=== PATIENT | male | born 1960 | race Caucasian/White ===

== ENCOUNTER → 2021-03-29 07:59 | Outpatient (CLI) | payer MEDICARE, MEDICAID, SELFPAY ==
--- NOTE | 2021-03-29 08:04 | CT_ITS ---
STUDY: CT FACIAL BONES WITHOUT CONTRAST REASON FOR EXAM: Male, 60 years old. Pain and swelling RADIATION DOSAGE (If Supplied By Facility): CTDIvol = ( 25.01 ) mGy, DLP = ( 517.39 ) mGycm TECHNIQUE: The patient was scanned in a multi detector CT scanner. Sagittal and coronal images were reconstructed. Individualized dose optimization techniques were used for this CT. COMPARISON: None. FINDINGS: Normal soft tissue structures. The bones are diffusely demineralized. There are multiple areas of erosions around the roots of teeth on both halves of the mandible consistent with periodontitis. Dental consultation recommended. No CT evidence of erosions in the maxilla. There is no demonstrated nasal, or zygomatic arch fracture. No evidence of orbital or maxillary sinus fracture. The ethmoids are intact. No significant mucosal thickening in the paranasal sinuses. CT/Sinus/Facial Bone IMPRESSION: No demonstrated fracture or suspicious osseous lesion Periodontitis noted throughout the mandible, dental consultation recommended No significant soft tissue swelling or foreign body Electronically Signed: Fred Delvalle MD at 10:37 EDT , Service support ,
== END ==
PROVIDERS: PCP Family Medicine; Referring Provider Family Medicine; Visit Provider Family Medicine
DX: R22.0 Localized swelling, mass and lump, head (principal); R51.9 Headache, unspecified
CPT/HCPCS: 70486

== ENCOUNTER 2021-09-27 04:14 | Outpatient (REF) | payer SELFPAY | END 2021-09-27 23:59 | disposition short-term general hospital (02) | LOC: OLS.AHA 04:14 | PROVIDERS: PCP Family Medicine; Visit Provider Family Medicine | DX: Z51.81 Encounter for therapeutic drug level monitoring (principal); Z79.899 Other long term (current) drug therapy | CPT/HCPCS: 82140 ==

== ENCOUNTER 2021-11-11 21:16 | Inpatient (IN) | payer MEDICARE, MEDICAID, SELFPAY ==
[2021-11-11] VITALS (9 sets, daily range): BP systolic 125–149; BP diastolic 83–112; PULSE 70–85; RESP 16–24; TEMP 35.6–36.5; O2SAT 96–100; BMI 26.8
--- NOTE | 2021-11-11 21:24 | CM.ED ---
REGINA Note: REGINA called Oneida Roman [phone] who is listed as his guardian. The voice mail said that if it is an emergency press 0. SW pressed 0 and was transferred to [facility]. REGINA advised that patient was brought to the ED. Information was that he was a full arrest. Patient was being treated as a stroke alert. REGINA is calling for permission to treat. Terri PRATER
--- NOTE | 2021-11-11 21:28 | EKG12_ITS ---
Test Reason : AMS Blood Pressure : / mmHG Vent. Rate : 087 BPM Atrial Rate : 087 BPM P-R Int : 150 ms QRS Dur : 094 ms QT Int : 400 ms P-R-T Axes : 072 060 061 degrees QTc Int : 481 ms Normal sinus rhythm Low voltage QRS (Limb Leads) Prolonged QT Abnormal ECG Confirmed by ELAYNE CHILD, ARTEMIO ([id number]), book or script editor TINA SPRINGER ([id number]) on 11/14/2021 10:04:30 AM Referred By: ARLEEN Confirmed By:ARTEMIO HOLLY MD
--- NOTE | 2021-11-11 21:28 | CT_ITS ---
INDICATION: Neuro deficit, acute, stroke suspected EXAMINATION: CT BRAIN - CT Head Stroke Protocol W/O Contrast Injection TECHNIQUE: Multiple axial images were obtained of the head without intravenous contrast. A radiation dose optimization technique was used for this scan. IV Contrast dosage and agent: None. COMPARISON: Facial CT 02/27/2021. FINDINGS: BRAIN PARENCHYMA: No intra- or extra-axial hemorrhage. No intracranial mass or mass effect. Painter/white matter differentiation is maintained and there is no blurring of the basal ganglia. There is no hyperdense vessel. Posterior fossa structures are unremarkable. CSF SPACES: Appropriate for age. No hydrocephalus. Basal cisterns are uneffaced. CALVARIUM, SKULL BASE, PARANASAL SINUSES AND MASTOID AIR CELLS: There is some opacification of right maxillary sinus outflow tract and coastal thickening of the ethmoid sinuses. Right frontoethmoidal recess is partially opacified. Right nasal airway is also opacified. The sinus disease is new compared to prior CT face. No discrete lytic or blastic abnormalities. ORBITS: Evidence of remote bilateral orbital fractures medial ornelas and probable inferior right orbital wall fracture. ASPECTS Score for Acute Strokes: 10 CT/STROKE Brain/Head without Cont IMPRESSION: No acute intracranial pathology. Paranasal sinus disease. Remote orbital fractures. N.B. : The above Results were Read Back by Gerard Ramírez DO to Mohan Gallo MD, and understanding confirmed on 11/11/2021 22:03:17 (ET). Electronically Signed: Gerard Ramírez DO at 22:04 EDT ,
--- NOTE | 2021-11-11 21:34 | CM.ED ---
SW Note REGINA spoke to Razia Real at [facility]. She gave permission to treat to this senior copywriter and RN Folrentin Leiva. Razia said that any updates need to be called to [phone]. REGINA updated bird sitter and Registration. Terri PRATER
--- NOTE | 2021-11-11 21:35 | EX.ED.CRITCA ---
HPI History of Present Illness Chief Complaint: Neuro S/Sx Informant: EMS Narrative Narrative: History is severely limited. Patient is nonverbal. History comes through EMS. Per EMS, this patient was evidently found on the ground off of his bed. His roommate had called that something was wrong. He is at a alf facility. He had fallen onto the ground at some point. They found him to be unresponsive and the nursing facility staff started CPR. I do not know if they checked for respirations or pulse. When EMS arrived, they checked her pulse and he had a normal pulse and has been in normal sinus rhythm the entire time for them. However, he has still been minimally responsive verbally. But he is moving all extremities. There was suspicion of left facial droop and evidently nursing staff that they do not recall seeing any facial changes. For this reason he was also called in his possible stroke. He also had loss of stool and I think loss of bladder. I see that he is on Depakote but I do not see a history of seizure. However he has a history of traumatic brain injury and subdural. I do not know the year of this. I do not think this is a good TPA candidate. He has had a subdural, he had a fall today and is already had CPR. The only neurologic deficit that has ever been seen that is focal is the facial weakness. Patient has history of cardiac arrest reported on his sheet. He has schizophrenia, full diagnoses and meds are being put in the computer. I do not see any anticoagulation. He lives full-time at a skilled facility. [facility] Medical History Cardiac arrest Depression Diabetes Essential hypertension GERD (gastroesophageal reflux disease) Hyperlipidemia Ileus Open wound of abdominal wall Schizoaffective disorder Traumatic subdural hemorrhage Home Medications atorvastatin 10 mg DAILY 11/11/21 [History Last Taken Unknown] clozapine 100 mg DAILY 11/11/21 [History Last Taken Unknown] clozapine 300 mg PO BID 11/11/21 [History Last Taken Unknown] divalproex 250 mg PO TID 11/11/21 [History Last Taken Unknown] glycopyrrolate 2 mg DAILY 11/11/21 [History Last Taken Unknown] hydroxyzine HCl 50 mg DAILY 11/11/21 [History Last Taken Unknown] lactulose 20 g BID 11/11/21 [History Last Taken Unknown] metformin 1,000 mg PO BID 11/11/21 [History Last Taken Unknown] paliperidone [Invega] 3 mg PO DAILY 11/11/21 [History Last Taken Unknown] tamsulosin [Flomax] 0.4 mg PO QHS 11/11/21 [History Last Taken Unknown] tiotropium bromide [Spiriva with HandiHaler] 1 cap INHALATION DAILY 11/11/21 [History Last Taken Unknown] trazodone 50 mg PO DAILY 11/11/21 [History Last Taken Unknown] ziprasidone HCl [Geodon] 20 mg PO DAILY PRN 11/11/21 [History Last Taken Unknown] ziprasidone HCl [Geodon] 80 mg PO BID 11/11/21 [History Last Taken Unknown] Allergy/AdvReac Type Severity Reaction Status Date / Time benztropine Allergy PT UNSURE Verified 11/11/21 21:39 OF REACTION haloperidol [From Haldol] Allergy PT UNSURE Verified 11/11/21 21:39 OF REACTION Social History Smoking Status: Current every day smoker tobacco type: cigarettes ROS ROS ED ROS Narrative Review of systems is unobtainable other than the information placed in the history of present illness. Patient is acutely ill and nonverbal at this time. Review of Systems ROS Unobtainable: other Details: See above. EXAM Physical Exam Const Vital Signs: 11/11/21 21:18 11/11/21 21:28 11/11/21 21:37 Temperature 97.7 F L 97.5 F L Temperature Source Temporal Temporal Pulse Rate 70 84 Respiratory Rate 24 H 17 Blood Pressure 125/83 H 138/112 H Blood Pressure Mean 97 120 Pulse Ox 100 96 98 Oxygen Delivery Method Ambu-Bag Nasal Cannula Nasal Cannula Oxygen Flow Rate (L/min) 4 4 11/11/21 21:38 11/11/21 21:45 11/11/21 21:58 Temperature 97.7 F L 96.9 F L Temperature Source Temporal Temporal Pulse Rate 70 83 Respiratory Rate 24 H 19 H Blood Pressure 125/83 H 139/92 H Blood Pressure Mean 97 107 Pulse Ox 97 97 97 Oxygen Delivery Method Nasal Cannula Nasal Cannula Nasal Cannula Oxygen Flow Rate (L/min) 4 4 4 11/11/21 22:28 11/11/21 22:36 Temperature 96.4 F L 96.0 F L Temperature Source Core Core Pulse Rate 82 85 Respiratory Rate 16 18 Blood Pressure 149/102 H 147/99 H Blood Pressure Mean 117 115 Pulse Ox 98 96 Oxygen Delivery Method Room Air Nasal Cannula Oxygen Flow Rate (L/min) 4 Positive well nourished and well developed Constitutional Narrative: When I walk in the room patient is moving all extremities quite well and equally. He does have signs of light tamayo stool that was lost. He has moisture that could be stool or urine. I see no gross trauma. Ambo plate bag is placed on him and but he has 100% saturations with this. He has a pulse of about 70-75 on the monitor. Blood pressure 125/83. General Appearance ED: well developed HEENT HEENT Narrative: I do not see any gross trauma on his head that has developed at this time. normocephalic and atraumatic Eyes PERRL and EOMs intact bilaterally Eyes Narrative: Pupils are about 2-1/2 mm and are reactive. He is looking midpoint. When I call his name he does look over at me but he does not speak. To confrontation he seems to have some intact visual field. However, this exam is difficult. Neck supple Neck Narrative: No gross tenderness. No step-off. No subcu air. Chest Wall Chest Narrative: No chest wall crepitance is felt. No subcutaneous air. Resp Resp Narrative: Lungs are clear. Patient is breathing spontaneously. He is maintaining saturations at this time with oxygen through an Ambu bag that is held over him. We will see if we can wean off his oxygen. Cardio regular rate, regular rhythm and no murmurs GI non-tender and non-distended GI Narrative: Large well-healed central scar. No notable tenderness or distention. Palpation: soft Back/Spine no CVA tenderness Neuro Neuro Narrative: Patient is awake. He is breathing on his own. He is moving all extremities. He does look over at me. His eyes are spontaneously open somewhat. He does look over at me. When we talk to him he attempts to talk but makes incomprehensible sounds. He clearly withdraws from pain. I do not think he localizes pain. Total GCS 10. NIH stroke scale was extremely difficult to assess. He does get a score of 10. However, most of this is due to to decreased responsiveness. I am not seeing lateralizing signs. I see a scar in his right upper eyelid and appears to be a scar on his left upper lip. But I do not see true facial asymmetry. When he swallows both corners of his mouth arise. There is no differential in his face at rest. I do not see indication of a facial droop. 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 He states that the patient will talk and converse somewhat. But he is normally more alert than this. But the patient also has a history of hoarding drinks from other people in the facility and then he will drink them in a walk one time. 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 My suspicion is that the patient may have had a seizure but may have also just had unresponsive episode due to his severe hyponatremia. I did discuss the case with the stroke neurologist. They recommended to do a CTA just out of thoroughness. But this is not a TPA candidate. Since he is not actively seizing and we now have no documented seizure they recommended not doing 3% normal saline. We did give 0.9% normal saline. They did recommend Keppra precaution early until his sodium is up. Depakote level is low. Lactate area is just 2.0. Prolactin is up a little bit at 26.8. My suspicion is that this patient may have had a seizure due to severe hyponatremia. However, these are not continuing. There is no sign of seizure. There is no eye deviation. He will look at me when I say his name but I cannot get a lot more specific action out of him. His temperature was also slightly low at 96-97. We are warming him up as part of overall therapy. We have ordered a CTA but this is pending. Chest x-ray is also pending. Patient's vitals have been stable here. He is saturating fine. Blood pressure heart rate and respiratory rate are all good. I think this patient does need to come in the hospital. He will need his sodium slowly raised. I did start Keppra as recommended by neurology. It is possible that this patient is hyponatremic due to psychogenic polydipsia. However this is not certain at this time. I did discuss the case with hospitalist. Lab Data Attestation: I reviewed the patient's lab results. Labs: Laboratory Results - last 24 hr 11/11/21 11/11/21 11/11/21 21:22 21:22 21:22 WBC 9.0 RBC 3.93 L Hgb 12.0 L Hct 34.0 L MCV 86.5 MCH 30.5 MCHC 35.3 RDW Std Deviation 43.8 RDW Coeff of Zane 13.7 Plt Count 202 MPV 9.7 Immature Gran % (Auto) 0.400 Neut % (Auto) 71.4 H Lymph % (Auto) 19.0 Rhea % (Auto) 7.9 Eos % (Auto) 0.9 Baso % (Auto) 0.4 Absolute Neuts (auto) 6.4 Absolute Lymphs (auto) 1.70 Nucleated RBC % 0 PT 13.4 INR 1.1 APTT 32.1 Sodium 115 L* Potassium 3.7 Chloride 78 L Carbon Dioxide 26.0 Anion Gap 11 BUN 5 L Creatinine 0.62 L Estim Creat Clear Calc 124.11 Est GFR (MDRD) Af Amer 169 Est GFR (MDRD) Non-Af 140 BUN/Creatinine Ratio 8.0 L Glucose 128 H Lactic Acid Calcium 7.4 L Total Bilirubin 0.40 AST 18 ALT 16 Alkaline Phosphatase 59 Troponin I High Sens 6 Total Protein 5.5 L Albumin 2.8 L Globulin 2.7 Albumin/Globulin Ratio 1.0 Prolactin 26.8 Valproic Acid POC Glucose 11/11/21 11/11/21 11/11/21 21:22 21:27 21:55 WBC RBC Hgb Hct MCV MCH MCHC RDW Std Deviation RDW Coeff of Zane Plt Count MPV Immature Gran % (Auto) Neut % (Auto) Lymph % (Auto) Rhea % (Auto) Eos % (Auto) Baso % (Auto) Absolute Neuts (auto) Absolute Lymphs (auto) Nucleated RBC % PT INR APTT Sodium Potassium Chloride Carbon Dioxide Anion Gap BUN Creatinine Estim Creat Clear Calc Est GFR (MDRD) Af Amer Est GFR (MDRD) Non-Af BUN/Creatinine Ratio Glucose Lactic Acid 2.0 Calcium Total Bilirubin AST ALT Alkaline Phosphatase Troponin I High Sens Total Protein Albumin Globulin Albumin/Globulin Ratio Prolactin Valproic Acid 36 L POC Glucose 160 H Radiography Diagnostic Testing: Clinical Impression(s) from Imaging Studies Brain CT 11/11/21 21:28 IMPRESSION: No acute intracranial pathology. Paranasal sinus disease. Remote orbital fractures. N.B. : The above Results were Read Back by Gerard Ramírez DO to Mohan Gallo MD, and understanding confirmed on 11/11/2021 22:03:17 (ET). Electronically Signed: Gerard Ramírez DO at 22:04 EDT , ADDENDUM: 11/11/212210 IMPRESSION: No acute intracranial pathology. Paranasal sinus disease. Remote orbital fractures. N.B. : The above Results were Read Back by Gerard Ramírez DO to Mohan Gallo MD, and understanding confirmed on 11/11/2021 22:03:17 (ET). Electronically Signed: Gerard Ramírez DO at 22:04 EDT , EKG Initial EKG: Comments: EKG done with history of CPR. EKG read by me shows normal sinus rhythm with a rate of 87. No ventricular ectopy. No acute ST elevation or depression. AR interval, QRS duration are normal. QTc is slightly long at 481 ms. Critical Care Time Critical Care Time: Yes Critical care time (excluding procedures): 30-74 minutes, Discussing w/Consultants, Arranging Admission or Transfer, Performing Direct Patient Care at Bedside and - (See MDM. Multiple rechecks, altering therapy, discussion with hospitalist and neurologist, improvement.) Discharge Plan Dx/Rx/DC Orders Clinical Impression: Acute hyponatremia, History of successful cardiopulmonary resuscitation, Elevated lactic acid level, Elevated prolactin level Disposition Disposition: Acute Care [facility]
[2021-11-11 21:37] LABS: Absolute Neutrophil Count 6.4 X10^3/uL (2.0-7.7); Basophil# 0.04 X10^3/uL; Basophil% 0.4 % (0-1); Eosinophil# 0.08 X10^3/uL; Eosinophils% 0.9 % (0-5); Mean Corp Hgb Conc 35.3 g/dL (32-36); Mean Corpuscular Hgb 30.5 pg (27.0-32.0); Mean Corpuscular Volume 86.5 fL (80-94); Mean Platelet Vol. 9.7 fl (6.2-12.0); Monocyte# 0.71 X10^3/uL; Monocyte% 7.9 % (0-10); NRBC Flagged by Analyzer 0 % (0-5); Neutrophil % 71.4 % (47-70); Platelet Count 202 K/mm3 (150-450); RBC Distribution Width CV 13.7 % (11.6-14.6); RBC Distribution Width SD 43.8 fl (35.1-43.9); Red Blood Count 3.93 M/mm3 (4.6-6.2)
[2021-11-11 21:41] LABS: International Normalized Ratio 1.1; Prothrombin Time (Protime)PT. 13.4 SECONDS (11.7-14.9)
[2021-11-11 21:42] LABS: Partial Thromboplast Time 32.1 Seconds (24.1-36.2)
--- NOTE | 2021-11-11 21:50 | ED.RN ---
Addendum entered by Dianne Ramírez 11/11/21 21:52: pt also in restraints for combativeness for pt and staff safety. see NIH on arrival, unable to fully complete. Original Note: on arrival to ED pt was not able to go straight to CT scan, d/t needing to secure and protect airway. being bagged on arrival and agonal breathing. now on 4L NC, minimally responding. incontinent of stool prior to CT scan, and vomitting.
[2021-11-11 21:51] LABS: Bedside Glucose 160 mg/dL (74-106)
[2021-11-11 21:54] LABS: Valproic Acid (Depakene) Level 36 ug/mL (50-100)
[2021-11-11 21:58] LABS: AST(SGOT) 18 U/L (15-37); Alanine Aminotransfer ALT/SGPT 16 U/L (16-61); Albumin, Serum 2.8 g/dL (3.2-5.0); Alkaline Phosphatase 59 U/L (45-117); Anion Gap 11 (5-15); BUN 5 mg/dL (7-18); Calcium,Total 7.4 mg/dL (8.5-10.1); Chloride 78 mmol/L (98-107); Creatinine, Serum 0.62 mg/dL (0.70-1.30); EST Glomerular Filtration Rate 140 mL/min (>60); Est Glom Filt Rate - Afr Amer 169 mL/min (>60); Estimated Creatinine Clearance 124.11 ml/min; Globulin 2.7 g/dL (2.2-4.2); Glucose 128 mg/dL (74-106); Potassium 3.7 mmol/L (3.5-5.1); Prolactin 26.8 ng/mL; Protein, Total 5.5 g/dL (6.4-8.2); Sodium Level 115 mmol/L (136-145); Troponin-I HS 6 pg/mL (3.0-78.0)
[2021-11-11] MEDS: Ondansetron 4 MG/2 ML Vial IV (21:59)
--- NOTE | 2021-11-11 22:09 | CT_ITS ---
EXAM: CT ANGIOGRAPHY HEAD AND NECK WITH INTRAVENOUS CONTRAST CLINICAL INDICATION: Neuro deficit, acute, stroke suspected TECHNIQUE: [place]/head and neck CT angiography protocol performed with intravenous contrast. CTDIvol = ( 22.08 ) mGy, DLP = ( 632.71 ) mGycm This CT exam was performed using one or more of the following dose reduction techniques: automated exposure control, adjustment of the mA and/or kV according to patient size, and/or use of iterative reconstruction technique. This report was created using [employer] report generation technology. MIP reconstructed images were created and reviewed. CONTRAST: IV 100mL [id number] COMPARISON: None. FINDINGS: HEAD: RIGHT ANTERIOR CEREBRAL ARTERY: Unremarkable. No significant stenosis at the visualized segments. Anterior communicating artery is present. No aneurysm. RIGHT MIDDLE CEREBRAL ARTERY: Unremarkable. No significant stenosis at the visualized segments. No aneurysm. RIGHT POSTERIOR CEREBRAL ARTERY: Unremarkable. No occlusion or significant stenosis. No aneurysm. RIGHT INTRACRANIAL INTERNAL CAROTID ARTERY: Unremarkable. No significant stenosis. No dissection or occlusion. RIGHT INTRACRANIAL VERTEBRAL ARTERY: Unremarkable. No significant stenosis. No dissection or occlusion. LEFT ANTERIOR CEREBRAL ARTERY: Unremarkable. No significant stenosis at the visualized segments. No aneurysm. LEFT MIDDLE CEREBRAL ARTERY: Unremarkable. No significant stenosis at the visualized segments. No aneurysm. LEFT POSTERIOR CEREBRAL ARTERY: Unremarkable. No occlusion or significant stenosis. No aneurysm. LEFT INTRACRANIAL INTERNAL CAROTID ARTERY: Unremarkable. No significant stenosis. No dissection or occlusion. LEFT INTRACRANIAL VERTEBRAL ARTERY: Unremarkable. No significant stenosis. No dissection or occlusion. BASILAR ARTERY: Unremarkable. No significant stenosis. No aneurysm. GREAT VESSELS OF AORTIC ARCH: Unremarkable. Normal anatomy, patent. OTHER VASCULATURE: No significant stenosis, thrombosis, aneurysm or dissection. No vascular malformation. BRAIN AND EXTRA-AXIAL SPACES: Diffuse parenchymal atrophy and chronic ischemic small vessel white matter disease without midline shift or hydrocephalus. SINUSES: Mild scattered paranasal sinus mucosal thickening. NECK: Atherosclerotic calcification along the right greater than left carotid siphon with no more than mild luminal narrowing. RIGHT COMMON CAROTID ARTERY: Unremarkable. No significant stenosis. No dissection or occlusion. RIGHT EXTRACRANIAL INTERNAL CAROTID ARTERY: Unremarkable. No significant stenosis. No dissection or occlusion. RIGHT EXTERNAL CAROTID ARTERY: Unremarkable. No occlusion. RIGHT EXTRACRANIAL VERTEBRAL ARTERY: Unremarkable. No significant stenosis. No dissection or occlusion. LEFT COMMON CAROTID ARTERY: Unremarkable. No significant stenosis. No dissection or occlusion. LEFT EXTRACRANIAL INTERNAL CAROTID ARTERY: Unremarkable. No significant stenosis. No dissection or occlusion. LEFT EXTERNAL CAROTID ARTERY: Unremarkable. No occlusion. LEFT EXTRACRANIAL VERTEBRAL ARTERY: Unremarkable. No significant stenosis. No dissection or occlusion. THYROID: Calcified 9 mm nodule involving the left thyroid lobe. Noncalcified hypodense nodule measuring 1 cm involving the right thyroid lobe. These can be further investigated with ultrasound. LUNG APICES: Unremarkable as visualized. HEAD and NECK: BONES/JOINTS: Unremarkable. No discrete lytic or blastic abnormalities. SOFT TISSUES: Unremarkable. CAROTID STENOSIS REFERENCE USING NASCET CRITERIA: % ICA stenosis = (1 - narrowest ICA diameter/diameter of distal cervical ICA) x 100. Mild - <50% stenosis. Moderate - 50-69% stenosis. Severe - 70-94% stenosis. Near occlusion - 95-99% stenosis. Occluded - 100% stenosis. CT/STROKE CTA Head AND Neck W/Con IMPRESSION: 1. No significant stenosis, thrombosis, aneurysm or dissection. 2. Thyroid nodules as above. N.B. : The above Results were Read Back by John Willson MD to Lolly Cruz NP, and understanding confirmed on 11/12/2021 00:14:05 (ET). Electronically Signed: John Willson MD at 0:11 EDT ,
[2021-11-11] MEDS: 0.9% Normal Saline 1,000 ML 999 ML IV (22:18)
[2021-11-11] MEDS: levETIRAcetam IV 1,000 MG/100 ML BAG 400 MG IV ×2 (22:18→23:03)
--- NOTE | 2021-11-11 22:39 | ED.RN ---
lactate 2.0 called from lab. aware.
--- NOTE | 2021-11-11 22:41 | ED.RN ---
Called channel supervisor for guy burks and Dr Gallo is aware. Warm blankets applied. Will monitor,
--- NOTE | 2021-11-11 23:26 | PCM.HP.STD ---
HPI - General General Date of Admission: 11/11/21 HPI Narrative RANI DELEON, is a 61 M with a significant history of schizophrenia and traumatic brain injury who [facility] presenting with unresponsiveness. Reportedly patient roommates found patient on the floor near the bathroom. Patient's roommate informed nurses who checked on patient and found patient to be unresponsive. CPR was initiated. However it is unclear whether patient indeed lost his pulse and was not breathing. Reported when paramedics arrived CPR was not continued. Reportedly when patient was found patient had lost his bowel and bladder. Patient is on Depakote. 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 Emergent department doctor reported that upon urinary catheterization at the emergency department, patient had abut 1,800ml of urine. History was taken from emergency department doctor and psych nurse who was at the bedside. [facility]LY [facility], LATER [facility] Medical History Cardiac arrest Depression Diabetes Essential hypertension GERD (gastroesophageal reflux disease) Hyperlipidemia Ileus Open wound of abdominal wall Schizoaffective disorder Traumatic subdural hemorrhage Home Medications atorvastatin 10 mg DAILY 11/11/21 [History Last Taken Unknown] clozapine 100 mg DAILY 11/11/21 [History Last Taken Unknown] clozapine 300 mg PO BID 11/11/21 [History Last Taken Unknown] divalproex 250 mg PO TID 11/11/21 [History Last Taken Unknown] glycopyrrolate 2 mg DAILY 11/11/21 [History Last Taken Unknown] hydroxyzine HCl 50 mg DAILY 11/11/21 [History Last Taken Unknown] lactulose 20 g BID 11/11/21 [History Last Taken Unknown] metformin 1,000 mg PO BID 11/11/21 [History Last Taken Unknown] paliperidone [Invega] 3 mg PO DAILY 11/11/21 [History Last Taken Unknown] tamsulosin [Flomax] 0.4 mg PO QHS 11/11/21 [History Last Taken Unknown] tiotropium bromide [Spiriva with HandiHaler] 1 cap INHALATION DAILY 11/11/21 [History Last Taken Unknown] trazodone 50 mg PO DAILY 11/11/21 [History Last Taken Unknown] ziprasidone HCl [Geodon] 20 mg PO DAILY PRN 11/11/21 [History Last Taken Unknown] ziprasidone HCl [Geodon] 80 mg PO BID 11/11/21 [History Last Taken Unknown] Allergy/AdvReac Type Severity Reaction Status Date / Time benztropine Allergy PT UNSURE Verified 11/11/21 21:39 OF REACTION haloperidol [From Haldol] Allergy PT UNSURE Verified 11/11/21 21:39 OF REACTION Family History unable to obtain unable to obtain (Secondary to encephalopathy) Surgical History unable to obtain unable to obtain (secondary to encephalopathy) Social History Smoking Status: Current every day smoker tobacco type: cigarettes ROS ROS Narrative Pertinent positives and pertinent negatives that could be provided by patient's facility nurse is as noted in HPI. All other systems were reviewed patient's nurse did not know or they were negative. Review of Systems ROS Unobtainable: due to mental condition and other Details: Pertinent positives and pertinent negatives that could be provided by patient's facility nurse is as noted in HPI. All other systems were reviewed patient's nurse did not know or they were negative. Vital Signs Vital Signs Vital Signs: 11/11/21 21:18 11/11/21 21:28 11/11/21 21:37 Temperature 97.7 F L 97.5 F L Temperature Source Temporal Temporal Pulse Rate 70 84 Respiratory Rate 24 H 17 Blood Pressure 125/83 H 138/112 H Blood Pressure Mean 97 120 Pulse Ox 100 96 98 Oxygen Delivery Method Ambu-Bag Nasal Cannula Nasal Cannula Oxygen Flow Rate (L/min) 4 4 11/11/21 21:38 11/11/21 21:45 11/11/21 21:58 Temperature 97.7 F L 96.9 F L Temperature Source Temporal Temporal Pulse Rate 70 83 Respiratory Rate 24 H 19 H Blood Pressure 125/83 H 139/92 H Blood Pressure Mean 97 107 Pulse Ox 97 97 97 Oxygen Delivery Method Nasal Cannula Nasal Cannula Nasal Cannula Oxygen Flow Rate (L/min) 4 4 4 11/11/21 22:28 11/11/21 22:36 11/11/21 23:19 Temperature 96.4 F L 96.0 F L 96.5 F L Temperature Source Core Core Core Pulse Rate 82 85 79 Respiratory Rate 16 18 18 Blood Pressure 149/102 H 147/99 H 138/97 H Blood Pressure Mean 117 115 110 Pulse Ox 98 96 99 Oxygen Delivery Method Room Air Nasal Cannula Nasal Cannula Oxygen Flow Rate (L/min) 4 4 Weight Weight: 80 kg Body Mass Index (BMI) 26.8 Physical Exam Narrative Physical exam: General: Well-nourished, well-developed. Head: Normocephalic, no tenderness Eyes: Eyes closed; does not open eyes. Neck: Nontender, no spinal tenderness, deformities, step-off CVS: Regular rate and rhythm. S1-S2 present. No murmur, gallop or rub. Respiratory : clear to auscultation bilaterally, chest wall nontender, no wheezing Abdomen: Soft, nontender, nondistended, normal bowel sounds, no masses : Deferred Back: Nontender, no CVA tenderness, no midline spinal tenderness, deformities, step-offs Extremities: Nontender; no edema Skin: Normal color, no trauma, abrasions Neuro: Obtunded; respond to sternal rub by moaning and throwing extremities around Psychiatry:Obtunded. Results Lab / Micro Data Result Diagrams: 11/11/21 21:22 11/11/21 21:22 Labs: Laboratory Results - last 24 hr 11/11/21 21:22: WBC 9.0, RBC 3.93 L, Hgb 12.0 L, Hct 34.0 L, MCV 86.5, MCH 30.5, MCHC 35.3, RDW Std Deviation 43.8, RDW Coeff of Zane 13.7, Plt Count 202, MPV 9.7, Immature Gran % (Auto) 0.400, Neut % (Auto) 71.4 H, Lymph % (Auto) 19.0, [place] % (Auto) 7.9, Eos % (Auto) 0.9, Baso % (Auto) 0.4, Absolute Neuts (auto) 6.4, Absolute Lymphs (auto) 1.70, Nucleated RBC % 0 11/11/21 21:: PT 13.4, INR 1.1, APTT 32.1 11/11/21 21:22: Sodium 115 L*, Potassium 3.7, Chloride 78 L, Carbon Dioxide 26.0, Anion Gap 11, BUN 5 L, Creatinine 0.62 L, Estim Creat Clear Calc 124.11, Est GFR (MDRD) Af Amer 169, Est GFR (MDRD) Non-Af 140, BUN/Creatinine Ratio 8.0 L, Glucose 128 H, Calcium 7.4 L, Total Bilirubin 0.40, AST 18, ALT 16, Alkaline Phosphatase 59, Troponin I High Sens 6, Total Protein 5.5 L, Albumin 2.8 L, Globulin 2.7, Albumin/Globulin Ratio 1.0, Prolactin 26.8 11/11/21 21:22: Valproic Acid 36 L 11/11/21 21:27: POC Glucose 160 H 11/11/21 21:55: Lactic Acid 2.[address] 11/11/21 21:28 IMPRESSION: No acute intracranial pathology. Paranasal sinus disease. Remote orbital fractures. N.B. : The above Results were Read Back by Gerard Ramírez DO to Mohan Gallo MD, and understanding confirmed on 11/11/2021 22:03:17 (ET). Electronically Signed: Gerard Ramírez DO at 22:04 EDT , ADDENDUM: 11/11/212210 IMPRESSION: No acute intracranial pathology. Paranasal sinus disease. Remote orbital fractures. N.B. : The above Results were Read Back by Gerard Ramírez DO to Mohan Gallo MD, and understanding confirmed on 11/11/2021 22:03:17 (ET). Electronically Signed: Gerard Ramírez DO at 22:04 EDT , Assessment & Plan Assessment/Plan (1) Acute hyponatremia: (2) Encephalopathy acute: (3) Seizures: PLAN: Acute encephalopathy Brain CT was visualized and independently interpreted and agree radiologist interpretation above. Per neurology recommendation CTA was ordered emergency department, follow. Likely from seizures or hyponatremia Admitting intensive care unit Make patient n.p.o. and hold all medication including psychotropic medications and trazodone. Treatment as below. Hyponatremia Sodium on presentation was 115. Emergency plan doctor discussed the case with neurology who advised against hypertonic saline. Patient received normal saline infusion emergency department. Normal saline infusion will be continued. Serial BMPs ordered. Check uric acid Check urine osmolarity Check urine sodium Check serum osmolality Suspected seizures Received Keppra at the emergency department and continued. Will start patient on normal saline. Check EEG. Diabetes mellitus Patient with mild hyperglycemia on presentation Hold Metformin. Accu-Chek every 6 hours with correction scale insulin ordered DVT prophylaxis SCD. Charges/Coding Visit Charges Inpatient E&M: 61679 Init Hosp L3
--- NOTE | 2021-11-11 23:42 | RAD_ITS ---
EXAM: XR CHEST, 1 VIEW CLINICAL INDICATION: Neuro deficit, acute, stroke suspected TECHNIQUE: Frontal view of the chest. This report was created using [employer] report generation technology. COMPARISON: None. FINDINGS: LUNGS AND PLEURAL SPACES: Elevated left hemidiaphragm. Subsegmental atelectasis and/or scarring at the left base. No consolidation. No pleural effusion or pneumothorax. HEART: Unremarkable. Cardiac silhouette not enlarged. MEDIASTINUM: Central airways and mediastinal contour are unremarkable. BONES/JOINTS: Degenerative changes of the acromioclavicular joints and spine. Multiple old healed left rib fractures. SOFT TISSUES: Unremarkable. VASCULATURE: Atherosclerotic calcifications of the nonenlarged thoracic arch. RAD/Chest 1 View IMPRESSION: No acute disease. Electronically Signed: John Willson MD at 0:26 EDT ,
[2021-11-12] VITALS (35 sets, daily range): BP systolic 109–140; BP diastolic 74–111; PULSE 71–106; RESP 12–93; TEMP 35.9–37.7; O2SAT 90–100; BMI 22.1
[2021-11-12] MEDS: 0.9% Normal Saline 1,000 ML 75 ML IV (00:50)
[2021-11-12] MEDS: Ziprasidone IM 20 MG/ML VIAL IM (02:15)
[2021-11-12 02:17] LABS: Reflex Lactate? Y
[2021-11-12 05:46] LABS: Specific Gravity, Body Fluid 1.009
[2021-11-12 05:49] LABS: Absolute Lymphocyte Count 1.51 X10^3/uL (0.83-4.51); Absolute Neutrophil Count 12.3 X10^3/uL (2.0-7.7); Basophil# 0.03 X10^3/uL; Basophil% 0.2 % (0-1); Eosinophil# 0.08 X10^3/uL; Eosinophils% 0.5 % (0-5); Hemoglobin 13.5 g/dL (13.0-16.5); Lymphocyte # 1.51 X10^3/ul (0.83-4.51); Lymphocyte % 10.2 % (19-41); Mean Corp Hgb Conc 35.5 g/dL (32-36); Mean Corpuscular Hgb 30.3 pg (27.0-32.0); Mean Corpuscular Volume 85.2 fL (80-94); Mean Platelet Vol. 9.9 fl (6.2-12.0); Monocyte# 0.83 X10^3/uL; Monocyte% 5.6 % (0-10); NRBC Flagged by Analyzer 0 % (0-5); Neutrophil # 12.34 X10^3/uL (2.7-7.7); Neutrophil % 83.2 % (47-70); Platelet Count 258 K/mm3 (150-450); RBC Distribution Width CV 13.7 % (11.6-14.6); RBC Distribution Width SD 42.6 fl (35.1-43.9); Red Blood Count 4.46 M/mm3 (4.6-6.2); White Blood Count 14.8 K/mm3 (4.4-11.0)
[2021-11-12 05:55] LABS: Anion Gap 7 (5-15); BUN 5 mg/dL (7-18); BUN/Creat Ratio 9.8 RATIO (10-20); Chloride 94 mmol/L (98-107); Cholesterol 97 mg/dL (200); Creatinine, Serum 0.51 mg/dL (0.70-1.30); EST Glomerular Filtration Rate 176 mL/min (>60); Est Glom Filt Rate - Afr Amer 213 mL/min (>60); Estimated Creatinine Clearance 150.44 ml/min; Glucose 113 mg/dL (74-106); High Density Lipoprotein 60 mg/dL; Potassium 3.6 mmol/L (3.5-5.1); Sodium Level 130 mmol/L (136-145); Triglycerides 69 mg/dL; Very Low Density Lipoprotein 14 mg/dL (5-40)
[2021-11-12 06:49] LABS: Osmolality, Serum 251 mOsm/KG (275-295); Osmolality, Urine 101 mOsm/KG
[2021-11-12 06:54] LABS: Urine Sodium 39 mmol/L (Not Establ.)
--- NOTE | 2021-11-12 06:56 | CON.PCM.CC_ITS ---
Assessment & Plan Assessment/Plan (1) Acute hyponatremia: (2) Encephalopathy acute: (3) Seizures: PLAN: RECOMMENDATIONS: 1. Discontinue IV fluids 2. Water deprivation test for 8 hours with Osm studies 3. Continue to monitor BMPs 4. Empiric antibiotics for aspiration pneumonia 5. Attempt to discontinue restraints later today 6. Bedside swallow eval. Reinitiate baseline psychiatric meds 7. Continue work-up for central lesion as ordered IMPRESSIONS: 1. Acute hyponatremia with polyuria and possible seizure Patient with significant urine output over the course of the hospitalization. Patient does not have significant hyperglycemia to suggest an osmotic diuresis. Urine awesome's are very low, along with serum awesome's. Patient did have some hypokalemia, so potassium has been ordered. Patient did not have significant hypercalcemia. Psychogenic polydipsia and diabetes insipidus would be other possible etiologies. Patient should have a water deprivation test for 8 hours. If not improving, trial of DDAVP would be appropriate to evaluate for diabetes insipidus. Patient did receive Keppra in the ED, but this is unlikely to affect hyponatremic seizures. Work-up for secondary cause has been unremarkable. Cortisol level is appropriately elevated. MRI is pending. 2. Diabetes mellitus/schizoaffective disorder/history of TBI/hyperlipidemia/hypertension Complicates care, management, recovery and prognosis. Blood sugars are only mildly elevated at this time. Check bedside swallow evaluation. Patient likely should be continued on psychogenic medications given behavioral issues in the past. Patient currently is in two-point restraints, but will try to discontinue later today if behavior improves. HPI Consult Data Date of Consult: 11/12/21 HPI Narrative HPI Narrative: RANI DELEON is a 61 M, with past medical history listed below, who presents to [facility] from a skilled nursing secondary to decreased responsiveness. Patient reportedly had been found by his roommate unresponsive on the floor. Nursing staff reportedly started CPR immediately, but when EMS arrived patient reportedly had a pulse and was in normal sinus rhythm. However, they had noted that he was minimally responsive, but moving all extremities. There was some concern of a left facial droop, so the stroke team was activated. Patient reportedly had loss of bowel and bladder. Patient reportedly has a history of traumatic brain injury and a subdural hematoma, but no seizure history. Patient does have a history of schizophrenia requiring antipsychotics at baseline. In the ER, patient was afebrile and normotensive. Patient was requiring 4 L nasal cannula initially to maintain saturations. Laboratory work-up showed a white blood cell count of 9, hemoglobin of 12 and INR of 1.1. Sodium was low at 115 and glucose was 128. LFTs were unremarkable. Lactate was 2 and valproic level was 36. A CT of the head was unremarkable for acute pathology and EKG showed a slightly long QTC at 481. The patient was placed on normal saline and admitted to the intensive care unit. Patient was transiently in four-point restraints secondary to agitation. Since being in the intensive care unit, patient has become more responsive. There was some concern for a rash on his neck along with associated swelling. Patient did not receive any Benadryl or prednisone, but had not reported any significant progression. There was a discussion of emesis with possible aspiration prior to the ICU and nursing was concerned about possible respiratory difficulties. Patient is also put out over 9 L of urine since admission. Patient was initially on IV fluids at 75 cc an hour, but this was discontinued when the sodium came back at 130. No seizure activity has been noted in the intensive care unit. Unable to obtain a surgical, social or family history secondary to mental status. Review of systems otherwise negative from a constitutional, HEENT, respiratory, cardiovascular, GI, genitourinary, musculoskeletal, skin, neurologic, psychiatric and hematologic system unless stated above. [facility] Medical History Cardiac arrest Depression Diabetes Essential hypertension GERD (gastroesophageal reflux disease) Hyperlipidemia Ileus Open wound of abdominal wall Schizoaffective disorder Traumatic subdural hemorrhage Home Medications atorvastatin 10 mg DAILY 11/11/21 [History Last Taken Unknown] clozapine 100 mg DAILY 11/11/21 [History Last Taken Unknown] clozapine 300 mg PO BID 11/11/21 [History Last Taken Unknown] divalproex 250 mg PO TID 11/11/21 [History Last Taken Unknown] glycopyrrolate 2 mg DAILY 11/11/21 [History Last Taken Unknown] hydroxyzine HCl 50 mg DAILY 11/11/21 [History Last Taken Unknown] lactulose 20 g BID 11/11/21 [History Last Taken Unknown] metformin 1,000 mg PO BID 11/11/21 [History Last Taken Unknown] paliperidone [Invega] 3 mg PO DAILY 11/11/21 [History Last Taken Unknown] tamsulosin [Flomax] 0.4 mg PO QHS 11/11/21 [History Last Taken Unknown] tiotropium bromide [Spiriva with HandiHaler] 1 cap INHALATION DAILY 11/11/21 [History Last Taken Unknown] trazodone 50 mg PO DAILY 11/11/21 [History Last Taken Unknown] ziprasidone HCl [Geodon] 20 mg PO DAILY PRN 11/11/21 [History Last Taken Unknown] ziprasidone HCl [Geodon] 80 mg PO BID 11/11/21 [History Last Taken Unknown] Allergy/AdvReac Type Severity Reaction Status Date / Time benztropine Allergy PT UNSURE Verified 11/11/21 21:39 OF REACTION haloperidol [From Haldol] Allergy PT UNSURE Verified 11/11/21 21:39 OF REACTION Family History unable to obtain Surgical History unable to obtain Social History Smoking Status: Former smoker ROS ROS Narrative See HPI Physical Exam Const alert and no apparent distress General Appearance: frail and appears older than stated age Orientation / Consciousness: awake and oriented to person; Negative for oriented to place or oriented to time Nutritional Appearance: thin HEENT normocephalic and head/scalp atraumatic Eyes PERRL, EOMs intact bilaterally, conjunctivae normal and no scleral icterus Neck full ROM Chest palpation of chest normal Chest: symmetrical chest wall rise Resp Effort and Inspection: tachypneic Auscultation: rhonchi right lower; Negative for rales or wheezes Cardio regular rate, regular rhythm, S1 normal heart sound, S2 normal heart sound, no murmurs, no rub and no gallops GI normal to inspection, nondistended, normoactive bowel sounds Extremity no clubbing, cyanosis or edema Skin Skin Narrative: Slight erythema with possible hives at the neck Neuro CN's II-XII intact bilaterally and moves all extremities Psych cooperative Mood & Affect: flat affect Lab / Micro Data Result Diagrams: 11/12/21 04:30 11/12/21 04:30 Labs: Laboratory Results - last 24 hr 11/11/21 21:22: WBC 9.0, RBC 3.93 L, Hgb 12.0 L, Hct 34.0 L, MCV 86.5, MCH 30.5, MCHC 35.3, RDW Std Deviation 43.8, RDW Coeff of Zane 13.7, Plt Count 202, MPV 9.7, Immature Gran % (Auto) 0.400, Neut % (Auto) 71.4 H, Lymph % (Auto) 19.0, [place] % (Auto) 7.9, Eos % (Auto) 0.9, Baso % (Auto) 0.4, Absolute Neuts (auto) 6.4, Absolute Lymphs (auto) 1.70, Nucleated RBC % 0 11/11/21 21:22: PT 13.4, INR 1.1, APTT 32.1 11/11/21 21:22: Sodium 115 L*, Potassium 3.7, Chloride 78 L, Carbon Dioxide 26.0, Anion Gap 11, BUN 5 L, Creatinine 0.62 L, Estim Creat Clear Calc 124.11, Est GFR (MDRD) Af Amer 169, Est GFR (MDRD) Non-Af 140, BUN/Creatinine Ratio 8.0 L, Glucose 128 H, Calcium 7.4 L, Total Bilirubin 0.40, AST 18, ALT 16, Alkaline Phosphatase 59, Troponin I High Sens 6, Total Protein 5.5 L, Albumin 2.8 L, Globulin 2.7, Albumin/Globulin Ratio 1.0, Prolactin 26.8 11/11/21 21:22: Valproic Acid 36 L 11/11/21 21:27: POC Glucose 160 H 11/11/21 21:55: Lactic Acid 2.0 11/12/21 00:35: Serum Osmolality 251 L 11/12/21 00:35: Urine Osmolality 101, Ur Random Sodium 39 11/12/21 00:35: Fluid Specific Grav 1.009 11/12/21 04:30: Sodium 130 L, Potassium 3.6, Chloride 94 L, Carbon Dioxide 29.0, Anion Gap 7, BUN 5 L, Creatinine 0.51 L, Estim Creat Clear Calc 150.44, Est GFR (MDRD) Af Amer 213, Est GFR (MDRD) Non-Af 176, BUN/Creatinine Ratio 9.8 L, Glucose 113 H, Calcium 8.0 L, Triglycerides 69, Cholesterol 97, LDL Cholesterol 23, VLDL Cholesterol 14, HDL Cholesterol 60 11/12/21 04:30: Cortisol 20.50 11/12/21 04:30: Lactic Acid 1.0 11/12/21 04:30: WBC 14.8 H, RBC 4.46 L, Hgb 13.5, Hct 38.0 L, MCV 85.2, MCH 30.3, MCHC 35.5, RDW Std Deviation 42.6, RDW Coeff of Zane 13.7, Plt Count 258, MPV 9.9, Immature Gran % (Auto) 0.300, Neut % (Auto) 83.2 H, Lymph % (Auto) 10.2 L, [place] % (Auto) 5.6, Eos % (Auto) 0.5, Baso % (Auto) 0.2, Absolute Neuts (auto) 12.3 H, Absolute Lymphs (auto) 1.51, Nucleated RBC % [address] 11/11/21 21:28 IMPRESSION: No acute intracranial pathology. Paranasal sinus disease. Remote orbital fractures. N.B. : The above Results were Read Back by Gerard Ramírez DO to Mohan Gallo MD, and understanding confirmed on 11/11/2021 22:03:17 (ET). Electronically Signed: Gerard Ramírez DO at 22:04 EDT , ADDENDUM: 11/11/212210 IMPRESSION: No acute intracranial pathology. Paranasal sinus disease. Remote orbital fractures. N.B. : The above Results were Read Back by Gerard Ramírez DO to Mohan Gallo MD, and understanding confirmed on 11/11/2021 22:03:17 (ET). Electronically Signed: Gerard Ramírez DO at 22:04 EDT , Charges/Coding Visit Charges Inpatient E&M: 96531 Init Hosp L3
[2021-11-12 07:37] LABS: Anion Gap 6 (5-15); BUN 5 mg/dL (7-18); BUN/Creat Ratio 8.6 RATIO (10-20); Calcium,Total 7.4 mg/dL (8.5-10.1); Chloride 84 mmol/L (98-107); Creatinine, Serum 0.58 mg/dL (0.70-1.30); EST Glomerular Filtration Rate 152 mL/min (>60); Est Glom Filt Rate - Afr Amer 184 mL/min (>60); Estimated Creatinine Clearance 132.28 ml/min; Glucose 112 mg/dL (74-106); Potassium 3.1 mmol/L (3.5-5.1); Sodium Level 120 mmol/L (136-145)
[2021-11-12 07:39] LABS: Thyroid Stim Hormone (TSH) 2.97 uIU/mL (0.358-3.74); Troponin-I HS 7 pg/mL (3.0-78.0); Uric Acid 3.3 mg/dL (3.5-7.2)
--- NOTE | 2021-11-12 07:49 | PCM.PN.HOSP ---
Subjective Subjective Follow-up on unresponsiveness/acute severe hyponatremia: Patient seen and examined. He is alert, oriented to self. Overnight, patient was restrained as he was trying to get out of bed. He is in bilateral soft wrist restraints. He complains of pain in the right side of his chest. Objective Data Objective Data Vital Signs: Vital Signs Temp Pulse Resp BP Pulse Ox 97.7 F L 82 19 H 127/89 H 99 11/12/21 04:00 11/12/21 07:35 11/12/21 07:00 11/12/21 07:00 11/12/21 07:00 Oxygen Flow Rate (L/min) 19 Oxygen Delivery Method Nasal Cannula Weight: 68.2 kg Body Mass Index (BMI) 22.1 Intake & Output: Intake and Output for Last 24 Hours 11/10/21 11/11/21 11/12/21 23:59 23:59 23:59 Intake Total 1200 / 1200 425 / 425 Output Total 3700 / 3700 98056 / 61150 Balance -2500 / -2500 -50680 / -90542 Lab / Micro Data Result Diagrams: 11/12/21 04:30 11/12/21 14:30 Labs: Laboratory Results - last 24 hr 11/11/21 00:35: Uric Acid 3.3 L, Troponin I High Sens 7, TSH 2.97 11/11/21 21:22: WBC 9.0, RBC 3.93 L, Hgb 12.0 L, Hct 34.0 L, MCV 86.5, MCH 30.5, MCHC 35.3, RDW Std Deviation 43.8, RDW Coeff of Zane 13.7, Plt Count 202, MPV 9.7, Immature Gran % (Auto) 0.400, Neut % (Auto) 71.4 H, Lymph % (Auto) 19.0, [place] % (Auto) 7.9, Eos % (Auto) 0.9, Baso % (Auto) 0.4, Absolute Neuts (auto) 6.4, Absolute Lymphs (auto) 1.70, Nucleated RBC % 0 11/11/21 21:22: PT 13.4, INR 1.1, APTT 32.1 11/11/21 21:22: Sodium 115 L*, Potassium 3.7, Chloride 78 L, Carbon Dioxide 26.0, Anion Gap 11, BUN 5 L, Creatinine 0.62 L, Estim Creat Clear Calc 124.11, Est GFR (MDRD) Af Amer 169, Est GFR (MDRD) Non-Af 140, BUN/Creatinine Ratio 8.0 L, Glucose 128 H, Calcium 7.4 L, Total Bilirubin 0.40, AST 18, ALT 16, Alkaline Phosphatase 59, Troponin I High Sens 6, Total Protein 5.5 L, Albumin 2.8 L, Globulin 2.7, Albumin/Globulin Ratio 1.0, Prolactin 26.8 11/11/21 21:22: Valproic Acid 36 L 11/11/21 21:27: POC Glucose 160 H 11/11/21 21:55: Lactic Acid 2.0 11/12/21 00:35: Serum Osmolality 251 L 11/12/21 00:35: Sodium 120 L, Potassium 3.1 L, Chloride 84 L, Carbon Dioxide 30.0, Anion Gap 6, BUN 5 L, Creatinine 0.58 L, Estim Creat Clear Calc 132.28, Est GFR (MDRD) Af Amer 184, Est GFR (MDRD) Non-Af 152, BUN/Creatinine Ratio 8.6 L, Glucose 112 H, Calcium 7.4 L 11/12/21 00:35: Urine Osmolality 101, Ur Random Sodium 39 11/12/21 00:35: Fluid Specific Grav 1.009 11/12/21 04:30: Sodium 130 L, Potassium 3.6, Chloride 94 L, Carbon Dioxide 29.0, Anion Gap 7, BUN 5 L, Creatinine 0.51 L, Estim Creat Clear Calc 150.44, Est GFR (MDRD) Af Amer 213, Est GFR (MDRD) Non-Af 176, BUN/Creatinine Ratio 9.8 L, Glucose 113 H, Calcium 8.0 L, Triglycerides 69, Cholesterol 97, LDL Cholesterol 23, VLDL Cholesterol 14, HDL Cholesterol 60 11/12/21 04:30: Cortisol 20.50 11/12/21 04:30: Lactic Acid 1.0 11/12/21 04:30: WBC 14.8 H, RBC 4.46 L, Hgb 13.5, Hct 38.0 L, MCV 85.2, MCH 30.3, MCHC 35.5, RDW Std Deviation 42.6, RDW Coeff of Zane 13.7, Plt Count 258, MPV 9.9, Immature Gran % (Auto) 0.300, Neut % (Auto) 83.2 H, Lymph % (Auto) 10.2 L, [place] % (Auto) 5.6, Eos % (Auto) 0.5, Baso % (Auto) 0.2, Absolute Neuts (auto) 12.3 H, Absolute Lymphs (auto) 1.51, Nucleated RBC % 0 Radiography Diagnostic Testing: Radiology Impression Brain CT 11/11/21 21:28 IMPRESSION: No acute intracranial pathology. Paranasal sinus disease. Remote orbital fractures. N.B. : The above Results were Read Back by Gerard Ramírez DO to Mohan Gallo MD, and understanding confirmed on 11/11/2021 22:03:17 (ET). Electronically Signed: Gerard Ramírez DO at 22:04 EDT , ADDENDUM: 11/11/212210 IMPRESSION: No acute intracranial pathology. Paranasal sinus disease. Remote orbital fractures. N.B. : The above Results were Read Back by Gerard Ramírez DO to Mohan Gallo MD, and understanding confirmed on 11/11/2021 22:03:17 (ET). Electronically Signed: Gerard Ramírez DO at 22:04 EDT , Physical Exam Narrative Physical exam: General: Alert, Oriented to, Cooperative, appears confused, disheveled HEENT: Atraumatic Oral: Moist Mucosa Neck: Supple Lungs: Clear to auscultation Cardiovascular: HS I+II, regular, no murmurs Abdomen: Bowel Sounds Present, Soft, Non Tender Extremities: No edema Assessment & Plan Assessment/Plan (1) Acute hyponatremia: (2) Encephalopathy acute: (3) Seizures: PLAN: 1. Acute encephalopathy secondary to acute severe hyponatremia, symptomatic, resolved Continue to monitor 2. Acute severe symptomatic hyponatremia, admitting sodium is 115 Likely etiology is SIADH as urine osmolarity is 101. Urine sodium is 39, Started on IV fluids on admission; sodium oscar to 130 which is more than 6 points IVF were discontinued; started on water deprivation We will continue to trend BMP every 4h 3. Polyuria, patient has had more than 15 L of urine output Diabetes insipidus suspected but patient does not have hypernatremia Nephrology consult, check HGBA!c 4. Possible aspiration pneumonitis/pneumonia per history, chest x-ray was negative for infiltrate suggestive of pneumonia Started on IV Unasyn; will continue 5. Schizoaffective disorder, history of traumatic brain injury, continue psychotropic meds 6. Type II DM, Metformin on hold, continue insulin sliding scale 7. Hypokalemia, replaced, continue to trend labs 8. DVT PPX - Lovenox SC Charges/Coding Visit Charges Inpatient E&M: 26345 Subs Hosp L2
[2021-11-12 08:02] LABS: Bedside Glucose 113 mg/dL (74-106)
[2021-11-12] MEDS: Potassium Chloride 10mEq/100mL 10 MEQ/100 ML IV.SOLN. 100 MEQ IV BOLUS ×4 (09:01→12:59)
--- NOTE | 2021-11-12 09:07 | CASEMGMT ---
Discharge Geomagnetician Faxed over updates on patient to [facility]. Adriana Klein Discharge Geomagnetician
[2021-11-12] MEDS: Ziprasidone HCl 20 MG Capsule 80 MG PO ×2 (10:05→20:55)
[2021-11-12] MEDS: Divalproex Sodium 250 MG Tablet PO ×3 (10:07→20:54)
[2021-11-12] MEDS: Tamsulosin HCl 0.4 MG Capsule PO ×2 (10:08→20:53)
[2021-11-12] MEDS: traZODone 50 MG Tablet PO (10:08)
[2021-11-12] MEDS: Atorvastatin Calcium 10 MG Tablet PO (10:09)
[2021-11-12] MEDS: Lactulose 20 GM/30 ML UDC PO ×2 (10:09→20:53)
[2021-11-12] MEDS: hydrOXYzine PAM 25 MG Capsule 50 MG PO (10:09)
--- NOTE | 2021-11-12 10:39 | CM.ED ---
Social Work Voicemail received from Iqra Pate, patient guardian per Iqra's report. [facility] to be e-mailed an updated on patient at [email or web address]. Iqra also provided contact number of [phone]. Iqra Pate reports to be with [facility]. This social studies teacher e-mailed Iqra as above mentioned e-mail confirming that patient was admitted to ICU and plan is for patient to return to [facility] when medically cleared. Social Work to continue to follow case. Devin GALE, NATALIAS
[2021-11-12 11:06] LABS: Anion Gap 4 (5-15); BUN 4 mg/dL (7-18); BUN/Creat Ratio 5.5 RATIO (10-20); Calcium,Total 8.8 mg/dL (8.5-10.1); Chloride 101 mmol/L (98-107); Creatinine, Serum 0.73 mg/dL (0.70-1.30); EST Glomerular Filtration Rate 117 mL/min (>60); Est Glom Filt Rate - Afr Amer 141 mL/min (>60); Glucose 154 mg/dL (74-106); Potassium 3.9 mmol/L (3.5-5.1); Sodium Level 134 mmol/L (136-145)
[2021-11-12] MEDS: Insulin Lispro 100 UNIT/ML INSULN.PEN SC (11:44)
[2021-11-12 11:50] LABS: Bedside Glucose 217 mg/dL (74-106)
[2021-11-12 12:43] LABS: Hemoglobin A1c 6.2 % (3.8-5.6)
[2021-11-12] MEDS: Ipratropium 0.5 MG/2.5 ML SOLUTION INHALATION ×2 (13:45→19:09)
[2021-11-12 14:59] LABS: Anion Gap 4 (5-15); BUN 4 mg/dL (7-18); BUN/Creat Ratio 5.3 RATIO (10-20); Chloride 105 mmol/L (98-107); Creatinine, Serum 0.76 mg/dL (0.70-1.30); EST Glomerular Filtration Rate 111 mL/min (>60); Est Glom Filt Rate - Afr Amer 135 mL/min (>60); Estimated Creatinine Clearance 100.95 ml/min; Glucose 117 mg/dL (74-106); Potassium 4.2 mmol/L (3.5-5.1); Sodium Level 139 mmol/L (136-145)
[2021-11-12 15:38] LABS: Osmolality, Serum 292 mOsm/KG (275-295)
[2021-11-12 15:39] LABS: Osmolality, Urine 99 mOsm/KG
[2021-11-12 16:56] LABS: Bedside Glucose 126 mg/dL (74-106)
[2021-11-12 17:44] LABS: Anion Gap 3 (5-15); BUN 6 mg/dL (7-18); BUN/Creat Ratio 7.1 RATIO (10-20); Calcium,Total 8.9 mg/dL (8.5-10.1); Chloride 107 mmol/L (98-107); Creatinine, Serum 0.84 mg/dL (0.70-1.30); EST Glomerular Filtration Rate 99 mL/min (>60); Est Glom Filt Rate - Afr Amer 119 mL/min (>60); Estimated Creatinine Clearance 91.34 ml/min; Glucose 115 mg/dL (74-106); Potassium 4.5 mmol/L (3.5-5.1); Sodium Level 139 mmol/L (136-145)
--- NOTE | 2021-11-12 18:40 | PCM.CONS.R ---
Assessment & Plan Assessment/Plan (1) Hyponatremia: PLAN: -I suspect that hyponatremia is due to a combination of low solute intake and excessive fluid intake prior to admission. -Low suspicion for evident ADH since urine osmolality was only 101 mOsm/kg. -There is no prior serum sodium to compare with serum sodium on presentation. It is unclear how chronic hyponatremia had been before the patient presented to the hospital. -For, we will have to treat the patient as having chronic hyponatremia (hyponatremia present for more than 48 hours). -Typically, we should not increase serum sodium in the setting of chronic hyponatremia more than 10 to 12mOsm/L/day. Ideally, serum sodium should not be increased more than 6 to 8 mOsm/L/day. -Since serum sodium increase has exceeded the above threshold, the patient is at risk for osmotic demyelination syndrome. Other risk factor includes the fact that the patient presented with hypokalemia as well. -We will have to be lower serum sodium to avoid osmotic demyelination with DDAVP and D5W. We will have to check serum sodium every 4 hours for tonight. -I following the treatment guideline lower serum sodium as published in [place] Journal of Medicine 126:S1-S42, 2013. -The plan was discussed with Dr. Reynoso and Dr. Florence. HPI Consult Data Date of Consult: 11/12/21 HPI Narrative Reason for Consultation: Hyponatremia HPI Narrative: The patient is a 61-year-old man with past history of type 2 diabetes mellitus, hypertension, hyperlipidemia, TBI, GERD, and schizoaffective disorder. The patient was found down at his home by roommate. It is unclear how long he was out for. The patient was found to be confused on arrival to the hospital he was found to have a serum sodium of 115 mmol/L on presentation (11/11/2021 at 9:22 PM). Nephrology is asked to see the patient because of hyponatremia and speed of correction. The patient currently is more awake per nursing staff. However, he cannot recall much of what happened to him yesterday. He denies headache, nausea, or vomiting currently. He reports there is no headache at home. He also reports frequent fall at home as well. There has been no shortness of breath, orthopnea, or edema. Urine sodium was 39 mmol/L and urine osmolality was 101 mOsm/kg on 11/12/2021 at 12:35 PM. Serum sodium has increased from 115 mmol/L up to 139 mmol/L in 17 hours. [facility] Medical History Cardiac arrest Depression Diabetes Essential hypertension GERD (gastroesophageal reflux disease) Hyperlipidemia Ileus Open wound of abdominal wall Schizoaffective disorder Traumatic subdural hemorrhage Home Medications atorvastatin 10 mg DAILY 11/11/21 [History Last Taken Unknown] clozapine 100 mg DAILY 11/11/21 [History Last Taken Unknown] clozapine 300 mg PO BID 11/11/21 [History Last Taken Unknown] divalproex 250 mg PO TID 11/11/21 [History Last Taken Unknown] glycopyrrolate 2 mg DAILY 11/11/21 [History Last Taken Unknown] hydroxyzine HCl 50 mg DAILY 11/11/21 [History Last Taken Unknown] lactulose 20 g BID 11/11/21 [History Last Taken Unknown] metformin 1,000 mg PO BID 11/11/21 [History Last Taken Unknown] paliperidone [Invega] 3 mg PO DAILY 11/11/21 [History Last Taken Unknown] tamsulosin [Flomax] 0.4 mg PO QHS 11/11/21 [History Last Taken Unknown] tiotropium bromide [Spiriva with HandiHaler] 1 cap INHALATION DAILY 11/11/21 [History Last Taken Unknown] trazodone 50 mg PO DAILY 11/11/21 [History Last Taken Unknown] ziprasidone HCl [Geodon] 20 mg PO DAILY PRN 11/11/21 [History Last Taken Unknown] ziprasidone HCl [Geodon] 80 mg PO BID 11/11/21 [History Last Taken Unknown] Allergy/AdvReac Type Severity Reaction Status Date / Time benztropine Allergy PT UNSURE Verified 11/11/21 21:39 OF REACTION haloperidol [From Haldol] Allergy PT UNSURE Verified 11/11/21 21:39 OF REACTION Family History unable to obtain Surgical History unable to obtain Social History Smoking Status: Never smoker ROS ROS Narrative 06/09 ROS done. Otherwise noncontributory. Physical Exam Narrative General: NAD. Cachectic appearing. HEENT: Normocephalic, atraumatic. Mucous membrane moist. PERRLA, EOMI. Hearing is intact. Neck: Supple, no JVD. Heart: Normal S1, S2. No rubs, murmurs or gallops. Lungs: Mild expiratory wheezing bilaterally. Abdomen: Normal active bowel sounds, soft, nontender, no guarding or rebound. Extremities: No clubbing, cyanosis, or edema. Musculoskeletal: Full passive range of motion, no joint swellings. Psychiatric: Normal mood. Affect is flat. Skin: Ecchymosis of the upper extremities. Skin is warm and dry. Neurologic: No focal neurologic deficits. Lab / Micro Data Result Diagrams: 11/12/21 04:30 11/12/21 15:15 Labs: Laboratory Results - last 24 hr 11/11/21 00:35: Uric Acid 3.3 L, Troponin I High Sens 7, TSH 2.97 11/11/21 21:22: WBC 9.0, RBC 3.93 L, Hgb 12.0 L, Hct 34.0 L, MCV 86.5, MCH 30.5, MCHC 35.3, RDW Std Deviation 43.8, RDW Coeff of Zane 13.7, Plt Count 202, MPV 9.7, Immature Gran % (Auto) 0.400, Neut % (Auto) 71.4 H, Lymph % (Auto) 19.0, [place] % (Auto) 7.9, Eos % (Auto) 0.9, Baso % (Auto) 0.4, Absolute Neuts (auto) 6.4, Absolute Lymphs (auto) 1.70, Nucleated RBC % 0 11/11/21 21:22: PT 13.4, INR 1.1, APTT 32.1 11/11/21 21:22: Sodium 115 L*, Potassium 3.7, Chloride 78 L, Carbon Dioxide 26.0, Anion Gap 11, BUN 5 L, Creatinine 0.62 L, Estim Creat Clear Calc 124.11, Est GFR (MDRD) Af Amer 169, Est GFR (MDRD) Non-Af 140, BUN/Creatinine Ratio 8.0 L, Glucose 128 H, Calcium 7.4 L, Total Bilirubin 0.40, AST 18, ALT 16, Alkaline Phosphatase 59, Troponin I High Sens 6, Total Protein 5.5 L, Albumin 2.8 L, Globulin 2.7, Albumin/Globulin Ratio 1.0, Prolactin 26.8 11/11/21 21:22: Valproic Acid 36 L 11/11/21 21:27: POC Glucose 160 H 11/11/21 21:55: Lactic Acid 2.0 11/12/21 00:35: Serum Osmolality 251 L 11/12/21 00:35: Sodium 120 L, Potassium 3.1 L, Chloride 84 L, Carbon Dioxide 30.0, Anion Gap 6, BUN 5 L, Creatinine 0.58 L, Estim Creat Clear Calc 132.28, Est GFR (MDRD) Af Amer 184, Est GFR (MDRD) Non-Af 152, BUN/Creatinine Ratio 8.6 L, Glucose 112 H, Calcium 7.4 L 11/12/21 00:35: Urine Osmolality 101, Ur Random Sodium 39 11/12/21 00:35: Fluid Specific Grav 1.009 11/12/21 04:30: Sodium 130 L, Potassium 3.6, Chloride 94 L, Carbon Dioxide 29.0, Anion Gap 7, BUN 5 L, Creatinine 0.51 L, Estim Creat Clear Calc 150.44, Est GFR (MDRD) Af Amer 213, Est GFR (MDRD) Non-Af 176, BUN/Creatinine Ratio 9.8 L, Glucose 113 H, Calcium 8.0 L, Triglycerides 69, Cholesterol 97, LDL Cholesterol 23, VLDL Cholesterol 14, HDL Cholesterol 60 11/12/21 04:30: Cortisol 20.50 11/12/21 04:30: Lactic Acid 1.0 11/12/21 04:30: WBC 14.8 H, RBC 4.46 L, Hgb 13.5, Hct 38.0 L, MCV 85.2, MCH 30.3, MCHC 35.5, RDW Std Deviation 42.6, RDW Coeff of Zane 13.7, Plt Count 258, MPV 9.9, Immature Gran % (Auto) 0.300, Neut % (Auto) 83.2 H, Lymph % (Auto) 10.2 L, [place] % (Auto) 5.6, Eos % (Auto) 0.5, Baso % (Auto) 0.2, Absolute Neuts (auto) 12.3 H, Absolute Lymphs (auto) 1.51, Nucleated RBC % 0 11/12/21 04:30: Hemoglobin A1c 6.2 H 11/12/21 06:38: POC Glucose 113 H 11/12/21 10:00: Sodium Cancelled, Potassium Cancelled, Chloride Cancelled, Carbon Dioxide Cancelled, Anion Gap Cancelled, BUN Cancelled, Creatinine Cancelled, Estim Creat Clear Calc Cancelled, Est GFR (MDRD) Af Amer Cancelled, Est GFR (MDRD) Non-Af Cancelled, BUN/Creatinine Ratio Cancelled, Glucose Cancelled, Calcium Cancelled 11/12/21 10:22: Sodium 134 L, Potassium 3.9, Chloride 101, Carbon Dioxide 29.0, Anion Gap 4 L, BUN 4 L, Creatinine 0.73, Estim Creat Clear Calc 105.10, Est GFR (MDRD) Af Amer 141, Est GFR (MDRD) Non-Af 117, BUN/Creatinine Ratio 5.5 L, Glucose 154 H, Calcium 8.8 11/12/21 11:41: POC Glucose 217 H 11/12/21 14:30: Sodium 139, Potassium 4.2, Chloride 105, Carbon Dioxide 30.0, Anion Gap 4 L, BUN 4 L, Creatinine 0.76, Estim Creat Clear Calc 100.95, Est GFR (MDRD) Af Amer 135, Est GFR (MDRD) Non-Af 111, BUN/Creatinine Ratio 5.3 L, Glucose 117 H, Calcium 9.0 11/12/21 14:30: Serum Osmolality 292 11/12/21 14:45: Urine Osmolality 99 11/12/21 15:15: Sodium 139, Potassium 4.5, Chloride 107, Carbon Dioxide 29.0, Anion Gap 3 L, BUN 6 L, Creatinine 0.84, Estim Creat Clear Calc 91.34, Est GFR (MDRD) Af Amer 119, Est GFR (MDRD) Non-Af 99, BUN/Creatinine Ratio 7.1 L, Glucose 115 H, Calcium 8.9 11/12/21 16:50: POC Glucose 126 H Radiology Impression Brain CT 11/11/21 21:28 IMPRESSION: No acute intracranial pathology. Paranasal sinus disease. Remote orbital fractures. N.B. : The above Results were Read Back by Gerard Ramírez DO to Mohan Gallo MD, and understanding confirmed on 11/11/2021 22:03:17 (ET). Electronically Signed: Gerard Ramírez DO at 22:04 EDT , Head/Neck CTA 11/11/21 22:09 IMPRESSION: 1. No significant stenosis, thrombosis, aneurysm or dissection. 2. Thyroid nodules as above. N.B. : The above Results were Read Back by John Willson MD to Lolly Cruz NP, and understanding confirmed on 11/12/2021 00:14:05 (ET). Electronically Signed: John Willson MD at 0:11 EDT , ADDENDUM: 11/12/21 0801 IMPRESSION: 1. No significant stenosis, thrombosis, aneurysm or dissection. 2. Thyroid nodules as above. N.B. : The above Results were Read Back by John Willson MD to Lolly Cruz NP, and understanding confirmed on 11/12/2021 00:14:05 (ET). Electronically Signed: John Willson MD at 0:11 EDT , ADDENDUM: 11/12/21 0801 ADDENDUM: 11/12/21 0802 ADDENDUM: 11/12/21 0802 ADDENDUM: 11/12/21 0802 Chest X-Ray 11/11/21 23:42 IMPRESSION: No acute disease. Electronically Signed: John Willson MD at 0:26 EDT ,
[2021-11-12 19:03] LABS: Sodium Level 139 mmol/L (136-145)
[2021-11-12] MEDS: Desmopressin Acetate 4 MCG/ML Ampul 2 MCG IV (20:53)
[2021-11-12] MEDS: 0.9% Saline Lock 10 ML Syringe IV (20:57)
[2021-11-12 22:52] LABS: Sodium Level 139 mmol/L (136-145)
[2021-11-13] VITALS (25 sets, daily range): BP systolic 99–158; BP diastolic 57–106; PULSE 80–126; RESP 14–32; TEMP 36.1–38; O2SAT 82–100
[2021-11-13 04:51] LABS: Bedside Glucose 179 mg/dL (74-106)
[2021-11-13] MEDS: Divalproex Sodium 250 MG Tablet PO ×2 (05:04→14:19)
[2021-11-13] MEDS: Desmopressin Acetate 4 MCG/ML Ampul 2 MCG IV (05:04)
[2021-11-13 05:23] LABS: Absolute Lymphocyte Count 1.85 X10^3/uL (0.83-4.51); Absolute Neutrophil Count 8.6 X10^3/uL (2.0-7.7); Basophil# 0.03 X10^3/uL; Basophil% 0.3 % (0-1); Eosinophil# 0.06 X10^3/uL; Eosinophils% 0.5 % (0-5); Hemoglobin 12.6 g/dL (13.0-16.5); Lymphocyte # 1.85 X10^3/ul (0.83-4.51); Lymphocyte % 16.1 % (19-41); Mean Corpuscular Volume 88.5 fL (80-94); Mean Platelet Vol. 10.1 fl (6.2-12.0); Monocyte# 0.88 X10^3/uL; Monocyte% 7.7 % (0-10); NRBC Flagged by Analyzer 0 % (0-5); Neutrophil # 8.62 X10^3/uL (2.7-7.7); Neutrophil % 75.1 % (47-70); Platelet Count 202 K/mm3 (150-450); RBC Distribution Width CV 15.1 % (11.6-14.6); RBC Distribution Width SD 48.6 fl (35.1-43.9); Red Blood Count 4.07 M/mm3 (4.6-6.2); White Blood Count 11.5 K/mm3 (4.4-11.0)
[2021-11-13 05:49] LABS: ALB/GLOB Ratio 0.8 RATIO (0.9-2.4); AST(SGOT) 16 U/L (15-37); Alanine Aminotransfer ALT/SGPT 14 U/L (16-61); Albumin, Serum 2.5 g/dL (3.2-5.0); Alkaline Phosphatase 57 U/L (45-117); Anion Gap 3 (5-15); BUN 5 mg/dL (7-18); BUN/Creat Ratio 8.2 RATIO (10-20); Calcium,Total 7.8 mg/dL (8.5-10.1); Chloride 105 mmol/L (98-107); Creatinine, Serum 0.61 mg/dL (0.70-1.30); EST Glomerular Filtration Rate 144 mL/min (>60); Est Glom Filt Rate - Afr Amer 175 mL/min (>60); Estimated Creatinine Clearance 124.12 ml/min; Glucose 153 mg/dL (74-106); Potassium 3.8 mmol/L (3.5-5.1); Protein, Total 5.5 g/dL (6.4-8.2); Sodium Level 137 mmol/L (136-145)
[2021-11-13] MEDS: Ipratropium 0.5 MG/2.5 ML SOLUTION INHALATION ×3 (07:03→19:10)
--- NOTE | 2021-11-13 07:38 | PN.HOSP_ITS ---
Subjective Subjective Follow-up on unresponsiveness/acute severe hyponatremia: Patient seen and examined. No acute events overnight. He is much, and off restraints. He denies any new complaints. Objective Data Objective Data Vital Signs: Vital Signs Temp Pulse Resp BP Pulse Ox 97.7 F L 81 16 110/68 94 11/13/21 04:00 11/13/21 07:04 11/13/21 07:04 11/13/21 07:00 11/13/21 07:04 Oxygen Flow Rate (L/min) 4 Oxygen Delivery Method Nasal Cannula Weight: 67.3 kg Body Mass Index (BMI) 22.1 Intake & Output: Intake and Output for Last 24 Hours 11/11/21 11/12/21 11/13/21 23:59 23:59 23:59 Intake Total 1200 / 1200 2191 / 2191 1782 / 1782 Output Total 3700 / 3700 72046 / 46846 100 / 100 Balance -2500 / -2500 -85941 / -06968 1682 / 1682 Lab / Micro Data Result Diagrams: 11/13/21 05:00 11/13/21 05:00 Labs: Laboratory Results - last 24 hr 11/11/21 00:35: Uric Acid 3.3 L, Troponin I High Sens 7, TSH 2.97 11/12/21 00:35: Sodium 120 L, Potassium 3.1 L, Chloride 84 L, Carbon Dioxide 30.0, Anion Gap 6, BUN 5 L, Creatinine 0.58 L, Estim Creat Clear Calc 132.28, Est GFR (MDRD) Af Amer 184, Est GFR (MDRD) Non-Af 152, BUN/Creatinine Ratio 8.6 L, Glucose 112 H, Calcium 7.4 L 11/12/21 04:30: Hemoglobin A1c 6.2 H 11/12/21 06:38: POC Glucose 113 H 11/12/21 10:00: Sodium Cancelled, Potassium Cancelled, Chloride Cancelled, Carbon Dioxide Cancelled, Anion Gap Cancelled, BUN Cancelled, Creatinine Cancelled, Estim Creat Clear Calc Cancelled, Est GFR (MDRD) Af Amer Cancelled, Est GFR (MDRD) Non-Af Cancelled, BUN/Creatinine Ratio Cancelled, Glucose Cancelled, Calcium Cancelled 11/12/21 10:22: Sodium 134 L, Potassium 3.9, Chloride 101, Carbon Dioxide 29.0, Anion Gap 4 L, BUN 4 L, Creatinine 0.73, Estim Creat Clear Calc 105.10, Est GFR (MDRD) Af Amer 141, Est GFR (MDRD) Non-Af 117, BUN/Creatinine Ratio 5.5 L, Glucose 154 H, Calcium 8.8 11/12/21 11:41: POC Glucose 217 H 11/12/21 14:30: Sodium 139, Potassium 4.2, Chloride 105, Carbon Dioxide 30.0, Anion Gap 4 L, BUN 4 L, Creatinine 0.76, Estim Creat Clear Calc 100.95, Est GFR (MDRD) Af Amer 135, Est GFR (MDRD) Non-Af 111, BUN/Creatinine Ratio 5.3 L, Glucose 117 H, Calcium 9.0 11/12/21 14:30: Serum Osmolality 292 11/12/21 14:45: Urine Osmolality 99 11/12/21 15:15: Sodium 139, Potassium 4.5, Chloride 107, Carbon Dioxide 29.0, Anion Gap 3 L, BUN 6 L, Creatinine 0.84, Estim Creat Clear Calc 91.34, Est GFR (MDRD) Af Amer 119, Est GFR (MDRD) Non-Af 99, BUN/Creatinine Ratio 7.1 L, Glucose 115 H, Calcium 8.9 11/12/21 16:50: POC Glucose 126 H 11/12/21 18:50: Sodium 139 11/12/21 22:30: Sodium 139 11/13/21 00:08: POC Glucose 179 H 11/13/21 05:00: WBC 11.5 H, RBC 4.07 L, Hgb 12.6 L, Hct 36.0 L, MCV 88.5, MCH 31.0, MCHC 35.0, RDW Std Deviation 48.6 H, RDW Coeff of Zane 15.1 H, Plt Count 202, MPV 10.1, Immature Gran % (Auto) 0.300, Neut % (Auto) 75.1 H, Lymph % (Auto) 16.1 L, [place] % (Auto) 7.7, Eos % (Auto) 0.5, Baso % (Auto) 0.3, Absolute Neuts (auto) 8.6 H, Absolute Lymphs (auto) 1.85, Nucleated RBC % 0 11/13/21 05:00: Sodium 137, Potassium 3.8, Chloride 105, Carbon Dioxide 29.0, Anion Gap 3 L, BUN 5 L, Creatinine 0.61 L, Estim Creat Clear Calc 124.12, Est GFR (MDRD) Af Amer 175, Est GFR (MDRD) Non-Af 144, BUN/Creatinine Ratio 8.2 L, Glucose 153 H, Calcium 7.8 L, Total Bilirubin 0.20, AST 16, ALT 14 L, Alkaline Phosphatase 57, Total Protein 5.5 L, Albumin 2.5 L, Globulin 3.0, Albumin/Globulin Ratio 0.8 L Radiography Diagnostic Testing: Radiology Impression Brain CT 11/11/21 21:28 IMPRESSION: No acute intracranial pathology. Paranasal sinus disease. Remote orbital fractures. N.B. : The above Results were Read Back by Gerard Ramírez DO to Mohan Gallo MD, and understanding confirmed on 11/11/2021 22:03:17 (ET). Electronically Signed: Gerard Ramírez DO at 22:04 EDT , Head/Neck CTA 11/11/21 22:09 IMPRESSION: 1. No significant stenosis, thrombosis, aneurysm or dissection. 2. Thyroid nodules as above. N.B. : The above Results were Read Back by John Willson MD to Lolly Cruz NP, and understanding confirmed on 11/12/2021 00:14:05 (ET). Electronically Signed: John Willson MD at 0:11 EDT , ADDENDUM: 11/12/21 0801 IMPRESSION: 1. No significant stenosis, thrombosis, aneurysm or dissection. 2. Thyroid nodules as above. N.B. : The above Results were Read Back by John Willson MD to Lolly Cruz NP, and understanding confirmed on 11/12/2021 00:14:05 (ET). Electronically Signed: John Willson MD at 0:11 EDT , ADDENDUM: 11/12/21 0801 ADDENDUM: 11/12/21 08 ADDENDUM: 11/12/21 08 ADDENDUM: 11/12/21 08 Chest X-Ray 11/11/21 23:42 IMPRESSION: No acute disease. Electronically Signed: John Willson MD at 0:26 EDT , Physical Exam Narrative Physical exam: General: Alert, Oriented to self, Cooperative, much calmer, off restraints, disheveled HEENT: Atraumatic Oral: Moist Mucosa Neck: Supple Lungs: Diminished to auscultation Cardiovascular: HS I+II, regular, no murmurs Abdomen: Bowel Sounds Present, Soft, Non Tender Extremities: No edema Assessment & Plan Assessment/Plan (1) Acute hyponatremia: (2) Encephalopathy acute: (3) Seizures: PLAN: 1. Acute encephalopathy secondary to acute severe hyponatremia, symptomatic, and appears to be back to his baseline 2. Acute severe symptomatic hyponatremia, improved Admitting sodium was 115 Likely etiology is SIADH vs psychogenic polydipsia as urine osmolarity is 101. Urine sodium is 39, Rate of rise of serum sodium has been rapid; started on IV fluids on admission; sodium oscar to 130 which is more than 6 points IVF were discontinued; started on water deprivation; do not continue to rise with desmopressin Nephrology following 3. Polyuria, output appears to have slowed down HgbA1c 6.2. DI ruled out Will continue to monitor 4. Possible aspiration pneumonitis/pneumonia per history, chest x-ray was negative for infiltrate suggestive of pneumonia Started on IV Unasyn; will continue 5. Schizoaffective disorder, history of traumatic brain injury, continue psychotropic meds 6. Type II DM, sugars are fairly controlled, will resume Metformin and continue insulin sliding scale 7. Hypokalemia, replaced, continue to trend labs 8. DVT PPX - Lovenox SC Charges/Coding Visit Charges Inpatient E&M: 70219 Subs Hosp L2
--- NOTE | 2021-11-13 08:17 | PN.CC_ITS ---
Assessment & Plan Assessment/Plan (1) Acute hyponatremia: (2) Encephalopathy acute: (3) Seizures: PLAN: RECOMMENDATIONS: 1. IV fluids per nephrology 2. Okay to leave the intensive care unit 3. Potentially space out BMPs 4. Empiric antibiotics for aspiration pneumonia for 48 hours 5. Hemodynamically stable on room air. Will sign off from a critical care perspective IMPRESSIONS: 1. Acute hyponatremia with polyuria and possible seizure Patient much improved compared to yesterday. Sodium did correct rapidly through the day, so DDAVP was given. Patient has had no change in neurologic condition and appears to be back to his baseline from a behavior standpoint. No seizure activity has been noted. Defer IV fluids to nephrology. 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 2. Diabetes mellitus/schizoaffective disorder/history of TBI/hyperlipidemia/hypertension Complicates care, management, recovery and prognosis. Blood sugars are on ly mildly elevated at this time. Check bedside swallow evaluation. Patient likely should be continued on psychogenic medications given behavioral issues in the past. Patient currently not in restraints. Subjective Subjective Patient did well overnight. Patient appears to be back to his baseline mental status. Given the rapidity of sodium correction, patient did receive 2 doses of DDAVP and D5W overnight. Patient is currently off of supplemental oxygen. Patient is not reporting any pain. Objective Data Objective Data Vital Signs: Vital Signs Temp Pulse Resp BP Pulse Ox 36.5 C L 81 16 110/68 94 11/13/21 04:00 11/13/21 07:04 11/13/21 07:04 11/13/21 07:00 11/13/21 07:04 Oxygen Flow Rate (L/min) 4 Oxygen Delivery Method Nasal Cannula Weight: 67.3 kg Body Mass Index (BMI) 22.1 Intake & Output: Intake and Output for Last 24 Hours 11/11/21 11/12/21 11/13/21 23:59 23:59 23:59 Intake Total 1200 / 1200 2191 / 2191 1782 / 1782 Output Total 3700 / 3700 71976 / 30283 100 / 100 Balance -2500 / -2500 -24413 / -04250 1682 / 1682 Lab / Micro Data Result Diagrams: 11/13/21 05:00 11/13/21 05:00 Labs: Laboratory Results - last 24 hr 11/12/21 04:30: Hemoglobin A1c 6.2 H 11/12/21 10:00: Sodium Cancelled, Potassium Cancelled, Chloride Cancelled, Ca rbon Dioxide Cancelled, Anion Gap Cancelled, BUN Cancelled, Creatinine Cancelled, Estim Creat Clear Calc Cancelled, Est GFR (MDRD) Af Amer Cancelled, Est GFR (MDRD) Non-Af Cancelled, BUN/Creatinine Ratio Cancelled, Glucose Cancelled, Calcium Cancelled 11/12/21 10:22: Sodium 134 L, Potassium 3.9, Chloride 101, Carbon Dioxide 29.0, Anion Gap 4 L, BUN 4 L, Creatinine 0.73, Estim Creat Clear Calc 105.10, Est GFR (MDRD) Af Amer 141, Est GFR (MDRD) Non-Af 117, BUN/Creatinine Ratio 5.5 L, Glucose 154 H, Calcium 8.8 11/12/21 11:41: POC Glucose 217 H 11/12/21 14:30: Sodium 139, Potassium 4.2, Chloride 105, Carbon Dioxide 30.0, Anion Gap 4 L, BUN 4 L, Creatinine 0.76, Estim Creat Clear Calc 100.95, Est GFR (MDRD) Af Amer 135, Est GFR (MDRD) Non-Af 111, BUN/Creatinine Ratio 5.3 L, Glucose 117 H, Calcium 9.0 11/12/21 14:30: Serum Osmolality 292 11/12/21 14:45: Urine Osmolality 99 11/12/21 15:15: Sodium 139, Potassium 4.5, Chloride 107, Carbon Dioxide 29.0, Anion Gap 3 L, BUN 6 L, Creatinine 0.84, Estim Creat Clear Calc 91.34, Est GFR (MDRD) Af Amer 119, Est GFR (MDRD) Non-Af 99, BUN/Creatinine Ratio 7.1 L, Glucose 115 H, Calcium 8.9 11/12/21 16:50: POC Glucose 126 H 11/12/21 18:50: Sodium 139 11/12/21 22:30: Sodium 139 11/13/21 00:08: POC Glucose 179 H 11/13/21 05:00: WBC 11.5 H, RBC 4.07 L, Hgb 12.6 L, Hct 36.0 L, MCV 88.5, MCH 31.0, MCHC 35.0, RDW Std Deviation 48.6 H, RDW Coeff of Zane 15.1 H, Plt Count 202, MPV 10.1, Immature Gran % (Auto) 0.300, Neut % (Auto) 75.1 H, Lymph % (Auto) 16.1 L, [place] % (Auto) 7.7, Eos % (Auto) 0.5, Baso % (Auto) 0.3, Absolute Neuts (auto) 8.6 H, Absolute Lymphs (auto) 1.85, Nucleated RBC % 0 11/13/21 05:00: Sodium 137, Potassium 3.8, Chloride 105, Carbon Dioxide 29.0, Anion Gap 3 L, BUN 5 L, Creatinine 0.61 L, Estim Creat Clear Calc 124.12, Est GFR (MDRD) Af Amer 175, Est GFR (MDRD) Non-Af 144, BUN/Creatinine Ratio 8.2 L, Glucose 153 H, Calcium 7.8 L, Total Bilirubin 0.20, AST 16, ALT 14 L, Alkaline Phosphatase 57, Total Protein 5.5 L, Albumin 2.5 L, Globulin 3.0, Albumin/Corine bulin Ratio 0.8 L Physical Exam Const alert and no apparent distress General Appearance: frail and appears older than stated age Orientation / Consciousness: awake and oriented to person; Negative for oriented to place or oriented to time Nutritional Appearance: thin HEENT normocephalic and head/scalp atraumatic Eyes PERRL, EOMs intact bilaterally, conjunctivae normal and no scleral icterus Neck full ROM Chest palpation of chest normal Chest: symmetrical chest wall rise Resp normal respiratory effort, normal air movement and no retractions Auscultation: Negative for rales, rhonchi or wheezes Cardio regular rate, regular rhythm, S1 normal heart sound, S2 normal heart sound, no murmurs, no rub and no gallops GI normal to inspection, nondistended, normoactive bowel sounds Extremity no clubbing, cyanosis or edema Skin Skin Narrative: Slight erythema with possible hives at the neck are resolved Neuro CN's II-XII intact bilaterally and moves all extremities Psych cooperative Mood & Affect: flat affect Charges/Coding Visit Charges Inpatient E&M: 00249 Subs Hosp L2
--- NOTE | 2021-11-13 09:48 | CASEMGMT ---
REGINA updated patient's guardian Iqra. Laura Waller [employer] DAVID
--- NOTE | 2021-11-13 09:49 | CASEMGMT ---
Discharge Case Advocate Faxed over updates on patient to [facility]. Adriana Klein Discharge Case Advocate
[2021-11-13] MEDS: PALIPERIDONE 3 MG TAB.ER.24 PO (10:04)
[2021-11-13] MEDS: Lactulose 20 GM/30 ML UDC PO (10:04)
[2021-11-13] MEDS: hydrOXYzine PAM 25 MG Capsule 50 MG PO (10:05)
[2021-11-13] MEDS: Ziprasidone HCl 20 MG Capsule 80 MG PO (10:06)
[2021-11-13] MEDS: Atorvastatin Calcium 10 MG Tablet PO (10:07)
[2021-11-13] MEDS: traZODone 50 MG Tablet PO (10:15)
[2021-11-13 10:27] LABS: Anion Gap 5 (5-15); BUN 4 mg/dL (7-18); BUN/Creat Ratio 5.8 RATIO (10-20); Calcium,Total 8.3 mg/dL (8.5-10.1); Chloride 102 mmol/L (98-107); Creatinine, Serum 0.69 mg/dL (0.70-1.30); EST Glomerular Filtration Rate 125 mL/min (>60); Est Glom Filt Rate - Afr Amer 151 mL/min (>60); Estimated Creatinine Clearance 109.73 ml/min; Glucose 213 mg/dL (74-106); Potassium 3.2 mmol/L (3.5-5.1); Sodium Level 135 mmol/L (136-145)
[2021-11-13 10:31] LABS: Bedside Glucose 221 mg/dL (74-106)
[2021-11-13] MEDS: Insulin Lispro 100 UNIT/ML INSULN.PEN SC ×2 (10:33→17:35)
--- NOTE | 2021-11-13 11:37 | PN.RENAL_ITS ---
Subjective Subjective Following for hyponatremia Laying in recliner chair. Answers questions appropriately. Denies any nausea or headache. No overnight events. He is being moved out of ICU. Objective Data Objective Data Vital Signs: Vital Signs Temp Pulse Resp BP Pulse Ox 96.9 F L 92 20 H 129/81 H 93 11/13/21 10:15 11/13/21 10:15 11/13/21 10:15 11/13/21 10:15 11/13/21 10:15 Oxygen Flow Rate (L/min) 2 Oxygen Delivery Method Room Air Weight: 67.3 kg Body Mass Index (BMI) 22.1 Intake & Output: Intake and Output for Last 24 Hours 11/11/21 11/12/21 11/13/21 23:59 23:59 23:59 Intake Total 1200 / 1200 2191 / 2191 2607 / 2607 Output Total 3700 / 3700 22892 / 48218 240 / 240 Balance -2500 / -2500 -79032 / -76430 2367 / 2367 Lab / Micro Data Result Diagrams: 11/13/21 05:00 11/13/21 10:00 Labs: Laboratory Results - last 24 hr 11/12/21 04:30: Hemoglobin A1c 6.2 H 11/12/21 11:41: POC Glucose 217 H 11/12/21 14:30: Sodium 139, Potassium 4.2, Chloride 105, Carbon Dioxide 30.0, Anion Gap 4 L, BUN 4 L, Creatinine 0.76, Estim Creat Clear Calc 100.95, Est GFR (MDRD) Af Amer 135, Est GFR (MDRD) Non-Af 111, BUN/Creatinine Ratio 5.3 L, Glu cose 117 H, Calcium 9.0 11/12/21 14:30: Serum Osmolality 292 11/12/21 14:45: Urine Osmolality 99 11/12/21 15:15: Sodium 139, Potassium 4.5, Chloride 107, Carbon Dioxide 29.0, Anion Gap 3 L, BUN 6 L, Creatinine 0.84, Estim Creat Clear Calc 91.34, Est GFR (MDRD) Af Amer 119, Est GFR (MDRD) Non-Af 99, BUN/Creatinine Ratio 7.1 L, Glucose 115 H, Calcium 8.9 11/12/21 16:50: POC Glucose 126 H 11/12/21 18:50: Sodium 139 11/12/21 22:30: Sodium 139 11/13/21 00:08: POC Glucose 179 H 11/13/21 05:00: WBC 11.5 H, RBC 4.07 L, Hgb 12.6 L, Hct 36.0 L, MCV 88.5, MCH 31.0, MCHC 35.0, RDW Std Deviation 48.6 H, RDW Coeff of Zane 15.1 H, Plt Count 202, MPV 10.1, Immature Gran % (Auto) 0.300, Neut % (Auto) 75.1 H, Lymph % (Auto) 16.1 L, Gregg % (Auto) 7.7, Eos % (Auto) 0.5, Baso % (Auto) 0.3, Absolute Neuts (auto) 8.6 H, Absolute Lymphs (auto) 1.85, Nucleated RBC % 0 11/13/21 05:00: Sodium 137, Potassium 3.8, Chloride 105, Carbon Dioxide 29.0, Anion Gap 3 L, BUN 5 L, Creatinine 0.61 L, Estim Creat Clear Calc 124.12, Est GFR (MDRD) Af Amer 175, Est GFR (MDRD) Non-Af 144, BUN/Creatinine Ratio 8.2 L, Glucose 153 H, Calcium 7.8 L, Total Bilirubin 0.20, AST 16, ALT 14 L, Alkaline Phosphatase 57, Total Protein 5.5 L, Albumin 2.5 L, Globulin 3.0, Albumin/Globulin Ratio 0.8 L 11/13/21 09:58: POC Glucose 221 H 11/13/21 10:00: Sodium 135 L, Potassium 3.2 L, Chloride 102, Carbon Dioxide 28.0, Anion Gap 5, BUN 4 L, Creatinine 0.69 L, Estim Creat Clear Calc 109.73, Est GFR (MDRD) Af Amer 151, Est GFR (MDRD) Non-Af 125, BUN/Creatinine Ratio 5.8 L, Glucose 213 H, Calcium 8.3 L Physical Exam Narrative General: NAD. Cachectic appearing. HEENT: Normocephalic, atraumatic. Mucous membrane moist. PERRLA, EOMI. He aring is intact. Neck: Supple, no JVD. Heart: Normal S1, S2. No rubs, murmurs or gallops. Lungs: audible rhonchi, clears slightly with cough and deep breath. Rhonchi noted anteriorly Abdomen: Normal active bowel sounds, soft, nontender, no guarding or rebound. Extremities: No clubbing, cyanosis, or edema. Musculoskeletal: Full passive range of motion, no joint swellings. Psychiatric: Normal mood. Affect is flat. Neurologic: No focal neurologic deficits. + castle Assessment & Plan Assessment/Plan (1) Hyponatremia: PLAN: -Hyponatremia is due to a combination of low solute intake and excessive fluid intake prior to admission. -Low suspicion for evident ADH since urine osmolality was only 101 mOsm/kg. -There is no prior serum sodium to compare with serum sodium on presentation. It is unclear how chronic hyponatremia had been before the patient presented to the hospital. -We will have to treat the patient as having chronic hyponatremia (hyponatremia present for more than 48 hours). -Typically, we should not increase serum sodium in the setting of chronic hyponatremia more than 10 to 12mOsm/L/day. Ideally, serum sodium should not be increased more than 6 to 8 mOsm/L/day. -Since serum sodium increase has exceeded the above threshold, the patient is at risk for osmotic demyelination syndrome. Other risk factor includes the fact that the patient presented with hypokalemia as well. -We will have to be lower serum sodium to avoid osmotic demyelination with Ddavp and D5W. -Continue to check serum sodium every 4 hours. -I am following the treatment guideline lower serum sodium as published in [employer] [employer] 126:S1-S42, 2013. - sodium 115 on admission, peaked 139 on 11/12 for approximately 8 hours and is now currently 135mmol/L - For today, goal serum sodium 131 tonight. UOP for today 240ml. - will obtain CXR. For now will continue D5W at 200ml/hr and DDAVP q8hrs. Replace potassium
--- NOTE | 2021-11-13 11:40 | RAD_ITS ---
STUDY: X-RAY CHEST REASON FOR EXAM: Male, 61 years old. Shortness of breath TECHNIQUE: AP COMPARISON: 11/11/2021 FINDINGS: No airspace consolidation. Skinfold overlies the left chest. Mild elevation of the left hemidiaphragm. There is no demonstrated pleural abnormality. Normal size heart. Normal mediastinum and sandhya. Normal visualized pulmonary arteries. There is atherosclerotic calcification of the aortic arch with tortuosity. No acute bony process. There are old left rib fractures. There is no demonstrated abnormality of the visualized soft tissue structures of the upper abdomen. RAD/Chest 1 View (Portable) IMPRESSION: No airspace consolidation or pleural effusion. Electronically Signed: Dinesh Roe MD ([place]) at 11:58 EDT ,
[2021-11-13] MEDS: Furosemide 40 MG/4 ML Vial IV (11:53)
[2021-11-13 15:28] LABS: ALB/GLOB Ratio 0.6 RATIO (0.9-2.4); AST(SGOT) 13 U/L (15-37); Alanine Aminotransfer ALT/SGPT 15 U/L (16-61); Albumin, Serum 2.3 g/dL (3.2-5.0); Alkaline Phosphatase 60 U/L (45-117); Anion Gap 7 (5-15); BUN 5 mg/dL (7-18); BUN/Creat Ratio 7.7 RATIO (10-20); Calcium,Total 7.9 mg/dL (8.5-10.1); Chloride 102 mmol/L (98-107); Creatinine, Serum 0.65 mg/dL (0.70-1.30); EST Glomerular Filtration Rate 133 mL/min (>60); Est Glom Filt Rate - Afr Amer 161 mL/min (>60); Estimated Creatinine Clearance 116.48 ml/min; Globulin 3.6 g/dL (2.2-4.2); Glucose 194 mg/dL (74-106); Potassium 3.5 mmol/L (3.5-5.1); Protein, Total 5.9 g/dL (6.4-8.2); Sodium Level 133 mmol/L (136-145)
[2021-11-13 17:41] LABS: Bedside Glucose 163 mg/dL (74-106)
[2021-11-13 19:19] LABS: ALB/GLOB Ratio 0.8 RATIO (0.9-2.4); AST(SGOT) 12 U/L (15-37); Alanine Aminotransfer ALT/SGPT 15 U/L (16-61); Albumin, Serum 2.7 g/dL (3.2-5.0); Alkaline Phosphatase 59 U/L (45-117); Anion Gap 4 (5-15); BUN 4 mg/dL (7-18); BUN/Creat Ratio 7.1 RATIO (10-20); Calcium,Total 8.2 mg/dL (8.5-10.1); Chloride 100 mmol/L (98-107); Creatinine, Serum 0.57 mg/dL (0.70-1.30); EST Glomerular Filtration Rate 156 mL/min (>60); Est Glom Filt Rate - Afr Amer 189 mL/min (>60); Estimated Creatinine Clearance 132.83 ml/min; Globulin 3.5 g/dL (2.2-4.2); Glucose 88 mg/dL (74-106); Potassium 3.7 mmol/L (3.5-5.1); Protein, Total 6.2 g/dL (6.4-8.2); Sodium Level 134 mmol/L (136-145)
[2021-11-13] MEDS: Ziprasidone IM 20 MG/ML VIAL IM (22:21)
[2021-11-13 22:41] LABS: Bedside Glucose 131 mg/dL (74-106)
[2021-11-13 22:45] LABS: ALB/GLOB Ratio 0.8 RATIO (0.9-2.4); AST(SGOT) 10 U/L (15-37); Alanine Aminotransfer ALT/SGPT 13 U/L (16-61); Albumin, Serum 2.5 g/dL (3.2-5.0); Alkaline Phosphatase 57 U/L (45-117); Anion Gap 7 (5-15); BUN 4 mg/dL (7-18); BUN/Creat Ratio 7.6 RATIO (10-20); Chloride 100 mmol/L (98-107); Creatinine, Serum 0.52 mg/dL (0.70-1.30); EST Glomerular Filtration Rate 171 mL/min (>60); Est Glom Filt Rate - Afr Amer 207 mL/min (>60); Globulin 3.2 g/dL (2.2-4.2); Glucose 121 mg/dL (74-106); Potassium 3.4 mmol/L (3.5-5.1); Protein, Total 5.7 g/dL (6.4-8.2); Sodium Level 136 mmol/L (136-145)
[2021-11-14] VITALS (29 sets, daily range): BP systolic 93–154; BP diastolic 61–103; PULSE 22–100; RESP 16–29; TEMP 36.8–38.6; O2SAT 92–100
[2021-11-14 02:13] LABS: ALB/GLOB Ratio 0.8 RATIO (0.9-2.4); AST(SGOT) 11 U/L (15-37); Alanine Aminotransfer ALT/SGPT 12 U/L (16-61); Albumin, Serum 2.4 g/dL (3.2-5.0); Alkaline Phosphatase 55 U/L (45-117); Anion Gap 5 (5-15); BUN 4 mg/dL (7-18); BUN/Creat Ratio 6.8 RATIO (10-20); Calcium,Total 7.9 mg/dL (8.5-10.1); Chloride 99 mmol/L (98-107); Creatinine, Serum 0.59 mg/dL (0.70-1.30); EST Glomerular Filtration Rate 149 mL/min (>60); Est Glom Filt Rate - Afr Amer 180 mL/min (>60); Estimated Creatinine Clearance 128.33 ml/min; Globulin 3.1 g/dL (2.2-4.2); Glucose 151 mg/dL (74-106); Potassium 3.4 mmol/L (3.5-5.1); Protein, Total 5.5 g/dL (6.4-8.2); Sodium Level 135 mmol/L (136-145)
--- NOTE | 2021-11-14 06:59 | PN.CC_ITS ---
Assessment & Plan Assessment/Plan (1) Acute hyponatremia: (2) Encephalopathy acute: (3) Seizures: PLAN: RECOMMENDATIONS: 1. Hold D5W for now 2. Okay to leave the intensive care unit 3. Potentially space out BMPs to daily 4. Given fever, anticipate 7 days of antibiotics 5. Potassium repletion by mouth if able to tolerate p.o. IMPRESSIONS: 1. Acute hyponatremia with polyuria and possible seizure Patient much improved compared to yesterday. Sodium did correct rapidly through the day, so DDAVP was given. Patient has had no change in neurologic condition and appears to be back to his baseline from a behavior standpoint. No seizure activity has been noted. Defer IV fluids to nephrology. 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 Sodium has been stable in the mid 130s for over 48 hours. Low clinical suspicion for CPM risk. 2. Diabetes mellitus/schizoaffective disorder/history of TBI/hyperlipidemia/hypertension Complicates care, management, recovery and prognosis. Blood sugars are only mildly elevated at this time. Some concern about his swallow yesterday. Okay to have speech eval. Patient likely should be continued on psychogenic medications given behavioral issues in the past. Patient currently not in restraints. Subjective Subjective Patient with acute hypoxia yesterday requiring a nonrebreather for rescue. Patient did receive Lasix with 1200 cc removed. Patient did okay overnight. Patient's oxygenation status is much improved compared to previous. Patient continues to have a wet cough, but feels subjectively that his breathing is improved. Patient is still requiring nasal cannula. No seizures have been reported. Objective Data Objective Data Vital Signs: Vital Signs Temp Pulse Resp BP Pulse Ox 37.2 C 96 29 H 135/91 H 95 11/14/21 06:00 11/14/21 06:00 11/14/21 06:00 11/14/21 06:00 11/14/21 06:00 Oxygen Flow Rate (L/min) 4 Oxygen Delivery Method Nasal Cannula Weight: 68 kg Body Mass Index (BMI) 22.1 Intake & Output: Intake and Output for Last 24 Hours 11/12/21 11/13/21 11/14/21 23:59 23:59 23:59 Intake Total 2191 / 2191 3311.33 / 3311.33 164 / 164 Output Total 19909 / 02751 2800 / 2850 475 / 475 Balance -73230 / -61013 511.33 / 461.33 -311 / -311 Lab / Micro Data Result Diagrams: 11/13/21 05:00 11/14/21 01:50 Labs: Laboratory Results - last 24 hr 11/13/21 09:58: POC Glucose 221 H 11/13/21 10:00: Sodium 135 L, Potassium 3.2 L, Chloride 102, Carbon Dioxide 28.0, Anion Gap 5, BUN 4 L, Creatinine 0.69 L, Estim Creat Clear Calc 109.73, Est GFR (MDRD) Af Amer 151, Est GFR (MDRD) Non-Af 125, BUN/Creatinine Ratio 5.8 L, Glucose 213 H, Calcium 8.3 L 11/13/21 14:49: Sodium 133 L, Potassium 3.5, Chloride 102, Carbon Dioxide 24.0, Anion Gap 7, BUN 5 L, Creatinine 0.65 L, Estim Creat Clear Calc 116.48, Est GFR (MDRD) Af Amer 161, Est GFR (MDRD) Non-Af 133, BUN/Creatinine Ratio 7.7 L, Glucose 194 H, Calcium 7.9 L, Total Bilirubin 0.20, AST 13 L, ALT 15 L, Alkaline Phosphatase 60, Total Protein 5.9 L, Albumin 2.3 L, Globulin 3.6, Albumin/Globulin Ratio 0.6 L 11/13/21 17:33: POC Glucose 163 H 11/13/21 18:33: Sodium 134 L, Potassium 3.7, Chloride 100, Carbon Dioxide 30.0, Anion Gap 4 L, BUN 4 L, Creatinine 0.57 L, Estim Creat Clear Calc 132.83, Est GFR (MDRD) Af Amer 189, Est GFR (MDRD) Non-Af 156, BUN/Creatinine Ratio 7.1 L, Glucose 88, Calcium 8.2 L, Total Bilirubin 0.30, AST 12 L, ALT 15 L, Alkaline Phosphatase 59, Total Protein 6.2 L, Albumin 2.7 L, Globulin 3.5, Albumin/Globulin Ratio 0.8 L 11/13/21 22:10: Sodium 136, Potassium 3.4 L, Chloride 100, Carbon Dioxide 29.0, Anion Gap 7, BUN 4 L, Creatinine 0.52 L, Estim Creat Clear Calc 145.60, Est GFR (MDRD) Af Amer 207, Est GFR (MDRD) Non-Af 171, BUN/Creatinine Ratio 7.6 L, Glucose 121 H, Calcium 8.0 L, Total Bilirubin 0.20, AST 10 L, ALT 13 L, Alkaline Phosphatase 57, Total Protein 5.7 L, Albumin 2.5 L, Globulin 3.2, Albumin/Globulin Ratio 0.8 L 11/13/21 22:26: POC Glucose 131 H 11/14/21 01:50: Sodium 135 L, Potassium 3.4 L, Chloride 99, Carbon Dioxide 31.0, Anion Gap 5, BUN 4 L, Creatinine 0.59 L, Estim Creat Clear Calc 128.33, Est GFR (MDRD) Af Amer 180, Est GFR (MDRD) Non-Af 149, BUN/Creatinine Ratio 6.8 L, Glucose 151 H, Calcium 7.9 L, Total Bilirubin 0.20, AST 11 L, ALT 12 L, Alkaline Phosphatase 55, Total Protein 5.5 L, Albumin 2.4 L, Globulin 3.1, Albumin/Globulin Ratio 0.8 L Radiography Diagnostic Testing: Radiology Impression Chest X-Ray 11/13/21 11:40 IMPRESSION: No airspace consolidation or pleural effusion. Electronically Signed: Dinesh Roe MD ([place]) at 11:58 EDT Reading Location ID and State: [address] [place] [address] , Service support , Physical Exam Const alert and no apparent distress General Appearance: frail and appears older than stated age Orientation / Consciousness: awake and oriented to person; Negative for oriented to place or oriented to time Nutritional Appearance: thin HEENT normocephalic and head/scalp atraumatic Eyes PERRL, EOMs intact bilaterally, conjunctivae normal and no scleral icterus Neck full ROM Chest palpation of chest normal Chest: symmetrical chest wall rise Resp normal respiratory effort, normal air movement and no retractions Auscultation: Negative for rales, rhonchi or wheezes Cardio regular rate, regular rhythm, S1 normal heart sound, S2 normal heart sound, no murmurs, no rub and no gallops GI normal to inspection, nondistended, normoactive bowel sounds Extremity no clubbing, cyanosis or edema Skin Skin Narrative: Slight erythema with possible hives at the neck are resolved Neuro CN's II-XII intact bilaterally and moves all extremities Psych cooperative Mood & Affect: flat affect Charges/Coding Visit Charges Inpatient E&M: 87807 Subs Hosp L2
--- NOTE | 2021-11-14 07:15 | PN.HOSP_ITS ---
Subjective Subjective Follow-up on unresponsiveness/acute severe hyponatremia: Patient was seen and examined. He is off restraints. Overnight, patient was felt to be aspirating. He was kept n.p.o. Some of his meds were switched to IV. He is currently on 4 L of oxygen. Objective Data Objective Data Vital Signs: Vital Signs Temp Pulse Resp BP Pulse Ox 98.9 F 96 29 H 135/91 H 95 11/14/21 06:00 11/14/21 06:00 11/14/21 06:00 11/14/21 06:00 11/14/21 06:00 Oxygen Flow Rate (L/min) 4 Oxygen Delivery Method Nasal Cannula Weight: 68 kg Body Mass Index (BMI) 22.1 Intake & Output: Intake and Output for Last 24 Hours 11/12/21 11/13/21 11/14/21 23:59 23:59 23:59 Intake Total 2191 / 2191 3311.33 / 3311.33 164 / 164 Output Total 49275 / 47853 2800 / 2850 475 / 475 Balance -78390 / -14173 511.33 / 461.33 -311 / -311 Lab / Micro Data Result Diagrams: 11/14/21 07:15 11/14/21 07:15 Labs: Laboratory Results - last 24 hr 11/13/21 09:58: POC Glucose 221 H 11/13/21 10:00: Sodium 135 L, Potassium 3.2 L, Chloride 102, Carbon Dioxide 28.0, Anion Gap 5, BUN 4 L, Creatinine 0.69 L, Estim Creat Clear Calc 109.73, Est GFR (MDRD) Af Amer 151, Est GFR (MDRD) Non-Af 125, BUN/Creatinine Ratio 5.8 L, Glucose 213 H, Calcium 8.3 L 11/13/21 14:49: Sodium 133 L, Potassium 3.5, Chloride 102, Carbon Dioxide 24.0, Anion Gap 7, BUN 5 L, Creatinine 0.65 L, Estim Creat Clear Calc 116.48, Est GFR (MDRD) Af Amer 161, Est GFR (MDRD) Non-Af 133, BUN/Creatinine Ratio 7.7 L, Glucose 194 H, Calcium 7.9 L, Total Bilirubin 0.20, AST 13 L, ALT 15 L, Alkaline Phosphatase 60, Total Protein 5.9 L, Albumin 2.3 L, Globulin 3.6, Albumin/Globulin Ratio 0.6 L 11/13/21 17:33: POC Glucose 163 H 11/13/21 18:33: Sodium 134 L, Potassium 3.7, Chloride 100, Carbon Dioxide 30.0, Anion Gap 4 L, BUN 4 L, Creatinine 0.57 L, Estim Creat Clear Calc 132.83, Est GFR (MDRD) Af Amer 189, Est GFR (MDRD) Non-Af 156, BUN/Creatinine Ratio 7.1 L, Glucose 88, Calcium 8.2 L, Total Bilirubin 0.30, AST 12 L, ALT 15 L, Alkaline P hosphatase 59, Total Protein 6.2 L, Albumin 2.7 L, Globulin 3.5, Albumin/Globulin Ratio 0.8 L 11/13/21 22:10: Sodium 136, Potassium 3.4 L, Chloride 100, Carbon Dioxide 29.0, Anion Gap 7, BUN 4 L, Creatinine 0.52 L, Estim Creat Clear Calc 145.60, Est GFR (MDRD) Af Amer 207, Est GFR (MDRD) Non-Af 171, BUN/Creatinine Ratio 7.6 L, Glucose 121 H, Calcium 8.0 L, Total Bilirubin 0.20, AST 10 L, ALT 13 L, Alkaline Phosphatase 57, Total Protein 5.7 L, Albumin 2.5 L, Globulin 3.2, Albumin/Globulin Ratio 0.8 L 11/13/21 22:26: POC Glucose 131 H 11/14/21 01:50: Sodium 135 L, Potassium 3.4 L, Chloride 99, Carbon Dioxide 31.0, Anion Gap 5, BUN 4 L, Creatinine 0.59 L, Estim Creat Clear Calc 128.33, Est GFR (MDRD) Af Amer 180, Est GFR (MDRD) Non-Af 149, BUN/Creatinine Ratio 6.8 L, Glucose 151 H, Calcium 7.9 L, Total Bilirubin 0.20, AST 11 L, ALT 12 L, Alkaline Phosphatase 55, Total Protein 5.5 L, Albumin 2.4 L, Globulin 3.1, Albumin/Globulin Ratio 0.8 L Radiography Diagnostic Testing: Radiology Impression Chest X-Ray 11/13/21 11:40 IMPRESSION: No airspace consolidation or pleural effusion. Electronically Signed: Dinesh Roe MD ([place]) at 11:58 EDT Reading Location ID and State: [address] [place] [address] , Service support , Physical Exam Narrative Physical exam: General: Alert, oriented to self, cooperative, much calmer, off restraints, disheveled, on 4 L of oxygen HEENT: Atraumatic Oral: Moist Mucosa Neck: Supple Lungs: Diminished to auscultation Cardiovascular: HS I+II, regular, no murmurs Abdomen: Bowel Sounds Present, Soft, Non Tender Extremities: No edema Assessment & Plan Assessment/Plan (1) Acute hyponatremia: (2) Encephalopathy acute: (3) Seizures: PLAN: 1. Acute encephalopathy secondary to acute severe hyponatremia, appears to be back to his baseline 2. Acute severe symptomatic hyponatremia,improved Rise of sodium however has been rapid. Admitting sodium was 115 Likely etiology is SIADH vs psychogenic polydipsia as urine osmolarity is 101. Urine sodium is 39, Sodium today is 133, on D5 water, Nephrology following 3. Polyuria, output appears to have slowed down HgbA1c 6.2. DI ruled out Will continue to monitor 4. Possible aspiration pneumonitis/pneumonia per history; chest x-ray was negative for infiltrate suggestive of pneumonia Continue on IV Unasyn 5. Schizoaffective disorder, history of traumatic brain injury, continue psychotropic meds 6. Type II DM, sugars are fairly controlled, Will hold Metformin for now, continue insulin sliding scale 7. Hypokalemia, replaced, continue to trend labs 8. DVT PPX - Lovenox SC Charges/Coding Visit Charges Inpatient E&M: 85313 Subs Hosp L2
[2021-11-14 07:22] LABS: Absolute Lymphocyte Count 1.17 X10^3/uL (0.83-4.51); Absolute Neutrophil Count 11.2 X10^3/uL (2.0-7.7); Basophil# 0.05 X10^3/uL; Basophil% 0.4 % (0-1); Eosinophil# 0.14 X10^3/uL; Hematocrit 36.1 % (40-54); Hemoglobin 12.7 g/dL (13.0-16.5); Lymphocyte # 1.17 X10^3/ul (0.83-4.51); Lymphocyte % 8.5 % (19-41); Mean Corp Hgb Conc 35.2 g/dL (32-36); Mean Corpuscular Hgb 30.8 pg (27.0-32.0); Mean Corpuscular Volume 87.4 fL (80-94); Mean Platelet Vol. 9.7 fl (6.2-12.0); Monocyte# 1.09 X10^3/uL; Monocyte% 7.9 % (0-10); NRBC Flagged by Analyzer 0 % (0-5); Neutrophil # 11.24 X10^3/uL (2.7-7.7); Neutrophil % 81.8 % (47-70); Platelet Count 191 K/mm3 (150-450); RBC Distribution Width SD 48.1 fl (35.1-43.9); Red Blood Count 4.13 M/mm3 (4.6-6.2); White Blood Count 13.8 K/mm3 (4.4-11.0)
[2021-11-14 07:50] LABS: ALB/GLOB Ratio 0.8 RATIO (0.9-2.4); AST(SGOT) 11 U/L (15-37); Alanine Aminotransfer ALT/SGPT 12 U/L (16-61); Albumin, Serum 2.4 g/dL (3.2-5.0); Alkaline Phosphatase 54 U/L (45-117); Anion Gap 4 (5-15); BUN 4 mg/dL (7-18); BUN/Creat Ratio 7.1 RATIO (10-20); Calcium,Total 7.9 mg/dL (8.5-10.1); Chloride 99 mmol/L (98-107); Creatinine, Serum 0.56 mg/dL (0.70-1.30); EST Glomerular Filtration Rate 157 mL/min (>60); Est Glom Filt Rate - Afr Amer 191 mL/min (>60); Estimated Creatinine Clearance 136.61 ml/min; Globulin 3.1 g/dL (2.2-4.2); Glucose 136 mg/dL (74-106); Potassium 3.3 mmol/L (3.5-5.1); Protein, Total 5.5 g/dL (6.4-8.2); Sodium Level 133 mmol/L (136-145)
[2021-11-14] MEDS: Potassium Chloride 10mEq/100mL 10 MEQ/100 ML IV.SOLN. 100 MEQ IV BOLUS ×4 (08:25→15:22)
[2021-11-14] MEDS: Ipratropium 0.5 MG/2.5 ML SOLUTION INHALATION ×3 (10:22→19:35)
[2021-11-14 11:21] LABS: Bedside Glucose 115 mg/dL (74-106)
[2021-11-14 16:15] LABS: Bedside Glucose 135 mg/dL (74-106)
--- NOTE | 2021-11-14 17:55 | PCM.PN.REN ---
Subjective Subjective Following for hyponatremia. The patient has been weaned to 2 L nasal cannula today. He remains intermittently confused. He reports headache although the severity has improved since yesterday. He denies nausea, vomiting, or edema. Objective Data Objective Data Vital Signs: Vital Signs Temp Pulse Resp BP Pulse Ox 99.2 F H 88 18 93/61 96 11/14/21 17:00 11/14/21 17:00 11/14/21 17:00 11/14/21 17:00 11/14/21 17:00 Oxygen Flow Rate (L/min) 2 Oxygen Delivery Method Mechanical Ventilator Weight: 68 kg Body Mass Index (BMI) 22.1 Intake & Output: Intake and Output for Last 24 Hours 11/12/21 11/13/21 11/14/21 23:59 23:59 23:59 Intake Total 2191 / 2191 3311.33 / 3311.33 1609.25 / 1609.25 Output Total 36126 / 49391 2800 / 2850 4675 / 4675 Balance -53527 / -72563 511.33 / 461.33 -3065.75 / -3065.75 Lab / Micro Data Result Diagrams: 11/14/21 07:15 11/14/21 07:15 Labs: Laboratory Results - last 24 hr 11/13/21 18:33: Sodium 134 L, Potassium 3.7, Chloride 100, Carbon Dioxide 30.0, Anion Gap 4 L, BUN 4 L, Creatinine 0.57 L, Estim Creat Clear Calc 132.83, Est GFR (MDRD) Af Amer 189, Est GFR (MDRD) Non-Af 156, BUN/Creatinine Ratio 7.1 L, Glucose 88, Calcium 8.2 L, Total Bilirubin 0.30, AST 12 L, ALT 15 L, Alkaline Phosphatase 59, Total Protein 6.2 L, Albumin 2.7 L, Globulin 3.5, Albumin/Globulin Ratio 0.8 L 11/13/21 22:10: Sodium 136, Potassium 3.4 L, Chloride 100, Carbon Dioxide 29.0, Anion Gap 7, BUN 4 L, Creatinine 0.52 L, Estim Creat Clear Calc 145.60, Est GFR (MDRD) Af Amer 207, Est GFR (MDRD) Non-Af 171, BUN/Creatinine Ratio 7.6 L, Glucose 121 H, Calcium 8.0 L, Total Bilirubin 0.20, AST 10 L, ALT 13 L, Alkaline Phosphatase 57, Total Protein 5.7 L, Albumin 2.5 L, Globulin 3.2, Albumin/Globulin Ratio 0.8 L 11/13/21 22:26: POC Glucose 131 H 11/14/21 01:50: Sodium 135 L, Potassium 3.4 L, Chloride 99, Carbon Dioxide 31.0, Anion Gap 5, BUN 4 L, Creatinine 0.59 L, Estim Creat Clear Calc 128.33, Est GFR (MDRD) Af Amer 180, Est GFR (MDRD) Non-Af 149, BUN/Creatinine Ratio 6.8 L, Glucose 151 H, Calcium 7.9 L, Total Bilirubin 0.20, AST 11 L, ALT 12 L, Alkaline Phosphatase 55, Total Protein 5.5 L, Albumin 2.4 L, Globulin 3.1, Albumin/Globulin Ratio 0.8 L 11/14/21 07:15: WBC 13.8 H, RBC 4.13 L, Hgb 12.7 L, Hct 36.1 L, MCV 87.4, MCH 30.8, MCHC 35.2, RDW Std Deviation 48.1 H, RDW Coeff of Zane 15.0 H, Plt Count 191, MPV 9.7, Immature Gran % (Auto) 0.400, Neut % (Auto) 81.8 H, Lymph % (Auto) 8.5 L, Grainger % (Auto) 7.9, Eos % (Auto) 1.0, Baso % (Auto) 0.4, Absolute Neuts (auto) 11.2 H, Absolute Lymphs (auto) 1.17, Nucleated RBC % 0 11/14/21 07:15: Sodium 133 L, Potassium 3.3 L, Chloride 99, Carbon Dioxide 30.0, Anion Gap 4 L, BUN 4 L, Creatinine 0.56 L, Estim Creat Clear Calc 136.61, Est GFR (MDRD) Af Amer 191, Est GFR (MDRD) Non-Af 157, BUN/Creatinine Ratio 7.1 L, Glucose 136 H, Calcium 7.9 L, Total Bilirubin 0.30, AST 11 L, ALT 12 L, Alkaline Phosphatase 54, Total Protein 5.5 L, Albumin 2.4 L, Globulin 3.1, Albumin/Globulin Ratio 0.8 L 11/14/21 11:13: POC Glucose 115 H 11/14/21 16:10: POC Glucose 135 H Physical Exam Narrative General: NAD. Cachectic appearing. HEENT: Normocephalic, atraumatic. Mucous membrane moist. Neck: Supple, no JVD. Heart: Normal S1, S2. No rubs, murmurs or gallops. Lungs: Bilateral rhonchi, improved compared to 2 days ago. Abdomen: Normal active bowel sounds, soft, nontender, no guarding or rebound. Extremities: No clubbing, cyanosis, or edema. Assessment & Plan Assessment/Plan (1) Hyponatremia: PLAN: -Hyponatremia is due to a combination of low solute intake and excessive fluid intake prior to admission. -Low suspicion for evident ADH since urine osmolality was only 101 mOsm/kg. -Serum sodium corrected too rapidly in the first 24 hours. -Sodium was relowered over the last 2 days with DDAVP and IV D5W. -Serum sodium is now in the expected range. He should be out of danger in terms of osmotic demyelination at this point. -I have stopped the DDAVP and IV fluid. -We will decrease the frequency of sodium checks to every 12 hours.
[2021-11-14 19:06] LABS: ALB/GLOB Ratio 0.7 RATIO (0.9-2.4); AST(SGOT) 10 U/L (15-37); Alanine Aminotransfer ALT/SGPT 13 U/L (16-61); Albumin, Serum 2.6 g/dL (3.2-5.0); Alkaline Phosphatase 61 U/L (45-117); Anion Gap 4 (5-15); BUN 5 mg/dL (7-18); BUN/Creat Ratio 8.2 RATIO (10-20); Calcium,Total 8.9 mg/dL (8.5-10.1); Chloride 105 mmol/L (98-107); Creatinine, Serum 0.61 mg/dL (0.70-1.30); EST Glomerular Filtration Rate 143 mL/min (>60); Est Glom Filt Rate - Afr Amer 173 mL/min (>60); Estimated Creatinine Clearance 125.41 ml/min; Globulin 3.6 g/dL (2.2-4.2); Glucose 134 mg/dL (74-106); Potassium 4.1 mmol/L (3.5-5.1); Protein, Total 6.2 g/dL (6.4-8.2); Sodium Level 138 mmol/L (136-145)
[2021-11-14 21:36] LABS: Bedside Glucose 137 mg/dL (74-106)
[2021-11-14] MEDS: Ziprasidone IM 20 MG/ML VIAL IM (21:47)
[2021-11-15] VITALS (13 sets, daily range): BP systolic 102–132; BP diastolic 72–95; PULSE 84–106; RESP 16–28; TEMP 36.3–37.1; O2SAT 95–96
[2021-11-15 00:11] LABS: Bedside Glucose 125 mg/dL (74-106)
[2021-11-15] MEDS: Ipratropium 0.5 MG/2.5 ML SOLUTION INHALATION ×3 (06:41→19:44)
[2021-11-15 07:06] LABS: Bedside Glucose 156 mg/dL (74-106)
[2021-11-15] MEDS: Atorvastatin Calcium 10 MG Tablet PO (08:01)
[2021-11-15] MEDS: PALIPERIDONE 3 MG TAB.ER.24 PO (08:01)
[2021-11-15] MEDS: traZODone 50 MG Tablet PO (08:02)
[2021-11-15] MEDS: hydrOXYzine 50 MG/ML Vial IM (08:03)
--- NOTE | 2021-11-15 08:23 | PCM.PN.INT ---
Assessment & Plan Assessment/Plan (1) Acute hyponatremia: (2) Encephalopathy acute: (3) Seizures: PLAN: RECOMMENDATIONS: 1. Hemodynamically stable on room air. Sign out from a critical care perspective 2. Consider 7 days of total antibiotics 3. Electrolyte repletion as indicated 4. Consider instructions to monitor for psychogenic polydipsia IMPRESSIONS: 1. Acute hyponatremia with polyuria and possible seizure Patient stable from a hyponatremia standpoint for several days. No seizure activity has been noted. Some concern for aspiration leading to fever, but patient is hemodynamically stable on room air. Mental status appears to be at baseline. No signs or symptoms of CPM noted. Consider monitoring for psychogenic polydipsia as part of the discharge instructions. 2. Diabetes mellitus/schizoaffective disorder/history of TBI/hyperlipidemia/hypertension Complicates care, management, recovery and prognosis. Blood sugars are only mildly elevated at this time. Some concern about his swallow yesterday. Patient likely should be continued on psychogenic medications given behavioral issues in the past. Patient currently not requiring restraints. Subjective Subjective Patient did okay overnight. Patient did spike a fever, but is tolerating well on room air. Patient reports soreness in his chest there is described as a burning. No nausea or vomiting reported. Objective Data Objective Data Vital Signs: Vital Signs Temp Pulse Resp BP Pulse Ox 37.1 C 98 18 132/95 H 95 11/15/21 05:53 11/15/21 07:05 11/15/21 05:53 11/15/21 05:53 11/15/21 05:53 Oxygen Flow Rate (L/min) 2 Oxygen Delivery Method Room Air Weight: 68 kg Body Mass Index (BMI) 22.1 Intake & Output: Intake and Output for Last 24 Hours 11/13/21 11/14/21 11/15/21 23:59 23:59 23:59 Intake Total 3311.33 / 3311.33 1878.25 / 1878.25 216 / 216 Output Total 2800 / 2850 4675 / 4675 300 / 300 Balance 511.33 / 461.33 -2796.75 / -2796.75 -84 / -84 Lab / Micro Data Result Diagrams: 11/14/21 07:15 11/14/21 18:15 Labs: Laboratory Results - last 24 hr 11/14/21 11:13: POC Glucose 115 H 11/14/21 16:10: POC Glucose 135 H 11/14/21 18:15: Sodium 138, Potassium 4.1, Chloride 105, Carbon Dioxide 29.0, Anion Gap 4 L, BUN 5 L, Creatinine 0.61 L, Estim Creat Clear Calc 125.41, Est GFR (MDRD) Af Amer 173, Est GFR (MDRD) Non-Af 143, BUN/Creatinine Ratio 8.2 L, Glucose 134 H, Calcium 8.9, Total Bilirubin 0.40, AST 10 L, ALT 13 L, Alkaline Phosphatase 61, Total Protein 6.2 L, Albumin 2.6 L, Globulin 3.6, Albumin/Globulin Ratio 0.7 L 11/14/21 21:28: POC Glucose 137 H 11/15/21 00:02: POC Glucose 125 H 11/15/21 06:59: POC Glucose 156 H Physical Exam Const alert and no apparent distress General Appearance: frail and appears older than stated age Orientation / Consciousness: awake and oriented to person; Negative for oriented to place or oriented to time Nutritional Appearance: thin HEENT normocephalic and head/scalp atraumatic Eyes PERRL, EOMs intact bilaterally, conjunctivae normal and no scleral icterus Neck full ROM Chest palpation of chest normal Chest: symmetrical chest wall rise Resp normal respiratory effort, normal air movement and no retractions Auscultation: Negative for rales, rhonchi or wheezes Cardio regular rate, regular rhythm, S1 normal heart sound, S2 normal heart sound, no murmurs, no rub and no gallops GI normal to inspection, nondistended, normoactive bowel sounds Extremity no clubbing, cyanosis or edema Skin Skin Narrative: Slight erythema with possible hives at the neck are resolved Neuro CN's II-XII intact bilaterally and moves all extremities Psych cooperative Mood & Affect: flat affect Charges/Coding Visit Charges Inpatient E&M: 62023 Subs Hosp L2
--- NOTE | 2021-11-15 09:11 | ST.MBS ---
Modified Barium Swallow - Patient Information Study Date: 11/15/21 Study Time: 08:30 Direct Billable Minutes: 110 Total Minutes procedure & reportin Diagnosis: Seizures (R56), Encephalopathy acute (G93.40) Referring Physician: Rosalva Florence Reason for Referral: Objectively assess swallow function, risk for aspiration, and determine recommendations for least restrictive diet textures and compensatory strategies to improve safety of swallow. Medical History: RANI DELEON is a 61 M with a significant history of schizophrenia and traumatic brain injury (SEE full PMH below) who lives at the [facility] facility at a senior care presenting to [facility] 11/11/2021 with unresponsiveness. Pt was admitted for acute hyponatremia, encephalopathy, and suspected seizures. Pt also has wet, moist cough at baseline. He was evaluated by speech therapy at bedside and recommended for soft and bite sized textures / thin liquids with direct supervision to monitor lung sounds and pulmonary status closely. He was made NPO during POC due to suspected episode of aspiration 11/14/21. Speech therapy re-evaluated and recommended the patient continue NPO as he had increased overt s/s of aspiration with trials. Recommended MBS study to objectively assess for risk/presence of aspiration. Medical History Cardiac arrest Depression Diabetes Essential hypertension GERD (gastroesophageal reflux disease) Hyperlipidemia Ileus Open wound of abdominal wall Schizoaffective disorder Traumatic subdural hemorrhage Current Diet Ordered: NPO Dentition: Edentulous Mental Status: Impaired Respiratory Status: Oxygenating on Room Air - Penetration-Aspiration Scale Penetration-Aspiration Scale: OBJECTIVE ASSESSMENT OF SWALLOW FUNCTION (QUANTITATIVE ? PER TRIAL): PENETRATION / ASPIRATION SCALE (ZAMUDIO): 1 = does not enter airway 2 = enters airway/above vocal folds/ejected 3 = enters airway/above vocal folds/not ejected 4 = enters airway/contacts vocal folds/ejected 5 = enters airway/contacts vocal folds/not ejected 6 = enters airway/below vocal folds/ejected 7 = enters airway/below vocal folds/not ejected despite effort 8 = enters airway/below vocal folds/no effort VIDEOFLOROSCOPIC SCALE SCORE (ZAMUDIO): Grade I = aspiration of material that has penetrated into the laryngeal vestibule, intact cough reflex Grade II = aspiration < 10 % of the bolus, intact cough reflex Grade III = aspiration of < 10 % of the bolus, reduced cough reflex or aspiration of > 10 % of the bolus, intact cough reflex Grade IV = aspiration of > 10 % of the bolus, reduced cough reflex - Penetration-Aspiration Scale Score Thin Liquid via teaspoon Result: 1= does not enter airway Thin Liquid via teaspoon Trial 2 Result: 1= does not enter airway Thin Liquid via small single sip from cup Result: 2= enter airway/above vocal folds/ejected Thin Liquid via large single sip from cup Result: 3= enters airways/above vocal folds/not ejected Thin Liquid via sequential sips from cup Result: 3= enters airways/above vocal folds/not ejected Comment: POST PRANDIAL ASPIRATION of previous trial. STRAIGHT LINE PRESS SETTER cued cough and re-swallow. The patient elicited cough, but no volitional swallow even when cued multiple times to dry swallow. [place] Thick Liquid via large single sip from cup Result: 3= enters airways/above vocal folds/not ejected Honey Thick Liquid via small single sip from cup Result: 3= enters airways/above vocal folds/not ejected Pudding with esophageal screen Result: 1= does not enter airway 1/4 Cookie Result: 1= does not enter airway Thin Liquid via single sip from straw Result: 3= enters airways/above vocal folds/not ejected Thin Liquid via teaspoon Trial 3 Result: 1= does not enter airway Thin Liquid via large single sip from cup Trial 2 Result: 5= enters airways/contacts vocal folds/not ejected Thin Liquid via teaspoon Trial 4 Result: 1= does not enter airway Comment: POST PRANDIAL ASPIRATION of previous trial. [place] Thick Liquid via large single sip from cup Trial 2 Result: 3= enters airways/above vocal folds/not ejected - Oral Phase Labial Seal: Escape progressing to mid-chin Tongue Control During Bolus Hold: Posterior escape of greater than half of bolus Bolus Preparation/Mastication: Disorganized chewing/mashing with solid pieces of bolus unchewed Bolus Transport/Lingual Motion: Repetitive/disorganized tongue motion Oral Residue: Residue collection on oral structures - Pharyngeal Phase Initiation of Pharyngeal Swallow: Bolus head in pyriforms Soft Palate Elevation: Trace column of contrast/air between soft palate and pharyngeal wall Laryngeal Elevation: Partial superior movement thyroid cart/partial apprx aryt-epig petiole Anterior Hyoid Excursion: Partial anterior movement Epiglottic Movement: Partial inversion Laryngeal Vestibule Closure at Height of Swallow: Incomplete; narrow column of air/contrast in laryngeal vestibule Pharyngeal Stripping Wave: Present - diminished Pharyngoesophageal Segment Opening: Parital distension and partial duration; parital obstruction of flow Tongue Base Retraction: Narrow column of contrast between tongue base & post. pharyngeal wall Pharyngeal Residue: Collection of residue within or on pharyngeal structures - Esophageal Phase Esophageal Clearance: Complete clearance - Treatment Strategies Effects of treatment strategies attemped:: Decreased bolus size = Effective. Decreased bolus rate = Effective. - Diagnosis/Impression Diagnosis: Moderate oropharyngeal phase dysphagia (R13.12) Impression: The oral phase is marked by severe deficits in mastication with pieces of 1/4 cookie unmashed. He has severe deficits in bolus control with premature posterior loss of pudding and all liquid contrasts to the pyriforms upon swallow onset. He demonstrated lingual pumping and reduced tongue motion for A-P transport. He presented with a collection of oral residue after the swallow. The pharyngeal phase is marked by delayed initiation of the swallow, decreased airway closure, and moderate pharyngeal residues after the swallow. He presents with decreased anterior hyoid excursion and laryngeal elevation with resulting decreased airway closure and UES opening/duration during the swallow. He presented with post prandial aspiration of large thin liquid sips via cup on subsequent swallows. The patient frequently demonstrated laryngeal penetration of cup sips across all liquid consistencies without full ejection from the laryngeal vestibule. The patient is at increased risk to aspiration residue remaining in the laryngeal vestibule. He had difficulty following commands for re-swallows, as well as small sip size. - Recommendations Diet: Mechanical Soft Textures - Minced and Moist Textures (IDDSI Level 5), Thin Liquids Compensatory Strategies: Small Bites, Liquid by Teaspoon Only, Slow Rate, Sitting upright, Remain sitting upright for 30 minutes after PO intake, Assist with verbal cues to use recommended strategies Supervision: Assist as needed - Assist feeding as needed to ensure use of strategies to decrease aspiration risk, 1:1 Close Supervision Recommend Repeat Modified Barium Swallow: Yes - Would recommend repeat MBS study prior to advancing the patient to sips by cup. Pt unable to follow commands to utilize safe bolus size when self administering drinks. Need for Skilled Speech Therapy Services: Yes Comment: Will recommend the patient for continued dysphagia therapy to address deficits in oropharyngeal swallow function. Would consider the patient for oropharyngeal strengthening to improve lingual coordination and strength, laryngeal elevation, hyoid excursion, and tongue base retraction. The patient would benefit from thorough education regarding diet recommendations and recommended compensatory strategies. Education Completed: 1. Described result of evaluation. - Educated the patient and RN in recommendations., 7. Pt requires further education on strategies & risks. - Status Active ST Patient: Active - Contact Information [facility] Speech Therapy:: Alma Ray M.A. [facility]-[employer] Speech-Language Pathologist [facility] [address] [place] [address] [email or web address] [phone] 11/15/21 09:17
--- NOTE | 2021-11-15 09:46 | CASEMGMT ---
Discharge Motor Vehicle Inspector Faxed over patient updates to Rafaela Douglas. Adriana Klein Discharge Motor Vehicle Inspector
[2021-11-15] MEDS: Ziprasidone HCl 20 MG Capsule 80 MG PO ×2 (10:23→21:40)
[2021-11-15] MEDS: Insulin Lispro 100 UNIT/ML INSULN.PEN SC (11:05)
[2021-11-15 11:11] LABS: Bedside Glucose 209 mg/dL (74-106)
--- NOTE | 2021-11-15 11:52 | CASEMGMT ---
REGINA updated patient's guardian Iqra letting her know patient will return to [facility] today and he is on a modified diet. REGINA called [facility] and let them know patient will be returning later today. Await orders. Laura HERNANDEZ
--- NOTE | 2021-11-15 12:54 | TREXTCAR_ITS ---
Diet 11/15/21 09:31 Diet: Regular - General Food consistency:: Mechanical (Minced/Moist) Liquid Consistency:: Regular/Thin Is pt able to select menu?: No Diet Comments: Sips by Tsp Direct Sup-assist feeding as needed to ensure use of strategies Problem/Diagnosis (1) Acute hyponatremia: Status: Acute (2) Encephalopathy acute: Status: Acute (3) Seizures: Status: Acute Allergies/Procedures Done in Hospital Allergies benztropine Allergy (Verified 11/11/21 21:39) PT UNSURE OF REACTION haloperidol [From Haldol] Allergy (Verified 11/11/21 21:39) PT UNSURE OF REACTION Dietary and Speech Recommendations Dietitian Recommendations/Changes: recommend regular diet as tolerated- texture/consistency modifications per MEASUREMENT SPECIALIST; if hyperglycemia occurs and PO intake is adequate, recommend carbohydrate controlled diet Discharge Plan Admission Admit Date/Time: 11/11/21 23:20 Attending Provider: Rosalva Florence Primary Care Provider: Joseluis Mcghee Consulting Providers: Félix Reynoso ; Mike August Discharge Orders/Prescriptions Prescriptions: No Action clozapine 100 mg Tablet 100 mg DAILY RF: 0 clozapine 150 mg Tablet,Disintegrating 300 mg PO BID RF: 0 divalproex 250 mg tablet,delayed release (DR/EC) 250 mg PO TID RF: 0 ziprasidone HCl [Geodon] 80 mg Capsule 80 mg PO BID RF: 0 trazodone 50 mg Tablet 50 mg PO DAILY RF: 0 atorvastatin 10 mg tablet 10 mg DAILY RF: 0 hydroxyzine HCl 50 mg tablet 50 mg DAILY RF: 0 ziprasidone HCl [Geodon] 20 mg Capsule 20 mg PO DAILY PRN (Reason: Agitation) RF: 0 tamsulosin [Flomax] 0.4 mg Capsule 0.4 mg PO QHS RF: 0 lactulose 10 gram Packet 20 g BID RF: 0 metformin 1,000 mg Tablet 1,000 mg PO BID RF: 0 glycopyrrolate 2 mg tablet 2 mg DAILY RF: 0 Spiriva with HandiHaler 18 mcg Capsule, W/Inhalation Device 1 cap INHALATION DAILY RF: 0 paliperidone [Invega] 3 mg Tablet Extended Release 24hr 3 mg PO DAILY RF: 0 Referrals / Follow Up: Joseluis Mcghee MD [Primary Care Provider] - Disposition Discharge Orders: Discharge Patient (Routine); Ordered 11/15/21 Ordered By: Dr. Rosalva Florence
--- NOTE | 2021-11-15 12:55 | PCM.PN.HOSP ---
Subjective Subjective Follow-up on unresponsiveness/acute severe hyponatremia: Patient was seen and examined. He underwent modified barium swallow today. He was diagnosed with moderate oropharyngeal phase dysphagia. He subsequently was put on mechanical soft textured with thin liquids. No other acute events overnight. Objective Data Objective Data Vital Signs: Vital Signs Temp Pulse Resp BP Pulse Ox 97.4 F L 105 H 18 128/87 H 96 11/15/21 10:52 11/15/21 11:34 11/15/21 10:52 11/15/21 10:52 11/15/21 10:52 Oxygen Flow Rate (L/min) 4 Oxygen Delivery Method Room Air Weight: 68 kg Body Mass Index (BMI) 22.1 Intake & Output: Intake and Output for Last 24 Hours 11/13/21 11/14/21 11/15/21 23:59 23:59 23:59 Intake Total 3311.33 / 3311.33 1878.25 / 1878.25 216 / 216 Output Total 2800 / 2850 4675 / 4675 300 / 300 Balance 511.33 / 461.33 -2796.75 / -2796.75 -84 / -84 Lab / Micro Data Result Diagrams: 11/14/21 07:15 11/14/21 18:15 Labs: Laboratory Results - last 24 hr 11/14/21 16:10: POC Glucose 135 H 11/14/21 18:15: Sodium 138, Potassium 4.1, Chloride 105, Carbon Dioxide 29.0, Anion Gap 4 L, BUN 5 L, Creatinine 0.61 L, Estim Creat Clear Calc 125.41, Est GFR (MDRD) Af Amer 173, Est GFR (MDRD) Non-Af 143, BUN/Creatinine Ratio 8.2 L, Glucose 134 H, Calcium 8.9, Total Bilirubin 0.40, AST 10 L, ALT 13 L, Alkaline Phosphatase 61, Total Protein 6.2 L, Albumin 2.6 L, Globulin 3.6, Albumin/Globulin Ratio 0.7 L 11/14/21 21:28: POC Glucose 137 H 11/15/21 00:02: POC Glucose 125 H 11/15/21 06:59: POC Glucose 156 H 11/15/21 11:04: POC Glucose 209 H Physical Exam Narrative Physical exam: General: Alert, oriented to self, cooperative, much calmer, off oxygen HEENT: Atraumatic Oral: Moist Mucosa Neck: Supple Lungs: Diminished to auscultation Cardiovascular: HS I+II, regular, no murmurs Abdomen: Bowel Sounds Present, Soft, Non Tender Extremities: No edema Assessment & Plan Assessment/Plan (1) Acute hyponatremia: (2) Encephalopathy acute: (3) Seizures: PLAN: 1. Acute encephalopathy secondary to acute severe hyponatremia, appears to be back to his baseline 2. Acute severe symptomatic hyponatremia,improved Rise of sodium however has been rapid. Admitting sodium was 115 Likely etiology is SIADH vs psychogenic polydipsia as urine osmolarity is 101. Urine sodium is 39, Sodium today is 138, on D5W, Nephrology following 3. Polyuria, output appears to have slowed down HgbA1c 6.2. DI ruled out Will continue to monitor 4. Possible aspiration pneumonitis/pneumonia per history; chest x-ray was negative for infiltrate suggestive of pneumonia Continue on IV Unasyn 5. Schizoaffective disorder, history of traumatic brain injury, continue psychotropic meds 6. Type II DM, sugars are fairly controlled, Will hold Metformin for now, continue insulin sliding scale 7. Hypokalemia, replaced, continue to trend labs 8. DVT PPX - Lovenox SC Charges/Coding Visit Charges Inpatient E&M: 11658 Subs Hosp L2
[2021-11-15] MEDS: Divalproex Sodium 250 MG Tablet PO ×2 (13:25→21:41)
--- NOTE | 2021-11-15 13:44 | CASEMGMT ---
Addendum entered by Laura Waller 11/15/21 13:46: REGINA also updated patient's guardian. Laura HERNANDEZ Original Note: REGINA called [facility] back and let them know patient will not be returning today, but likely tomorrow. Green sheet on chart. Laura HERNANDEZ
--- NOTE | 2021-11-15 14:56 | CASEMGMT ---
Addendum entered by Laura Waller 11/15/21 15:02: SW placed a copy of this note in front of patient's chart. Laura HERNANDEZ Original Note: If something would come up where consent was needed for patient the number to call on the weekend or after hours is: [phone] and press 0. This will direct caller to the on-call notification system. Laura HERNANDEZ
[2021-11-15 16:16] LABS: Bedside Glucose 118 mg/dL (74-106)
--- NOTE | 2021-11-15 18:28 | PN.RENAL_ITS ---
Subjective Subjective Following for hyponatremia. The patient denies chest pain, shortness of breath, or nausea. There is no headache. Objective Data Objective Data Vital Signs: Vital Signs Temp Pulse Resp BP Pulse Ox 98.1 F 100 16 107/75 96 11/15/21 17:00 11/15/21 17:00 11/15/21 17:00 11/15/21 17:00 11/15/21 10:52 Oxygen Flow Rate (L/min) 4 Oxygen Delivery Method Room Air Weight: 68 kg Body Mass Index (BMI) 22.1 Intake & Output: Intake and Output for Last 24 Hours 11/13/21 11/14/21 11/15/21 23:59 23:59 23:59 Intake Total 3311.33 / 3311.33 1878.25 / 1878.25 448 / 448 Output Total 2800 / 2850 4675 / 4675 600 / 600 Balance 511.33 / 461.33 -2796.75 / -2796.75 -152 / -152 Lab / Micro Data Result Diagrams: 11/14/21 07:15 11/14/21 18:15 Labs: Laboratory Results - last 24 hr 11/14/21 18:15: Sodium 138, Potassium 4.1, Chloride 105, Carbon Dioxide 29.0, Anion Gap 4 L, BUN 5 L, Creatinine 0.61 L, Estim Creat Clear Calc 125.41, Est G FR (MDRD) Af Amer 173, Est GFR (MDRD) Non-Af 143, BUN/Creatinine Ratio 8.2 L, Glucose 134 H, Calcium 8.9, Total Bilirubin 0.40, AST 10 L, ALT 13 L, Alkaline Phosphatase 61, Total Protein 6.2 L, Albumin 2.6 L, Globulin 3.6, Albumin/Globulin Ratio 0.7 L 11/14/21 21:28: POC Glucose 137 H 11/15/21 00:02: POC Glucose 125 H 11/15/21 06:59: POC Glucose 156 H 11/15/21 11:04: POC Glucose 209 H 11/15/21 16:04: POC Glucose 118 H Physical Exam Narrative General: NAD. HEENT: Normocephalic, atraumatic. Mucous membrane moist. Neck: Supple, no JVD. Heart: Normal S1, S2. No rubs, murmurs or gallops. Lungs: Bilateral rhonchi, improved compared to 2 days ago. Abdomen: Normal active bowel sounds, soft, nontender, no guarding or rebound. Extremities: No clubbing, cyanosis, or edema. Assessment & Plan Assessment/Plan (1) Hyponatremia: PLAN: -Hyponatremia has resolved. -Hyponatremia was due to a combination of low solute intake and excessive fluid intake prior to admission. -Low suspicion for evident ADH since urine osmolality was only 101 mOsm/kg. -Serum sodium corrected too rapidly in the first 24 hours of hospital stay. -Sodium was relowered over the next 48 hours with DDAVP and IV D5W. -Serum sodium was in the expected range yesterday. He should be out of danger in terms of osmotic demyelination at this point. -There was no BMP done for today. -We will recheck sodium again tomorrow.
[2021-11-15] MEDS: Lactulose 20 GM/30 ML UDC PO (21:40)
[2021-11-15] MEDS: Tamsulosin HCl 0.4 MG Capsule PO (21:41)
[2021-11-15 22:21] LABS: Bedside Glucose 148 mg/dL (74-106)
[2021-11-16] VITALS (12 sets, daily range): BP systolic 125–132; BP diastolic 83–103; PULSE 85–102; RESP 16–24; TEMP 36.2–36.9; O2SAT 92–96
[2021-11-16 00:31] LABS: Bedside Glucose 142 mg/dL (74-106)
[2021-11-16 05:29] LABS: Absolute Lymphocyte Count 2.02 X10^3/uL (0.83-4.51); Absolute Neutrophil Count 3.2 X10^3/uL (2.0-7.7); Basophil# 0.05 X10^3/uL; Basophil% 0.8 % (0-1); Eosinophil# 0.18 X10^3/uL; Eosinophils% 2.9 % (0-5); Hematocrit 37.7 % (40-54); Hemoglobin 12.6 g/dL (13.0-16.5); Lymphocyte # 2.02 X10^3/ul (0.83-4.51); Lymphocyte % 32.7 % (19-41); Mean Corp Hgb Conc 33.4 g/dL (32-36); Mean Corpuscular Hgb 29.6 pg (27.0-32.0); Mean Corpuscular Volume 88.5 fL (80-94); Mean Platelet Vol. 10.3 fl (6.2-12.0); Monocyte# 0.71 X10^3/uL; Monocyte% 11.5 % (0-10); NRBC Flagged by Analyzer 0 % (0-5); Neutrophil # 3.19 X10^3/uL (2.7-7.7); Neutrophil % 51.8 % (47-70); Platelet Count 174 K/mm3 (150-450); RBC Distribution Width CV 15.8 % (11.6-14.6); RBC Distribution Width SD 51.1 fl (35.1-43.9); Red Blood Count 4.26 M/mm3 (4.6-6.2); White Blood Count 6.2 K/mm3 (4.4-11.0)
[2021-11-16] MEDS: Divalproex Sodium 250 MG Tablet PO (05:44)
[2021-11-16 06:03] LABS: ALB/GLOB Ratio 0.7 RATIO (0.9-2.4); AST(SGOT) 8 U/L (15-37); Alanine Aminotransfer ALT/SGPT 12 U/L (16-61); Albumin, Serum 2.5 g/dL (3.2-5.0); Alkaline Phosphatase 57 U/L (45-117); Anion Gap 3 (5-15); BUN 11 mg/dL (7-18); Calcium,Total 8.6 mg/dL (8.5-10.1); Chloride 109 mmol/L (98-107); Creatinine, Serum 0.65 mg/dL (0.70-1.30); EST Glomerular Filtration Rate 134 mL/min (>60); Est Glom Filt Rate - Afr Amer 162 mL/min (>60); Estimated Creatinine Clearance 117.69 ml/min; Globulin 3.7 g/dL (2.2-4.2); Glucose 121 mg/dL (74-106); Potassium 3.6 mmol/L (3.5-5.1); Protein, Total 6.2 g/dL (6.4-8.2); Sodium Level 142 mmol/L (136-145)
[2021-11-16] MEDS: Ipratropium 0.5 MG/2.5 ML SOLUTION INHALATION ×3 (06:40→19:50)
[2021-11-16 07:00] LABS: Bedside Glucose 139 mg/dL (74-106)
--- NOTE | 2021-11-16 10:28 | EKG12_ITS ---
Test Reason : RHYTHM Blood Pressure : / mmHG Vent. Rate : 093 BPM Atrial Rate : 093 BPM P-R Int : 122 ms QRS Dur : 088 ms QT Int : 376 ms P-R-T Axes : 085 094 047 degrees QTc Int : 467 ms Normal sinus rhythm Normal ECG When compared with ECG of 11-NOV-2021 21:40, No significant change was found Confirmed by CRIS CHILD, HERBIE ([id number]), image editor TINA SPRINGER ([id number]) on 11/19/2021 8:56:08 AM Referred By: MITRA Confirmed By:HERBIE LYNCH MD
--- NOTE | 2021-11-16 10:55 | TELEMED_ITS ---
[facility] has confirmed receipt of a request for visit. This document confirms receipt of the order initiating the consult. To find the results of the consultation, please view the patient's reports for the scanned Telemed Consult.
[2021-11-16 12:11] LABS: Bedside Glucose 109 mg/dL (74-106)
--- NOTE | 2021-11-16 12:37 | PCM.PN.HOSP ---
Subjective Subjective Follow-up on unresponsiveness/acute severe hyponatremia: Objective Data Objective Data Vital Signs: Vital Signs Temp Pulse Resp BP Pulse Ox 97.1 F L 102 H 24 H 125/83 H 93 11/16/21 08:55 11/16/21 08:55 11/16/21 08:55 11/16/21 08:55 11/16/21 08:58 Oxygen Flow Rate (L/min) 4 Oxygen Delivery Method Room Air Weight: 65.4 kg Body Mass Index (BMI) 22.1 Intake & Output: Intake and Output for Last 24 Hours 11/14/21 11/15/21 11/16/21 23:59 23:59 23:59 Intake Total 1878.25 / 1878.25 560 / 560 352 / 352 Output Total 4675 / 4675 600 / 900 700 / 700 Balance -2796.75 / -2796.75 -40 / -340 -348 / -348 Lab / Micro Data Result Diagrams: 11/16/21 03:47 11/16/21 03:47 Labs: Laboratory Results - last 24 hr 11/15/21 16:04: POC Glucose 118 H 11/15/21 21:28: POC Glucose 148 H 11/16/21 00:25: POC Glucose 142 H 11/16/21 03:47: WBC 6.2, RBC 4.26 L, Hgb 12.6 L, Hct 37.7 L, MCV 88.5, MCH 29.6, MCHC 33.4 D, RDW Std Deviation 51.1 H, RDW Coeff of Zane 15.8 H, Plt Count 174, MPV 10.3, Immature Gran % (Auto) 0.300, Neut % (Auto) 51.8, Lymph % (Auto) 32.7, [place] % (Auto) 11.5 H, Eos % (Auto) 2.9, Baso % (Auto) 0.8, Absolute Neuts (auto) 3.2, Absolute Lymphs (auto) 2.02, Nucleated RBC % 0 11/16/21 03:47: Sodium 142, Potassium 3.6, Chloride 109 H, Carbon Dioxide 30.0, Anion Gap 3 L, BUN 11, Creatinine 0.65 L, Estim Creat Clear Calc 117.69, Est GFR (MDRD) Af Amer 162, Est GFR (MDRD) Non-Af 134, BUN/Creatinine Ratio 17.0, Glucose 121 H, Calcium 8.6, Total Bilirubin 0.30, AST 8 L, ALT 12 L, Alkaline Phosphatase 57, Total Protein 6.2 L, Albumin 2.5 L, Globulin 3.7, Albumin/Globulin Ratio 0.7 L 11/16/21 06:23: POC Glucose 139 H 11/16/21 11:54: POC Glucose 109 H Physical Exam Narrative Physical exam: General: Alert, oriented to self, cooperative, much calmer, off oxygen HEENT: Atraumatic Oral: Moist Mucosa Neck: Supple Lungs: Diminished to auscultation Cardiovascular: HS I+II, regular, no murmurs Abdomen: Bowel Sounds Present, Soft, Non Tender Extremities: No edema Assessment & Plan Assessment/Plan (1) Acute hyponatremia: (2) Encephalopathy acute: (3) Seizures: PLAN: 1. Acute encephalopathy secondary to acute severe hyponatremia, back to his baseline 2. Acute severe symptomatic hyponatremia,improved Rise of sodium however has been rapid. Admitting sodium was 115 Likely etiology is SIADH vs psychogenic polydipsia as urine osmolarity is 101. Urine sodium is 39, Sodium today is 142, on D5W, Nephrology following 3. Polyuria, resolved 4. Possible aspiration pneumonitis/pneumonia per history; Chest x-ray was negative for infiltrate suggestive of pneumonia Continue on IV Unasyn (day 5) 5. Schizoaffective disorder, history of traumatic brain injury, continue psychotropic meds 6. Type II DM, sugars are fairly controlled, Will hold Metformin for now, continue insulin sliding scale 7. Hypokalemia, replaced, continue to trend labs 8. DVT PPX - Lovenox SC Charges/Coding Visit Charges Inpatient E&M: 72291 Subs Hosp L2
[2021-11-16 15:01] LABS: Base Excess 4 mmol/L (-2 to +2); Bicarbonate 28.6 mmol/L (22-26); Blood Gas Specimen Type ART; O2 Delivery Device Room Air; PO2 57 mmHG (75-100); SITE R Radial; SO2 90 % (95-99); Total Carbon Dioxide 30 mmol/L; pCO2 44.5 mmHg (35-45); pH 7.42 (7.35-7.45)
[2021-11-16 18:16] LABS: Bedside Glucose 143 mg/dL (74-106)
[2021-11-16 21:46] LABS: Bedside Glucose 93 mg/dL (74-106)
[2021-11-17] VITALS (13 sets, daily range): BP systolic 124–157; BP diastolic 90–103; PULSE 82–91; RESP 16–20; TEMP 36.3–36.6; O2SAT 94–98
[2021-11-17 05:46] LABS: Absolute Lymphocyte Count 1.62 X10^3/uL (0.83-4.51); Absolute Neutrophil Count 3.3 X10^3/uL (2.0-7.7); Basophil# 0.06 X10^3/uL; Eosinophil# 0.26 X10^3/uL; Eosinophils% 4.4 % (0-5); Hematocrit 37.3 % (40-54); Hemoglobin 12.5 g/dL (13.0-16.5); Lymphocyte # 1.62 X10^3/ul (0.83-4.51); Lymphocyte % 27.2 % (19-41); Mean Corp Hgb Conc 33.5 g/dL (32-36); Mean Corpuscular Hgb 29.6 pg (27.0-32.0); Mean Corpuscular Volume 88.4 fL (80-94); Mean Platelet Vol. 10.7 fl (6.2-12.0); Monocyte% 11.7 % (0-10); NRBC Flagged by Analyzer 0 % (0-5); Neutrophil % 55.4 % (47-70); Platelet Count 205 K/mm3 (150-450); RBC Distribution Width CV 15.4 % (11.6-14.6); RBC Distribution Width SD 50.2 fl (35.1-43.9); Red Blood Count 4.22 M/mm3 (4.6-6.2)
[2021-11-17 06:16] LABS: ALB/GLOB Ratio 0.7 RATIO (0.9-2.4); AST(SGOT) 12 U/L (15-37); Alanine Aminotransfer ALT/SGPT 13 U/L (16-61); Albumin, Serum 2.5 g/dL (3.2-5.0); Alkaline Phosphatase 52 U/L (45-117); Anion Gap 3 (5-15); BUN 11 mg/dL (7-18); BUN/Creat Ratio 18.2 RATIO (10-20); Calcium,Total 8.8 mg/dL (8.5-10.1); Chloride 111 mmol/L (98-107); Creatinine, Serum 0.61 mg/dL (0.70-1.30); EST Glomerular Filtration Rate 145 mL/min (>60); Est Glom Filt Rate - Afr Amer 175 mL/min (>60); Estimated Creatinine Clearance 120.98 ml/min; Globulin 3.5 g/dL (2.2-4.2); Glucose 111 mg/dL (74-106); Potassium 3.4 mmol/L (3.5-5.1); Sodium Level 143 mmol/L (136-145)
[2021-11-17 06:51] LABS: Bedside Glucose 121 mg/dL (74-106)
[2021-11-17] MEDS: Ipratropium 0.5 MG/2.5 ML SOLUTION INHALATION ×4 (07:05→19:27)
[2021-11-17] MEDS: Potassium Chloride 10mEq/100mL 10 MEQ/100 ML IV.SOLN. 100 MEQ IV BOLUS ×2 (08:07→09:41)
[2021-11-17] MEDS: Ziprasidone HCl 20 MG Capsule 80 MG PO ×2 (09:43→20:38)
[2021-11-17] MEDS: Lactulose 20 GM/30 ML UDC PO (09:43)
[2021-11-17] MEDS: Atorvastatin Calcium 10 MG Tablet PO (09:45)
--- NOTE | 2021-11-17 09:45 | PN.HOSP_ITS ---
Subjective Subjective Follow-up on unresponsiveness/acute severe hyponatremia: Patient was seen and examined. He is much more awake. He was seen by speech therapy this morning and put on pureed diet, honey thick liquids. No other acute events overnight. Objective Data Objective Data Vital Signs: Vital Signs Temp Pulse Resp BP Pulse Ox 97.7 F L 90 18 152/96 H 95 11/17/21 06:08 11/17/21 07:06 11/17/21 07:06 11/17/21 06:08 11/17/21 07:06 Oxygen Flow Rate (L/min) 4 Oxygen Delivery Method Room Air Weight: 65.6 kg Body Mass Index (BMI) 22.1 Intake & Output: Intake and Output for Last 24 Hours 11/15/21 11/16/21 11/17/21 23:59 23:59 23:59 Intake Total 560 / 560 906 / 906 788.67 / 788.67 Output Total 600 / 900 1000 / 1000 175 / 175 Balance -40 / -340 -94 / -94 613.67 / 613.67 Lab / Micro Data Result Diagrams: 11/17/21 04:56 11/17/21 04:56 Labs: Laboratory Results - last 24 hr 11/16/21 11:54: POC Glucose 109 H 11/16/21 14:40: Ammonia 33.0 H 11/16/21 16:53: POC Glucose 143 H 11/16/21 21:40: POC Glucose 93 11/17/21 04:56: WBC 6.0, RBC 4.22 L, Hgb 12.5 L, Hct 37.3 L, MCV 88.4, MCH 29.6, MCHC 33.5, RDW Std Deviation 50.2 H, RDW Coeff of Zane 15.4 H, Plt Count 205, MPV 10.7, Immature Gran % (Auto) 0.300, Neut % (Auto) 55.4, Lymph % (Auto) 27.2, Russell % (Auto) 11.7 H, Eos % (Auto) 4.4, Baso % (Auto) 1.0, Absolute Neuts (auto) 3.3, Absolute Lymphs (auto) 1.62, Nucleated RBC % 0 11/17/21 04:56: Sodium 143, Potassium 3.4 L, Chloride 111 H, Carbon Dioxide 29.0, Anion Gap 3 L, BUN 11, Creatinine 0.61 L, Estim Creat Clear Calc 120.98, Est GFR (MDRD) Af Amer 175, Est GFR (MDRD) Non-Af 145, BUN/Creatinine Ratio 18.2, Glucose 111 H, Calcium 8.8, Total Bilirubin 0.40, AST 12 L, ALT 13 L, Alkaline Phosphatase 52, Total Protein 6.0 L, Albumin 2.5 L, Globulin 3.5, Al bumin/Globulin Ratio 0.7 L 11/17/21 06:47: POC Glucose 121 H ABG Data ABG results: ABG 11/16/21 14:57 Specimen Type ART Sample Site R Radial pH 7.42 Bicarbonate Actual 28.6 H Total CO2 30 Base Excess 4 H O2 Saturation 90 L ABG pCO2 44.5 ABG pO2 57 L O2 Delivery Device Room Air Physical Exam Narrative Physical exam: General: Alert, oriented to self, cooperative, much calmer, off oxygen HEENT: Atraumatic Oral: Moist Mucosa Neck: Supple Lungs: Diminished to auscultation Cardiovascular: HS I+II, regular, no murmurs Abdomen: Bowel Sounds Present, Soft, Non Tender Extremities: No edema Assessment & Plan Assessment/Plan (1) Acute hyponatremia: (2) Encephalopathy acute: (3) Seizures: PLAN: 1. Acute metabolic encephalopathy secondary to acute severe hyponatremia, resolved Patient is back to his baseline. Patient was very lethargic yesterday; psychotropic meds doses decreased. Patient has underlyling schizoaffective disorder with history of traumatic brain injury Will continue to monitor. 2. Acute severe symptomatic hyponatremia, improved Admitting sodium was 115; patient was on IV fluids on admission and patient's rate of rise of sodium was too fast. Likely etiology is SIADH vs psychogenic polydipsia Urine osmolarity is 101. Urine sodium is 39, Sodium today is 143, continue on D5W, Nephrology following Will discontinue when patient is able to take in adequate fluids. Will restrict total oral fluid intake to 1750mls 3. Hypokalemia, K 3.4, replaced, recheck in am 4. Dysphagia, acute, likely related to fluctuating mentation Patient kept NPO for the last 2 days; much awake today. Speech therapy seeing; passed his swallow evaluation, currently on pureed diet. 5. Possible aspiration pneumonitis/pneumonia per history; Chest x-ray was negative for infiltrate suggestive of pneumonia Continue on IV Unasyn (day 6), will stop after tomorrow. 6. Schizoaffective disorder, history of traumatic brain injury, Patient's psychotropic meds doses have been reduced because he has been very lethargic when he gets all his meds as prescribed Will continue Paliperidone 3mg daily, Geodon 80mg BID, reduce to Clozapine 150mg PO BID, reduce to Clozapine to 50mg po at 5pm 7. Type II DM, sugars are fairly controlled, Continue to hold Metformin for now, continue insulin sliding scale 8. Hypokalemia, replaced, continue to trend labs 9. DVT PPX - Lovenox SC Charges/Coding Visit Charges Inpatient E&M: 61799 Subs Hosp L2
[2021-11-17] MEDS: Hydrocortisone 2.5% Crm 1 APPLIC TOPICAL ×2 (09:48→20:39)
[2021-11-17] MEDS: PALIPERIDONE 3 MG TAB.ER.24 PO (10:55)
[2021-11-17] MEDS: Potassium Chloride Oral Tablet 20 MEQ 40 MEQ PO (10:55)
[2021-11-17] MEDS: Insulin Lispro 100 UNIT/ML INSULN.PEN SC ×2 (11:08→20:46)
[2021-11-17 11:26] LABS: Bedside Glucose 167 mg/dL (74-106)
[2021-11-17] MEDS: Divalproex Sodium 250 MG Tablet PO ×2 (14:19→20:38)
[2021-11-17 17:31] LABS: Bedside Glucose 125 mg/dL (74-106)
[2021-11-17] MEDS: Tamsulosin HCl 0.4 MG Capsule PO (20:38)
[2021-11-17 21:01] LABS: Bedside Glucose 165 mg/dL (74-106)
[2021-11-18] VITALS (13 sets, daily range): BP systolic 117–143; BP diastolic 87–97; PULSE 76–96; RESP 16–20; TEMP 36.3–36.9; O2SAT 92–98
[2021-11-18] MEDS: Divalproex Sodium 250 MG Tablet PO ×2 (05:23→22:24)
[2021-11-18 05:55] LABS: ALB/GLOB Ratio 0.7 RATIO (0.9-2.4); AST(SGOT) 11 U/L (15-37); Alanine Aminotransfer ALT/SGPT 14 U/L (16-61); Albumin, Serum 2.5 g/dL (3.2-5.0); Alkaline Phosphatase 54 U/L (45-117); Anion Gap 4 (5-15); BUN 7 mg/dL (7-18); BUN/Creat Ratio 11.3 RATIO (10-20); Calcium,Total 8.3 mg/dL (8.5-10.1); Chloride 108 mmol/L (98-107); Creatinine, Serum 0.62 mg/dL (0.70-1.30); EST Glomerular Filtration Rate 142 mL/min (>60); Est Glom Filt Rate - Afr Amer 171 mL/min (>60); Estimated Creatinine Clearance 119.03 ml/min; Globulin 3.6 g/dL (2.2-4.2); Glucose 126 mg/dL (74-106); Potassium 3.9 mmol/L (3.5-5.1); Protein, Total 6.1 g/dL (6.4-8.2); Sodium Level 141 mmol/L (136-145)
[2021-11-18 06:36] LABS: Bedside Glucose 123 mg/dL (74-106)
[2021-11-18] MEDS: Ipratropium 0.5 MG/2.5 ML SOLUTION INHALATION ×4 (06:49→20:15)
[2021-11-18] MEDS: PALIPERIDONE 3 MG TAB.ER.24 PO (08:07)
[2021-11-18] MEDS: Ziprasidone HCl 20 MG Capsule 80 MG PO ×2 (08:07→22:23)
[2021-11-18] MEDS: Atorvastatin Calcium 10 MG Tablet PO (08:08)
[2021-11-18] MEDS: Hydrocortisone 2.5% Crm 1 APPLIC TOPICAL ×2 (08:09→22:25)
--- NOTE | 2021-11-18 08:24 | TREXTCAR_ITS ---
Diet 11/17/21 09:19 Diet: Regular - General Food consistency:: Pureed Liquid Consistency:: Honey/Moderately Thick Dietary Modifications:: No Added Salt Is pt able to select menu?: No Fluid restriction:: 1750 mL Diet Comments: Sips by Tsp total feed to ensure use of strategies Routine Orders/Code Status Routine Lab Work: CBC (within 3 days) and BMP (within 3 days) Code Status: Full Code Therapies Weight Bearing: Weight bearing as tolerated Extremity Affected:: Bilateral Lower Physical Therapy: Eval and Treat Occupational Therapy: Eval and Treat Problem/Diagnosis (1) Acute hyponatremia: Status: Acute (2) Encephalopathy acute: Status: Acute (3) Seizures: Status: Acute Allergies/Procedures Done in Hospital Allergies benztropine Allergy (Verified 11/11/21 21:39) PT UNSURE OF REACTION haloperidol [From Haldol] Allergy (Verified 11/11/21 21:39) PT UNSURE OF REACTION Procedures: None Type of Care/Length of Stay Estimated LOS: Convalescent Care Less Than 30 days Type of Care Needed: Skilled Rehab Potential: Good Prognosis: Good Additional Orders/Day of Discharge Day of Discharge: 11/19/21 Dietary and Speech Recommendations Dietitian Recommendations/Changes: Regular/no added salt diet with texture/consistency modifications per [employer]. If hyperglycemia occurs and PO intake established adequate at meals, recommend carbohydrate controlled diet restriction. ONS as needed once intake established at meals. Discharge Plan Admission Admit Date/Time: 11/11/21 23:20 Primary Reason for Your Visit: Acute metabolic encephalopathy Attending Provider: Rosalva Florence Primary Care Provider: Joseluis Mcghee Consulting Providers: Félix Reynoso ; Mike August Discharge Orders/Prescriptions Prescriptions: No Action clozapine 100 mg Tablet 100 mg DAILY RF: 0 clozapine 150 mg Tablet,Disintegrating 300 mg PO BID RF: 0 divalproex 250 mg tablet,delayed release (DR/EC) 250 mg PO TID RF: 0 ziprasidone HCl [Geodon] 80 mg Capsule 80 mg PO BID RF: 0 trazodone 50 mg Tablet 50 mg PO DAILY RF: 0 atorvastatin 10 mg tablet 10 mg DAILY RF: 0 hydroxyzine HCl 50 mg tablet 50 mg DAILY RF: 0 ziprasidone HCl [Geodon] 20 mg Capsule 20 mg PO DAILY PRN (Reason: Agitation) RF: 0 tamsulosin [Flomax] 0.4 mg Capsule 0.4 mg PO QHS RF: 0 lactulose 10 gram Packet 20 g BID RF: 0 metformin 1,000 mg Tablet 1,000 mg PO BID RF: 0 glycopyrrolate 2 mg tablet 2 mg DAILY RF: 0 Spiriva with HandiHaler 18 mcg Capsule, W/Inhalation Device 1 cap INHALATION DAILY RF: 0 paliperidone [Invega] 3 mg Tablet Extended Release 24hr 3 mg PO DAILY RF: 0 Referrals / Follow Up: Joseluis Mcghee MD [Primary Care Provider] - Disposition Disposition (needs filled in before D/C Order can be placed): [facility]
--- NOTE | 2021-11-18 09:48 | PN.HOSP_ITS ---
Subjective Subjective Follow-up on unresponsiveness/acute severe hyponatremia: Patient was seen and examined. He is slightly lethargic today. He has however received his medication even though doing reduced yesterday. Further reduction in his antipsychotic meds were done today. No other acute events overnight. Objective Data Objective Data Vital Signs: Vital Signs Temp Pulse Resp BP Pulse Ox 98.5 F 96 18 143/97 H 98 11/18/21 08:10 11/18/21 08:10 11/18/21 08:10 11/18/21 08:10 11/18/21 08:10 Oxygen Flow Rate (L/min) 4 Oxygen Delivery Method Room Air Weight: 65.2 kg Body Mass Index (BMI) 22.1 Intake & Output: Intake and Output for Last 24 Hours 11/16/21 11/17/21 11/18/21 23:59 23:59 23:59 Intake Total 906 / 906 3008.50 / 3008.50 672.83 / 672.83 Output Total 1000 / 1000 975 / 975 Balance -94 / -94 2033.50 / 2033.50 672.83 / 672.83 Lab / Micro Data Result Diagrams: 11/17/21 04:56 11/18/21 05:20 Labs: Laboratory Results - last 24 hr 11/17/21 11:07: POC Glucose 167 H 11/17/21 17:27: POC Glucose 125 H 11/17/21 20:44: POC Glucose 165 H 11/18/21 05:20: Sodium 141, Potassium 3.9, Chloride 108 H, Carbon Dioxide 29.0, Anion Gap 4 L, BUN 7, Creatinine 0.62 L, Estim Creat Clear Calc 119.03, Est GFR (MDRD) Af Amer 171, Est GFR (MDRD) Non-Af 142, BUN/Creatinine Ratio 11.3, Glucos e 126 H, Calcium 8.3 L, Total Bilirubin 0.20, AST 11 L, ALT 14 L, Alkaline Phosphatase 54, Total Protein 6.1 L, Albumin 2.5 L, Globulin 3.6, Albumin/Globulin Ratio 0.7 L 11/18/21 06:32: POC Glucose 123 H Physical Exam Narrative Physical exam: General: Alert, oriented to self, cooperative, much calmer, off oxygen HEENT: Atraumatic Oral: Moist Mucosa Neck: Supple Lungs: Diminished to auscultation Cardiovascular: HS I+II, regular, no murmurs Abdomen: Bowel Sounds Present, Soft, Non Tender Extremities: No edema Assessment & Plan Assessment/Plan (1) Acute hyponatremia: (2) Encephalopathy acute: (3) Seizures: PLAN: 1. Acute metabolic encephalopathy secondary to acute severe hyponatremia, fluctuates Patient has underlyling schizoaffective disorder with history of traumatic brain injury Will continue to monitor. 2. Acute severe symptomatic hyponatremia, improved Admitting sodium was 115; patient was on IV fluids on admission and patient's rate of rise of sodium was too fast. Likely etiology is SIADH vs psychogenic polydipsia Urine osmolarity is 101. Urine sodium is 39, Sodium today is 141, continue on D5W, Nephrology following Will discontinue when patient is able to take in adequate fluids. Restrict total oral fluid intake to 1750mls 3. Hypokalemia, resolved, replace 4. Dysphagia, acute, likely related to fluctuating mentation On pureed diet, speech therapy following 5. Possible aspiration pneumonitis/pneumonia per history; Chest x-ray was negative for infiltrate Continue on IV Unasyn (day7), DC after today 6. Schizoaffective disorder, history of traumatic brain injury, Patient's psychotropic meds doses have been reduced because he has been very lethargic when he gets all his meds as prescribed Will continue Paliperidone 3mg daily, Geodon 80mg BID, Reduce to Clozapine 50mg PO BID, DC 3pm Clozapine Dc Keppra 7. Type II DM, sugars are fairly controlled, Continue to hold Metformin for now, continue insulin sliding scale 8. DVT PPX - Lovenox SC Charges/Coding Visit Charges Inpatient E&M: 82735 Subs Hosp L2
--- NOTE | 2021-11-18 09:58 | CASEMGMT ---
Discharge Superintendent Drilling Faxed updates on patient to [facility] Stella. Adriana Klein Discharge Superintendent Drilling
[2021-11-18] MEDS: Insulin Lispro 100 UNIT/ML INSULN.PEN SC (10:35)
[2021-11-18 10:40] LABS: Bedside Glucose 194 mg/dL (74-106)
--- NOTE | 2021-11-18 13:37 | PCM.PN.REN ---
Objective Data Objective Data Vital Signs: Vital Signs Temp Pulse Resp BP Pulse Ox 98.5 F 85 19 H 143/97 H 98 11/18/21 08:10 11/18/21 11:00 11/18/21 10:22 11/18/21 08:10 11/18/21 08:10 Oxygen Flow Rate (L/min) 4 Oxygen Delivery Method Room Air Weight: 65.2 kg Body Mass Index (BMI) 22.1 Intake & Output: Intake and Output for Last 24 Hours 11/16/21 11/17/21 11/18/21 23:59 23:59 23:59 Intake Total 906 / 906 3008.50 / 3008.50 822.83 / 822.83 Output Total 1000 / 1000 975 / 975 Balance -94 / -94 2033.50 / 2033.50 822.83 / 822.83 Lab / Micro Data Result Diagrams: 11/17/21 04:56 11/18/21 05:20 Labs: Laboratory Results - last 24 hr 11/17/21 17:27: POC Glucose 125 H 11/17/21 20:44: POC Glucose 165 H 11/18/21 05:20: Sodium 141, Potassium 3.9, Chloride 108 H, Carbon Dioxide 29.0, Anion Gap 4 L, BUN 7, Creatinine 0.62 L, Estim Creat Clear Calc 119.03, Est GFR (MDRD) Af Amer 171, Est GFR (MDRD) Non-Af 142, BUN/Creatinine Ratio 11.3, Glucose 126 H, Calcium 8.3 L, Total Bilirubin 0.20, AST 11 L, ALT 14 L, Alkaline Phosphatase 54, Total Protein 6.1 L, Albumin 2.5 L, Globulin 3.6, Albumin/Globulin Ratio 0.7 L 11/18/21 06:32: POC Glucose 123 H 11/18/21 10:34: POC Glucose 194 H Physical Exam Narrative General: NAD. HEENT: Normocephalic, atraumatic. Mucous membrane moist. Neck: Supple, no JVD. Heart: Normal S1, S2. No rubs, murmurs or gallops. Lungs: Bilateral rhonchi, improved compared to 2 days ago. Abdomen: Normal active bowel sounds, soft, nontender, no guarding or rebound. Extremities: No clubbing, cyanosis, or edema. Assessment & Plan Assessment/Plan (1) Hyponatremia: PLAN: -Hyponatremia has resolved. -Hyponatremia was due to a combination of low solute intake and excessive fluid intake prior to admission. -Low suspicion for evident ADH since urine osmolality was only 101 mOsm/kg. -Serum sodium corrected too rapidly in the first 24 hours of hospital stay. -Sodium was relowered over the next 48 hours with DDAVP and IV D5W. -Serum sodium was in the expected range yesterday. He should be out of danger in terms of osmotic demyelination at this point. -There was no BMP done for today. -We will recheck sodium again tomorrow.
[2021-11-18 16:16] LABS: Bedside Glucose 128 mg/dL (74-106)
[2021-11-18] MEDS: Tamsulosin HCl 0.4 MG Capsule PO (22:22)
[2021-11-18 22:36] LABS: Bedside Glucose 112 mg/dL (74-106)
[2021-11-19] VITALS (11 sets, daily range): BP systolic 121–146; BP diastolic 89–99; PULSE 79–93; RESP 15–18; TEMP 36.2–36.9; O2SAT 92–100
[2021-11-19] MEDS: Divalproex Sodium 250 MG Tablet PO ×2 (06:26→13:15)
[2021-11-19 06:31] LABS: Albumin, Serum 2.6 g/dL (3.2-5.0); BUN 7 mg/dL (7-18); BUN/Creat Ratio 10.4 RATIO (10-20); Calcium,Total 8.6 mg/dL (8.5-10.1); Chloride 109 mmol/L (98-107); Creatinine, Serum 0.68 mg/dL (0.70-1.30); EST Glomerular Filtration Rate 128 mL/min (>60); Est Glom Filt Rate - Afr Amer 154 mL/min (>60); Estimated Creatinine Clearance 105.39 ml/min; Glucose 106 mg/dL (74-106); Magnesium 1.8 mg/dL (1.6-2.6); Phosphorus 3.4 mg/dL (2.5-4.9); Potassium 3.8 mmol/L (3.5-5.1); Sodium Level 141 mmol/L (136-145)
[2021-11-19 06:41] LABS: Bedside Glucose 120 mg/dL (74-106)
[2021-11-19] MEDS: Ipratropium 0.5 MG/2.5 ML SOLUTION INHALATION ×3 (07:02→14:22)
--- NOTE | 2021-11-19 09:42 | PCM.PN.REN ---
Objective Data Objective Data little confused MS AQx1 Na 141 Vital Signs: Vital Signs Temp Pulse Resp BP Pulse Ox 97.2 F L 92 17 133/99 H 92 11/19/21 06:16 11/19/21 07:33 11/19/21 07:03 11/19/21 06:16 11/19/21 07:03 Oxygen Flow Rate (L/min) 4 Oxygen Delivery Method Room Air Weight: 63.7 kg Body Mass Index (BMI) 22.1 Intake & Output: Intake and Output for Last 24 Hours 11/17/21 11/18/21 11/19/21 23:59 23:59 23:59 Intake Total 3008.50 / 3008.50 2107.66 / 2507.66 1039.17 / 1039.17 Output Total 975 / 975 Balance 2033.50 / 2033.50 2107.66 / 2507.66 1039.17 / 1039.17 Lab / Micro Data Result Diagrams: 11/17/21 04:56 11/19/21 04:06 Labs: Laboratory Results - last 24 hr 11/18/21 10:34: POC Glucose 194 H 11/18/21 16:08: POC Glucose 128 H 11/18/21 22:16: POC Glucose 112 H 11/19/21 04:06: Sodium 141, Potassium 3.8, Chloride 109 H, Carbon Dioxide 29.0, BUN 7, Creatinine 0.68 L, Estim Creat Clear Calc 105.39, Est GFR (MDRD) Af Amer 154, Est GFR (MDRD) Non-Af 128, BUN/Creatinine Ratio 10.4, Glucose 106, Calcium 8.6, Phosphorus 3.4, Magnesium 1.8, Albumin 2.6 L 11/19/21 06:22: POC Glucose 120 H Physical Exam Narrative General: NAD. HEENT: Normocephalic, atraumatic. Mucous membrane moist. Neck: Supple, no JVD. Heart: Normal S1, S2. No rubs, murmurs or gallops. Lungs: Bilateral rhonchi, improved compared to 2 days ago. Abdomen: Normal active bowel sounds, soft, nontender, no guarding or rebound. Extremities: No clubbing, cyanosis, or edema. Assessment & Plan Assessment/Plan (1) Hyponatremia: PLAN: -Hyponatremia has resolved. -Hyponatremia was due to a combination of low solute intake and excessive fluid intake prior to admission. -Low suspicion for evident ADH since urine osmolality was only 101 mOsm/kg. -Serum sodium corrected too rapidly in the first 24 hours of hospital stay. -Sodium was relowered over the next 48 hours with DDAVP and IV D5W. -Serum sodium was in the expected range yesterday. He should be out of danger in terms of osmotic demyelination at this point. -Na 141 today -We will recheck sodium again tomorrow.
[2021-11-19] MEDS: Atorvastatin Calcium 10 MG Tablet PO ×2 (10:59)
[2021-11-19] MEDS: PALIPERIDONE 3 MG TAB.ER.24 PO (10:59)
[2021-11-19] MEDS: Ziprasidone HCl 20 MG Capsule 80 MG PO (10:59)
[2021-11-19] MEDS: Hydrocortisone 2.5% Crm 1 APPLIC TOPICAL (11:00)
[2021-11-19] MEDS: Insulin Lispro 100 UNIT/ML INSULN.PEN SC (11:05)
[2021-11-19 11:26] LABS: Bedside Glucose 207 mg/dL (74-106)
--- NOTE | 2021-11-19 11:43 | CASEMGMT ---
REGINA called [facility] and spoke with Valery. Valery did request patient have a COVID test. REGINA will send orders, COVID test and let them know a seed cone picker time when available. REGINA called patient's legal guardian, Iqra and left her a message letting her know about patient's discharge. REGINA faxed orders to [facility]. Await COVID test to set up transport. Laura Waller RENAL SOCIAL WORKER DAVID
--- NOTE | 2021-11-19 13:44 | NURSING ---
Report called to [facility], Transport arranged for 170
--- NOTE | 2021-11-19 13:59 | CASEMGMT ---
COVID test results received. SW arranged for patient to get picked up at 5p. SW requested 230p, but that time was not available. SW faxed negative COVID and cotton picker time to [facility]. SW also called [facility] and notified them of cotton picker time. SW also notified RN and corporate secretary. Plan: d/c back to [facility] under skilled level of care. [facility] transported via cot. Laura HERNANDEZ
[2021-11-19 16:55] LABS: Bedside Glucose 94 mg/dL (74-106)
--- NOTE | 2021-11-19 19:26 | DS.PCM_ITS ---
Providers Date of Admission: 11/11/21 Date of Discharge: 11/19/21 Primary Care Physician: Dr. Joseluis Mcghee MD Consultations 11/11/21 23:51 Consult: Lamination Technician / Pulmonary Medicine Routine Consulting Provider: Félix Reynoso Reason for Consult: Acute encephalopathy EMERGENT Consult: No Notified: Yes Date Notified: 11/11/21 Time Notified: 23:51 Method of Notification: Text 11/12/21 10:32 Consult: Nephrology Routine Consulting Provider: Mike August Reason for Consult: Hyponatremia, polyuria EMERGENT Consult: No Notified: Yes Date Notified: 11/12/21 Time Notified: 11:28 Method of Notification: Answering Service Reason For Visit: HYPERNATREMIA, AMS Diagnosis Discharge Diagnosis (1) Hyponatremia: Status: Acute Code(s): E87.1 - Hypo-osmolality and hyponatremia Plan: 1. Acute metabolic encephalopathy secondary to severe hyponatremia #2 acute severe symptomatic hyponatremia #3 hypokalemia #4 schizoaffective disorder #5 type 2 diabetes Aspiration pneumonia/pneumonitis was ruled out Medications at Discharge Home Medications Spiriva with HandiHaler 1 cap INHALATION DAILY 11/11/21 atorvastatin 10 mg DAILY 11/11/21 divalproex 250 mg PO TID 11/11/21 lactulose 20 g BID 11/11/21 paliperidone [Invega] 3 mg PO DAILY 11/11/21 tamsulosin [Flomax] 0.4 mg PO QHS 11/11/21 ziprasidone HCl [Geodon] 80 mg PO BID 11/11/21 clozapine [Clozaril] 50 mg PO 0600,2200 #0 tab 11/19/21 lactulose 20 g PO BID PRN PRN #0 ml 11/19/21 Hospital Course Operations None Procedures None Summary of Care Provided Minutes Spent on Discharge: 32 Hospital Course: This 61-year-old white male was seen in the emergency room at [facility] after being brought in from a psych facility at a assisted presenting with unresponsiveness. CPR was initiated but it was unclear whether the patient lost his pulse, CPR was not continued by squad at the time of arrival. Work-up in the ER included a CT of the brain showed no acute pathology, patient was noted to be hyponatremic with a sodium of 115, seizure was suspected and the patient received Keppra in the emergency room, he was admitted to the intensive care unit and seen in consultation by critical care. Patient's lab was monitored and he was seen by physical therapy, he was also seen by nephrology. Patient made slow progress during his hospitalization, mental status improved back to baseline finally. On 11/19/2021, patient was seen and examined: Patient was alert but appeared to have confusion.. Vital signs as documented. Skin warm and dry and without overt rashes. Neck without JVD, neck was supple, trachea midline, thyroid was normal. Lungs clear bilaterally, normal air movement was noted. Heart exam notable for regular rhythm, normal sounds and absence of murmurs, rubs or gallops. Abdomen unremarkable and without evidence of organomegaly, masses, or abdominal aortic enlargement. Bowel sounds are present, abdomen is not distended. Extremities nonedematous, no cyanosis was noted, no clubbing was noted. Neuro: Cranial nerves II through XII are grossly intact, no focal motor deficits were noted, sensation to light touch and pinprick intact, motor exam 5/5 throughout. Psych: Patient is alert but was confused Patient was transferred back to his outpatient psych facility in stable condition on 11/19/2021. Weight / BMI Weight Weight: 63.7 kg Body Mass Index (BMI) 22.1 ABG / Lab / Microbiology Data Result Diagrams: 11/17/21 04:56 11/19/21 04:06 Laboratory: Laboratory Results - last 24 hr 11/18/21 22:16: POC Glucose 112 H 11/19/21 04:06: Sodium 141, Potassium 3.8, Chloride 109 H, Carbon Dioxide 29.0, BUN 7, Creatinine 0.68 L, Estim Creat Clear Calc 105.39, Est GFR (MDRD) Af Amer 154, Est GFR (MDRD) Non-Af 128, BUN/Creatinine Ratio 10.4, Glucose 106, Calcium 8.6, Phosphorus 3.4, Magnesium 1.8, Albumin 2.6 L 11/19/21 06:22: POC Glucose 120 H 11/19/21 11:05: POC Glucose 207 H 11/19/21 16:28: POC Glucose 94 Microbiology: Microbiology 11/19/21 Unknown Nasal Secretion SARS-CoV-2 Antigen (Rapid) - Final Meaningful Use Info Meaningful Use Diagnoses (Choose all that apply): None applicable Discharge Plan Admission Admit Date/Time: 11/11/21 23:20 Primary Reason for Your Visit: Acute metabolic encephalopathy Attending Provider: Lazarus Nunez Primary Care Provider: Joseluis Mcghee Consulting Providers: Félix Reynoso ; Mike August Discharge Orders/Prescriptions Prescriptions: New clozapine [Clozaril] 100 mg Tablet 50 mg PO 0600,2200 Qty: 0 RF: 0 lactulose 20 gram/30 mL Solution 20 g PO BID PRN PRN (Reason: constipation) Qty: 0 RF: 0 Continued divalproex 250 mg tablet,delayed release (DR/EC) 250 mg PO TID RF: 0 ziprasidone HCl [Geodon] 80 mg Capsule 80 mg PO BID RF: 0 atorvastatin 10 mg tablet 10 mg DAILY RF: 0 tamsulosin [Flomax] 0.4 mg Capsule 0.4 mg PO QHS RF: 0 lactulose 10 gram Packet 20 g BID RF: 0 Spiriva with HandiHaler 18 mcg Capsule, W/Inhalation Device 1 cap INHALATION DAILY RF: 0 paliperidone [Invega] 3 mg Tablet Extended Release 24hr 3 mg PO DAILY RF: 0 Discontinued clozapine 100 mg Tablet 100 mg DAILY RF: 0 clozapine 150 mg Tablet,Disintegrating 300 mg PO BID RF: 0 trazodone 50 mg Tablet 50 mg PO DAILY RF: 0 hydroxyzine HCl 50 mg tablet 50 mg DAILY RF: 0 ziprasidone HCl [Geodon] 20 mg Capsule 20 mg PO DAILY PRN (Reason: Agitation) RF: 0 metformin 1,000 mg Tablet 1,000 mg PO BID RF: 0 glycopyrrolate 2 mg tablet 2 mg DAILY RF: 0 Referrals / Follow Up: Joseluis Mcghee MD [Primary Care Provider] - Disposition Disposition (needs filled in before D/C Order can be placed): [facility] Facility Charges/Coding Visit Charges Inpatient E&M: 56299 Disch Hosp
== END 2021-11-19 18:10 | disposition skilled nursing facility (03) | DRG 640 ==
LOC: ED 23:22 → ICU 23:32 → PCU 11-15 11:07
PROVIDERS: Internal Medicine; Internal Medicine Critical Care Medicine; Internal Medicine Nephrology; Nurse Practitioner Adult Health; Nurse Practitioner Family; Admitting Provider Hospitalist; Emergency Provider Emergency Medicine; PCP Family Medicine; Visit Provider Internal Medicine
DX: E87.1 Hypo-osmolality and hyponatremia (principal); G93.41 Metabolic encephalopathy; F25.9 Schizoaffective disorder, unspecified; E11.65 Type 2 diabetes mellitus with hyperglycemia; R56.9 Unspecified convulsions; E87.6 Hypokalemia; E78.5 Hyperlipidemia, unspecified; I10 Essential (primary) hypertension; I45.81 Long QT syndrome; K21.9 Gastro-esophageal reflux disease without esophagitis; R45.1 Restlessness and agitation; L21.9 Seborrheic dermatitis, unspecified; R13.12 Dysphagia, oropharyngeal phase; R09.02 Hypoxemia; R35.89 Other polyuria; Z78.1 Physical restraint status; Z20.822 Contact with and (suspected) exposure to COVID-19; Z79.84 Long term (current) use of oral hypoglycemic drugs; Z87.891 Personal history of nicotine dependence; Z87.820 Personal history of traumatic brain injury
CPT/HCPCS: 36415; 36600; 51702; 70450; 70496; 70498; 71045; 74230; 80048; 80053; 80061; 80069; 80164; 81002; 82140; 82533; 82803; 82962; 83036; 83605; 83735; 83930; 83935; 84146; 84295; 84300; 84443; 84484; 84550; 85025; 85610; 85730; 87426; 92526; 92610; 92611; 93005; 94640; 95819; 99285; J7030; Q9967; A4216; J0295; J1940; J2405; J2597; J3486

== ENCOUNTER 2022-01-24 04:10 | Outpatient (REF) | payer SELFPAY | END 2022-01-24 23:59 | disposition home or self-care (01) | LOC: OLS.AHA 04:10 | PROVIDERS: PCP Family Medicine; Visit Provider Family Medicine | DX: Z51.81 Encounter for therapeutic drug level monitoring (principal); Z79.899 Other long term (current) drug therapy | CPT/HCPCS: 82140 ==

== ENCOUNTER 2022-02-01 22:23 | Inpatient (IN) | payer MEDICARE, MEDICAID, SELFPAY ==
[2022-02-01 22:25] VITALS: BP 90/65; PULSE 112; RESP 18; TEMP 35.9; O2SAT 97; BMI 26.1
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
[2022-02-01 22:46] VITALS: BP 86/68; BP 96/71; PULSE 102
--- NOTE | 2022-02-01 22:46 | EKG12_ITS ---
Test Reason : DYSRYTHMIA Blood Pressure : / mmHG Vent. Rate : 107 BPM Atrial Rate : 107 BPM P-R Int : 126 ms QRS Dur : 080 ms QT Int : 350 ms P-R-T Axes : 064 065 058 degrees QTc Int : 467 ms Sinus tachycardia Otherwise normal ECG When compared with ECG of 16-NOV-2021 11:26, No significant change was found Confirmed by CRIS CHILD, HERBIE ([id number]), design editor TINA SPRINGER ([id number]) on 02/04/2022 1:15:24 PM Referred By: SHARRI Confirmed By:HERBIE LYNCH MD
[2022-02-01 22:55] LABS: Absolute Lymphocyte Count 0.63 X10^3/uL (0.83-4.51); Absolute Neutrophil Count 13.4 X10^3/uL (2.0-7.7); Basophil# 0.05 X10^3/uL; Basophil% 0.3 % (0-1); Hematocrit 49.1 % (40-54); Hemoglobin 16.3 g/dL (13.0-16.5); Lymphocyte # 0.63 X10^3/ul (0.83-4.51); Lymphocyte % 4.1 % (19-41); Mean Corp Hgb Conc 33.2 g/dL (32-36); Mean Corpuscular Volume 90.3 fL (80-94); Mean Platelet Vol. 10.8 fl (6.2-12.0); Monocyte# 1.18 X10^3/uL; Monocyte% 7.7 % (0-10); NRBC Flagged by Analyzer 0 % (0-5); Neutrophil # 13.44 X10^3/uL (2.7-7.7); Neutrophil % 87.3 % (47-70); Platelet Count 319 K/mm3 (150-450); RBC Distribution Width CV 14.5 % (11.6-14.6); RBC Distribution Width SD 48.1 fl (35.1-43.9); Red Blood Count 5.44 M/mm3 (4.6-6.2); White Blood Count 15.4 K/mm3 (4.4-11.0)
[2022-02-01] MEDS: 0.9% Normal Saline 1,000 ML 1000 ML IV (23:00)
[2022-02-01 23:18] LABS: ALB/GLOB Ratio 0.8 RATIO (0.9-2.4); AST(SGOT) 12 U/L (15-37); Alanine Aminotransfer ALT/SGPT 15 U/L (16-61); Albumin, Serum 3.4 g/dL (3.2-5.0); Alkaline Phosphatase 103 U/L (45-117); Anion Gap 15 (5-15); BUN 13 mg/dL (7-18); BUN/Creat Ratio 7.1 RATIO (10-20); Calcium,Total 9.9 mg/dL (8.5-10.1); Chloride 99 mmol/L (98-107); Creatinine, Serum 1.83 mg/dL (0.70-1.30); EST Glomerular Filtration Rate 40 mL/min (>60); Est Glom Filt Rate - Afr Amer 49 mL/min (>60); Estimated Creatinine Clearance 39.22 ml/min; Globulin 4.5 g/dL (2.2-4.2); Glucose 199 mg/dL (74-106); Lipase 38 U/L (73-393); Potassium 4.7 mmol/L (3.5-5.1); Protein, Total 7.9 g/dL (6.4-8.2); Sodium Level 136 mmol/L (136-145)
[2022-02-01 23:28] LABS: Partial Thromboplast Time 26.3 Seconds (24.1-36.2)
[2022-02-01 23:33] LABS: Lactic Acid 6.2 mmol/L (0.4-1.9)
[2022-02-01] MEDS: Morphine 4 MG/ML Syringe IV (23:52)
[2022-02-01] MEDS: Ondansetron 4 MG/2 ML Vial IV (23:52)
[2022-02-02] VITALS (21 sets, daily range): BP systolic 86–132; BP diastolic 51–80; PULSE 103–118; RESP 16–28; TEMP 36.6–37.2; O2SAT 92–98; BMI 24.7
--- NOTE | 2022-02-02 | CT_ITS ---
EXAM: CT ABDOMEN AND PELVIS WITH INTRAVENOUS CONTRAST CLINICAL INDICATION: Abdominal pain -- IV PO Contrast TECHNIQUE: Helically acquired images were obtained of the abdomen and pelvis with intravenous contrast. This CT exam was performed using one or more of the following dose reduction techniques: automated exposure control, adjustment of the mA and/or kV according to patient size, and/or use of iterative reconstruction technique. This report was created using [employer] report generation technology. CONTRAST: Oral and amp; IV Gastrografin and amp; 75mL [id number]-370 RADIATION DOSE: CTDIvol = 11.20 mGy, DLP = 729.78 mGy-cm. COMPARISON: None. FINDINGS: LOWER THORAX: Unremarkable. Lung bases are clear. No cardiomegaly. No significant pericardial effusion. ABDOMEN: LIVER: Unremarkable. Homogeneous. No focal mass. GALLBLADDER AND BILE DUCTS: Unremarkable. No calcified gallstones. No gallbladder distention or wall edema. No intra- or extrahepatic biliary ductal dilation. PANCREAS: Atrophic pancreas. No focal cystic or solid mass. SPLEEN: Unremarkable. Normal size without focal cystic or solid mass. ADRENALS: Unremarkable. No nodules. KIDNEYS AND URETERS: Unremarkable. Normal renal size and position. No hydronephrosis. STOMACH AND BOWEL: Numerous very dilated small bowel loops with point of transition in the distal ileum. No associated mass or fluid collection. No focal inflammatory change. PELVIS: APPENDIX: Normal appendix. BLADDER: Unremarkable. REPRODUCTIVE: Unremarkable as visualized. No mass. ABDOMEN and PELVIS: INTRAPERITONEAL SPACE: Unremarkable. No ascites or other fluid collection. No free air. BONES/JOINTS: Unremarkable. No suspicious lytic or blastic abnormality. SOFT TISSUES: Unremarkable. No discrete abdominal or pelvic wall hernia. VASCULATURE: Unremarkable. Abdominal aorta is non-dilated. LYMPH NODES: Unremarkable. No enlarged lymph nodes. CT/Abdomen/Pelvis WITH Contrast IMPRESSION: 1. Distal small bowel obstruction likely due to adhesions. No associated mass or fluid collection. 2. Atrophic pancreas. Electronically Signed: Gerard Moreno MD at 1:17 EDT ,
--- NOTE | 2022-02-02 | CT_ITS ---
EXAM: CT HEAD WITHOUT INTRAVENOUS CONTRAST CLINICAL INDICATION: Head injury TECHNIQUE: Multiple axial images were obtained of the head without intravenous contrast. This CT exam was performed using one or more of the following dose reduction techniques: automated exposure control, adjustment of the mA and/or kV according to patient size, and/or use of iterative reconstruction technique. This report was created using [employer] report generation technology. RADIATION DOSE: CTDIvol = 44.99 mGy, DLP = 914.22 mGy-cm. COMPARISON: None. FINDINGS: BRAIN AND EXTRA-AXIAL SPACES: Mild generalized atrophy. Mild low density bilaterally in the deep white matter. No intra- or extra-axial hemorrhage. No evidence of acute infarct. No intracranial mass or mass effect. There is preservation of the braun/white matter interface. Posterior fossa structures are unremarkable. No hydrocephalus. Basal cisterns are patent. BONES/JOINTS: Old blowout fractures of the medial ornelas of the orbits. No discrete lytic or blastic abnormalities. SINUSES: Mild mucosal thickening right maxillary sinus. MASTOID AIR CELLS: Unremarkable. Clear. ORBITS: Visualized globes, extraocular muscles, optic nerves and retrobulbar fat appear unremarkable. CT/Brain/Head without Contrast IMPRESSION: 1. Mild generalized atrophy. Mild low density bilaterally in the deep white matter. This likely represents small vessel ischemic changes in the deep white matter. No acute intracranial abnormality. 2. Old blowout fractures of the medial ornelas of the orbits. 3. Mild mucosal thickening right maxillary sinus. Electronically Signed: Gerard Moreno MD at 1:10 EDT ,
[2022-02-02] MEDS: 0.9% Normal Saline 1,000 ML 1000 ML IV (00:07)
--- NOTE | 2022-02-02 01:21 | RAD_ITS ---
We are attempting to reach an attending provider to discuss findings. An addendum with communication details will be sent when the communication is complete. EXAM: XR ABDOMEN, 1 VIEW CLINICAL INDICATION: NG Insertion TECHNIQUE: Frontal supine view of the abdomen/pelvis. This report was created using [employer] report generation technology. COMPARISON: None. FINDINGS: LOWER THORAX: See below. GASTROINTESTINAL TRACT: Multiple very dilated small bowel loops consistent with small bowel obstruction. ORGANS: Unremarkable as visualized. No organomegaly. No abnormal calcifications. BONES/JOINTS: No acute pathology. SOFT TISSUES: No acute pathology. TUBES, LINES AND DEVICES: NG tube is looped in the distal esophagus. RAD/Abdomen Single View (Portable) IMPRESSION: 1. NG tube is looped in the distal esophagus. 2. Multiple very dilated small bowel loops consistent with small bowel obstruction. Electronically Signed: Gerard Moreno MD at 2:58 EDT ,
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
--- NOTE | 2022-02-02 01:50 | RAD_ITS ---
EXAM: XR CHEST, 1 VIEW CLINICAL INDICATION: COVID TECHNIQUE: Frontal view of the chest. This report was created using [employer] report generation technology. COMPARISON: 11/13/2021. FINDINGS: LUNGS AND PLEURAL SPACES: Subsegmental atelectasis left base. No pneumothorax. No effusion. HEART: Unremarkable. Cardiac silhouette not enlarged. MEDIASTINUM: Central airways and mediastinal contour are unremarkable. BONES/JOINTS: Unremarkable. SOFT TISSUES: Unremarkable. TUBES, LINES AND DEVICES: NG tube is looped in the distal esophagus. UPPER ABDOMEN: Multiple dilated small bowel loops consistent with small bowel obstruction. RAD/Chest 1 View (Portable) IMPRESSION: 1. NG tube is looped in the distal esophagus. 2. Multiple dilated small bowel loops consistent with small bowel obstruction. 3. Subsegmental atelectasis left base. Electronically Signed: Gerard Moreno MD at 3:05 EDT ,
[2022-02-02 02:37] LABS: Mucous, Urine 0 SEEN /hpf (<or=2+); Red Blood Cells-Urine 0 SEEN /hpf (0-5); Squamous Epithelial Cells - UA 0 SEEN /hpf (0-5)
[2022-02-02 02:40] LABS: Color, Urine Yellow (Yellow); Glucose, Dipstick Normal (Normal); Ketone-Dipstick 15 mg/dl (Negative); Leukocyte Esterase-Dipstick 25 /ul (Negative); Nitrite-Dipstick Negative (Negative); Occult Blood-Urine 10 /ul (Negative); Protein-Dipstick 100 mg/dl (Negative); Urine Clarity Clear (Clear); Urine Urobilinogen Normal (Normal)
[2022-02-02 02:40] LABS: Procalcitonin 1.23 ng/mL (0.00-0.09)
[2022-02-02 02:54] LABS: Urine Bilirubin Dipstick 1 mg/dL (Negative)
[2022-02-02 02:55] LABS: D-Dimer Quantitative (DVT/PE) 1.74 FEU/ug/m (0.27-0.49)
[2022-02-02 02:58] LABS: Reflex Lactate? Y
[2022-02-02] MEDS: Oxymetazoline 0.05% 1 SPRAY SPRAY.BTL 2 SPRAY NASAL (03:00)
[2022-02-02 03:01] LABS: Bacteria 1+ /hpf (None Seen); White Blood Cells 0-5 SEEN /hpf (0-5)
[2022-02-02 03:02] LABS: BNP,B-Type NATRIURETIC PEPTIDE 7.6 pg/mL (0-100)
--- NOTE | 2022-02-02 03:23 | RAD_ITS ---
EXAM: XR ABDOMEN, 1 VIEW CLINICAL INDICATION: NG PLACEMENT TECHNIQUE: Frontal supine view of the abdomen/pelvis. This report was created using [employer] report generation technology. COMPARISON: None. FINDINGS: LOWER THORAX: No acute pathology. GASTROINTESTINAL TRACT: Small bowel obstruction. ORGANS: Unremarkable as visualized. No organomegaly. No abnormal calcifications. BONES/JOINTS: No acute pathology. SOFT TISSUES: No acute pathology. TUBES, LINES AND DEVICES: NG tube is in good position in the stomach. RAD/Abdomen Single View (Portable) IMPRESSION: 1. NG tube is in good position in the stomach. 2. Small bowel obstruction. Electronically Signed: Gerard Moreno MD at 3:46 EDT ,
[2022-02-02 03:25] LABS: Ferritin 49 ng/mL (26-388); LDH 183 U/L (87-241); Troponin-I HS 5 pg/mL (3.0-78.0)
[2022-02-02] MEDS: 0.9% Normal Saline 1,000 ML 125 ML IV ×3 (04:35→21:42)
[2022-02-02] MEDS: 0.9% Saline Lock 10 ML Syringe IV (04:59)
--- NOTE | 2022-02-02 05:55 | RAD_ITS ---
STUDY: X-RAY - ABDOMEN/PELVIS REASON FOR EXAM: Male, 61 years old. SBO TECHNIQUE: Single AP view of the abdomen / pelvis. COMPARISON: 02/02/2022 at 03 29 FINDINGS: Nasogastric tube: The left upper quadrant likely in the fundus of stomach. No change in multiple loops of dilated small bowel consistent with a moderate small bowel obstruction. The visualized liver, spleen and kidneys are grossly normal in size and morphology. Excreted contrast within the bladder. Normal visualized osseous structures. RAD/Abdomen Single View (Portable) IMPRESSION: No change from earlier today. Electronically Signed: Luis Trinh MD at 8:25 EDT ,
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
[2022-02-02 06:55] LABS: Lactic Acid 6.5 mmol/L (0.4-1.9)
[2022-02-02 07:26] LABS: Absolute Lymphocyte Count 0.59 X10^3/uL (0.83-4.51); Basophil# 0.03 X10^3/uL; Basophil% 0.3 % (0-1); Eosinophil# 0.06 X10^3/uL; Eosinophils% 0.6 % (0-5); Hematocrit 43.5 % (40-54); Hemoglobin 13.4 g/dL (13.0-16.5); Lymphocyte # 0.59 X10^3/ul (0.83-4.51); Lymphocyte % 6.2 % (19-41); Mean Corp Hgb Conc 30.8 g/dL (32-36); Mean Corpuscular Hgb 29.6 pg (27.0-32.0); Mean Platelet Vol. 11.5 fl (6.2-12.0); Monocyte# 0.86 X10^3/uL; NRBC Flagged by Analyzer 0 % (0-5); Neutrophil # 7.99 X10^3/uL (2.7-7.7); Neutrophil % 83.6 % (47-70); POSITIVE COUNT YES; POSITIVE DIFFERENTIAL YES; POSITIVE MORPHOLOGY YES; RBC Distribution Width CV 14.9 % (11.6-14.6); RBC Distribution Width SD 53.1 fl (35.1-43.9); Red Blood Count 4.53 M/mm3 (4.6-6.2); White Blood Count 9.6 K/mm3 (4.4-11.0)
[2022-02-02 07:34] LABS: M R Staph aureus DNA By PCR Negative (Negative); Probe Check PASS; Specimen Processing Control PASS
[2022-02-02 07:45] LABS: ALB/GLOB Ratio 0.8 RATIO (0.9-2.4); AST(SGOT) 19 U/L (15-37); Alanine Aminotransfer ALT/SGPT 19 U/L (16-61); Albumin, Serum 2.6 g/dL (3.2-5.0); Alkaline Phosphatase 69 U/L (45-117); Anion Gap 15 (5-15); BUN 28 mg/dL (7-18); BUN/Creat Ratio 15.2 RATIO (10-20); Calcium,Total 8.1 mg/dL (8.5-10.1); Chloride 103 mmol/L (98-107); Creatinine, Serum 1.84 mg/dL (0.70-1.30); EST Glomerular Filtration Rate 40 mL/min (>60); Est Glom Filt Rate - Afr Amer 49 mL/min (>60); Estimated Creatinine Clearance 39.01 ml/min; Globulin 3.2 g/dL (2.2-4.2); Glucose 125 mg/dL (74-106); Protein, Total 5.8 g/dL (6.4-8.2); Sodium Level 139 mmol/L (136-145)
[2022-02-02 08:04] LABS: Differential Indicated SCAN CRITERIA MET
[2022-02-02 08:06] LABS: Platelet Estimate ADEQUATE (ADEQ)
--- NOTE | 2022-02-02 09:04 | PN.HOSP_ITS ---
Subjective Subjective Patient seen and examined. He complained of being hungry and wanted to eat.He has an NG tube in situ. He denies fever, chills, cough, shortnes of breath, nausea or vomiting. REview of systems is otherwise negative. He is on room air. Objective Data Objective Data Vital Signs: Vital Signs Temp Pulse Resp BP Pulse Ox 98.6 F 108 H 25 H 99/67 92 02/02/22 04:00 02/02/22 08:19 02/02/22 06:00 02/02/22 06:00 02/02/22 06:00 Oxygen Delivery Method Room Air Weight: 153 lb 7.068 oz Body Mass Index (BMI) 24.7 Intake & Output: Intake and Output for Last 24 Hours 01/31/22 02/01/22 02/02/22 23:59 23:59 23:59 Intake Total 2233.25 / 2233.25 Output Total 50 / 50 Balance 2183.25 / 2183.25 Lab / Micro Data Result Diagrams: 02/02/22 06:55 02/02/22 06:55 Labs: Laboratory Results - last 24 hr 02/01/22 22:37: WBC 15.4 H, RBC 5.44, Hgb 16.3, Hct 49.1, MCV 90.3, MCH 30.0, MCHC 33.2, RDW Std Deviation 48.1 H, RDW Coeff of Zane 14.5, Plt Count 319, MPV 10.8, Immature Gran % (Auto) 0.600, Neut % (Auto) 87.3 H, Lymph % (Auto) 4.1 L, [place] % (Auto) 7.7, Eos % (Auto) 0.0, Baso % (Auto) 0.3, Absolute Neuts (auto) 13.4 H, Absolute Lymphs (auto) 0.63 L, Nucleated RBC % 0 02/01/22 22:37: PT 13.0, INR 1.0, APTT 26.3 02/01/22 22:37: Sodium 136, Potassium 4.7, Chloride 99, Carbon Dioxide 22.0, Anion Gap 15, BUN 13, Creatinine 1.83 H, Estim Creat Clear Calc 39.22, Est GFR (MDRD) Af Amer 49 L, Est GFR (MDRD) Non-Af 40 L, BUN/Creatinine Ratio 7.1 L, Glu cose 199 H, Calcium 9.9, Total Bilirubin 0.30, AST 12 L, ALT 15 L, Alkaline Phosphatase 103, Total Protein 7.9, Albumin 3.4, Globulin 4.5 H, Albumin/Globulin Ratio 0.8 L, Lipase 38 L 02/01/22 22:37: D-Dimer Quant (PE/DVT) 1.74 H* 02/01/22 22:37: Ferritin 49, Lactate Dehydrogenase 183, Troponin I High Sens 5, C-React Prot Ext Range 17.70 H 02/01/22 22:37: B-Natriuretic Peptide 7.6 02/01/22 22:37: Procalcitonin 1.23 H 02/01/22 22:55: Lactic Acid 6.2 H* 02/02/22 02:10: COVID-19 (DAISHA) Not Detected 02/02/22 02:20: Urine Color Yellow, Urine Clarity Clear, Urine pH 6.0, Ur Specific [place] 1.010, Urine Protein 100 H, Urine Glucose (UA) Normal, Urine Ketones 15 H, Urine Occult Blood 10 H, Urine Nitrite Negative, Urine Bilirubin 1 H, Urine Urobilinogen Normal, Ur Leukocyte Esterase 25 H, Urine RBC 0 SEEN, Urine WBC 0-5 SEEN, Ur Squamous Epith Cells 0 SEEN, Urine Bacteria 1+, Urine Mucus 0 SEEN 02/02/22 04:25: MRSA (PCR) Negative 02/02/22 05:50: WBC Cancelled, Corrected WBC Cancelled, RBC Cancelled, Hgb Cancelled, Hct Cancelled, MCV Cancelled, MCH Cancelled, MCHC Cancelled, RDW Std Deviation Cancelled, RDW Coeff of Zane Cancelled, Plt Count Cancelled, MPV Cancelled, Immature Gran % (Auto) Cancelled, Neut % (Auto) Cancelled, Lymph % (Auto) Cancelled, [place] % (Auto) Cancelled, Eos % (Auto) Cancelled, Baso % (Auto) Cancelled, Absolute Neuts (auto) Cancelled, Absolute Lymphs (auto) Cancelled, Total Counted Cancelled, Neutrophils % (Manual) Cancelled, Band Neutrophils % Cancelled, Lymphocytes % (Manual) Cancelled, Monocytes % (Manual) Cancelled, Eosinophils % (Manual) Cancelled, Basophils % (Manual) Cancelled, Metamyelocytes % Cancelled, Myelocytes % Cancelled, Promyelocytes % Cancelled, Blast Cells % Cancelled, Plasma Cell % (Manual) Cancelled, Other Cells % Cancelled, Nucleated RBC % Cancelled, Nucleated RBCs/100 WBC Cancelled, Differential Comment Cancelled, Diff Path Review Cancelled, Hypersegmented Neuts Cancelled, Atypical Lymphocytes Cancelled, Reactive Lymphocytes Cancelled, Smudge Cells Cancelled, Toxic Granulation Cancelled, Toxic Vacuolation Cancelled, Dohle Bodies Cancelled, Denny Rods Cancelled, Platelet Estimate Cancelled, Plt Morphology Comment Cancelled, RBC Morphology Cancelled, Polychromasia Cancelled, Hypochromasia Cancelled, Poikilocytosis Cancelled, Basophilic Stippling Cancelled, Anisocytosis Cancelled, Microcytosis Cancelled, Macrocytosis Cancelled, Spherocytes Cancelled, Sickle Cells Cancelled, Target Cells Can celled, Tear Drop Cells Cancelled, Ovalocytes Cancelled, Stomatocytes Cancelled, Kraft-Fay Bodies Cancelled, Sandie Cells Cancelled, Bite Cells Cancelled, Crenated Cell Cancelled, Acanthocytes (Spur) Cancelled, Rouleaux Cancelled, Schistocytes Cancelled 02/02/22 05:50: Sodium Cancelled, Potassium Cancelled, Chloride Cancelled, Carbon Dioxide Cancelled, Anion Gap Cancelled, BUN Cancelled, Creatinine Cancelled, Estim Creat Clear Calc Cancelled, Est GFR (MDRD) Af Amer Cancelled, Est GFR (MDRD) Non-Af Cancelled, BUN/Creatinine Ratio Cancelled, Glucose Cancelled, Calcium Cancelled, Total Bilirubin Cancelled, AST Cancelled, ALT Cancelled, Alkaline Phosphatase Cancelled, Total Protein Cancelled, Albumin Cancelled, Globulin Cancelled, Albumin/Globulin Ratio Cancelled 02/02/22 06:05: Lactic Acid 6.5 H* 02/02/22 06:55: Sodium 139, Potassium 5.0, Chloride 103, Carbon Dioxide 21.0, Anion Gap 15, BUN 28 H, Creatinine 1.84 H, Estim Creat Clear Calc 39.01, Est GFR (MDRD) Af Amer 49 L, Est GFR (MDRD) Non-Af 40 L, BUN/Creatinine Ratio 15.2, Glucose 125 H, Calcium 8.1 L, Total Bilirubin 0.30, AST 19, ALT 19, Alkaline Phosphatase 69, Total Protein 5.8 L, Albumin 2.6 L, Globulin 3.2, Albumin/Globulin Ratio 0.8 L 02/02/22 06:55: WBC 9.6, RBC 4.53 L, Hgb 13.4, Hct 43.5, MCV 96.0 H D, MCH 29.6, MCHC 30.8 L D, RDW Std Deviation 53.1 H, RDW Coeff of Zane 14.9 H, Plt Count , MPV 11.5, Immature Gran % (Auto) 0.300, Neut % (Auto) 83.6 H, Lymph % (Auto) 6.2 L, [place] % (Auto) 9.0, Eos % (Auto) 0.6, Baso % (Auto) 0.3, Absolute Neuts (auto) 8.0 H, Absolute Lymphs (auto) 0.59 L, Nucleated RBC % 0, Platelet Estimate ADEQUATE Micro: Microbiology 02/02/22 02:10 Mucosa - Nasopharyngeal Respiratory Panel (PCR) - Final 02/02/22 02:20 Urine Catheter - Catheter Legionella Antigen - Final 02/02/22 02:20 Urine Catheter - Catheter Streptococcus pneumoniae Antigen (M - Final 02/01/22 23:00 Nasal Secretion SARS-CoV-2 Antigen (Rapid) - Final SARS-CoV-2 (COVID 19) Radiography Diagnostic Testing: Radiology Impression Abdomen/Pelvis CT 02/02/22 00:00 IMPRESSION: 1. Distal small bowel obstruction likely due to adhesions. No associated mass or fluid collection. 2. Atrophic pancreas. Electronically Signed: Gerard Moreno MD at 1:17 EDT , Brain CT 02/02/22 00:00 IMPRESSION: 1. Mild generalized atrophy. Mild low density bilaterally in the deep white matter. This likely represents small vessel ischemic changes in the deep white matter. No acute intracranial abnormality. 2. Old blowout fractures of the medial ornelas of the orbits. 3. Mild mucosal thickening right maxillary sinus. Electronically Signed: Gerard Moreno MD at 1:10 EDT , KUB X-Ray 02/02/22 01:21 IMPRESSION: 1. NG tube is looped in the distal esophagus. 2. Multiple very dilated small bowel loops consistent with small bowel obstruction. Electronically Signed: Gerard Moreno MD at 2:58 EDT , ADDENDUM: 02/02/22 0309 IMPRESSION: 1. NG tube is looped in the distal esophagus. 2. Multiple very dilated small bowel loops consistent with small bowel obstruction. N.B. : The above Results were Read Back by Gerard Moreno MD to VERNELL Gibbs, and understanding confirmed on 02/02/2022 03:03:03 (ET). Electronically Signed: Gerard Moreno MD at 2:58 EDT , Chest X-Ray 02/02/22 01:50 IMPRESSION: 1. NG tube is looped in the distal esophagus. 2. Multiple dilated small bowel loops consistent with small bowel obstruction. 3. Subsegmental atelectasis left base. Electronically Signed: Gerard Moreno MD at 3:05 EDT , KUB X-Ray 02/02/22 03:23 IMPRESSION: 1. NG tube is in good position in the stomach. 2. Small bowel obstruction. Electronically Signed: Gerard Moreno MD at 3:46 EDT , KUB X-Ray 02/02/22 05:55 IMPRESSION: No change from earlier today. Electronically Signed: Luis Trinh MD at 8:25 EDT , Physical Exam Const alert, oriented x3 and no apparent distress Exam Limitations: no limitations HEENT head/scalp atraumatic and moist oral mucous membranes Head and Scalp: normocephalic Eyes PERRL, EOMs intact bilaterally and conjunctivae normal Neck no lymphadenopathy and supple Resp Resp Narrative: mildly diminished breath sounds bibasally, no wheezes or crackles. on room air Cardio S1 normal heart sound, S2 normal heart sound and no murmurs Cardio Narrative: tachypneic GI GI Narrative: NG tube in situ, on suction. Mildly distended abdomen, adequate bowel sounds. No tenderness or guarding. Extremity normal to inspection, full ROM and no clubbing, cyanosis or edema Peripheral Pulses: Yes pulses 2+ throughout Skin no rashes or lesions noted Neuro oriented x3 and moves all extremities Sensorium / Orientation: awake and alert Psych Mood & Affect: anxious Assessment & Plan Assessment/Plan (1) COVID-19: (2) SBO (small bowel obstruction): (3) MARSHALL (acute kidney injury): (4) Lactic acidosis: PLAN: #Small bowel obstruction * NG tube still in place * being hydrated with IVF * CT abdomen showed distal small bowel obstruction * continue keeping NPO * general surgery on board, appreciate rec's. * on IV zosyn * #COVID 19 infection * on room air * hasnt been vaccinated * says his roommate at the [facility] had covid. * stable. Will monitor * #Tachycardia and low blood pressure * patient has remained persistently tachycardic and still hypotensive * lactic acid also still elevated. * in light of the elevated d dimer (which may be explained by MARSHALL), tachycardia and borderline hypotension which is not responding to fluids, I think it is prudent to rule out a PE. Per general surgery, his abdomen is soft, and there is no sign of perforation. #MARSHALL * Cr was 1.83. Being hydrated with IVF * Cr is 1.84 today; baseline is ~ 0.6 * continue gentle hydration with iVF * if not improved by tomorrow, will get renal USG * check FeNa/FeUrea * * #Lactic acidosis: * still remains elevated, and has even trended upwards to 6.5 today, from 6.2 on admission. * LIkely due to small bowel obstruction. #Type 2 diabetes mellitus: Currently n.p.o. so oral meds on hold. Insulin sliding scale. Checks every 6 hourly. #Hyperlipidemia: On statin which is currently on hold. #Schizoaffective disorder, anxiety and depression #COPD: On Spiriva. Breathing treatments bronchodilators. #BPH: On Flomax. This was held as patient was hypotensive on admission. DVT prophylaxis: lovenox, renally dosed Charges/Coding Visit Charges Inpatient E&M: 23426 Subs Hosp L3
[2022-02-02 09:31] LABS: Bedside Glucose 106 mg/dL (74-106)
--- NOTE | 2022-02-02 09:37 | CT_ITS ---
STUDY: CTA CHEST REASON FOR EXAM: Male, 61 years old. shortness of breath. COVID POSITIVE RADIATION DOSAGE (If Supplied By Facility): CTDIvol = ( 16.64 ) mGy, DLP = ( 364.82 ) mGycm TECHNIQUE: The examination was performed with the intravenous administration of IV 75mL Isovue-370. Post-processing of the angiographic images was performed, with multiplanar reformation and 3D reconstruction. Individualized dose optimization techniques were used for this CT. COMPARISON: None. FINDINGS: Nasogastric tube with the tip in the stomach. Normal enhancement of the main pulmonary artery and right and left pulmonary arteries. Normal enhancement of the bilateral peripheral pulmonary arteries. There is no demonstrated pulmonary embolism. Normal thoracic aorta and visualized great vessels. There is no demonstrated aortic dissection. Normal heart and pericardium. Normal mediastinum. Normal hilar regions. Normal visualized trachea and bronchi. The lungs are well expanded. Normal pulmonary parenchyma. Normal pleura. Normal chest wall structures. Normal osseous structures. Normal visualized upper abdomen. CT/CTA Chest W/WO Contrast IMPRESSION: Normal CTA chest examination, without a demonstrated pulmonary embolism or arterial dissection. Electronically Signed: Luis Trinh MD at 11:38 EDT ,
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
--- NOTE | 2022-02-02 16:24 | RAD_ITS ---
STUDY: X-RAY - ABDOMEN/PELVIS REASON FOR EXAM: Male, 61 years old. check for ng placement TECHNIQUE: Single AP view of the abdomen / pelvis. COMPARISON: 02/02/2022 at 07 58 FINDINGS: Nasogastric tube with the tip in the midline likely in the antrum the stomach. There are dilated loops of the small intestine with a non-distended colon consistent with a small bowel obstruction. The visualized liver, spleen and kidneys are grossly normal in size and morphology. Normal soft tissue structures. Normal visualized osseous structures. RAD/Abdomen Single View (Portable) IMPRESSION: No change from earlier today. Electronically Signed: Luis Trinh MD at 16:50 EDT ,
[2022-02-02] MEDS: Enoxaparin 30 MG/0.3 ML Syringe SC (17:57)
[2022-02-02] MEDS: Valproic Acid 250 MG/5 ML UDC NG ×2 (17:57→21:56)
[2022-02-02 18:21] LABS: Bedside Glucose 107 mg/dL (74-106)
[2022-02-03] VITALS (9 sets, daily range): BP systolic 123–149; BP diastolic 80–94; PULSE 85–98; RESP 16–24; TEMP 36.7–36.8; O2SAT 93–98
[2022-02-03] MEDS: Morphine 2 MG/ML Syringe IV (00:13)
[2022-02-03 01:30] LABS: Bedside Glucose 103 mg/dL (74-106)
[2022-02-03] MEDS: 0.9% Normal Saline 1,000 ML 125 ML IV ×2 (03:38→17:44)
[2022-02-03 04:59] LABS: Urine Sodium 96 mmol/L (Not Establ.)
[2022-02-03] MEDS: Valproic Acid 250 MG/5 ML UDC NG ×3 (05:32→22:05)
[2022-02-03 07:05] LABS: Bedside Glucose 111 mg/dL (74-106)
--- NOTE | 2022-02-03 07:17 | PCM.PN.SRG ---
Subjective Subjective Not complaining of any abdominal pain this morning. Objective Data Objective Data Abdomen is completely soft nontender slightly distended Vital Signs: Vital Signs Temp Pulse Resp BP Pulse Ox 98.2 F 98 16 128/80 H 98 02/03/22 05:00 02/03/22 05:00 02/03/22 05:00 02/03/22 05:00 02/03/22 05:00 Oxygen Flow Rate (L/min) 2 Oxygen Delivery Method Nasal Cannula Weight: 151 lb 7.321 oz Body Mass Index (BMI) 24.7 Intake & Output: Intake and Output for Last 24 Hours 02/01/22 02/02/22 02/03/22 23:59 23:59 23:59 Intake Total 5182.83 / 5182.83 791.67 / 791.67 Output Total 1925 / 1925 Balance 3257.83 / 3257.83 791.67 / 791.67 Lab / Micro Data Result Diagrams: 02/02/22 06:55 02/02/22 06:55 Labs: Laboratory Results - last 24 hr 02/02/22 04:25: MRSA (PCR) Negative 02/02/22 04:33: Ur Random Sodium 96, Urine Creatinine 29.20 02/02/22 06:55: Sodium 139, Potassium 5.0, Chloride 103, Carbon Dioxide 21.0, Anion Gap 15, BUN 28 H, Creatinine 1.84 H, Estim Creat Clear Calc 39.01, Est GFR (MDRD) Af Amer 49 L, Est GFR (MDRD) Non-Af 40 L, BUN/Creatinine Ratio 15.2, Glucose 125 H, Calcium 8.1 L, Total Bilirubin 0.30, AST 19, ALT 19, Alkaline Phosphatase 69, Total Protein 5.8 L, Albumin 2.6 L, Globulin 3.2, Albumin/Globulin Ratio 0.8 L 02/02/22 06:55: WBC 9.6, RBC 4.53 L, Hgb 13.4, Hct 43.5, MCV 96.0 H D, MCH 29.6, MCHC 30.8 L D, RDW Std Deviation 53.1 H, RDW Coeff of Zane 14.9 H, Plt Count , MPV 11.5, Immature Gran % (Auto) 0.300, Neut % (Auto) 83.6 H, Lymph % (Auto) 6.2 L, [place] % (Auto) 9.0, Eos % (Auto) 0.6, Baso % (Auto) 0.3, Absolute Neuts (auto) 8.0 H, Absolute Lymphs (auto) 0.59 L, Nucleated RBC % 0, Platelet Estimate ADEQUATE 02/02/22 09:16: POC Glucose 106 02/02/22 17:59: POC Glucose 107 H 02/02/22 22:06: POC Glucose 103 02/03/22 04:51: POC Glucose 111 H Micro: Microbiology 02/02/22 02:10 Mucosa - Nasopharyngeal Respiratory Panel (PCR) - Final 02/02/22 02:20 Urine Catheter - Catheter Legionella Antigen - Final 02/02/22 02:20 Urine Catheter - Catheter Streptococcus pneumoniae Antigen (M - Final 02/01/22 23:00 Nasal Secretion SARS-CoV-2 Antigen (Rapid) - Final SARS-CoV-2 (COVID 19) Radiography Diagnostic Testing: Radiology Impression KUB X-Ray 02/02/22 05:55 IMPRESSION: No change from earlier today. Electronically Signed: Luis Trinh MD at 8:25 EDT Reading Location ID and State: [employer] / [employer] [place] Tel , Service support , Chest CTA 02/02/22 09:37 IMPRESSION: Normal CTA chest examination, without a demonstrated pulmonary embolism or arterial dissection. Electronically Signed: Luis Trinh MD at 11:38 EDT Reading Location ID and State: [employer] / [employer] [place] Tel , Service support , KUB X-Ray 02/02/22 16:24 IMPRESSION: No change from earlier today. Electronically Signed: Luis Trinh MD at 16:50 EDT Reading Location ID and State: [employer] / [employer] [place] Tel , Service support , Assessment & Plan Assessment/Plan (1) SBO (small bowel obstruction): PLAN: Reportedly had a large bowel movement yesterday. States he has not had anything else today. No labs to report as of yet. Will consider removing NG tube later today.
--- NOTE | 2022-02-03 08:52 | PCM.PN.INT ---
Assessment & Plan Assessment/Plan (1) SBO (small bowel obstruction): PLAN: RECOMMENDATIONS: 1. NG tube/small bowel obstruction management per general surgery. 2. Continue supplemental IV fluid hydration. 3. Continue empiric antimicrobials. 4. Appropriate DVT prophylaxis. 5. Encourage incentive spirometer use and mobilize patient as tolerated. 6. Given the patient's lack of further ICU needs, will sign off. Please call with any additional questions. IMPRESSIONS: 1. Small bowel obstruction Continue NG tube with further management per general surgery recommendations. Continue gentle IV fluid hydration while the patient remains n.p.o. 2. Acute kidney injury Resolved. Most likely prerenal in etiology. Continue gentle IV fluid hydration while the patient remains NPO. Avoid nephrotoxic medications. Continue to monitor urine output. No indication for renal replacement therapy. 3. Recently diagnosed COVID-19 The patient was recently diagnosed with COVID-19 after being exposed to a positive roommate. However, the patient is without any findings on chest imaging. Therefore, I do not see an indication for any additional intervention. 4. Diabetes mellitus/chronic tobacco dependency/schizoaffective disorder/history of TBI Complicates care, management, recovery and prognosis. Continue home medications as indicated. This note was generated with [employer] dictation software. It may contain incorrect words, spelling, and punctuation that were not noted in checking the note before signing. Subjective Subjective The patient was seen and examined at the bedside this morning. Events from the last 24 hours have been reviewed. The patient is currently afebrile, hemodynamically stable and maintaining appropriate oxygen saturations on 2 L/min via nasal cannula. The patient is documented to be overall net +4 L for the hospitalization. Objective Data Objective Data The patient's most recent lab work, culture data and imaging studies have all been personally reviewed. Vital Signs: Vital Signs Temp Pulse Resp BP Pulse Ox 98.2 F 98 16 128/80 H 98 02/03/22 05:00 02/03/22 05:00 02/03/22 05:00 02/03/22 05:00 02/03/22 05:00 Oxygen Flow Rate (L/min) 2 Oxygen Delivery Method Room Air Weight: 68.7 kg Body Mass Index (BMI) 24.7 Intake & Output: Intake and Output for Last 24 Hours 02/01/22 02/02/22 02/03/22 23:59 23:59 23:59 Intake Total 5182.83 / 5182.83 791.67 / 791.67 Output Total 1925 / 192 Balance 3257.83 / 3257.83 791.67 / 791.67 Lab / Micro Data Attestation: I reviewed the patient's lab results. Result Diagrams: 02/03/22 09:00 02/03/22 09:00 Labs: Laboratory Results - last 24 hr 02/02/22 04:33: Ur Random Sodium 96, Urine Creatinine 29.20 02/02/22 09:16: POC Glucose 106 02/02/22 17:59: POC Glucose 107 H 02/02/22 22:06: POC Glucose 103 02/03/22 04:51: POC Glucose 111 H Micro: Microbiology 02/02/22 02:10 Mucosa - Nasopharyngeal Respiratory Panel (PCR) - Final 02/02/22 02:20 Urine Catheter - Catheter Legionella Antigen - Final 02/02/22 02:20 Urine Catheter - Catheter Streptococcus pneumoniae Antigen (M - Final 02/01/22 23:00 Nasal Secretion SARS-CoV-2 Antigen (Rapid) - Final SARS-CoV-2 (COVID 19) Radiography Diagnostic Testing: Radiology Impression Chest CTA 02/02/22 09:37 IMPRESSION: Normal CTA chest examination, without a demonstrated pulmonary embolism or arterial dissection. Electronically Signed: Luis Trinh MD at 11:38 EDT Reading Location ID and State: [id number] / [employer] Tel , Service support , KUB X-Ray 02/02/22 16:24 IMPRESSION: No change from earlier today. Electronically Signed: Luis Trinh MD at 16:50 EDT , Physical Exam Const alert and no apparent distress General Appearance: cooperative HEENT normocephalic and head/scalp atraumatic HEENT Narrative: Nasogastric tube in place. Eyes PERRL, EOMs intact bilaterally and conjunctivae normal Neck supple General: trachea midline Chest inspection of chest normal Resp Auscultation: diminished lung sounds; Negative for rales, rhonchi or wheezes Cardio regular rate, regular rhythm, S1 normal heart sound and S2 normal heart sound GI Inspection: abdominal distention Auscultation: hypoactive bowel sounds Palpation: tender; Negative for guarding or rigid Extremity no clubbing, cyanosis or edema Skin no rashes or lesions noted Neuro CN's II-XII intact bilaterally and moves all extremities Psych cooperative Charges/Coding Visit Charges Inpatient E&M: 39162 Subs Hosp L2
[2022-02-03 09:15] LABS: Absolute Neutrophil Count 4.8 X10^3/uL (2.0-7.7); Basophil# 0.03 X10^3/uL; Basophil% 0.4 % (0-1); Eosinophil# 0.13 X10^3/uL; Eosinophils% 1.9 % (0-5); Hematocrit 38.2 % (40-54); Hemoglobin 11.9 g/dL (13.0-16.5); Lymphocyte % 14.5 % (19-41); Mean Corp Hgb Conc 31.2 g/dL (32-36); Mean Corpuscular Hgb 29.5 pg (27.0-32.0); Mean Corpuscular Volume 94.8 fL (80-94); Mean Platelet Vol. 10.9 fl (6.2-12.0); Monocyte# 0.92 X10^3/uL; Monocyte% 13.3 % (0-10); NRBC Flagged by Analyzer 0 % (0-5); Neutrophil # 4.79 X10^3/uL (2.7-7.7); Neutrophil % 69.5 % (47-70); POSITIVE MORPHOLOGY YES; Platelet Count 179 K/mm3 (150-450); RBC Distribution Width CV 14.8 % (11.6-14.6); RBC Distribution Width SD 51.4 fl (35.1-43.9); Red Blood Count 4.03 M/mm3 (4.6-6.2); White Blood Count 6.9 K/mm3 (4.4-11.0)
[2022-02-03 09:22] LABS: Differential Indicated SCAN CRITERIA MET
[2022-02-03 09:47] LABS: Anion Gap 0 (5-15); BUN 27 mg/dL (7-18); BUN/Creat Ratio 34.9 RATIO (10-20); Calcium,Total 7.8 mg/dL (8.5-10.1); Chloride 111 mmol/L (98-107); Creatinine, Serum 0.77 mg/dL (0.70-1.30); EST Glomerular Filtration Rate 109 mL/min (>60); Est Glom Filt Rate - Afr Amer 132 mL/min (>60); Estimated Creatinine Clearance 93.21 ml/min; Glucose 98 mg/dL (74-106); Potassium 4.5 mmol/L (3.5-5.1); Sodium Level 140 mmol/L (136-145)
[2022-02-03] MEDS: Enoxaparin 30 MG/0.3 ML Syringe SC (10:08)
[2022-02-03 10:18] LABS: Platelet Estimate ADEQUATE (ADEQ); Red Cell Morphology NORM C+C NORMAL (NORM C&C)
[2022-02-03 12:05] LABS: Bedside Glucose 86 mg/dL (74-106)
--- NOTE | 2022-02-03 12:16 | RAD_ITS ---
STUDY: X-RAY - ABDOMEN/PELVIS REASON FOR EXAM: Male, 61 years old. Partial small bowel obstruction TECHNIQUE: AP supine and decubitus views of the abdomen and pelvis. COMPARISON: [id number] FINDINGS: Nasogastric tube with the tip in the midline likely in the body the stomach. No change in dilated air-filled small bowel consistent with small bowel obstruction. There is no demonstrated free abdominal air. The visualized liver, spleen and kidneys are grossly normal in size and morphology. Normal soft tissue structures. Normal visualized osseous structures. RAD/Abd Inc Decub and/or Erect IMPRESSION: 1. Nasogastric tube with the tip in the midline likely in the body the stomach. 2. No change in small bowel obstruction. 3. No pneumoperitoneum. Electronically Signed: Luis Trinh MD at 17:22 EDT ,
--- NOTE | 2022-02-03 14:09 | PN.HOSP_ITS ---
Subjective Subjective Patient states that he is having some diffuse abdominal pain now. He states it was better earlier today and he had a large bowel movement yesterday, however has had no further bowel movements today. He indicates he is still passing flatus. States he is short of breath but currently has sat of 94% on room air. Complains of overall fatigue. Objective Data Objective Data Vital Signs: Vital Signs Temp Pulse Resp BP Pulse Ox 98.2 F 85 18 123/84 H 98 02/03/22 09:35 02/03/22 12:30 02/03/22 09:35 02/03/22 09:35 02/03/22 09:35 Oxygen Flow Rate (L/min) 2 Oxygen Delivery Method Nasal Cannula Weight: 68.7 kg Body Mass Index (BMI) 24.7 Intake & Output: Intake and Output for Last 24 Hours 02/01/22 02/02/22 02/03/22 23:59 23:59 23:59 Intake Total 5182.83 / 5182.83 1191.25 / 1191.25 Output Total 1925 / 1925 200 / 200 Balance 3257.83 / 3257.83 991.25 / 991.25 Lab / Micro Data Result Diagrams: 02/03/22 09:00 02/03/22 09:00 Labs: Laboratory Results - last 24 hr 02/02/22 04:33: Ur Random Sodium 96, Urine Creatinine 29.20 02/02/22 17:59: POC Glucose 107 H 02/02/22 22:06: POC Glucose 103 02/03/22 04:51: POC Glucose 111 H 02/03/22 09:00: WBC 6.9, RBC 4.03 L, Hgb 11.9 L, Hct 38.2 L, MCV 94.8 H, MCH 29.5, MCHC 31.2 L, RDW Std Deviation 51.4 H, RDW Coeff of Zane 14.8 H, Plt Count 179, MPV 10.9, Immature Gran % (Auto) 0.400, Neut % (Auto) 69.5, Lymph % (Auto) 14.5 L, [place] % (Auto) 13.3 H, Eos % (Auto) 1.9, Baso % (Auto) 0.4, Absolute Neuts (auto) 4.8, Absolute Lymphs (auto) 1.00, Nucleated RBC % 0, Differential Comment , Platelet Estimate ADEQUATE, RBC Morphology NORM C+C 02/03/22 09:00: Sodium 140, Potassium 4.5, Chloride 111 H, Carbon Dioxide 29.0, Anion Gap 0 L, BUN 27 H, Creatinine 0.77, Estim Creat Clear Calc 93.21, Est GFR (MDRD) Af Amer 132, Est GFR (MDRD) Non-Af 109, BUN/Creatinine Ratio 34.9 H, Glucose 98, Calcium 7.8 L 02/03/22 11:53: POC Glucose 86 Micro: Microbiology 02/02/22 02:10 Mucosa - Nasopharyngeal Respiratory Panel (PCR) - Final 02/02/22 02:20 Urine Catheter - Catheter Legionella Antigen - Final 02/02/22 02:20 Urine Catheter - Catheter Streptococcus pneumoniae Antigen (M - Final 02/01/22 23:00 Nasal Secretion SARS-CoV-2 Antigen (Rapid) - Final SARS-CoV-2 (COVID 19) Radiography Diagnostic Testing: Radiology Impression KUB X-Ray 02/02/22 16:24 IMPRESSION: No change from earlier today. Electronically Signed: Luis Trinh MD at 16:50 EDT , Physical Exam Const alert, oriented x3 and no apparent distress Constitutional Narrative: Middle-aged white male who appears older than stated age, lying in bed, appears comfortable and nontoxic, watching television Exam Limitations: other limitations HEENT head/scalp atraumatic and moist oral mucous membranes HEENT Narrative: Edentulous, Mallampati 2, no thrush Head and Scalp: normocephalic Resp normal respiratory effort, no retractions, no use of accessory muscles and clear to auscultation bilaterally Auscultation: Negative for crackles, rales, rhonchi or wheezes Cardio regular rate, regular rhythm, S1 normal heart sound, S2 normal heart sound, no murmurs, no rub, no gallops, no clicks and no JVD GI GI Narrative: Bowel sounds are slightly high-pitched and hypoactive however present, mild diffuse tenderness with no specific point tenderness, minimal-mild distention Extremity no clubbing, cyanosis or edema Peripheral Pulses: Yes pulses 2+ throughout Neuro oriented x3, CN's II-XII intact bilaterally, moves all extremities and no focal motor deficits Sensorium / Orientation: awake and alert Speech: speech normal Psych Psych Narrative: Affect is flat Assessment & Plan Assessment/Plan (1) SBO (small bowel obstruction): (2) COVID-19: (3) MARSHALL (acute kidney injury): (4) Lactic acidosis: PLAN: Small bowel obstruction -Seems to be resolving -Had reported large bowel movement yesterday -No further bowel movement today -Possible NG removal per general surgery's documentation earlier today -Remain n.p.o. until cleared by general surgery for p.o. diet -Continue IV fluids as ordered until patient is able to take p.o. diet -Appreciate general surgery input Lactic acidosis -Repeat is pending but anticipate resolution based on other laboratory data -Likely related to acute dehydration with bowel obstruction and MARSHALL -Doubt sepsis--> suspect tachycardia and hypotension was all related to dehydration Leukocytosis -Resolved -Likely reactive related to a bowel obstruction and dehydration -We will continue Zosyn for now and discontinue if okay with general surgery tomorrow MARSHALL -Resolved COVID-19 infection -Okay to come out of isolation tomorrow -Patient is overall relatively asymptomatic -Needs on room air -Current needs for treatment DM-2 -Continue sliding scale insulin -Every 6 hour blood sugar checks -Home metformin is on hold Hyperlipidemia -Statin on hold until p.o. intake is able COPD -Continue Spiriva -As needed bronchodilators BPH -Flomax on hold until p.o. intake can be reinitiated Schizoaffective disorder/anxiety/depression -Continued Depakene -Continue as needed Geodon -Restart Clozaril, Geodon, and Invega once able to take p.o. -Continue home lactulose DVT/GI prophylaxis -Continue enoxaparin -Continue Protonix CODE STATUS -Full code Charges/Coding Visit Charges Inpatient E&M: 50340 Subs Hosp L2
[2022-02-03 14:32] LABS: Lactic Acid 0.6 mmol/L (0.4-1.9)
[2022-02-03] MEDS: Insulin Lispro 100 UNIT/ML INSULN.PEN SC (17:42)
[2022-02-03 18:11] LABS: Bedside Glucose 164 mg/dL (74-106)
[2022-02-03] MEDS: Ipratropium 0.5 MG/2.5 ML SOLUTION INHALATION (20:19)
[2022-02-03] MEDS: Lactulose 20 GM/30 ML UDC PO (22:05)
[2022-02-03] MEDS: Tamsulosin HCl 0.4 MG Capsule PO (22:05)
[2022-02-03 23:00] LABS: Bedside Glucose 133 mg/dL (74-106)
[2022-02-04] VITALS (13 sets, daily range): BP systolic 143–151; BP diastolic 91–101; PULSE 74–92; RESP 16–20; TEMP 36.5–36.7; O2SAT 92–100
[2022-02-04] MEDS: 0.9% Normal Saline 1,000 ML 125 ML IV ×2 (01:45→09:48)
[2022-02-04] MEDS: Ipratropium 0.5 MG/2.5 ML SOLUTION INHALATION ×4 (02:02→19:47)
[2022-02-04] MEDS: Valproic Acid 250 MG/5 ML UDC NG ×3 (06:14→20:07)
[2022-02-04 06:25] LABS: Bedside Glucose 98 mg/dL (74-106)
[2022-02-04 06:49] LABS: Absolute Lymphocyte Count 1.13 X10^3/uL (0.83-4.51); Absolute Neutrophil Count 4.1 X10^3/uL (2.0-7.7); Basophil# 0.01 X10^3/uL; Basophil% 0.2 % (0-1); Eosinophil# 0.15 X10^3/uL; Eosinophils% 2.4 % (0-5); Hematocrit 35.2 % (40-54); Hemoglobin 11.1 g/dL (13.0-16.5); Lymphocyte # 1.13 X10^3/ul (0.83-4.51); Lymphocyte % 18.2 % (19-41); Mean Corp Hgb Conc 31.5 g/dL (32-36); Mean Corpuscular Hgb 29.6 pg (27.0-32.0); Mean Corpuscular Volume 93.9 fL (80-94); Mean Platelet Vol. 10.9 fl (6.2-12.0); Monocyte# 0.78 X10^3/uL; Monocyte% 12.6 % (0-10); NRBC Flagged by Analyzer 0 % (0-5); Neutrophil # 4.11 X10^3/uL (2.7-7.7); Neutrophil % 66.1 % (47-70); Platelet Count 176 K/mm3 (150-450); RBC Distribution Width CV 14.4 % (11.6-14.6); RBC Distribution Width SD 49.7 fl (35.1-43.9); Red Blood Count 3.75 M/mm3 (4.6-6.2); White Blood Count 6.2 K/mm3 (4.4-11.0)
[2022-02-04 07:08] LABS: Anion Gap 4 (5-15); BUN 13 mg/dL (7-18); BUN/Creat Ratio 23.9 RATIO (10-20); Calcium,Total 7.6 mg/dL (8.5-10.1); Chloride 112 mmol/L (98-107); Creatinine, Serum 0.54 mg/dL (0.70-1.30); EST Glomerular Filtration Rate 164 mL/min (>60); Est Glom Filt Rate - Afr Amer 198 mL/min (>60); Estimated Creatinine Clearance 132.92 ml/min; Glucose 98 mg/dL (74-106); Potassium 3.5 mmol/L (3.5-5.1); Sodium Level 143 mmol/L (136-145)
[2022-02-04] MEDS: Enoxaparin 40 MG/0.4 ML Syringe SC (09:46)
[2022-02-04] MEDS: Lactulose 20 GM/30 ML UDC PO ×2 (09:46→20:08)
[2022-02-04] MEDS: Docusate Sodium 100 MG Capsule PO (09:46)
[2022-02-04] MEDS: traZODone 100 MG Tablet PO (09:46)
[2022-02-04 11:05] LABS: Bedside Glucose 132 mg/dL (74-106)
--- NOTE | 2022-02-04 11:18 | PN.SURG_ITS ---
Subjective Subjective Not complaining of any abdominal pain for me. Objective Data Objective Data Abdomen is remarkably soft much less distended than yesterday. Vital Signs: Vital Signs Temp Pulse Resp BP Pulse Ox 97.7 F L 89 18 149/95 H 94 02/04/22 09:44 02/04/22 09:44 02/04/22 09:44 02/04/22 09:44 02/04/22 09:44 Oxygen Flow Rate (L/min) 2 Oxygen Delivery Method Room Air Weight: 151 lb 0.266 oz Body Mass Index (BMI) 24.7 Intake & Output: Intake and Output for Last 24 Hours 02/02/22 02/03/22 02/04/22 23:59 23:59 23:59 Intake Total 5182.83 / 5182.83 2028.33 / 3211.66 2660.00 / 2660.00 Output Total 1925 / 1925 200 / 900 1300 / 1300 Balance 3257.83 / 3257.83 1828.33 / 2311.66 1360.00 / 1360.00 Lab / Micro Data Result Diagrams: 02/04/22 06:25 02/04/22 06:25 Labs: Laboratory Results - last 24 hr 02/03/22 11:53: POC Glucose 86 02/03/22 13:40: Lactic Acid 0.6 02/03/22 17:33: POC Glucose 164 H 02/03/22 22:03: POC Glucose 133 H 02/04/22 06:12: POC Glucose 98 02/04/22 06:25: WBC 6.2, RBC 3.75 L, Hgb 11.1 L, Hct 35.2 L, MCV 93.9, MCH 29.6, MCHC 31.5 L, RDW Std Deviation 49.7 H, RDW Coeff of Zane 14.4, Plt Count 176, MPV 10.9, Immature Gran % (Auto) 0.500, Neut % (Auto) 66.1, Lymph % (Auto) 18.2 L, [place] % (Auto) 12.6 H, Eos % (Auto) 2.4, Baso % (Auto) 0.2, Absolute Neuts (auto) 4.1, Absolute Lymphs (auto) 1.13, Nucleated RBC % 0 02/04/22 06:25: Sodium 143, Potassium 3.5, Chloride 112 H, Carbon Dioxide 27.0, Anion Gap 4 L, BUN 13, Creatinine 0.54 L, Estim Creat Clear Calc 132.92, Est GFR (MDRD) Af Amer 198, Est GFR (MDRD) Non-Af 164, BUN/Creatinine Ratio 23.9 H, Glucose 98, Calcium 7.6 L 02/04/22 10:58: POC Glucose 132 H Micro: Microbiology 02/02/22 01:20 Blood Culture (Wb) - Anticubital Left Blood Culture - Preliminary No growth in 48 hours. 02/02/22 00:20 Blood Culture (Wb) - Anticubital Right Blood Culture - Preliminary No growth in 48 hours. 02/02/22 02:10 Mucosa - Nasopharyngeal Respiratory Panel (PCR) - Final 02/02/22 02:20 Urine Catheter - Catheter Legionella Antigen - Final 02/02/22 02:20 Urine Catheter - Catheter Streptococcus pneumoniae Antigen (M - Final 02/01/22 23:00 Nasal Secretion SARS-CoV-2 Antigen (Rapid) - Final SARS-CoV-2 (COVID 19) Radiography Diagnostic Testing: Radiology Impression Abdomen X-Ray 02/03/22 12:16 IMPRESSION: 1. Nasogastric tube with the tip in the midline likely in the body the stomach. 2. No change in small bowel obstruction. 3. No pneumoperitoneum. Electronically Signed: Luis Trinh MD at 17:22 EDT , Assessment & Plan Assessment/Plan (1) SBO (small bowel obstruction): PLAN: Okay to start clear liquids. If tolerates this then may be advanced.
--- NOTE | 2022-02-04 12:13 | PCM.PN.HOSP ---
Subjective Subjective Patient has been taking in clear liquids without any difficulty. Had 2 further bowel movements yesterday. Still complains of some intermittent abdominal pain however seems to be tolerating orals without any difficulty. No nausea or vomiting. Patient remains on room air. He is now out of isolation for COVID-19. Objective Data Objective Data Vital Signs: Vital Signs Temp Pulse Resp BP Pulse Ox 97.7 F L 89 18 149/95 H 94 02/04/22 09:44 02/04/22 09:44 02/04/22 09:44 02/04/22 09:44 02/04/22 09:44 Oxygen Flow Rate (L/min) 2 Oxygen Delivery Method Room Air Weight: 68.5 kg Body Mass Index (BMI) 24.7 Intake & Output: Intake and Output for Last 24 Hours 02/02/22 02/03/22 02/04/22 23:59 23:59 23:59 Intake Total 5182.83 / 5182.83 2028.33 / 3211.66 3500.00 / 3500.00 Output Total 1925 / 1925 200 / 900 1800 / 1800 Balance 3257.83 / 3257.83 1828.33 / 2311.66 1700.00 / 1700.00 Lab / Micro Data Result Diagrams: 02/04/22 06:25 02/04/22 06:25 Labs: Laboratory Results - last 24 hr 02/03/22 13:40: Lactic Acid 0.6 02/03/22 17:33: POC Glucose 164 H 02/03/22 22:03: POC Glucose 133 H 02/04/22 06:12: POC Glucose 98 02/04/22 06:25: WBC 6.2, RBC 3.75 L, Hgb 11.1 L, Hct 35.2 L, MCV 93.9, MCH 29.6, MCHC 31.5 L, RDW Std Deviation 49.7 H, RDW Coeff of Zane 14.4, Plt Count 176, MPV 10.9, Immature Gran % (Auto) 0.500, Neut % (Auto) 66.1, Lymph % (Auto) 18.2 L, [place] % (Auto) 12.6 H, Eos % (Auto) 2.4, Baso % (Auto) 0.2, Absolute Neuts (auto) 4.1, Absolute Lymphs (auto) 1.13, Nucleated RBC % 0 02/04/22 06:25: Sodium 143, Potassium 3.5, Chloride 112 H, Carbon Dioxide 27.0, Anion Gap 4 L, BUN 13, Creatinine 0.54 L, Estim Creat Clear Calc 132.92, Est GFR (MDRD) Af Amer 198, Est GFR (MDRD) Non-Af 164, BUN/Creatinine Ratio 23.9 H, Glucose 98, Calcium 7.6 L 02/04/22 10:58: POC Glucose 132 H Micro: Microbiology 02/02/22 01:20 Blood Culture (Wb) - Anticubital Left Blood Culture - Preliminary No growth in 48 hours. 02/02/22 00:20 Blood Culture (Wb) - Anticubital Right Blood Culture - Preliminary No growth in 48 hours. 02/02/22 02:10 Mucosa - Nasopharyngeal Respiratory Panel (PCR) - Final 02/02/22 02:20 Urine Catheter - Catheter Legionella Antigen - Final 02/02/22 02:20 Urine Catheter - Catheter Streptococcus pneumoniae Antigen (M - Final 02/01/22 23:00 Nasal Secretion SARS-CoV-2 Antigen (Rapid) - Final SARS-CoV-2 (COVID 19) Radiography Diagnostic Testing: Radiology Impression Abdomen X-Ray 02/03/22 12:16 IMPRESSION: 1. Nasogastric tube with the tip in the midline likely in the body the stomach. 2. No change in small bowel obstruction. 3. No pneumoperitoneum. Electronically Signed: Luis Trinh MD at 17:22 EDT , Physical Exam Const alert, oriented x3 and no apparent distress Constitutional Narrative: Middle-aged white male who appears older than stated age, lying in bed propped up and watching television, appears comfortable and nontoxic Exam Limitations: no limitations and other limitations HEENT head/scalp atraumatic and moist oral mucous membranes HEENT Narrative: Edentulous, Mallampati 2, no thrush Head and Scalp: normocephalic Resp normal respiratory effort, no retractions, no use of accessory muscles and clear to auscultation bilaterally Auscultation: Negative for crackles, rales, rhonchi or wheezes Cardio regular rate, regular rhythm, S1 normal heart sound, S2 normal heart sound, no murmurs, no rub, no gallops, no clicks and no JVD GI normal to inspection, nondistended, normoactive bowel sounds, soft to palpation and non-distended GI Narrative: Mild diffuse tenderness Palpation: tender Extremity normal to inspection, full ROM and no clubbing, cyanosis or edema Peripheral Pulses: Yes pulses 2+ throughout Neuro moves all extremities Sensorium / Orientation: awake and alert Speech: speech normal Psych Psych Narrative: Affect is flat Assessment & Plan Assessment/Plan (1) SBO (small bowel obstruction): (2) COVID-19: (3) MARSHALL (acute kidney injury): (4) Lactic acidosis: PLAN: Small bowel obstruction -Patient tolerating clears without any difficulty and had 2 further bowel movements yesterday -NG removed on 02/03/2022 -Per general surgery continue clears and advance as tolerated -Discontinue IV fluids -Dissipate discharge in the next 24 hours as long as obstruction remains resolved -Appreciate general surgery input Lactic acidosis -Resolved -Likely related to acute dehydration with bowel obstruction and MARSHALL -Doubt sepsis--> suspect tachycardia and hypotension was all related to dehydration COVID-19 infection -Patient remains on room air -Out of isolation -Patient is overall relatively asymptomatic DM-2 -Continue sliding scale insulin -Every 6 hour blood sugar checks -Home metformin is on hold -A.m. fasting blood sugar was 98 Hyperlipidemia -Restart statin COPD -Continue Spiriva -As needed bronchodilators BPH -Restart Flomax Schizoaffective disorder/anxiety/depression -Continued Depakene -Continue as needed Geodon -Restart Clozaril, Geodon, and Invega -Continue home lactulose DVT/GI prophylaxis -Continue enoxaparin -Continue Protonix CODE STATUS -Full code Charges/Coding Visit Charges Inpatient E&M: 99178 Subs Hosp L2
[2022-02-04 16:00] LABS: Bedside Glucose 86 mg/dL (74-106)
[2022-02-04] MEDS: Tamsulosin HCl 0.4 MG Capsule PO (20:08)
[2022-02-04 22:41] LABS: Bedside Glucose 98 mg/dL (74-106)
[2022-02-05 03:00] VITALS: PULSE 86
[2022-02-05 03:17] VITALS: BP 140/99; PULSE 76; RESP 18; TEMP 36.7; O2SAT 94
[2022-02-05] MEDS: Valproic Acid 250 MG/5 ML UDC NG ×2 (05:59→13:06)
[2022-02-05 06:21] LABS: Bedside Glucose 130 mg/dL (74-106)
[2022-02-05 07:00] VITALS: PULSE 66
[2022-02-05 07:36] VITALS: PULSE 74; RESP 18; O2SAT 98
[2022-02-05] MEDS: Ipratropium 0.5 MG/2.5 ML SOLUTION INHALATION ×2 (07:36→13:48)
[2022-02-05 09:40] VITALS: BP 146/101; PULSE 74; RESP 18; TEMP 36.4; O2SAT 96
[2022-02-05] MEDS: traZODone 100 MG Tablet PO (09:43)
[2022-02-05] MEDS: Lactulose 20 GM/30 ML UDC PO (09:43)
[2022-02-05] MEDS: 0.9% Saline Lock 10 ML Syringe IV (09:43)
[2022-02-05] MEDS: Docusate Sodium 100 MG Capsule PO (09:43)
[2022-02-05] MEDS: Enoxaparin 40 MG/0.4 ML Syringe SC (09:43)
--- NOTE | 2022-02-05 09:49 | CASEMGMT ---
REGINA faxed updates to [facility]. Per physician patient may be discharged today. REGINA will notify [facility]. Laura HERNANDEZ
--- NOTE | 2022-02-05 11:00 | PCM.DC.SUM ---
Providers Date of Admission: 02/02/22 Date of Discharge: 02/05/22 Primary Care Physician: Dr. Yashira Navarrete MD Consultations 02/02/22 03:38 Consult: General Surgery Routine Consulting Provider: Hakeem Plata Reason for Consult: SBO EMERGENT Consult: No Notified: Yes Date Notified: 02/02/22 Time Notified: 01:46 Method of Notification: ED Physician Initiated Consult: Insurance Clerk / Pulmonary Medicine Routine Consulting Provider: Iftikhar Bangura Reason for Consult: Possible septic shock, SBO, COVID, MARSHALL EMERGENT Consult: No Notified: Yes Date Notified: 02/02/22 Time Notified: 01:48 Method of Notification: Text Reason For Visit: ACUTE SBO, COVID 19, LACTIC ACIDOSIS, MARSHALL Diagnosis Discharge Diagnosis (1) SBO (small bowel obstruction): Status: Acute Code(s): K56.609 - Unspecified intestinal obstruction, unspecified as to partial versus complete obstruction (2) COVID-19: Status: Acute Code(s): U07.1 - COVID-19 (3) MARSHALL (acute kidney injury): Status: Acute Code(s): N17.9 - Acute kidney failure, unspecified (4) Lactic acidosis: Status: Acute Code(s): E87.2 - Acidosis Medications at Discharge Home Medications Spiriva with HandiHaler 1 cap INHALATION DAILY 11/11/21 atorvastatin 10 mg DAILY 11/11/21 divalproex 250 mg PO TID 11/11/21 lactulose 20 g BID 11/11/21 paliperidone [Invega] 3 mg PO DAILY 11/11/21 ziprasidone HCl [Geodon] 80 mg PO BID 11/11/21 clozapine [Clozaril] 50 mg PO 0600,2200 #0 tab 11/19/21 lactulose 20 g PO BID PRN PRN #0 ml 11/19/21 GlucaGen HypoKit 02/01/22 acetaminophen 650 mg PO Q4H PRN 02/01/22 alum-mag hydroxide-simeth 5 ml PO Q3H PRN 02/01/22 bisacodyl [Dulcolax (bisacodyl)] 10 mg PA DAILY PRN 02/01/22 cholecalciferol (vitamin D3) [Vitamin D3] 50 mcg PO DAILY 02/01/22 docusate sodium 100 mg PO DAILY 02/01/22 hydroxyzine HCl 50 mg PO Q8H PRN PRN 02/01/22 magnesium hydroxide [Milk of Magnesia] 400 mg PO DAILY PRN 02/01/22 melatonin 6 mg PO DAILY 02/01/22 metformin 1,000 mg PO BID 02/01/22 nicotine (polacrilex) mg 02/01/22 tamsulosin [Flomax] 0.4 mg PO QHS 02/01/22 trazodone 100 mg PO DAILY 02/01/22 tuberculin PPD tb unit INTRADERMAL 02/01/22 ziprasidone HCl [Geodon] 80 mg PO BID 02/01/22 ziprasidone mesylate [Geodon] 10 mg IM BID PRN 02/01/22 Hospital Course Operations None Summary of Care Provided Minutes Spent on Discharge: 39 Hospital Course: Mr. Ruiz is a 61-year-old white male who presented to [facility] on 02/02/2022 with weakness, abdominal pain, cough and a recent diagnosis of COVID. He evidently had a mechanical fall on 02/01/2022 at which time he was seen in the emergency department. He evidently fell backwards after slipping and hit the back of his head and was able to be sent home. He started having some associated cough, dyspnea, headaches, sore throat, nausea and vomiting in late October and a COVID-19 was done by the health department on 01/24/2022 at which time it was positive. It was felt that that might be related to some of his falls and causing some lightheadedness. His work-up in the emergency department showed normal vital signs with an oxygen saturation of 97% on room air. His CBC showed a mild leukocytosis with a white count of 15.4 and a hemoglobin elevation at 16.3 however he appeared dehydrated on his BMP as his serum creatinine was 1.83. He had a lactic acidosis at 6.2 with normal LFTs. His lipase was 38. A CT of his brain showed mild generalized atrophy and changes consistent with small vessel ischemic changes but no intracranial acute abnormalities. A CT of the abdomen pelvis was done with oral and IV contrast secondary to his abdominal pain and this did show a distal small bowel obstruction secondary to adhesions most likely with no mass fluid collection. The patient was given Zosyn and Zofran as well as morphine and normal saline in the emergency department and admitted to the medical floor. Consultations to general surgery and intensive care/pulmonary medicine were obtained. General surgery did not feel that he had an acute surgical abdomen at that time and encouraged ice chips and chewing gum with hard candy to see if that would help motility. His lactic acid remained elevated and the patient was having some tachycardia and some hypotension however he appeared markedly dehydrated. It was felt that none of his symptoms were consistent with sepsis and sepsis was ruled out. With time his abdomen slowly improved and he was able to be started on a clear liquid diet on 02/03/2022 which has subsequently been advanced to a regular diet. The patient is having no further abdominal pain, nausea, vomiting and is passing flatus and having bowel movements. With regards to his COVID-19 infection. The patient remained on room air throughout his entire hospitalization. A CTA of his chest was performed and was unremarkable. His lactic acidosis resolved with IV fluids and his renal function normalized. He remained on room air throughout his entire hospitalization. He was able to remove from isolation on 02/04/2022 and was able to be discharged home in stable condition on 02/05/2022. Recommend follow-up with his primary care physician within the next 2 weeks for hospital follow-up. Discharge diagnoses: Small bowel obstruction-resolved Lactic acidosis-resolved COVID-19 infection DM-2 Hyperlipidemia COPD BPH Schizoaffective disorder Anxiety Depression Physical Exam Narrative Patient indicated he was feeling well and having no nausea or vomiting. Also having flatus and bowel movements. Tolerating p.o. diet without difficulty. Const alert, oriented x3, no apparent distress, average body habitus, healthy appearing and well nourished Constitutional Narrative: Middle-aged white male who appears older than stated age, lying in bed propped up and watching television, appears comfortable and nontoxic General Appearance: cooperative, comfortable, well kempt and well developed Exam Limitations: no limitations HEENT normocephalic, head/scalp atraumatic, hearing grossly normal bilaterally and moist oral mucous membranes HEENT Narrative: Edentulous, Mallampati 2, no thrush Eyes PERRL, EOMs intact bilaterally and conjunctivae normal Eyes Narrative: No scleral icterus Neck no lymphadenopathy and supple Neck Narrative: Trachea midline no thyroid enlargement Resp normal respiratory effort, no retractions, no use of accessory muscles and clear to auscultation bilaterally Auscultation: Negative for crackles, rales, rhonchi or wheezes Cardio regular rate, regular rhythm, S1 normal heart sound, S2 normal heart sound, no murmurs, no rub, no gallops, no clicks and no JVD GI normal to inspection, nondistended, normoactive bowel sounds, soft to palpation, non-tender and non-distended Palpation: tender Extremity normal to inspection, full ROM and no clubbing, cyanosis or edema Skin no rashes or lesions noted, no wounds, skin turgor normal and no jaundice Neuro oriented x3, CN's II-XII intact bilaterally, moves all extremities and no focal motor deficits Sensorium / Orientation: awake and alert Speech: speech normal Psych Psych Narrative: Affect is flat and reaction is appropriate Weight / BMI Weight Weight: 67.5 kg Body Mass Index (BMI) 24.7 ABG / Lab / Microbiology Data Result Diagrams: 02/04/22 06:25 02/04/22 06:25 Laboratory: Laboratory Results - last 24 hr 02/04/22 10:58: POC Glucose 132 H 02/04/22 15:58: POC Glucose 86 02/04/22 22:28: POC Glucose 98 02/05/22 06:03: POC Glucose 130 H Microbiology: Microbiology 02/02/22 01:20 Blood Culture (Wb) - Anticubital Left Blood Culture - Preliminary No growth in 48 hours. 02/02/22 00:20 Blood Culture (Wb) - Anticubital Right Blood Culture - Preliminary No growth in 48 hours. 02/02/22 02:10 Mucosa - Nasopharyngeal Respiratory Panel (PCR) - Final 02/02/22 02:20 Urine Catheter - Catheter Legionella Antigen - Final 02/02/22 02:20 Urine Catheter - Catheter Streptococcus pneumoniae Antigen (M - Final 02/01/22 23:00 Nasal Secretion SARS-CoV-2 Antigen (Rapid) - Final SARS-CoV-2 (COVID 19) D/C Instructions Discharge Diet: Low fat / Low cholesterol and 1800 Calorie Control Diet Discharge Activity: Return to Normal Activity Meaningful Use Info Meaningful Use Diagnoses (Choose all that apply): None applicable Discharge Plan Admission Admit Date/Time: 02/02/22 01:42 Primary Reason for Your Visit: SBO Attending Provider: Batool Anderson Primary Care Provider: Yashira Navarrete Consulting Providers: Mari Agustin ; Hakeem Plata ; Iftikhar Bangura ; Francia Guerra Discharge Orders/Prescriptions Prescriptions: Continued divalproex 250 mg tablet,delayed release (DR/EC) 250 mg PO TID RF: 0 ziprasidone HCl [Geodon] 80 mg Capsule 80 mg PO BID RF: 0 atorvastatin 10 mg tablet 10 mg DAILY RF: 0 lactulose 10 gram Packet 20 g BID RF: 0 Spiriva with HandiHaler 18 mcg Capsule, W/Inhalation Device 1 cap INHALATION DAILY RF: 0 paliperidone [Invega] 3 mg Tablet Extended Release 24hr 3 mg PO DAILY RF: 0 clozapine [Clozaril] 100 mg Tablet 50 mg PO 0600,2200 Qty: 0 RF: 0 lactulose 20 gram/30 mL Solution 20 g PO BID PRN PRN (Reason: constipation) Qty: 0 RF: 0 docusate sodium 100 mg Tablet 100 mg PO DAILY RF: 0 ziprasidone HCl [Geodon] 80 mg Capsule 80 mg PO BID RF: 0 acetaminophen 325 mg Tablet 650 mg PO Q4H PRN (Reason: Pain) RF: 0 tuberculin PPD 1 unit/0.1 mL Solution INTRADERMAL RF: 0 hydroxyzine HCl 50 mg tablet 50 mg PO Q8H PRN PRN (Reason: Anxiety) RF: 0 magnesium hydroxide [Milk of Magnesia] 400 mg/5 mL Suspension 400 mg PO DAILY PRN (Reason: Indigestion) RF: 0 tamsulosin [Flomax] 0.4 mg Capsule 0.4 mg PO QHS RF: 0 trazodone 100 mg Tablet 100 mg PO DAILY RF: 0 bisacodyl [Dulcolax (bisacodyl)] 10 mg Suppository 10 mg PA DAILY PRN (Reason: Constipation) RF: 0 metformin 1,000 mg tablet 1,000 mg PO BID RF: 0 alum-mag hydroxide-simeth 200-200-20 mg/5 mL Suspension 5 ml PO Q3H PRN (Reason: Indigestion) RF: 0 GlucaGen HypoKit 1 mg recon soln RF: 0 ziprasidone mesylate [Geodon] 20 mg/mL (final conc.) Recon Soln 10 mg IM BID PRN (Reason: Agitation) RF: 0 melatonin 1 mg Tablet 6 mg PO DAILY RF: 0 cholecalciferol (vitamin D3) [Vitamin D3] 50 mcg (2,000 unit) Tablet 50 mcg PO DAILY RF: 0 nicotine (polacrilex) 2 mg Mini Lozenge RF: 0 Referrals / Follow Up: Yashira Navarrete MD [Primary Care Provider] - Within 2 Weeks (Hospital follow-up for small bowel obstruction) Disposition Disposition (needs filled in before D/C Order can be placed): Home, Self Care Charges/Coding Visit Charges Inpatient E&M: 73747 Disch Hosp
[2022-02-05] MEDS: Insulin Lispro 100 UNIT/ML INSULN.PEN SC (11:25)
[2022-02-05 11:31] LABS: Bedside Glucose 208 mg/dL (74-106)
--- NOTE | 2022-02-05 11:37 | PCM.TXEXTCAR ---
Diet Carb control/Cardiac Routine Orders/Code Status O2 Frequency: PRN Routine Lab Work: CBC and BMP Code Status: Full Code Wound(s) Posterior Scalp: Wound Type: Laceration Problem/Diagnosis (1) SBO (small bowel obstruction): Status: Acute (2) COVID-19: Status: Acute (3) MARSHALL (acute kidney injury): Status: Acute (4) Lactic acidosis: Status: Acute Allergies/Procedures Done in Hospital Allergies benztropine Allergy (Verified 02/01/22 22:44) PT UNSURE OF REACTION haloperidol [From Haldol] Allergy (Verified 02/01/22 22:44) PT UNSURE OF REACTION Procedures: None Type of Care/Length of Stay Estimated LOS: More Than 30 Days Type of Care Needed: Intermediate Rehab Potential: Good Prognosis: Good Additional Orders/Day of Discharge Day of Discharge: 02/05/22 Dietary and Speech Recommendations Dietitian Recommendations/Changes: As medically able, rec LIANG to Transitional w/ goal of Consistent CHO, Cardiac diet Will monitor need for oral nutrition supplement pending po intake once established Will attempt to interview pt at time of follow up re: diet, wt hx, SMBG, etc and make further rec as indicated. Discharge Plan Admission Admit Date/Time: 02/02/22 01:42 Primary Reason for Your Visit: SBO Attending Provider: Batool Anderson Primary Care Provider: Yashira Navarrete Consulting Providers: Mari Agustin ; Hakeem Plata ; Iftikhar Bangura ; Francia Guerra Discharge Orders/Prescriptions Prescriptions: Continued divalproex 250 mg tablet,delayed release (DR/EC) 250 mg PO TID RF: 0 ziprasidone HCl [Geodon] 80 mg Capsule 80 mg PO BID RF: 0 atorvastatin 10 mg tablet 10 mg DAILY RF: 0 lactulose 10 gram Packet 20 g BID RF: 0 Spiriva with HandiHaler 18 mcg Capsule, W/Inhalation Device 1 cap INHALATION DAILY RF: 0 paliperidone [Invega] 3 mg Tablet Extended Release 24hr 3 mg PO DAILY RF: 0 clozapine [Clozaril] 100 mg Tablet 50 mg PO 0600,2200 Qty: 0 RF: 0 lactulose 20 gram/30 mL Solution 20 g PO BID PRN PRN (Reason: constipation) Qty: 0 RF: 0 docusate sodium 100 mg Tablet 100 mg PO DAILY RF: 0 ziprasidone HCl [Geodon] 80 mg Capsule 80 mg PO BID RF: 0 acetaminophen 325 mg Tablet 650 mg PO Q4H PRN (Reason: Pain) RF: 0 tuberculin PPD 1 unit/0.1 mL Solution INTRADERMAL RF: 0 hydroxyzine HCl 50 mg tablet 50 mg PO Q8H PRN PRN (Reason: Anxiety) RF: 0 magnesium hydroxide [Milk of Magnesia] 400 mg/5 mL Suspension 400 mg PO DAILY PRN (Reason: Indigestion) RF: 0 tamsulosin [Flomax] 0.4 mg Capsule 0.4 mg PO QHS RF: 0 trazodone 100 mg Tablet 100 mg PO DAILY RF: 0 bisacodyl [Dulcolax (bisacodyl)] 10 mg Suppository 10 mg [place] DAILY PRN (Reason: Constipation) RF: 0 metformin 1,000 mg tablet 1,000 mg PO BID RF: 0 alum-mag hydroxide-simeth 200-200-20 mg/5 mL Suspension 5 ml PO Q3H PRN (Reason: Indigestion) RF: 0 GlucaGen HypoKit 1 mg recon soln RF: 0 ziprasidone mesylate [Geodon] 20 mg/mL (final conc.) Recon Soln 10 mg IM BID PRN (Reason: Agitation) RF: 0 melatonin 1 mg Tablet 6 mg PO DAILY RF: 0 cholecalciferol (vitamin D3) [Vitamin D3] 50 mcg (2,000 unit) Tablet 50 mcg PO DAILY RF: 0 nicotine (polacrilex) 2 mg Mini Lozenge RF: 0 Referrals / Follow Up: Yashira Navarrete MD [Primary Care Provider] - Within 2 Weeks (Hospital follow-up for small bowel obstruction) Disposition Disposition (needs filled in before D/C Order can be placed): Home, Self Care
--- NOTE | 2022-02-05 13:35 | CASEMGMT ---
REGINA arranged for patient to get picked up at 3p via cot. SW faxed orders and picker machine operator time to [facility]. SW notified RN, attendance secretary, and Ashly at [facility]. SW called patient's guardian, Milady Gage and notified her of patient's discharge. Plan: d/c back to [facility] under intermediate level of care. [facility] transported via cot. Laura HERNANDEZ
[2022-02-05 13:48] VITALS: PULSE 86; RESP 18
--- NOTE | 2022-02-05 13:53 | NURSING ---
Report called to Ese at [facility]. Patient to be picked up at 1500 for discharge.
== END 2022-02-05 15:43 | disposition skilled nursing facility (03) | DRG 388 ==
LOC: ED 23:28 → ICU 02-02 02:28 → PCU 02-02 12:58
PROVIDERS: Student in an Organized Health Care Education/Training Program; Surgery; Admitting Provider Family Medicine; Emergency Provider Emergency Medicine; PCP Internal Medicine Infectious Disease; Visit Provider Internal Medicine
DX: K56.50 Intestinal adhesions [bands], unspecified as to partial versus complete obstruction (principal); J15.9 Unspecified bacterial pneumonia; U07.1 COVID-19; E87.2 Acidosis; J44.0 Chronic obstructive pulmonary disease with (acute) lower respiratory infection; N17.9 Acute kidney failure, unspecified; F25.9 Schizoaffective disorder, unspecified; I95.9 Hypotension, unspecified; E11.65 Type 2 diabetes mellitus with hyperglycemia; E86.0 Dehydration; I10 Essential (primary) hypertension; E78.5 Hyperlipidemia, unspecified; N40.0 Benign prostatic hyperplasia without lower urinary tract symptoms; K21.9 Gastro-esophageal reflux disease without esophagitis; S01.01XA Laceration without foreign body of scalp, initial encounter; W01.10XA Fall on same level from slipping, tripping and stumbling with subsequent striking against unspecified object, initial encounter; F41.9 Anxiety disorder, unspecified; F17.210 Nicotine dependence, cigarettes, uncomplicated; F32.A Depression, unspecified; Z79.84 Long term (current) use of oral hypoglycemic drugs; Z87.820 Personal history of traumatic brain injury
CPT/HCPCS: 36415; 36569; 70450; 71045; 71275; 74018; 74019; 74177; 80048; 80053; 81001; 82570; 82728; 82962; 83605; 83615; 83690; 83880; 84145; 84300; 84484; 85025; 85379; 85610; 85730; 86140; 87040; 87449; 87633; 87635; 87641; 87811; 93005; 94640; 94762; 97162; 97165; 97530; 97535; 99285; 99406; J7030; J7050; Q9967; A4216; J2405; U0003; U0005

== ENCOUNTER 2022-06-14 22:56 | Emergency (ER) | payer MEDICARE, MEDICAID, SELFPAY ==
[2022-06-14 22:56] VITALS: BP 157/94; PULSE 88; RESP 16; TEMP 36.4; O2SAT 100; BMI 23.1
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
--- NOTE | 2022-06-14 23:42 | CT_ITS ---
INDICATION: fall, head trauma hx of ICH EXAMINATION: CT BRAIN - CT Head or Brain W/O Contrast Injection TECHNIQUE: Multiple axial images were obtained of the head without intravenous contrast. A radiation dose optimization technique was used for this scan. IV Contrast dosage and agent: None. COMPARISON: February 02, 2022 FINDINGS: BRAIN PARENCHYMA: No intra- or extra-axial hemorrhage. No evidence of acute infarct. No intracranial mass or mass effect. Minimal periventricular and subcortical white matter hypodense chronic small vessel white matter ischemic change. There is preservation of the braun/white matter interface. Posterior fossa structures are unremarkable. Carotid mild vertebral atherosclerosis. CSF SPACES: Mild global cerebral volume loss. No hydrocephalus. Basal cisterns are patent. CALVARIUM, SKULL BASE, PARANASAL SINUSES AND MASTOID AIR CELLS: Left maxillary superficial soft tissue edema. Chronic deformity of the bilateral medial orbital ornelas. No acute osseous finding. Paransasal sinuses are clear. Mastoid air cells are clear. ORBITS: Both globes, extraocular muscles, optic nerves and retrobulbar fat appear unremarkable. ASPECTS Score for Acute Strokes: 10 CT/Brain/Head without Contrast IMPRESSION: Left maxillary superficial soft tissue contusion. No acute osseous finding. No evidence of acute intracranial hemorrhage or injury. Senescent changes and atherosclerosis. Electronically Signed: Ed Engel MD at 0:17 EDT Reading Location ID and State: [facility] / [place] Tel , Service support ,
--- NOTE | 2022-06-14 23:42 | CT_ITS ---
INDICATION: fall, neck pain EXAMINATION: CT CERVICAL SPINE - CT Spine Cervical W/O Contrast Injection TECHNIQUE: Helically acquired images were obtained of the cervical spine. 2D reformatted images were reviewed. A radiation dose optimization technique was used for this scan. IV Contrast dosage and agent: None. COMPARISON: None. FINDINGS: VERTEBRAE: No fracture or acute compression deformity. No discrete lytic or blastic abnormality. Normal alignment. Normal craniocervical junction and cervicothoracic junction. Multilevel anterior vertebral bridging osteophytes. DISCS and SPINAL CANAL: Disc heights are preserved. No critical stenosis. NECK SOFT TISSUES: No prevertebral soft tissue swelling. There is no cervical adenopathy. Bulky left thyroid calcification. Smaller right thyroid course calcification. LUNG APICES: Clear. CT/Spine Cervical without Contras IMPRESSION: No evidence of acute cervical spinal fracture or spondylolisthesis. Mild spondylosis. Electronically Signed: Ed Engel MD at 0:20 EDT ,
[2022-06-14 23:56] VITALS: BP 144/98; PULSE 92; RESP 16; O2SAT 100
[2022-06-15 00:18] VITALS: O2SAT 98
[2022-06-15 00:39] VITALS: BP 144/88; PULSE 87; RESP 17; O2SAT 99
[2022-06-15] MEDS: Acetaminophen 325 MG Tablet 650 MG PO (00:48)
[2022-06-15 01:00] VITALS: PULSE 88; RESP 16; O2SAT 98
[2022-06-15 02:00] VITALS: PULSE 87; RESP 16; O2SAT 99
[2022-06-15 03:23] VITALS: BP 145/88; PULSE 88; RESP 16; O2SAT 99
== END 2022-06-15 03:36 | disposition home or self-care (01) ==
PROVIDERS: Emergency Provider Emergency Medicine; PCP Internal Medicine Infectious Disease; Visit Provider Emergency Medicine
DX: S09.90XA Unspecified injury of head, initial encounter (principal); F25.9 Schizoaffective disorder, unspecified; F03.90 Unspecified dementia, unspecified severity, without behavioral disturbance, psychotic disturbance, mood disturbance, and anxiety; E11.9 Type 2 diabetes mellitus without complications; W18.11XA Fall from or off toilet without subsequent striking against object, initial encounter; I10 Essential (primary) hypertension; E78.5 Hyperlipidemia, unspecified; Z79.84 Long term (current) use of oral hypoglycemic drugs; Z79.899 Other long term (current) drug therapy; F17.210 Nicotine dependence, cigarettes, uncomplicated
CPT/HCPCS: 70450; 72125; 99284

== ENCOUNTER 2022-07-20 20:39 | Emergency (ER) | payer MEDICARE, MEDICAID, SELFPAY ==
[2022-07-20 20:40] VITALS: BP 160/105; PULSE 93; RESP 16; TEMP 36.5; O2SAT 97; BMI 27.0
[2022-07-20 20:52] VITALS: O2SAT 97
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
[2022-07-20] MEDS: Lidocaine/Epi/Tetracaine 50 ML 1 APPLIC TOPICAL (21:23)
[2022-07-20 21:58] VITALS: BP 172/98; PULSE 90; RESP 15; O2SAT 97
--- NOTE | 2022-07-20 22:37 | ED.RN ---
NURSE REPORT GIVEN TO GANESH AT [facility]
== END 2022-07-20 23:27 | disposition home or self-care (01) ==
PROVIDERS: Emergency Provider Emergency Medicine; PCP Internal Medicine Infectious Disease; Visit Provider Emergency Medicine
DX: S01.01XA Laceration without foreign body of scalp, initial encounter (principal); F25.9 Schizoaffective disorder, unspecified; E11.9 Type 2 diabetes mellitus without complications; Y04.8XXA Assault by other bodily force, initial encounter; I10 Essential (primary) hypertension; E78.5 Hyperlipidemia, unspecified; F17.210 Nicotine dependence, cigarettes, uncomplicated; Z79.84 Long term (current) use of oral hypoglycemic drugs; Z79.899 Other long term (current) drug therapy
CPT/HCPCS: 12001; 70450; 99284

== ENCOUNTER 2022-11-27 22:06 | Emergency (ER) | payer MEDICARE, MEDICAID, SELFPAY ==
[2022-11-27 22:07] VITALS: BP 141/97; PULSE 114; RESP 28; TEMP 38.3; O2SAT 99; BMI 25.9
[2022-11-27 22:12] VITALS: BP 141/97; PULSE 114; RESP 28; TEMP 38.3; O2SAT 99
--- NOTE | 2022-11-27 22:44 | EKG12_ITS ---
Test Reason : DYSRHYTHMIA Blood Pressure : / mmHG Vent. Rate : 109 BPM Atrial Rate : 109 BPM P-R Int : 130 ms QRS Dur : 086 ms QT Int : 320 ms P-R-T Axes : 064 083 022 degrees QTc Int : 430 ms Sinus tachycardia Otherwise normal ECG Confirmed by DANIELLE CHILD, JOSAFAT ([id number]), publication editor FÉLIX CARSON ([id number]) on 12/01/2022 10:55:50 AM Referred By: BB Confirmed By:WYATT SANTOS MD
--- NOTE | 2022-11-27 22:44 | RAD_ITS ---
INDICATION: cough sob EXAMINATION/TECHNIQUE: X-RAY - XR Chest 1 View COMPARISON: None. FINDINGS: LINES/DEVICES: None. LUNGS: Small left pleural effusion with compressive atelectasis in the left lung base. MEDIASTINUM AND CARDIOVASCULAR STRUCTURES: Cardiac silhouette not enlarged. Central airways and mediastinal contour are unremarkable. BONES AND SOFT TISSUES: Unremarkable. RAD/Chest 1 View (Portable) IMPRESSION: Small left pleural effusion with compressive atelectasis in the left lung base. Electronically Signed: Beatriz Oglesby MD at 23:32 EDT ,
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
[2022-11-27 22:57] LABS: Absolute Lymphocyte Count 0.77 X10^3/uL (0.83-4.51); Absolute Neutrophil Count 9.5 X10^3/uL (2.0-7.7); Basophil# 0.03 X10^3/uL; Basophil% 0.3 % (0-1); Eosinophil# 0.05 X10^3/uL; Eosinophils% 0.4 % (0-5); Hematocrit 44.3 % (40-54); Hemoglobin 13.5 g/dL (13.0-16.5); Lymphocyte # 0.77 X10^3/ul (0.83-4.51); Lymphocyte % 6.9 % (19-41); Mean Corp Hgb Conc 30.5 g/dL (32-36); Mean Corpuscular Hgb 28.9 pg (27.0-32.0); Mean Corpuscular Volume 94.9 fL (80-94); Monocyte# 0.83 X10^3/uL; Monocyte% 7.4 % (0-10); NRBC Flagged by Analyzer 0 % (0-5); Neutrophil # 9.46 X10^3/uL (2.7-7.7); Neutrophil % 84.6 % (47-70); Platelet Count 177 K/mm3 (150-450); RBC Distribution Width CV 16.1 % (11.6-14.6); Red Blood Count 4.67 M/mm3 (4.6-6.2); White Blood Count 11.2 K/mm3 (4.4-11.0)
[2022-11-27] MEDS: Acetaminophen 500 MG Tablet 1000 MG PO (23:03)
[2022-11-27 23:05] VITALS: PULSE 115; RESP 28; RESP 32; O2SAT 93
[2022-11-27] MEDS: Albuterol 2.5 MG/3 ML VIAL.NEB. INHALATION (23:05)
[2022-11-27 23:08] LABS: International Normalized Ratio 1.1; Partial Thromboplast Time 28.4 Seconds (24.1-36.2); Prothrombin Time (Protime)PT. 13.7 SECONDS (11.7-14.9)
[2022-11-27 23:13] LABS: Lactic Acid 3.9 mmol/L (0.4-1.9)
[2022-11-27 23:14] LABS: ALB/GLOB Ratio 0.7 RATIO (0.9-2.4); AST(SGOT) 11 U/L (15-37); Alanine Aminotransfer ALT/SGPT 11 U/L (16-61); Albumin, Serum 2.9 g/dL (3.2-5.0); Alkaline Phosphatase 118 U/L (45-117); Anion Gap 9 (5-15); BUN 18 mg/dL (7-18); BUN/Creat Ratio 17.5 RATIO (10-20); Calcium,Total 8.8 mg/dL (8.5-10.1); Chloride 108 mmol/L (98-107); Creatinine, Serum 1.03 mg/dL (0.70-1.30); EST Glomerular Filtration Rate 78 mL/min (>60); Est Glom Filt Rate - Afr Amer 95 mL/min (>60); Estimated Creatinine Clearance 68.82 ml/min; Globulin 4.1 g/dL (2.2-4.2); Glucose 144 mg/dL (74-106); Potassium 4.4 mmol/L (3.5-5.1); Sodium Level 143 mmol/L (136-145); Troponin-I HS 4 pg/mL (3.0-78.0)
[2022-11-27] MEDS: 0.9% Normal Saline 1,000 ML 150 ML IV (23:20)
[2022-11-27 23:33] VITALS: BP 120/104; PULSE 115; RESP 31; TEMP 36.9; O2SAT 94
[2022-11-28] VITALS (7 sets, daily range): BP systolic 112–130; BP diastolic 56–91; PULSE 93–105; RESP 25–33; O2SAT 92–100
[2022-11-28 00:27] LABS: Bacteria 0 SEEN /hpf (None Seen); Mucous, Urine 0 SEEN /hpf (<or=2+); Red Blood Cells-Urine 0 SEEN /hpf (0-5); Squamous Epithelial Cells - UA 0 SEEN /hpf (0-5)
[2022-11-28 00:29] LABS: Glucose, Dipstick Normal (Normal); Ketone-Dipstick 15 mg/dl (Negative); Leukocyte Esterase-Dipstick 25 /ul (Negative); Nitrite-Dipstick Negative (Negative); Occult Blood-Urine Negative /ul (Negative); Protein-Dipstick 30 mg/dl (Negative); Specific Gravity, Urine 1.025 (1.002-1.030); Urine Bilirubin Dipstick 1 mg/dL (Negative); Urine Urobilinogen Normal (Normal)
[2022-11-28 00:30] LABS: Color, Urine Yellow (Yellow); Urine Clarity Clear (Clear)
[2022-11-28 00:45] LABS: White Blood Cells 0-5 SEEN /hpf (0-5)
--- NOTE | 2022-11-28 00:58 | CT_ITS ---
INDICATION: cough, sob, hypoxia, nml CXR EXAMINATION: CT CHEST WITHOUT CONTRAST - CT Chest W/O Contrast Injection TECHNIQUE: Helically acquired images were obtained of the chest. A radiation dose optimization technique was used for this scan. IV Contrast dosage and agent: None. COMPARISON: None. FINDINGS: LUNGS, PLEURA AND LARGE AIRWAYS: Ill-defined airspace opacities are seen in the left upper lobe and lingula suggesting pneumonia. Subsegmental atelectases are noted in the left lung lower lobe. No pleural effusion or thickening. No pneumothorax. THYROID: No thyroid lesions. HEART AND PERICARDIUM: Heart size is normal. No pericardial effusion. CORONARY ARTERIES: Coronary artery calcification VESSELS: Thoracic aorta is not dilated. MEDIASTINUM AND LORENA: No mediastinal or hilar adenopathy. Esophagus is unremarkable. No hiatal hernia. UPPER ABDOMEN: No acute pathology. BONES: Nondisplaced fractures at the anterior aspect of the left sixth and seventh ribs. CT/Chest without Contrast IMPRESSION: Left upper lobe and lingular pneumonia. Nondisplaced fractures at the anterior aspect of the left sixth and seventh ribs. Electronically Signed: Beatriz Oglesby MD at 3:10 EDT ,
--- NOTE | 2022-11-28 01:24 | RAD_ITS ---
INDICATION: injury EXAMINATION/TECHNIQUE: X-RAY - RIGHT XR Foot Min 3 Views 3 VIEWS COMPARISON: None. FINDINGS: SOFT TISSUES: No soft tissue swelling or gas. No radiopaque foreign body. BONES/JOINTS: Nondisplaced fractures at the base of the second and third metatarsals.. Normal alignment. Mild degenerative arthrosis of the first MTP joint and interphalangeal joints.. No sclerotic or destructive changes observed. RAD/Foot min 3 Views IMPRESSION: There is a nondisplaced fracture of the lateral malleolus. Nondisplaced fractures at the base of the second and third metatarsals. Electronically Signed: Beatriz Oglesby MD at 2:46 EDT ,
--- NOTE | 2022-11-28 01:24 | RAD_ITS ---
INDICATION: injury EXAMINATION/TECHNIQUE: X-RAY - RIGHT XR Ankle Min 3 Views 3 VIEWS COMPARISON: None. FINDINGS: SOFT TISSUES: No soft tissue swelling or gas. No radiopaque foreign body. BONES/JOINTS: There is a nondisplaced fracture of the lateral malleolus.. Normal alignment. Preservation of the joint space.. No sclerotic or destructive changes observed. RAD/Ankle min 3 Views IMPRESSION: There is a nondisplaced fracture of the lateral malleolus. Electronically Signed: Beatriz Oglesby MD at 2:41 EDT ,
[2022-11-28 02:53] LABS: Reflex Lactate? Y
--- NOTE | 2022-11-28 03:46 | ED.RN ---
Pt sleeping, 81% on RA. Repositioned and maintained 85% on RA. Placed on 3L NC resting comfortably at 96%. Dr. Garsia made aware.
[2022-11-28 04:03] LABS: Lactic Acid 1.7 mmol/L (0.4-1.9)
[2022-11-28] MEDS: Vancomycin IV 1,000 MG/200 ML BAG 200 MG IV (04:54)
== END 2022-11-28 06:58 | disposition skilled nursing facility (03) ==
PROVIDERS: Emergency Provider Emergency Medicine; PCP Internal Medicine Infectious Disease; Visit Provider Emergency Medicine
DX: J18.9 Pneumonia, unspecified organism (principal); E11.9 Type 2 diabetes mellitus without complications; S82.64XA Nondisplaced fracture of lateral malleolus of right fibula, initial encounter for closed fracture; I10 Essential (primary) hypertension; E78.5 Hyperlipidemia, unspecified; R41.0 Disorientation, unspecified; S22.42XA Multiple fractures of ribs, left side, initial encounter for closed fracture; S92.324A Nondisplaced fracture of second metatarsal bone, right foot, initial encounter for closed fracture; S92.334A Nondisplaced fracture of third metatarsal bone, right foot, initial encounter for closed fracture; X58.XXXA Exposure to other specified factors, initial encounter
CPT/HCPCS: 71045; 71250; 73610; 73630; 80053; 81001; 83605; 84484; 85025; 85610; 85730; 87040; 87086; 87428; 93005; 94640; 96361; 96365; 96367; 99252; 99285; J7030; P9612; A4216; G0463

== ENCOUNTER → 2022-12-17 | Outpatient (CLI) | payer MEDICARE, MEDICAID, SELFPAY ==
--- NOTE | 2022-12-17 13:33 | CT_ITS ---
STUDY: CT RIGHT FOOT REASON FOR EXAM: Male, 62 years old. NONDISPLACED FRACTURE RADIATION DOSAGE (If Supplied By Facility): CTDIvol = ( 15.35 ) mGy, DLP = ( 403.65 ) mGycm TECHNIQUE: Thin section transaxial imaging of the foot was obtained, with sagittal and coronal reconstructed images. Individualized dose optimization techniques were used for this CT. COMPARISON: X-ray November 28, 2022. FINDINGS: There is healed fracture of the distal tibia. There is acute fracture of the distal fibula. Normal talus, calcaneus, and tarsal bones. Normal visualized tibiotalar, subtalar, talonavicular, calcaneocuboid, tarsal and tarsometatarsal articulations. There are acute fractures of the base of the first, second, third, and fourth metatarsals. There is mild spurring at the metatarsophalangeal joint of the great toe. Normal tibial and fibular sesamoid bones. Normal interphalangeal joint of the great toe. Normal phalanges of the great toe. Normal second through fifth metatarsophalangeal joints. Normal interphalangeal joints and phalanges of the lesser toes. The soft tissue structures are unremarkable. CT/Extremity Lower without Contra IMPRESSION: Fractures of the distal fibula and first through fourth metatarsals. Electronically Signed: Joe Hooker MD at 23:19 EDT ,
== END | disposition home or self-care (01) ==
PROVIDERS: PCP Internal Medicine Infectious Disease; Visit Provider Physician Assistant Surgical
DX: S92.324A Nondisplaced fracture of second metatarsal bone, right foot, initial encounter for closed fracture (principal); S92.334A Nondisplaced fracture of third metatarsal bone, right foot, initial encounter for closed fracture; X58.XXXA Exposure to other specified factors, initial encounter
CPT/HCPCS: 73700

== ENCOUNTER 2022-12-18 13:56 | Emergency (ER) | payer MEDICARE, MEDICAID, SELFPAY ==
[2022-12-18 14:00] VITALS: BP 139/89; PULSE 89; RESP 18; TEMP 36.7; O2SAT 99; BMI 24.0
--- NOTE | 2022-12-18 14:22 | CT_ITS ---
EXAM: CT HEAD WITHOUT INTRAVENOUS CONTRAST CLINICAL INDICATION: trauma TECHNIQUE: Multiple axial images were obtained of the head without intravenous contrast. This CT exam was performed using one or more of the following dose reduction techniques: automated exposure control, adjustment of the mA and/or kV according to patient size, and/or use of iterative reconstruction technique. This report was created using [employer] report generation technology. COMPARISON: CT Head dated 07/20/2022 FINDINGS: BRAIN AND EXTRA-AXIAL SPACES: Prominence of the cortical sulci and ventricles related to volume loss change. No acute hemorrhage or mass effect. Small area of diminished density within the left parietal white matter unchanged from prior exam related to prior insult. BONES/JOINTS: Comminuted mildly displaced nasal arch fracture. SINUSES: No acute sinusitis. MASTOID AIR CELLS: Normal. Clear. ORBITS: Visualized globes, extraocular muscles, optic nerves and retrobulbar fat appear unremarkable. CT/Brain/Head without Contrast IMPRESSION: 1. No evidence of acute intracranial injury. 2. Acute nasal arch fracture. Electronically Signed: Will Gao MD at 15:25 EDT ,
--- NOTE | 2022-12-18 14:22 | CT_ITS ---
EXAM: CT MAXILLOFACIAL WITHOUT INTRAVENOUS CONTRAST CLINICAL INDICATION: trauma TECHNIQUE: Helically acquired images were obtained of the face without intravenous contrast. This CT exam was performed using one or more of the following dose reduction techniques: automated exposure control, adjustment of the mA and/or kV according to patient size, and/or use of iterative reconstruction technique. This report was created using [employer] report generation technology. COMPARISON: None. FINDINGS: BONES/JOINTS: Acute comminuted fractures of the nasal arch noted with depression of the right side of the arch. Deformity of the lamina papyracea noted bilaterally which may be congenital in origin or related to prior trauma. Facial bones and orbits are otherwise intact. SOFT TISSUES: Normal. No focal subcutaneous swelling. No discrete fluid collections. ORBITS: Both globes are unremarkable. Extraocular muscles are normal. Retrobulbar fat appears unremarkable. SINUSES: Unremarkable as visualized. No acute sinusitis. MASTOID AIR CELLS: Unremarkable as visualized. Clear. NASAL CAVITY/SEPTUM: Nasal septum is deviated to the right of midline. CT/Sinus/Facial Bone IMPRESSION: Acute comminuted depressed nasal arch fracture. Electronically Signed: Will Gao MD at 15:38 EDT ,
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
[2022-12-18 16:00] VITALS: RESP 18
== END 2022-12-18 17:05 | disposition home or self-care (01) ==
PROVIDERS: Emergency Provider Emergency Medicine; PCP Internal Medicine Infectious Disease; Visit Provider Emergency Medicine
DX: S01.21XA Laceration without foreign body of nose, initial encounter (principal); E11.9 Type 2 diabetes mellitus without complications; S02.2XXA Fracture of nasal bones, initial encounter for closed fracture; R51.9 Headache, unspecified; I10 Essential (primary) hypertension; E78.5 Hyperlipidemia, unspecified; R45.1 Restlessness and agitation; Y04.8XXA Assault by other bodily force, initial encounter
CPT/HCPCS: 12011; 70450; 70486; 99284

== ENCOUNTER 2023-03-07 20:33 | Observation (INO) | payer MEDICARE, MEDICAID, SELFPAY ==
[2023-03-07] VITALS (11 sets, daily range): BP systolic 101–142; BP diastolic 76–90; PULSE 76–80; RESP 16–28; TEMP 36.4–36.6; O2SAT 89–99; BMI 22.7
--- NOTE | 2023-03-07 20:34 | CT_ITS ---
INDICATION: Neuro deficit, acute, stroke suspected EXAMINATION: CT BRAIN - CT Head Stroke Protocol W/O Contrast Injection TECHNIQUE: Multiple axial images were obtained of the head without intravenous contrast. A radiation dose optimization technique was used for this scan. IV Contrast dosage and agent: None. RADIATION DOSAGE (If Supplied By Facility): CTDIvol = ( ) mGy, DLP = ( ) mGycm COMPARISON: 12/18/2022 FINDINGS: BRAIN PARENCHYMA: No intra- or extra-axial hemorrhage. No evidence of acute infarct. No intracranial mass or mass effect. There is preservation of the braun/white matter interface. Posterior fossa structures are unremarkable. Central parenchymal volume loss. White matter changes that are nonspecific but most commonly associated with chronic small vessel ischemic disease. CSF SPACES: No hydrocephalus. Basal cisterns are patent. CALVARIUM, SKULL BASE, PARANASAL SINUSES AND MASTOID AIR CELLS: Clear. No discrete lytic or blastic abnormalities. ORBITS: Both globes, extraocular muscles, optic nerves and retrobulbar fat appear unremarkable. ASPECTS Score for Acute Strokes: 10 CT/STROKE Brain/Head without Cont IMPRESSION: No acute intracranial hemorrhage or mass effect. Electronically Signed: Dinesh Roe (Brooks), at 20:47 EDT Reading Location ID and State: [facility] / [place] , Service support ,
--- NOTE | 2023-03-07 20:34 | CT_ITS ---
INDICATION: Neuro deficit, acute, stroke suspected EXAMINATION: CTA head and neck TECHNIQUE: Noncontrast axial images were obtained of the brain. Subsequently, routine carotid CT angiogram protocol was performed without and with IV contrast. In addition, images were obtained of the [place]. NASCET criteria using the distal ICAs for comparison were used for evaluation of stenoses. 3D reconstructions were reviewed. A radiation dose optimization technique was used for this scan. IV Contrast dosage and agent: 100 cc [id number] COMPARISON: None. FINDINGS: --CTA NECK: AORTIC ARCH AND BRANCHES: Normal anatomy, patent. RIGHT CCA: No occlusion, significant stenosis or dissection. RIGHT ICA: No occlusion, significant stenosis or dissection. Mild atherosclerotic disease. LEFT CCA: No occlusion, significant stenosis or dissection. LEFT ICA: No occlusion, significant stenosis or dissection. Mild atherosclerotic disease. RIGHT VERTEBRAL ARTERY: No occlusion, significant stenosis or dissection. LEFT VERTEBRAL ARTERY: No occlusion, significant stenosis or dissection. NECK SOFT TISSUES: Tracheal debris. Cervical spine degenerative change. --CTA HEAD: --Anterior circulation: ICAs: No significant stenosis at the intracranial/visualized segments. ACAs: No significant stenosis at the visualized segments. ACOM: Present. MCAs: No significant stenosis at the visualized segments. --Posterior circulation: PCOMs: Not optimally visualized. restaurant recruiter: No significant stenosis at the visualized segments. BASILAR ARTERY: No significant stenosis. VERTEBRAL ARTERIES: No significant stenosis at the intradural/visualized segments. No evidence of intracranial aneurysm or vascular malformation. CT/STROKE CTA Head AND Neck W/Con IMPRESSION: No evidence of large vessel occlusion. No focal aneurysmal dilatation or stenosis. Tracheal debris. N.B. : The above Results were Read Back by Esa Kelley MD to Mohan Gallo MD, and understanding confirmed on 03/07/2023 21:10:16 (ET). Electronically Signed: Esa Kelley MD at 21:10 EDT ,
--- NOTE | 2023-03-07 20:34 | EKG12_ITS ---
Test Reason : STROKE Blood Pressure : / mmHG Vent. Rate : 075 BPM Atrial Rate : 075 BPM P-R Int : 140 ms QRS Dur : 096 ms QT Int : 406 ms P-R-T Axes : 076 081 078 degrees QTc Int : 453 ms Normal sinus rhythm Normal ECG Confirmed by DANIELLE CHILD, JOSAFAT ([id number]), editor managing director TINA SPRINGER ([id number]) on 03/09/2023 12:40:22 P M Referred By: Confirmed By:WYATT SANTOS MD
[2023-03-07 21:00] LABS: Absolute Lymphocyte Count 1.73 X10^3/uL (0.83-4.51); Basophil# 0.06 X10^3/uL; Basophil% 0.8 % (0-1); Eosinophil# 0.14 X10^3/uL; Eosinophils% 1.9 % (0-5); Hematocrit 43.8 % (40-54); Hemoglobin 13.7 g/dL (13.0-16.5); Lymphocyte # 1.73 X10^3/ul (0.83-4.51); Mean Corp Hgb Conc 31.3 g/dL (32-36); Mean Corpuscular Hgb 30.2 pg (27.0-32.0); Mean Corpuscular Volume 96.7 fL (80-94); Mean Platelet Vol. 10.3 fl (6.2-12.0); Monocyte# 0.56 X10^3/uL; Monocyte% 7.4 % (0-10); NRBC Flagged by Analyzer 0 % (0-5); Neutrophil # 5.01 X10^3/uL (2.7-7.7); Neutrophil % 66.6 % (47-70); Platelet Count 211 K/mm3 (150-450); RBC Distribution Width CV 15.3 % (11.6-14.6); RBC Distribution Width SD 54.5 fl (35.1-43.9); Red Blood Count 4.53 M/mm3 (4.6-6.2); White Blood Count 7.5 K/mm3 (4.4-11.0)
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
--- NOTE | 2023-03-07 21:15 | RAD_ITS ---
INDICATION: Neuro deficit, acute, stroke suspected EXAMINATION/TECHNIQUE: X-RAY - XR Chest 1 View COMPARISON: November 27, 2022. FINDINGS: Cardiac silhouette unchanged. Increased markings at the left mid to lower lung unchanged. Remainder of lungs are clear and stable in appearance. Stable appearing sandhya. No pneumothorax. No acute bony pathology. Degenerative changes of the spine are present. Old left rib pathology. RAD/Chest 1 View IMPRESSION: Similar exam findings compared to prior chest radiograph. Electronically Signed: Esa Kelley MD at 21:37 EDT ,
[2023-03-07 21:21] LABS: Prothrombin Time (Protime)PT. 13.2 SECONDS (11.7-14.9)
[2023-03-07 21:22] LABS: Partial Thromboplast Time 29.2 Seconds (24.1-36.2)
[2023-03-07 21:28] LABS: Anion Gap 4 (5-15); BUN 14 mg/dL (7-18); BUN/Creat Ratio 15.5 RATIO (10-20); Calcium,Total 8.6 mg/dL (8.5-10.1); Chloride 105 mmol/L (98-107); Creatinine, Serum 0.91 mg/dL (0.70-1.30); EST Glomerular Filtration Rate 91 mL/min (>60); Est Glom Filt Rate - Afr Amer 110 mL/min (>60); Glucose 117 mg/dL (74-106); Potassium 4.2 mmol/L (3.5-5.1); Sodium Level 145 mmol/L (136-145); Troponin-I HS 6 pg/mL (3.0-78.0)
[2023-03-07 22:02] LABS: Lactic Acid 1.8 mmol/L (0.4-1.9)
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
[2023-03-08] VITALS (8 sets, daily range): BP systolic 132–158; BP diastolic 84–102; PULSE 76–100; RESP 14–28; TEMP 36.1–36.7; O2SAT 90–98; BMI 22.7
--- NOTE | 2023-03-08 00:17 | MRI_ITS ---
STUDY: MRI BRAIN WITHOUT CONTRAST REASON FOR EXAM: Male, 62 years old. stroke, slurred speech,weakness, rt facial droop, hx subdural hemorrhage TECHNIQUE: Standardized multiplanar fat and water weighted pulse sequences were obtained. COMPARISON: Head CT dated March 08, 2023 FINDINGS: Normal size of the ventricles and extra-axial spaces for the patient''s age. There are multiple confluent white matter hyperintensities, distributed throughout the deep white matter tracts of the cerebral hemispheres, consistent with severe chronic white matter ischemic changes. There is no evidence for recent intracranial ischemia or other cause of cytotoxic edema on diffusion weighted imaging (DWI). Normal T2* images of the brain without demonstrated susceptibility artifact. There is no demonstrated hemosiderin stain. Normal bilateral basal ganglia. Normal thalami. There is no extra-axial fluid accumulation. Normal flow voids within the major intracranial circulation suggesting patency by spin echo criteria. Normal sella turcica, pituitary gland, infundibular stalk, optic chiasm and hypothalamus. Normal tectal plate and pineal gland. Normal midbrain, elver and medulla. Normal cerebellum. Normal basal cisterns. Normal bilateral temporal bones. Normal bilateral internal auditory canals. No demonstrated orbital abnormality, within the constraints of a routine brain study. Normal visualized paranasal sinuses. Normal calvarium and skull base. Normal visualized soft tissue structures. Normal visualized upper cervical spine. MRI/Brain without Contrast IMPRESSION: 1. Mild chronic ischemic changes of the brain, as described above. Electronically Signed: Spencer Jones MD at 13:37 EDT ,
--- NOTE | 2023-03-08 00:57 | EKG12_ITS ---
Test Reason : STROKE ALERT Blood Pressure : / mmHG Vent. Rate : 078 BPM Atrial Rate : 078 BPM P-R Int : 138 ms QRS Dur : 090 ms QT Int : 404 ms P-R-T Axes : 075 077 061 degrees QTc Int : 460 ms Normal sinus rhythm Normal ECG When compared with ECG of 07-MAR-2023 20:47, MANUAL COMPARISON REQUIRED, DATA IS UNCONFIRMED Confirmed by CRIS CHILD, HERBIE ([id number]), editor producer TINA SPRINGER ([id number]) on 03/10/2023 12:21:53 PM Referred By: ROSA Confirmed By:HERBIE LYNCH MD
--- NOTE | 2023-03-08 01:05 | CT_ITS ---
We are attempting to reach an attending provider to discuss findings. An addendum with communication details will be sent when the communication is complete. EXAM: CT HEAD WITHOUT INTRAVENOUS CONTRAST CLINICAL INDICATION: NIH score and gt;3 TECHNIQUE: Multiple axial images were obtained of the head without intravenous contrast. This CT exam was performed using one or more of the following dose reduction techniques: automated exposure control, adjustment of the mA and/or kV according to patient size, and/or use of iterative reconstruction technique. COMPARISON: Head CT and CTA head/neck from 03/07/2023 FINDINGS: BRAIN AND EXTRA-AXIAL SPACES: Diffuse cerebral volume loss. Periventricular small vessel ischemic changes. No intra- or extra-axial hemorrhage. No intracranial mass or mass effect. Posterior fossa structures are unremarkable. No hydrocephalus. Basal cisterns are patent. BONES/JOINTS: Unremarkable. No discrete lytic or blastic abnormalities. VASCULATURE: Vascular calcifications. SINUSES: Unremarkable as visualized. Clear. MASTOID AIR CELLS: Unremarkable. Clear. ORBITS: Visualized globes, extraocular muscles, optic nerves and retrobulbar fat appear unremarkable. ASPECTS: 10 CT/STROKE Brain/Head without Cont IMPRESSION: 1. No acute intracranial abnormalities. 2. Age-related changes. Electronically Signed: Stanislav Carpenter MD at 1:50 EDT ,
[2023-03-08 01:25] LABS: Bedside Glucose 76 mg/dL (74-106)
--- NOTE | 2023-03-08 06:48 | NURSING ---
unable to contact any family to complete MRI questionnaire since pt is not able to answer MRI specific questions. This RN called [facility] to see if there is any family members -they also confirmed that there is only guardianship numbers.
[2023-03-08 07:25] LABS: Anion Gap 4 (5-15); BUN 14 mg/dL (7-18); BUN/Creat Ratio 18.4 RATIO (10-20); Calcium,Total 8.9 mg/dL (8.5-10.1); Chloride 107 mmol/L (98-107); Cholesterol 127 mg/dL (200); Creatinine, Serum 0.76 mg/dL (0.70-1.30); EST Glomerular Filtration Rate 111 mL/min (>60); Est Glom Filt Rate - Afr Amer 134 mL/min (>60); Estimated Creatinine Clearance 93.27 ml/min; Glucose 88 mg/dL (74-106); High Density Lipoprotein 44 mg/dL; Potassium 4.5 mmol/L (3.5-5.1); Sodium Level 144 mmol/L (136-145); Triglycerides 188 mg/dL; Very Low Density Lipoprotein 38 mg/dL (5-40)
--- NOTE | 2023-03-08 08:07 | PCM.PN.HOSP ---
Subjective Subjective Follow-up for acute encephalopathy with concern of for stroke. Patient has a history of SDH seems many years ago. Recent CT scan head since December 2021 does not show acute change Objective Data Objective Data Vital Signs: Vital Signs Temp Pulse Resp BP Pulse Ox O2 Del Method O2 Flow Rate 97.5 F L 85 14 151/102 H 94 Room Air 2 03/08/23 07:48 03/08/23 07:48 03/08/23 07:48 03/08/23 07:48 03/08/23 07:48 03/08/23 07:48 03/07/23 22:30 Oxygen Flow Rate (L/min) 2 Oxygen Delivery Method Room Air Weight: 141 lb 1.533 oz Body Mass Index (BMI) 22.7 Intake & Output: Intake and Output for Last 24 Hours 03/06/23 03/07/23 03/08/23 23:59 23:59 23:59 Output Total 250 / 250 Balance -250 / -250 Lab / Micro Data 03/07/23 20:54 03/08/23 06:08 Labs: Laboratory Results - last 24 hr 03/07/23 20:54: WBC 7.5, RBC 4.53 L, Hgb 13.7, Hct 43.8, MCV 96.7 H, MCH 30.2, MCHC 31.3 L, RDW Std Deviation 54.5 H, RDW Coeff of Zane 15.3 H, Plt Count 211, MPV 10.3, Immature Gran % (Auto) 0.300, Neut % (Auto) 66.6, Lymph % (Auto) 23.0, [facility] % (Auto) 7.4, Eos % (Auto) 1.9, Baso % (Auto) 0.8, Absolute Neuts (auto) 5.0, Absolute Lymphs (auto) 1.73, Nucleated RBC % 0, PT 13.2, INR 1.0, APTT 29.2, Sodium 145, Potassium 4.2, Chloride 105, Carbon Dioxide 36.0 H, Anion Gap 4 L, BUN 14, Creatinine 0.91, Estim Creat Clear Calc 77.90, Est GFR (MDRD) Af Amer 110, Est GFR (MDRD) Non-Af 91, BUN/Creatinine Ratio 15.5, Glucose 117 H, Calcium 8.6, Troponin I High Sens 6 03/07/23 21:20: Lactic Acid 1.8 03/08/23 01:00: POC Glucose 76 03/08/23 06:08: Sodium 144, Potassium 4.5, Chloride 107, Carbon Dioxide 33.0 H, Anion Gap 4 L, BUN 14, Creatinine 0.76, Estim Creat Clear Calc 93.27, Est GFR (MDRD) Af Amer 134, Est GFR (MDRD) Non-Af 111, BUN/Creatinine Ratio 18.4, Glucose 88, Calcium 8.9, Triglycerides 188, Cholesterol 127, LDL Cholesterol 45, VLDL Cholesterol 38, HDL Cholesterol 44 Micro: Microbiology 03/07/23 21:11 Nasal Secretion SARS-CoV-2 & FLU Antigen (Rapid) - Final Radiography Diagnostic Testing: Radiology Impression Brain CT 03/07/23 20:34 IMPRESSION: No acute intracranial hemorrhage or mass effect. Electronically Signed: Dinesh Roe (Brooks), at 20:47 EDT , ADDENDUM: 03/07/232057 IMPRESSION: No acute intracranial hemorrhage or mass effect. N.B. : The above Results were Read Back by Dinesh Roe (Brooks) to Mohan Gallo and understanding confirmed on 03/07/2023 20:51:44 (ET). Electronically Signed: Dinesh Roe (Brooks), at 20:47 EDT , Head/Neck CTA 03/07/23 20:34 IMPRESSION: No evidence of large vessel occlusion. No focal aneurysmal dilatation or stenosis. Tracheal debris. N.B. : The above Results were Read Back by Esa Kelley MD to Mohan Gallo MD, and understanding confirmed on 03/07/2023 21:10:16 (ET). Electronically Signed: Esa Kelley MD at 21:10 EDT , ADDENDUM: 03/07/232116 IMPRESSION: No evidence of large vessel occlusion. No focal aneurysmal dilatation or stenosis. Tracheal debris. N.B. : The above Results were Read Back by Esa Kelley MD to Mohan Gallo MD, and understanding confirmed on 03/07/2023 21:10:16 (ET). Electronically Signed: Esa Kelley MD at 21:10 EDT , Chest X-Ray 03/07/23 21:15 IMPRESSION: Similar exam findings compared to prior chest radiograph. Electronically Signed: Esa Kelley MD at 21:37 EDT , Brain CT 03/08/23 01:05 IMPRESSION: 1. No acute intracranial abnormalities. 2. Age-related changes. Electronically Signed: Stanislav Carpenter MD at 1:50 EDT , Physical Exam Narrative Physical exam: General: Awake. Disoriented to time. Not cooperative. Patient is circumferential and tangential in answering questions HEENT: Atraumatic, PERRLA, EOMI, Normocephalic Oral: No Gingival or Mucosal Lesions/ Ulcerations Neck: Supple, No JVD, Negative Carotid Bruits Lungs: Air entry diminished in bilateral lung bases. No crepitation/rhonchi Cardiovascular: Regular rate, Regular Rhythm, Normal S1, Normal S2, No murmurs Abdomen: Bowel Sounds Present, Soft, Non Tender, Non-Distended : No renal angle tenderness. No suprapubic tenderness. Extremities: No edema, Capillary Refill Less than 3 Seconds Skin: No rashes, No breakdown Musculoskeletal: No Tenderness to Palpation of Joints or Extremities Neurological: Grossly confused and disoriented. Dysarthria and language deficit. Right-sided facial droop. Psych/Mental Status: Restless, confused. Assessment & Plan Assessment/Plan (1) Stroke-like symptoms: PLAN: Plan 62-year-old gentleman with history of traumatic SDH admitted with right facial droop. Patient also has dysarthria started more than 4.5 hours before ED visit. Initial imaging including CT head did not show acute intracranial hemorrhage or mass effect. Head and neck CT does not show evidence of LVO or focal aneurysmal dilatation or stenosis. Chest x-ray does not show acute change. 1. Concern for acute ischemic stroke/acute encephalopathy: Patient is being admitted in PCU. Evaluated by [facility] teleneurologist. Outside time window for thrombolytic. Patient also has mental status change, confused, disoriented, disorganized behavior and incomprehensible speech; he speaks in sentences but does not make sense. The detailed history could not be obtained therefore acute encephalopathy. MRI brain and UA is ordered. PT, OT, speech therapy/swallow evaluation and management, nursing NIH stroke scale, BP and glucose monitoring and control as per stroke protocol. TSH and fasting profile within normal limit. A1c 6.3% in prediabetes range. MRI brain and 2D echo with bubble contrast study ordered 2. Diabetes mellitus type 2, dyslipidemia and hypertension: Blood pressure is within permissive hypertension range. A1c ordered. Glucose is in normal range. 3. History of cardiac arrest, traumatic SDH, depression and dementia 4. Other comorbidities include GERD, history of COVID-19 in the past, and schizoaffective disorder, history of bowel ileus Microbiology Past 72 Hours 03/07/23 21:11 Nasal Secretion SARS-CoV-2 & FLU Antigen (Rapid) - Final Laboratory Results 03/07/23 20:54: WBC 7.5, RBC 4.53 L, Hgb 13.7, Hct 43.8, MCV 96.7 H, MCH 30.2, MCHC 31.3 L, RDW Std Deviation 54.5 H, RDW Coeff of Zane 15.3 H, Plt Count 211, MPV 10.3, Immature Gran % (Auto) 0.300, Neut % (Auto) 66.6, Lymph % (Auto) 23.0, [facility] % (Auto) 7.4, Eos % (Auto) 1.9, Baso % (Auto) 0.8, Absolute Neuts (auto) 5.0, Absolute Lymphs (auto) 1.73, Nucleated RBC % 0, PT 13.2, INR 1.0, APTT 29.2, Sodium 145, Potassium 4.2, Chloride 105, Carbon Dioxide 36.0 H, Anion Gap 4 L, BUN 14, Creatinine 0.91, Estim Creat Clear Calc 77.90, Est GFR (MDRD) Af Amer 110, Est GFR (MDRD) Non-Af 91, BUN/Creatinine Ratio 15.5, Glucose 117 H, Calcium 8.6, Troponin I High Sens 6 03/07/23 21:20: Lactic Acid 1.8 03/08/23 01:00: POC Glucose 76 03/08/23 06:08: Sodium 144, Potassium 4.5, Chloride 107, Carbon Dioxide 33.0 H, Anion Gap 4 L, BUN 14, Creatinine 0.76, Estim Creat Clear Calc 93.27, Est GFR (MDRD) Af Amer 134, Est GFR (MDRD) Non-Af 111, BUN/Creatinine Ratio 18.4, Glucose 88, Calcium 8.9, Triglycerides 188, Cholesterol 127, LDL Cholesterol 45, VLDL Cholesterol 38, HDL Cholesterol 44 Charges/Coding Visit Charges Inpatient E&M: 93457 Subs Hosp L2
--- NOTE | 2023-03-08 08:12 | ECHOD_ITS ---
Reason For Study: CVA Procedure This was a 2D Doppler, Color Flow transthoracic echocardiogram. Exam performed portable in patient room. Left Ventricle Normal left ventricle. The estimated ejection fraction is 55-60 %. Right Ventricle Normal right ventricle. Normal systolic function. Atria Normal left atrium. Normal right atrium. Mitral Valve The mitral valve is structurally normal. No prolapse or stenosis seen. Trivial mitral valve insufficiency. Tricuspid Valve Normal tricuspid valve. Trivial tricuspid valve insufficiency. Aortic Valve The aortic valve is not well visualized in the short axis view. Pulmonic Valve The pulmonic valve is not well visualized. Great Vessels Normal aortic root. Pericardium/Pleural No pericardial effusion. Medication Performed a rapid injection of agitated mix of 9 cc saline and 1cc air to assess for atrial septal defect. MMode/2D Measurements & Calculations LVIDd: 4.6 cm IVSd: 0.86 cm Ao root diam: 3.4 cm LVIDs: 2.9 cm LVPWd: 1.0 cm RVDd: 3.3 cm FS: 36.4 % LAV(MOD-bp): 35.7 ml LVAd ap4: 22.4 cm2 LVAd ap2: 24.6 cm2 LAV(MOD-bp) Indexed: 20.3 ml/m2 LVLd ap4: 7.0 cm LVLd ap2: 7.0 cm LAV(MOD-sp2): 35.0 ml EDV(MOD-sp4): 61.7 ml EDV(MOD-sp2): 70.3 ml LAV(MOD-sp4): 34.2 ml EDV(sp4-el): 60.9 ml EDV(sp2-el): 73.7 ml LVAs ap4: 12.3 cm2 LVAs ap2: 12.0 cm2 LVLs ap4: 5.7 cm LVLs ap2: 5.2 cm ESV(MOD-sp4): 25.2 ml ESV(MOD-sp2): 23.2 ml ESV(sp4-el): 22.4 ml ESV(sp2-el): 23.5 ml EF(MOD-sp4): 59.2 % EF(MOD-sp2): 66.9 % EF(sp4-el): 63.2 % SV(MOD-sp4): 36.5 ml SV(MOD-sp2): 47.0 ml SV(sp4-el): 38.4 ml LA A4 area: 13.9 cm2 LA dimension(2D): 3.2 cm RA A4 area: 13.9 cm2 Time Measurements MV dec time: 0.20 sec Doppler Measurements & Calculations MV E max remi: 64.9 cm/sec Lat Peak E' Remi: 10.5 cm/sec Med Peak E' Remi: 7.6 cm/sec MV A max remi: 71.3 cm/sec E/E' lat: 6.2 E/E' med: 8.5 MV E/A: 0.91 Ao V2 max: 102.9 cm/sec LV V1 max: 103.3 cm/sec PA V2 max: 79.9 cm/sec Ao max P.2 mmHg LV V1 max P.3 mmHg Ao V2 mean: 72.4 cm/sec LV V1 mean P.9 mmHg Ao mean P.3 mmHg LV V1 mean: 62.7 cm/sec Ao V2 VTI: 17.7 cm LV V1 VTI: 19.2 cm AV (velocity ratio): 1.1 TR max remi: 219.2 cm/sec TR max P.2 mmHg ECHO/Echo Complete Interpretation Summary The estimated ejection fraction is 55-60 %. Normal LV systolic function Ordering Physician: Epifanio Lopez Referring Physician: Yashira Navarrete Performed By: Nieves Thomas, FRITZ, RVT
[2023-03-08 09:19] LABS: Thyroid Stim Hormone (TSH) 1.79 uIU/mL (0.358-3.74)
[2023-03-08 09:23] LABS: Hemoglobin A1c 6.3 % (3.8-5.6)
[2023-03-08] MEDS: Divalproex Sodium 250 MG Tablet PO (20:29)
[2023-03-08] MEDS: LORazepam 0.5 MG Tablet PO (20:29)
[2023-03-08] MEDS: MELATONIN 3 MG TABLET 6 MG PO (20:29)
[2023-03-08] MEDS: cloZAPine 100 MG TABLET 300 MG PO (20:29)
[2023-03-08] MEDS: Ziprasidone HCl 20 MG Capsule 80 MG PO (20:32)
[2023-03-08] MEDS: Atorvastatin Calcium 10 MG Tablet PO (20:32)
[2023-03-08] MEDS: Tamsulosin HCl 0.4 MG Capsule PO (20:32)
[2023-03-08] MEDS: traZODone 100 MG Tablet PO (20:32)
[2023-03-08] MEDS: Heparin Injection (Vial) 5,000 UNIT/ML VIAL 5000 UNIT SC (20:34)
[2023-03-08] MEDS: OXcarbazepine 300 MG Tablet PO (20:34)
[2023-03-08] MEDS: Polyethylene Glycol 3350 17 GM PACKET PO (20:34)
[2023-03-09 03:13] VITALS: BP 132/90; PULSE 90; RESP 17; TEMP 36.3; O2SAT 93
[2023-03-09 04:46] LABS: Mucous, Urine 0 SEEN /hpf (<or=2+); Red Blood Cells-Urine 0 SEEN /hpf (0-5); Squamous Epithelial Cells - UA 0 SEEN /hpf (0-5)
[2023-03-09 04:48] LABS: Color, Urine Yellow (Yellow); Glucose, Dipstick Normal (Normal); Ketone-Dipstick 50 mg/dl (Negative); Leukocyte Esterase-Dipstick 25 /ul (Negative); Nitrite-Dipstick Negative (Negative); Occult Blood-Urine Negative /ul (Negative); Protein-Dipstick 30 mg/dl (Negative); Specific Gravity, Urine 1.015 (1.002-1.030); Urine Clarity Clear (Clear); Urine Urobilinogen Normal (Normal)
[2023-03-09 05:07] LABS: Bacteria 1+ /hpf (None Seen); Urine Bilirubin Dipstick 1 mg/dL (Negative); White Blood Cells 0-5 SEEN /hpf (0-5)
[2023-03-09] MEDS: Divalproex Sodium 250 MG Tablet PO (05:57)
[2023-03-09] MEDS: LORazepam 0.5 MG Tablet PO (05:57)
[2023-03-09 07:16] VITALS: BP 152/97; PULSE 91; RESP 18; TEMP 36.6; O2SAT 93
[2023-03-09] MEDS: Aspirin 81 MG TAB.CHEW PO (07:17)
[2023-03-09] MEDS: cloZAPine 100 MG TABLET 300 MG PO (07:18)
[2023-03-09] MEDS: Docusate Sodium 100 MG Capsule PO (07:18)
[2023-03-09] MEDS: Ziprasidone HCl 20 MG Capsule 80 MG PO (07:19)
[2023-03-09] MEDS: Propranolol LA 80 MG Capsule PO (07:20)
[2023-03-09] MEDS: Cholecalciferol (VIT D3) 25 MCG TABLET (1,000 UNITS) 50 MCG PO (07:20)
[2023-03-09 07:21] LABS: Phosphorus 3.2 mg/dL (2.5-4.9)
[2023-03-09] MEDS: OXcarbazepine 300 MG Tablet PO (07:21)
[2023-03-09] MEDS: Heparin Injection (Vial) 5,000 UNIT/ML VIAL 5000 UNIT SC (07:21)
--- NOTE | 2023-03-09 08:04 | TREXTCAR_ITS ---
Diet Diet Order/Speech Therapy: 03/08/23 17:04 Diet: Regular - General Food consistency:: Mechanical (Minced/Moist) Liquid Consistency:: Regular/Thin Is pt able to select menu?: No Diet Comments: 1:1 close observation, slow rate, small sips/bites, limit distractions Routine Orders/Code Status Suppository Type: Dulcolax 10mg Suppository Frequency: Daily PRN Code Status: Full Code Therapies Weight Bearing: Weight bearing as tolerated Extremity Affected:: Bilateral Lower Physical Therapy: Eval and Treat Occupational Therapy: Eval and Treat Speech Therapy: Eval and Treat Problem/Diagnosis (1) Stroke-like symptoms: Status: Acute Code(s): R29.90 - Unspecified symptoms and signs involving the nervous system Plan 62-year-old gentleman with history of traumatic SDH admitted with right facial droop. Patient also has dysarthria started more than 4.5 hours before ED visit. Initial imaging including CT head did not show acute intracranial hemorrhage or mass effect. Head and neck CT does not show evidence of LVO or focal aneurysmal dilatation or stenosis. Chest x-ray does not show acute change. 1. Concern for acute ischemic stroke/acute encephalopathy: Patient is being admitted in PCU. Evaluated by [facility] teleneurologist. Outside time window for thrombolytic. Patient also has mental status change, confused, disoriented, disorganized behavior and incomprehensible speech; he speaks in sentences but does not make sense. The detailed history could not be obtained therefore acute encephalopathy. MRI brain and UA is ordered. PT, OT, speech therapy/swallow evaluation and management, nursing NIH stroke scale, BP and glucose monitoring and control as per stroke protocol. TSH and fasting profile within normal limit. A1c 6.3% in prediabetes range. MRI brain and 2D echo with bubble contrast study ordered 2. Diabetes mellitus type 2, dyslipidemia and hypertension: Blood pressure is within permissive hypertension range. A1c ordered. Glucose is in normal range. 3. History of cardiac arrest, traumatic SDH, depression and dementia 4. Other comorbidities include GERD, history of COVID-19 in the past, and schizoaffective disorder, history of bowel ileus Microbiology Past 72 Hours 03/07/23 21:11 Nasal Secretion SARS-CoV-2 & FLU Antigen (Rapid) - Final Laboratory Results 03/07/23 20:54: WBC 7.5, RBC 4.53 L, Hgb 13.7, Hct 43.8, MCV 96.7 H, MCH 30.2, MCHC 31.3 L, RDW Std Deviation 54.5 H, RDW Coeff of Zane 15.3 H, Plt Count 211, MPV 10.3, Immature Gran % (Auto) 0.300, Neut % (Auto) 66.6, Lymph % (Auto) 23.0, [place] % (Auto) 7.4, Eos % (Auto) 1.9, Baso % (Auto) 0.8, Absolute Neuts (auto) 5.0, Absolute Lymphs (auto) 1.73, Nucleated RBC % 0, PT 13.2, INR 1.0, APTT 29.2, Sodium 145, Potassium 4.2, Chloride 105, Carbon Dioxide 36.0 H, Anion Gap 4 L, BUN 14, Creatinine 0.91, Estim Creat Clear Calc 77.90, Est GFR (MDRD) Af Amer 110, Est GFR (MDRD) Non-Af 91, BUN/Creatinine Ratio 15.5, Glucose 117 H, Calcium 8.6, Troponin I High Sens 6 03/07/23 21:20: Lactic Acid 1.8 03/08/23 01:00: POC Glucose 76 03/08/23 06:08: Sodium 144, Potassium 4.5, Chloride 107, Carbon Dioxide 33.0 H, Anion Gap 4 L, BUN 14, Creatinine 0.76, Estim Creat Clear Calc 93.27, Est GFR (MDRD) Af Amer 134, Est GFR (MDRD) Non-Af 111, BUN/Creatinine Ratio 18.4, Glucose 88, Calcium 8.9, Triglycerides 188, Cholesterol 127, LDL Cholesterol 45, VLDL Cholesterol 38, HDL Cholesterol 44 Allergies/Procedures Done in Hospital Allergies benztropine Allergy (Verified 12/18/22 13:59) Other agitation haloperidol [From Haldol] Allergy (Verified 12/18/22 13:59) PT UNSURE OF REACTION agitation Type of Care/Length of Stay Estimated LOS: Convalescent Care Less Than 30 days Type of Care Needed: Skilled Rehab Potential: Good Prognosis: Good Additional Orders/Day of Discharge Day of Discharge: 03/09/23 Discharge Plan Admission Admit Date/Time: 03/07/23 23:22 Primary Reason for Your Visit: Acute encephalopathy Attending Provider: Epifanio Lopez Primary Care Provider: Yashira Navarrete Consulting Providers: Paulino Lindsay Discharge Orders/Prescriptions Prescriptions: Continued atorvastatin 10 mg tablet 10 mg PO QHS lactulose 10 gram Packet 10 g PO BID Spiriva with HandiHaler 18 mcg Capsule, W/Inhalation Device 1 cap INHALATION DAILY lactulose 20 gram/30 mL Solution 20 g PO BID PRN PRN (Reason: constipation) Qty: 0 0RF docusate sodium 100 mg Tablet 100 mg PO DAILY ziprasidone HCl [Geodon] 80 mg Capsule 80 mg PO BID acetaminophen 325 mg Tablet 650 mg PO Q4H PRN (Reason: Pain) hydroxyzine HCl 50 mg tablet 50 mg PO Q8H PRN PRN (Reason: Anxiety) magnesium hydroxide [Milk of Magnesia] 400 mg/5 mL Suspension 400 mg PO DAILY PRN (Reason: Indigestion) tamsulosin [Flomax] 0.4 mg Capsule 0.4 mg PO QHS trazodone 100 mg Tablet 100 mg PO DAILY bisacodyl [Dulcolax (bisacodyl)] 10 mg Suppository 10 mg [place] DAILY PRN (Reason: Constipation) metformin 1,000 mg tablet 1,000 mg PO BID alum-mag hydroxide-simeth 200-200-20 mg/5 mL Suspension 30 ml PO Q3H PRN (Reason: Indigestion) ziprasidone mesylate [Geodon] 20 mg/mL (final conc.) Recon Soln 10 mg IM BID PRN (Reason: Agitation) melatonin 1 mg Tablet 6 mg PO DAILY cholecalciferol (vitamin D3) [Vitamin D3] 50 mcg (2,000 unit) Tablet 50 mcg PO DAILY nicotine (polacrilex) 2 mg Mini Lozenge 2 mg PO Q2H PRN (Reason: smoking alternative) clozapine [Clozaril] 100 mg tablet 100 mg PO TID divalproex 500 mg tablet,delayed release (DR/EC) 250 mg PO TID lorazepam 0.5 mg tablet 0.5 mg PO TID diphenhydramine HCl [Benadryl] 25 mg Capsule 25 mg PO TID PRN (Reason: Agitation) clozapine 200 mg tablet 200 mg PO BID polyethylene glycol 3350 [Miralax] 17 gram Powder In Packet 17 g PO BID oxcarbazepine [Trileptal] 300 mg Tablet 300 mg PO BID propranolol 80 mg capsule,extended release 24 hr 80 mg PO DAILY cariprazine 3 mg Capsule 3 mg PO DAILY Discontinued divalproex 250 mg tablet,delayed release (DR/EC) 250 mg PO BID Referrals / Follow Up: Yashira Navarrete MD [Primary Care Provider] - Dandre Turner DO [Med Staff - Speech Correction Assistant] - Within 1 Month (for H/o schizophrenia, depression) Disposition Disposition (needs filled in before D/C Order can be placed): Residential Facility
--- NOTE | 2023-03-09 09:31 | DS.PCM_ITS ---
Providers Date of Admission: 03/07/23 Date of Discharge: 03/09/23 Primary Care Physician: Dr. Yashira Navarrete MD Reason For Visit: ACUTE CVA Diagnosis Discharge Diagnosis (1) Stroke-like symptoms: Status: Acute Code(s): R29.90 - Unspecified symptoms and signs involving the nervous system Plan 62-year-old gentleman with history of traumatic SDH admitted with right facial droop. Patient also has dysarthria started more than 4.5 hours before ED visit. Initial imaging including CT head did not show acute intracranial hemorrhage or mass effect. Head and neck CT does not show evidence of LVO or focal aneurysmal dilatation or stenosis. Chest x-ray does not show acute change. 1. acute encephalopathy most likely due to probably metabolic encephalopathy with underlying psychiatric diagnosis schizophrenia/major major depressive disorder with baseline traumatic SDH: Patient is being admitted in PCU. Evaluated by [facility] teleneurologist. Outside time window for thrombolytic. Patient also has mental status change, confused, disoriented, disorganized behavior and incomprehensible speech; he speaks in sentences but does not make sense. The detailed history could not be obtained therefore acute e ncephalopathy. MRI brain and UA is ordered. PT, OT, speech therapy/swallow evaluation and management, nursing NIH stroke scale, BP and glucose monitoring and control as per stroke protocol. TSH and fasting profile within normal limit. A1c 6.3% in prediabetes range. 03/09: MRI brain showed no evidence for recent intracranial ischemia or other causes of cytotoxic edema on DWI. Normal T2 images. Acute stroke ruled out. 2D echo EF 55-60%. Normal LV systolic function. Normal left atrium. 2. Diabetes mellitus type 2, dyslipidemia and hypertension: Blood pressure is within permissive hypertension range. Glucose is in normal range. A1c 6.3%. 3. History of cardiac arrest, traumatic SDH, depression and dementia 4. Other comorbidities include GERD, history of COVID-19 in the past, and schizoaffective disorder, history of bowel ileus Microbiology Past 72 Hours 03/07/23 21:11 Nasal Secretion SARS-CoV-2 & FLU Antigen (Rapid) - Final Laboratory Results 03/07/23 20:54: WBC 7.5, RBC 4.53 L, Hgb 13.7, Hct 43.8, MCV 96.7 H, MCH 30.2, MCHC 31.3 L, RDW Std Deviation 54.5 H, RDW Coeff of Zane 15.3 H, Plt Count 211, MPV 10.3, Immature Gran % (Auto) 0.300, Neut % (Auto) 66.6, Lymph % (Auto) 23.0, Williams % (Auto) 7.4, Eos % (Auto) 1.9, Baso % (Auto) 0.8, Absolute Neuts (auto) 5.0, Absolute Lymphs (auto) 1.73, Nucleated RBC % 0, PT 13.2, INR 1.0, APTT 29.2, Sodium 145, Potassium 4.2, Chloride 105, Carbon Dioxide 36.0 H, Anion Gap 4 L, BUN 14, Creatinine 0.91, Estim Creat Clear Calc 77.90, Est GFR (MDRD) Af Amer 110, Est GFR (MDRD) Non-Af 91, BUN/Creatinine Ratio 15.5, Glucose 117 H, Calcium 8.6, Troponin I High Sens 6 03/07/23 21:20: Lactic Acid 1.8 03/08/23 01:00: POC Glucose 76 03/08/23 06:08: Sodium 144, Potassium 4.5, Chloride 107, Carbon Dioxide 33.0 H, Anion Gap 4 L, BUN 14, Creatinine 0.76, Estim Creat Clear Calc 93.27, Est GFR (MDRD) Af Amer 134, Est GFR (MDRD) Non-Af 111, BUN/Creatinine Ratio 18.4, Glucose 88, Calcium 8.9, Triglycerides 188, Cholesterol 127, LDL Cholesterol 45, VLDL Cholesterol 38, HDL Cholesterol 44 Medications at Discharge Home Medications atorvastatin 10 mg tablet 10 mg PO QHS 11/11/21 lactulose 10 gram oral packet 10 g PO BID 11/11/21 tiotropium bromide 18 mcg capsule with inhalation device (Spiriva with HandiHaler) 1 cap inhalation DAILY 11/11/21 lactulose 20 gram/30 mL oral solution 20 g (30 mL) PO BID PRN PRN constipation #0 mL 11/19/21 acetaminophen 325 mg tablet 650 mg PO Q4H PRN Pain 02/01/22 aluminum-mag hydroxide-simethicone 200 mg-200 mg-20 mg/5 mL oral susp 30 ml PO Q3H PRN Indigestion 02/01/22 bisacodyl 10 mg rectal suppository (Dulcolax (bisacodyl)) 10 mg [place] DAILY PRN Constipation 02/01/22 cholecalciferol (vitamin D3) 50 mcg (2,000 unit) tablet (Vitamin D3) 50 mcg PO DAILY 02/01/22 docusate sodium 100 mg tablet 100 mg PO DAILY 02/01/22 hydroxyzine HCl 50 mg tablet 50 mg PO Q8H PRN PRN Anxiety 02/01/22 magnesium hydroxide 400 mg/5 mL oral suspension (Milk of Magnesia) 400 mg PO DAILY PRN Indigestion 02/01/22 melatonin 1 mg tablet 6 mg PO DAILY 02/01/22 metformin 1,000 mg tablet 1,000 mg PO BID 02/01/22 nicotine (polacrilex) 2 mg buccal mini lozenge 2 mg PO Q2H PRN smoking alternative 02/01/22 tamsulosin 0.4 mg capsule (Flomax) 0.4 mg PO QHS 02/01/22 trazodone 100 mg tablet 100 mg PO DAILY 02/01/22 ziprasidone HCl 80 mg capsule (Geodon) 80 mg PO BID 02/01/22 ziprasidone mesylate (Geodon) 10 mg IM BID PRN Agitation 02/01/22 clozapine 100 mg tablet (Clozaril) 100 mg PO TID 07/20/22 cariprazine 3 mg capsule 3 mg PO DAILY 11/28/22 clozapine 200 mg tablet 200 mg PO BID 11/28/22 diphenhydramine HCl 25 mg capsule (Benadryl) 25 mg PO TID PRN Agitation 11/28/22 divalproex 500 mg tablet,delayed release 250 mg PO TID 11/28/22 lorazepam 0.5 mg tablet 0.5 mg PO TID 11/28/22 oxcarbazepine 300 mg tablet (Trileptal) 300 mg PO BID 11/28/22 polyethylene glycol 3350 17 gram oral powder packet (Miralax) 17 g PO BID 11/28/22 propranolol 80 mg capsule,24 hr,extended release 80 mg PO DAILY 11/28/22 Physical Exam Narrative Physical exam: General: Awake. On baseline. Oriented to time and place. Cooperative and comprehensive. Patient is circumferential and tangential in answering questions HEENT: Atraumatic, PERRLA, EOMI, Normocephalic Oral: No Gingival or Mucosal Lesions/ Ulcerations Neck: Supple, No JVD, Negative Carotid Bruits Lungs: Air entry diminished in bilateral lung bases. No crepitation/rhonchi Cardiovascular: Regular rate, Regular Rhythm, Normal S1, Normal S2, No murmurs Abdomen: Bowel Sounds Present, Soft, Non Tender, Non-Distended : No renal angle tenderness. No suprapubic tenderness. Extremities: No edema, Capillary Refill Less than 3 Seconds Skin: No rashes, No breakdown Musculoskeletal: No Tenderness to Palpation of Joints or Extremities Neurological: No acute focal neurological deficit. No language deficit or dysarthria. Psych/Mental Status: On baseline. Weight / BMI Weight Weight: 141 lb 1.533 oz Body Mass Index (BMI) 22.7 ABG / Lab / Microbiology Data 03/07/23 20:54 03/08/23 06:08 Laboratory: Laboratory Results - last 24 hr 03/09/23 04:36: Urine Color Yellow, Urine Clarity Clear, Urine pH 6.0, Ur Specific [place] 1.015, Urine Protein 30 H, Urine Glucose (UA) Normal, Urine Ketones 50 H, Urine Occult Blood Negative, Urine Nitrite Negative, Urine Bilirubin 1 H, Urine Urobilinogen Normal, Ur Leukocyte Esterase 25 H, Urine RBC 0 SEEN, Urine WBC 0-5 SEEN, Ur Squamous Epith Cells 0 SEEN, Urine Bacteria 1+, Urine Mucus 0 SEEN 03/09/23 06:30: Phosphorus 3.2, Magnesium 2.0 Microbiology: Microbiology 03/07/23 21:30 Blood Culture (Wb) - Anticubital Right Bacteria Detection (P CR) - Preliminary Coag Negative Staph 03/07/23 21:30 Blood Culture (Wb) - Anticubital Right Blood Culture - Preliminary 03/07/23 21:11 Nasal Secretion SARS-CoV-2 & FLU Antigen (Rapid) - Final Radiography Diagnostic Testing: Radiology Impression Brain MRI 03/08/23 00:17 IMPRESSION: 1. Mild chronic ischemic changes of the brain, as described above. Electronically Signed: Spencer Jones MD at 13:37 EDT Reading Location ID and State: [facility] / [place] , Service support , Meaningful Use Info Meaningful Use Diagnoses (Choose all that apply): None applicable Discharge Plan Admission Admit Date/Time: 03/07/23 23:22 Primary Reason for Your Visit: Acute encephalopathy Attending Provider: Epifanio Lopez Primary Care Provider: Yashira Navarrete Consulting Providers: Paulino Lindsay Discharge Orders/Prescriptions Prescriptions: Continued atorvastatin 10 mg tablet 10 mg PO QHS lactulose 10 gram Packet 10 g PO BID Spiriva with HandiHaler 18 mcg Capsule, W/Inhalation Device 1 cap INHALATION DAILY lactulose 20 gram/30 mL Solution 20 g PO BID PRN PRN (Reason: constipation) Qty: 0 0RF docusate sodium 100 mg Tablet 100 mg PO DAILY ziprasidone HCl [Geodon] 80 mg Capsule 80 mg PO BID acetaminophen 325 mg Tablet 650 mg PO Q4H PRN (Reason: Pain) hydroxyzine HCl 50 mg tablet 50 mg PO Q8H PRN PRN (Reason: Anxiety) magnesium hydroxide [Milk of Magnesia] 400 mg/5 mL Suspension 400 mg PO DAILY PRN (Reason: Indigestion) tamsulosin [Flomax] 0.4 mg Capsule 0.4 mg PO QHS trazodone 100 mg Tablet 100 mg PO DAILY bisacodyl [Dulcolax (bisacodyl)] 10 mg Suppository 10 mg [place] DAILY PRN (Reason: Constipation) metformin 1,000 mg tablet 1,000 mg PO BID alum-mag hydroxide-simeth 200-200-20 mg/5 mL Suspension 30 ml PO Q3H PRN (Reason: Indigestion) ziprasidone mesylate [Geodon] 20 mg/mL (final conc.) Recon Soln 10 mg IM BID PRN (Reason: Agitation) melatonin 1 mg Tablet 6 mg PO DAILY cholecalciferol (vitamin D3) [Vitamin D3] 50 mcg (2,000 unit) Tablet 50 mcg PO DAILY nicotine (polacrilex) 2 mg Mini Lozenge 2 mg PO Q2H PRN (Reason: smoking alternative) clozapine [Clozaril] 100 mg tablet 100 mg PO TID divalproex 500 mg tablet,delayed release (DR/EC) 250 mg PO TID lorazepam 0.5 mg tablet 0.5 mg PO TID diphenhydramine HCl [Benadryl] 25 mg Capsule 25 mg PO TID PRN (Reason: Agitation) clozapine 200 mg tablet 200 mg PO BID polyethylene glycol 3350 [Miralax] 17 gram Powder In Packet 17 g PO BID oxcarbazepine [Trileptal] 300 mg Tablet 300 mg PO BID propranolol 80 mg capsule,extended release 24 hr 80 mg PO DAILY cariprazine 3 mg Capsule 3 mg PO DAILY Discontinued divalproex 250 mg tablet,delayed release (DR/EC) 250 mg PO BID Referrals / Follow Up: Dandre Turner DO [Med Staff - [employer]] - Within 1 Month (for H/o schizophrenia, depression) Yashira Navarrete MD [Primary Care Provider] - Disposition Disposition (needs filled in before D/C Order can be placed): [facility] Facility Charges/Coding Visit Charges Inpatient E&M: 68158 Disch Hosp >30min
--- NOTE | 2023-03-09 09:33 | CASEMGMT ---
Patient is from [facility]. Patient is a detention resident. Patient has a legal guardian. Plan: Patient will be discharged back to [facility] under intermediate level of care. Laura HERNANDEZ
--- NOTE | 2023-03-09 09:45 | CASEMGMT ---
Discharge Planning Updates and discharge orders sent to [facility] via [facility]. Alison Adame, Discharge Planning Asst.
--- NOTE | 2023-03-09 09:55 | CASEMGMT ---
RN CM called patient's legal guardian, Oneida Roman, to complete MC form as patient has dementia. No answer, voice message left with return number. CM will attempt to complete MC form at later time.
--- NOTE | 2023-03-09 10:17 | CASEMGMT ---
Discharge Planning Signed med list and transport time sent to [facility] via [facility]. [facility] will transport patient via cot at 11:30a. SW, nursing and patients legal guardian notified. Alison Adame, Discharge Planning Asst.
--- NOTE | 2023-03-09 11:03 | PHA.DC.MR.R ---
Pharmacy [place] Med Reconciliation Pharmacy Service has performed discharge medication reconciliation for this patient. The patient's discharge medication list was reviewed for discrepancies and discrepancies were resolved. Medications at Discharge Home Medications atorvastatin 10 mg tablet 10 mg PO QHS 11/11/21 lactulose 10 gram oral packet 10 g PO BID 11/11/21 tiotropium bromide 18 mcg capsule with inhalation device (Spiriva with HandiHaler) 1 cap inhalation DAILY 11/11/21 lactulose 20 gram/30 mL oral solution 20 g (30 mL) PO BID PRN PRN constipation #0 mL 11/19/21 acetaminophen 325 mg tablet 650 mg PO Q4H PRN Pain 02/01/22 aluminum-mag hydroxide-simethicone 200 mg-200 mg-20 mg/5 mL oral susp 30 ml PO Q3H PRN Indigestion 02/01/22 bisacodyl 10 mg rectal suppository (Dulcolax (bisacodyl)) 10 mg [place] DAILY PRN Constipation 02/01/22 cholecalciferol (vitamin D3) 50 mcg (2,000 unit) tablet (Vitamin D3) 50 mcg PO DAILY 02/01/22 docusate sodium 100 mg tablet 100 mg PO DAILY 02/01/22 hydroxyzine HCl 50 mg tablet 50 mg PO Q8H PRN PRN Anxiety 02/01/22 magnesium hydroxide 400 mg/5 mL oral suspension (Milk of Magnesia) 400 mg PO DAILY PRN Indigestion 02/01/22 melatonin 1 mg tablet 6 mg PO DAILY 02/01/22 metformin 1,000 mg tablet 1,000 mg PO BID 02/01/22 nicotine (polacrilex) 2 mg buccal mini lozenge 2 mg PO Q2H PRN smoking alternative 02/01/22 tamsulosin 0.4 mg capsule (Flomax) 0.4 mg PO QHS 02/01/22 trazodone 100 mg tablet 100 mg PO DAILY 02/01/22 ziprasidone HCl 80 mg capsule (Geodon) 80 mg PO BID 02/01/22 ziprasidone mesylate (Geodon) 10 mg IM BID PRN Agitation 02/01/22 clozapine 100 mg tablet (Clozaril) 100 mg PO TID 07/20/22 cariprazine 3 mg capsule 3 mg PO DAILY 11/28/22 clozapine 200 mg tablet 200 mg PO BID 11/28/22 diphenhydramine HCl 25 mg capsule (Benadryl) 25 mg PO TID PRN Agitation 11/28/22 divalproex 500 mg tablet,delayed release 250 mg PO TID 11/28/22 lorazepam 0.5 mg tablet 0.5 mg PO TID 11/28/22 oxcarbazepine 300 mg tablet (Trileptal) 300 mg PO BID 11/28/22 polyethylene glycol 3350 17 gram oral powder packet (Miralax) 17 g PO BID 11/28/22 propranolol 80 mg capsule,24 hr,extended release 80 mg PO DAILY 11/28/22
== END 2023-03-09 09:30 | disposition skilled nursing facility (03) ==
LOC: ED 21:15 → PCU 23:56
PROVIDERS: Admitting Provider Hospitalist; Emergency Provider Emergency Medicine; PCP Internal Medicine Infectious Disease; Visit Provider Internal Medicine
DX: E11.9 Type 2 diabetes mellitus without complications (principal); F25.9 Schizoaffective disorder, unspecified; E78.5 Hyperlipidemia, unspecified; R53.81 Other malaise; G93.40 Encephalopathy, unspecified; R09.02 Hypoxemia; R29.810 Facial weakness; R47.81 Slurred speech; I10 Essential (primary) hypertension; Z86.16 Personal history of COVID-19; R53.1 Weakness; K21.9 Gastro-esophageal reflux disease without esophagitis; Z79.899 Other long term (current) drug therapy; Z79.84 Long term (current) use of oral hypoglycemic drugs; F17.210 Nicotine dependence, cigarettes, uncomplicated; F17.290 Nicotine dependence, other tobacco product, uncomplicated; Z86.74 Personal history of sudden cardiac arrest; I08.1 Rheumatic disorders of both mitral and tricuspid valves; Z86.73 Personal history of transient ischemic attack (TIA), and cerebral infarction without residual deficits; R06.02 Shortness of breath
CPT/HCPCS: 36415; 70450; 70496; 70498; 70551; 71045; 80048; 80061; 81001; 82962; 83036; 83605; 83735; 84100; 84443; 84484; 85025; 85610; 85730; 87040; 87149; 87428; 92526; 92610; 93005; 93306; 94762; 96372; 97162; 97166; 97530; 97535; 99221; 99285; Q9967; A4216; G0378

== ENCOUNTER 2023-04-24 17:38 | Inpatient (IN) | payer MEDICARE, MEDICAID, SELFPAY ==
[2023-04-24] VITALS (8 sets, daily range): BP systolic 124–149; BP diastolic 83–96; PULSE 65–93; RESP 14–24; TEMP 36.4–36.7; O2SAT 97–100; BMI 26.1; BMI 22.4
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
[2023-04-24 18:31] LABS: Absolute Neutrophil Count 7.3 X10^3/uL (2.0-7.7); Basophil# 0.05 X10^3/uL; Basophil% 0.5 % (0-1); Eosinophil# 0.09 X10^3/uL; Eosinophils% 0.9 % (0-5); Hematocrit 37.9 % (40-54); Hemoglobin 12.3 g/dL (13.0-16.5); Lymphocyte % 16.5 % (19-41); Mean Corp Hgb Conc 32.5 g/dL (32-36); Mean Corpuscular Hgb 29.9 pg (27.0-32.0); Mean Platelet Vol. 10.1 fl (6.2-12.0); Monocyte# 0.68 X10^3/uL; NRBC Flagged by Analyzer 0 % (0-5); Neutrophil # 7.27 X10^3/uL (2.7-7.7); Neutrophil % 74.8 % (47-70); Platelet Count 243 K/mm3 (150-450); RBC Distribution Width CV 14.4 % (11.6-14.6); RBC Distribution Width SD 48.5 fl (35.1-43.9); Red Blood Count 4.12 M/mm3 (4.6-6.2); White Blood Count 9.7 K/mm3 (4.4-11.0)
[2023-04-24] MEDS: Morphine 4 MG/ML Syringe IV ×2 (18:36→20:52)
[2023-04-24 18:44] LABS: Anion Gap 3 (5-15); BUN 8 mg/dL (7-18); Calcium,Total 8.2 mg/dL (8.5-10.1); Chloride 102 mmol/L (98-107); Creatinine, Serum 0.62 mg/dL (0.70-1.30); EST Glomerular Filtration Rate 141 mL/min (>60); Est Glom Filt Rate - Afr Amer 171 mL/min (>60); Estimated Creatinine Clearance 112.91 ml/min; Glucose 135 mg/dL (74-106); Potassium 4.2 mmol/L (3.5-5.1); Sodium Level 136 mmol/L (136-145)
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
--- NOTE | 2023-04-24 19:40 | EKG12_ITS ---
Test Reason : Dysrhythmia Blood Pressure : / mmHG Vent. Rate : 080 BPM Atrial Rate : 080 BPM P-R Int : 142 ms QRS Dur : 090 ms QT Int : 382 ms P-R-T Axes : 072 065 049 degrees QTc Int : 440 ms Normal sinus rhythm Normal ECG Confirmed by DAT GONZALEZ ([id number]), photo editor FÉLIX CARSON ([id number]) on 05/14/2023 10:14:30 AM Referred By: Confirmed By:DAT GONZALEZ
--- NOTE | 2023-04-24 19:56 | RAD_ITS ---
STUDY: X-RAY CHEST REASON FOR EXAM: Male, 63 years old. Preoperative clearance TECHNIQUE: Single AP portable view of the chest. COMPARISON: CT scan 11/28/2022, previous chest x-ray 03/07/2023. FINDINGS: Elevated left hemidiaphragm with blunting of the kyphotic angle. Stable pleural-parenchymal scarring in the lower right lung. No infiltrates or effusions are seen. Normal size heart. Normal mediastinum and sandhya. Normal visualized pulmonary arteries. Normal visualized aortic arch and descending thoracic aorta. There are diffuse degenerative changes of the visualized thoracic spine. Normal visualized ribs, clavicles, and shoulders. There is no demonstrated abnormality of the visualized soft tissue structures of the upper abdomen. RAD/Chest 1 View (Portable) IMPRESSION: No definite acute or significant abnormality seen. Electronically Signed: Sixto Mirza MD at 20:23 EDT ,
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
--- NOTE | 2023-04-24 21:57 | ED.RN ---
[facility] updated on admission.
[2023-04-24] MEDS: Insulin Glargine-YFGN 100 UNIT/ML Pen 10 UNIT SC (23:29)
[2023-04-24] MEDS: Tamsulosin HCl 0.4 MG Capsule PO (23:31)
[2023-04-24] MEDS: oxyCODONE 5 MG Tablet PO (23:31)
[2023-04-24] MEDS: Acetaminophen 500 MG Tablet 1000 MG PO (23:31)
[2023-04-24] MEDS: LORazepam 0.5 MG Tablet PO (23:31)
[2023-04-24] MEDS: Atorvastatin Calcium 10 MG Tablet PO (23:31)
[2023-04-24] MEDS: OXcarbazepine 300 MG Tablet PO (23:31)
[2023-04-24] MEDS: Lactated Ringers 1,000 ML 75 ML IV (23:36)
[2023-04-24] MEDS: Ipratropium/Albuterol Sulfate 3 ML AMPUL.NEB INHALATION (23:53)
[2023-04-24 23:55] LABS: Bedside Glucose 195 mg/dL (74-106)
[2023-04-25] VITALS (12 sets, daily range): BP systolic 114–158; BP diastolic 62–103; PULSE 75–96; RESP 12–20; TEMP 35.9–37.5; O2SAT 93–100; BMI 22.4
[2023-04-25] MEDS: Morphine 4 MG/ML Syringe IV ×2 (03:08→08:23)
[2023-04-25] MEDS: 0.9% Saline Lock 10 ML Syringe IV ×2 (03:08→08:24)
[2023-04-25] MEDS: LORazepam 0.5 MG Tablet PO ×3 (04:44→20:29)
[2023-04-25] MEDS: oxyCODONE 5 MG Tablet PO ×3 (04:44→20:29)
[2023-04-25] MEDS: Acetaminophen 500 MG Tablet 1000 MG PO ×3 (04:45→20:30)
[2023-04-25] MEDS: Dextrose 50%-Water 25 GM/50 ML DISP.SYRIN IV (04:55)
[2023-04-25 06:10] LABS: Absolute Lymphocyte Count 1.91 X10^3/uL (0.83-4.51); Absolute Neutrophil Count 7.1 X10^3/uL (2.0-7.7); Basophil# 0.05 X10^3/uL; Basophil% 0.5 % (0-1); Hematocrit 36.5 % (40-54); Hemoglobin 11.9 g/dL (13.0-16.5); Lymphocyte # 1.91 X10^3/ul (0.83-4.51); Lymphocyte % 19.3 % (19-41); Mean Corp Hgb Conc 32.6 g/dL (32-36); Mean Corpuscular Hgb 30.8 pg (27.0-32.0); Mean Corpuscular Volume 94.6 fL (80-94); Mean Platelet Vol. 9.9 fl (6.2-12.0); Monocyte# 0.75 X10^3/uL; Monocyte% 7.6 % (0-10); NRBC Flagged by Analyzer 0 % (0-5); Neutrophil # 7.05 X10^3/uL (2.7-7.7); Neutrophil % 71.3 % (47-70); Platelet Count 207 K/mm3 (150-450); RBC Distribution Width CV 14.4 % (11.6-14.6); RBC Distribution Width SD 50.1 fl (35.1-43.9); Red Blood Count 3.86 M/mm3 (4.6-6.2); White Blood Count 9.9 K/mm3 (4.4-11.0)
[2023-04-25 06:48] LABS: Bedside Glucose 64 mg/dL (74-106)
[2023-04-25 06:48] LABS: Bedside Glucose 94 mg/dL (74-106)
[2023-04-25] MEDS: Ipratropium/Albuterol Sulfate 3 ML AMPUL.NEB INHALATION ×3 (06:50→19:17)
[2023-04-25 07:12] LABS: ALB/GLOB Ratio 0.9 RATIO (0.9-2.4); AST(SGOT) 8 U/L (15-37); Alanine Aminotransfer ALT/SGPT 18 U/L (16-61); Albumin, Serum 2.8 g/dL (3.2-5.0); Alkaline Phosphatase 60 U/L (45-117); Anion Gap 4 (5-15); BUN 7 mg/dL (7-18); BUN/Creat Ratio 11.5 RATIO (10-20); Calcium,Total 8.3 mg/dL (8.5-10.1); Chloride 104 mmol/L (98-107); Creatinine, Serum 0.61 mg/dL (0.70-1.30); EST Glomerular Filtration Rate 143 mL/min (>60); Est Glom Filt Rate - Afr Amer 174 mL/min (>60); Estimated Creatinine Clearance 113.25 ml/min; Glucose 110 mg/dL (74-106); Magnesium 1.9 mg/dL (1.6-2.6); Phosphorus 3.5 mg/dL (2.5-4.9); Protein, Total 5.8 g/dL (6.4-8.2); Sodium Level 140 mmol/L (136-145)
[2023-04-25 07:31] LABS: Hemoglobin A1c 6.5 % (3.8-5.6)
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
[2023-04-25] MEDS: Propranolol LA 80 MG Capsule PO (08:45)
[2023-04-25] MEDS: OXcarbazepine 300 MG Tablet PO ×2 (08:47→20:29)
[2023-04-25] MEDS: Lactated Ringers 1,000 ML 15 ML IV (10:48)
[2023-04-25] MEDS: Cefazolin 2 GM in 0.9% Normal Saline 100 ML IV (11:05)
[2023-04-25] MEDS: Bupivacaine 0.25% 30 ML Vial (12:34)
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
[2023-04-25 13:23] LABS: Bedside Glucose 112 mg/dL (74-106)
--- NOTE | 2023-04-25 13:41 | CCN.REFER ---
Social Work SW reviewed chart, pt is here [place] [facility] As per chart, pt has a guardian. SW called [facility], had them fax over the guardianship paper. The document states pt does have a guardian through [facility] Guardianship Service Board by Designee. Angelic Baca is listed as the contact. SW called Angelic, message left to confirm the plan will be to return to [facility] when pt is ready. SW also sent updates to [facility] via [employer], inquired if they will need precert. Pt in surgery now, it is anticipated pt will be here through the weekend. SW to follow up on Thursday. SOHA Claudio
[2023-04-25] MEDS: Lactated Ringers 1,000 ML 75 ML IV (14:22)
[2023-04-25] MEDS: cloZAPine 100 MG TABLET 300 MG PO ×2 (14:32→20:29)
[2023-04-25] MEDS: Insulin Lispro 100 UNIT/ML INSULN.PEN SC (16:17)
[2023-04-25 16:56] LABS: Bedside Glucose 185 mg/dL (74-106)
[2023-04-25] MEDS: Cefazolin 1 GM/50 ML BAG IV (18:27)
[2023-04-25] MEDS: MELATONIN 3 MG TABLET 6 MG PO (20:29)
[2023-04-25] MEDS: Atorvastatin Calcium 10 MG Tablet PO (20:29)
[2023-04-25] MEDS: Tamsulosin HCl 0.4 MG Capsule PO (20:30)
[2023-04-25] MEDS: Lactulose 20 GM/30 ML UDC 10 GM PO (20:30)
[2023-04-25] MEDS: Insulin Glargine-YFGN 100 UNIT/ML Pen 10 UNIT SC (20:33)
[2023-04-25 22:13] LABS: Bedside Glucose 155 mg/dL (74-106)
[2023-04-26] VITALS (8 sets, daily range): BP systolic 107–141; BP diastolic 68–95; PULSE 80–101; RESP 16–20; TEMP 36.1–36.9; O2SAT 94–100
[2023-04-26] MEDS: Cefazolin 1 GM/50 ML BAG IV (03:28)
[2023-04-26] MEDS: Acetaminophen 500 MG Tablet 1000 MG PO ×3 (06:02→21:57)
[2023-04-26] MEDS: Enoxaparin 40 MG/0.4 ML Syringe SC (06:02)
[2023-04-26] MEDS: LORazepam 0.5 MG Tablet PO ×3 (06:02→21:56)
[2023-04-26] MEDS: oxyCODONE 5 MG Tablet PO (06:04)
[2023-04-26 06:45] LABS: Absolute Lymphocyte Count 2.05 X10^3/uL (0.83-4.51); Absolute Neutrophil Count 13.2 X10^3/uL (2.0-7.7); Basophil# 0.07 X10^3/uL; Basophil% 0.4 % (0-1); Eosinophil# 0.07 X10^3/uL; Eosinophils% 0.4 % (0-5); Hematocrit 39.4 % (40-54); Hemoglobin 12.3 g/dL (13.0-16.5); Lymphocyte # 2.05 X10^3/ul (0.83-4.51); Lymphocyte % 12.1 % (19-41); Mean Corp Hgb Conc 31.2 g/dL (32-36); Mean Corpuscular Hgb 29.6 pg (27.0-32.0); Mean Corpuscular Volume 94.9 fL (80-94); Mean Platelet Vol. 11.5 fl (6.2-12.0); Monocyte# 1.55 X10^3/uL; Monocyte% 9.1 % (0-10); NRBC Flagged by Analyzer 0 % (0-5); Neutrophil # 13.16 X10^3/uL (2.7-7.7); Neutrophil % 77.4 % (47-70); POSITIVE DIFFERENTIAL YES; Platelet Count 171 K/mm3 (150-450); RBC Distribution Width CV 14.6 % (11.6-14.6); RBC Distribution Width SD 50.7 fl (35.1-43.9); Red Blood Count 4.15 M/mm3 (4.6-6.2)
[2023-04-26 06:56] LABS: Differential Indicated SCAN CRITERIA MET
[2023-04-26] MEDS: Ipratropium/Albuterol Sulfate 3 ML AMPUL.NEB INHALATION ×3 (06:58→19:23)
[2023-04-26 07:02] LABS: Bedside Glucose 132 mg/dL (74-106)
[2023-04-26 07:10] LABS: Anion Gap 5 (5-15); BUN 7 mg/dL (7-18); BUN/Creat Ratio 11.3 RATIO (10-20); Calcium,Total 8.2 mg/dL (8.5-10.1); Chloride 104 mmol/L (98-107); Creatinine, Serum 0.62 mg/dL (0.70-1.30); EST Glomerular Filtration Rate 141 mL/min (>60); Est Glom Filt Rate - Afr Amer 170 mL/min (>60); Estimated Creatinine Clearance 111.42 ml/min; Glucose 132 mg/dL (74-106); Magnesium 1.9 mg/dL (1.6-2.6); Potassium 4.3 mmol/L (3.5-5.1); Sodium Level 140 mmol/L (136-145)
[2023-04-26 07:18] LABS: Differential Comment SCANNED
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
--- NOTE | 2023-04-26 10:00 | PN.ORTHO_ITS ---
Subjective Subjective Patient seen and examined. No events overnight per nursing. Patient resting comfortably. Objective Data Objective Data Vital Signs: Vital Signs Temp Pulse Resp BP Pulse Ox O2 Del Method O2 Flow Rate 97.9 F 88 20 H 121/86 H 96 Room Air 2 04/26/23 03:29 04/26/23 06:58 04/26/23 06:58 04/26/23 03:29 04/26/23 06:58 04/26/23 06:58 04/25/23 18:04 Oxygen Flow Rate (L/min) 2 Oxygen Delivery Method Room Air Weight: 138 lb 12.8 oz Body Mass Index (BMI) 22.4 Intake & Output: Intake and Output for Last 24 Hours 04/24/23 04/25/23 04/26/23 23:59 23:59 23:59 Intake Total 2866.25 / 2866.25 50 / 50 Output Total 1750 / 1750 Balance 1116.25 / 1116.25 50 / 50 Lab / Micro Data 04/26/23 05:35 04/26/23 05:35 Labs: Laboratory Results - last 24 hr 04/25/23 13:04: POC Glucose 112 H 04/25/23 16:14: POC Glucose 185 H 04/25/23 20:28: POC Glucose 155 H 04/26/23 05:35: WBC 17.0 H, RBC 4.15 L, Hgb 12.3 L, Hct 39.4 L, MCV 94.9 H, MCH 29.6, MCHC 31.2 L, RDW Std Deviation 50.7 H, RDW Coeff of Zane 14.6, Plt Count 171, MPV 11.5, Immature Gran % (Auto) 0.600, Neut % (Auto) 77.4 H, Lymph % (Au to) 12.1 L, [place] % (Auto) 9.1, Eos % (Auto) 0.4, Baso % (Auto) 0.4, Absolute Neuts (auto) 13.2 H, Absolute Lymphs (auto) 2.05, Nucleated RBC % 0, Differential Comment SCANNED, Diff Path Review December, Sodium 140, Potassium 4.3, Chloride 104, Carbon Dioxide 31.0, Anion Gap 5, BUN 7, Creatinine 0.62 L, Estim Creat Clear Calc 111.42, Est GFR (MDRD) Af Amer 170, Est GFR (MDRD) Non-Af 141, BUN/Creatinine Ratio 11.3, Glucose 132 H, Calcium 8.2 L, Phosphorus 4.0, Magnesium 1.9 04/26/23 06:01: POC Glucose 132 H Radiography Diagnostic Testing: Radiology Impression Tibia/Fibula X-Ray 04/25/23 07:40 IMPRESSION: Fluoroscopic guidance for tibial fracture fixation. Please see procedural report. Electronically Signed: Dinesh AkirasLeyda BarriosBhupinder, at 18:16 EDT , Physical Exam Narrative General - A&Ox3, NAD. VSS/AF Left lower extremity -incisional dressing C/D/I. DP 2+. BCR. Compartments soft and compressible. Assessment & Plan Assessment/Plan (1) Closed fracture of left fibula and tibia: QUALIFIERS: Encounter type: initial encounter Qualified Code(s): S82.202A - Unspecified fracture of shaft of left tibia, initial encounter for closed fracture; S82.402A - Unspecified fracture of shaft of left fibula, initial encounter for closed fracture PLAN: POD#1 s/p left tibia IMN, percutaneous ankle fixation - Pain control - Medicine following for medical management - PT/OT -nonweightbearing left lower extremity. - DVT PPX -subcutaneous Lovenox, SCD to the right leg - Case management - D/C planning Patient stable for discharge from orthopedic standpoint once custodial is arranged. Discharge plan: Maintain surgical dressing and splint until follow-up. Follow- up in 2 weeks for x-rays and staple removal. I would recommend 4 weeks of Lovenox postoperatively. I will sign off at this time. Please not hesitate to call if any questions or concerns arise.
[2023-04-26] MEDS: cloZAPine 100 MG TABLET 300 MG PO ×2 (12:29→21:56)
--- NOTE | 2023-04-26 12:46 | NURSING ---
Pt was Sleeping, drooling to his Rt side and leaning toward his Rt side. Pt was lethargic all morning awakening with touch and voice. This Nurse and Orin Crain RN both performed Neuro checks and were wnl. Pt was hungry so this Nurse gave him some sips of milk and pt coughed a few times after taking a long sip via straw. This Nurse attempted to give scheduled medicaiton mixed in applesauce to see if pt would be able to take, pt did not cough with pill and applesauce but once I gave him water to drink with it, he again coughed and sounded Moist and gurgly. Pt only took one pill-see EMAR. This RN performed Dysphagia Screen and pt Failed Screening. Dr. Masterson was contacted via [employer] and made aware of the lethargy this morning, the neuro checks and results, and failed dysphagia screen.
[2023-04-26 13:35] LABS: Bedside Glucose 96 mg/dL (74-106)
[2023-04-26] MEDS: KCL 20MEQ in D5.45NS 20 MEQ/1,000 ML IV.SOLN. 100 MEQ IV (14:55)
[2023-04-26] MEDS: cloZAPine 100 MG TABLET PO (14:58)
[2023-04-26] MEDS: Polyethylene Glycol 3350 17 GM PACKET PO (15:00)
[2023-04-26] MEDS: 0.9% Saline Lock 10 ML Syringe IV (15:07)
[2023-04-26] MEDS: Insulin Lispro 100 UNIT/ML INSULN.PEN SC (16:35)
[2023-04-26 17:35] LABS: Bedside Glucose 164 mg/dL (74-106)
[2023-04-26] MEDS: Insulin Glargine-YFGN 100 UNIT/ML Pen 10 UNIT SC (21:52)
[2023-04-26] MEDS: Lactulose 20 GM/30 ML UDC 10 GM PO (21:55)
[2023-04-26] MEDS: MELATONIN 3 MG TABLET 6 MG PO (21:56)
[2023-04-26] MEDS: Tamsulosin HCl 0.4 MG Capsule PO (21:56)
[2023-04-26] MEDS: OXcarbazepine 300 MG Tablet PO (21:56)
[2023-04-26] MEDS: Atorvastatin Calcium 10 MG Tablet PO (21:57)
[2023-04-26] MEDS: Docusate Sodium 100 MG Capsule PO (21:57)
[2023-04-26 23:32] LABS: Bedside Glucose 138 mg/dL (74-106)
[2023-04-27] MEDS: KCL 20MEQ in D5.45NS 20 MEQ/1,000 ML IV.SOLN. 100 MEQ IV ×3 (00:56→22:57)
[2023-04-27 04:36] VITALS: BP 128/88; PULSE 101; RESP 18; TEMP 36.4; O2SAT 94
[2023-04-27] MEDS: Enoxaparin 40 MG/0.4 ML Syringe SC (04:42)
[2023-04-27] MEDS: Menthol/Lanolin/Calamine/Znox 113 GM Tube 1 APPLIC TOPICAL ×3 (04:42→22:57)
[2023-04-27] MEDS: Insulin Lispro 100 UNIT/ML INSULN.PEN SC ×3 (04:43→16:56)
[2023-04-27 06:26] LABS: Absolute Lymphocyte Count 1.38 X10^3/uL (0.83-4.51); Absolute Neutrophil Count 5.3 X10^3/uL (2.0-7.7); Basophil# 0.03 X10^3/uL; Basophil% 0.4 % (0-1); Eosinophil# 0.11 X10^3/uL; Eosinophils% 1.5 % (0-5); Hematocrit 32.4 % (40-54); Hemoglobin 10.3 g/dL (13.0-16.5); Lymphocyte # 1.38 X10^3/ul (0.83-4.51); Lymphocyte % 18.2 % (19-41); Mean Corp Hgb Conc 31.8 g/dL (32-36); Mean Corpuscular Hgb 30.2 pg (27.0-32.0); Mean Platelet Vol. 10.5 fl (6.2-12.0); Monocyte# 0.76 X10^3/uL; NRBC Flagged by Analyzer 0 % (0-5); Neutrophil # 5.28 X10^3/uL (2.7-7.7); Neutrophil % 69.8 % (47-70); Platelet Count 173 K/mm3 (150-450); RBC Distribution Width CV 14.6 % (11.6-14.6); RBC Distribution Width SD 51.4 fl (35.1-43.9); Red Blood Count 3.41 M/mm3 (4.6-6.2); White Blood Count 7.6 K/mm3 (4.4-11.0)
[2023-04-27 06:53] LABS: Bedside Glucose 171 mg/dL (74-106)
[2023-04-27 06:57] LABS: Anion Gap 4 (5-15); BUN 6 mg/dL (7-18); BUN/Creat Ratio 11.1 RATIO (10-20); Chloride 106 mmol/L (98-107); Creatinine, Serum 0.54 mg/dL (0.70-1.30); EST Glomerular Filtration Rate 165 mL/min (>60); Est Glom Filt Rate - Afr Amer 199 mL/min (>60); Estimated Creatinine Clearance 127.93 ml/min; Glucose 129 mg/dL (74-106); Sodium Level 140 mmol/L (136-145)
[2023-04-27 08:36] VITALS: BP 114/82; PULSE 104; RESP 18; TEMP 36.6; O2SAT 96
[2023-04-27 08:47] VITALS: O2SAT 95
--- NOTE | 2023-04-27 08:56 | CASEMGMT ---
Discharge Planning Updates sent to Ilan Callejas via [employer]. Asked if pre-cert will be needed. Awaiting response. Alison Adame, Discharge Planning Asst.
--- NOTE | 2023-04-27 09:21 | CASEMGMT ---
Social Work SW spoke with pt's legal Guardian Angelic [place] who confirms dc plan is for pt to return to [facility] when medically ready. NERY Foster
[2023-04-27] MEDS: Lactulose 20 GM/30 ML UDC 10 GM PO ×2 (11:48→22:57)
[2023-04-27] MEDS: cloZAPine 100 MG TABLET 300 MG PO ×2 (11:49→22:56)
[2023-04-27] MEDS: Docusate Sodium 100 MG Capsule PO (11:49)
[2023-04-27] MEDS: Propranolol LA 80 MG Capsule PO (11:50)
[2023-04-27] MEDS: Cholecalciferol (VIT D3) 25 MCG TABLET (1,000 UNITS) 50 MCG PO (11:50)
[2023-04-27] MEDS: OXcarbazepine 300 MG Tablet PO ×2 (11:58→22:55)
[2023-04-27] MEDS: Ipratropium/Albuterol Sulfate 3 ML AMPUL.NEB INHALATION (12:15)
[2023-04-27 12:48] LABS: Bedside Glucose 342 mg/dL (74-106)
[2023-04-27 12:58] VITALS: PULSE 81; RESP 18
[2023-04-27 14:34] VITALS: BP 106/72; PULSE 101; RESP 16; TEMP 36.8; O2SAT 94
[2023-04-27] MEDS: Acetaminophen 500 MG Tablet 1000 MG PO ×2 (14:38→22:56)
[2023-04-27] MEDS: LORazepam 0.5 MG Tablet PO ×2 (14:47→22:56)
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
[2023-04-27 16:27] LABS: Bedside Glucose 161 mg/dL (74-106)
[2023-04-27] MEDS: cloZAPine 100 MG TABLET PO (16:56)
--- NOTE | 2023-04-27 20:52 | CPS ---
Pt refused aerosal tx and PEP therapy at this time
[2023-04-27 21:00] VITALS: BP 109/89; PULSE 91; RESP 18; TEMP 37.2; O2SAT 98
[2023-04-27] MEDS: MELATONIN 3 MG TABLET 6 MG PO (22:55)
[2023-04-27] MEDS: Atorvastatin Calcium 10 MG Tablet PO (22:56)
[2023-04-27] MEDS: Tamsulosin HCl 0.4 MG Capsule PO (22:57)
[2023-04-27] MEDS: Polyethylene Glycol 3350 17 GM PACKET PO (22:58)
[2023-04-27] MEDS: Insulin Glargine-YFGN 100 UNIT/ML Pen 10 UNIT SC (22:58)
[2023-04-28] VITALS (7 sets, daily range): BP systolic 97–132; BP diastolic 69–83; PULSE 75–95; RESP 18–28; TEMP 36.7–36.9; O2SAT 93–100
[2023-04-28] LABS: Bedside Glucose 202 mg/dL (74-106)
[2023-04-28] MEDS: Enoxaparin 40 MG/0.4 ML Syringe SC (06:02)
[2023-04-28] MEDS: LORazepam 0.5 MG Tablet PO ×3 (06:02→20:12)
[2023-04-28] MEDS: Acetaminophen 500 MG Tablet 1000 MG PO ×3 (06:02→20:12)
[2023-04-28] MEDS: Insulin Lispro 100 UNIT/ML INSULN.PEN SC ×2 (06:05→12:25)
[2023-04-28] MEDS: Ipratropium/Albuterol Sulfate 3 ML AMPUL.NEB INHALATION ×3 (06:39→19:31)
[2023-04-28 06:46] LABS: Anion Gap 3 (5-15); BUN 6 mg/dL (7-18); BUN/Creat Ratio 10.5 RATIO (10-20); Calcium,Total 8.2 mg/dL (8.5-10.1); Chloride 107 mmol/L (98-107); Creatinine, Serum 0.57 mg/dL (0.70-1.30); EST Glomerular Filtration Rate 155 mL/min (>60); Est Glom Filt Rate - Afr Amer 187 mL/min (>60); Estimated Creatinine Clearance 121.19 ml/min; Glucose 155 mg/dL (74-106); Potassium 4.2 mmol/L (3.5-5.1); Sodium Level 141 mmol/L (136-145)
[2023-04-28 07:11] LABS: Absolute Lymphocyte Count 1.33 X10^3/uL (0.83-4.51); Absolute Neutrophil Count 4.2 X10^3/uL (2.0-7.7); Basophil# 0.02 X10^3/uL; Basophil% 0.3 % (0-1); Eosinophil# 0.16 X10^3/uL; Eosinophils% 2.5 % (0-5); Hematocrit 31.4 % (40-54); Hemoglobin 9.8 g/dL (13.0-16.5); Lymphocyte # 1.33 X10^3/ul (0.83-4.51); Lymphocyte % 20.8 % (19-41); Mean Corp Hgb Conc 31.2 g/dL (32-36); Mean Corpuscular Hgb 29.9 pg (27.0-32.0); Mean Corpuscular Volume 95.7 fL (80-94); Mean Platelet Vol. 10.2 fl (6.2-12.0); Monocyte# 0.62 X10^3/uL; Monocyte% 9.7 % (0-10); NRBC Flagged by Analyzer 0 % (0-5); Neutrophil # 4.24 X10^3/uL (2.7-7.7); Neutrophil % 66.2 % (47-70); Platelet Count 191 K/mm3 (150-450); RBC Distribution Width CV 14.4 % (11.6-14.6); RBC Distribution Width SD 50.7 fl (35.1-43.9); Red Blood Count 3.28 M/mm3 (4.6-6.2); White Blood Count 6.4 K/mm3 (4.4-11.0)
[2023-04-28 07:17] LABS: Bedside Glucose 155 mg/dL (74-106)
--- NOTE | 2023-04-28 08:57 | CASEMGMT ---
Discharge Planning Per Jonna at [facility], patient will not need a precert to return. Alison Adame, Discharge Planning Asst.
[2023-04-28 09:52] LABS: Pathologist Review Reviewed
[2023-04-28] MEDS: KCL 20MEQ in D5.45NS 20 MEQ/1,000 ML IV.SOLN. 100 MEQ IV (10:27)
[2023-04-28] MEDS: Menthol/Lanolin/Calamine/Znox 113 GM Tube 1 APPLIC TOPICAL ×2 (10:28→20:12)
[2023-04-28] MEDS: Lactulose 20 GM/30 ML UDC 10 GM PO ×2 (10:31→20:12)
[2023-04-28] MEDS: Docusate Sodium 100 MG Capsule PO (10:32)
[2023-04-28] MEDS: cloZAPine 100 MG TABLET 300 MG PO ×2 (10:33→20:12)
[2023-04-28] MEDS: Polyethylene Glycol 3350 17 GM PACKET PO (10:35)
[2023-04-28] MEDS: Cholecalciferol (VIT D3) 25 MCG TABLET (1,000 UNITS) 50 MCG PO (10:36)
[2023-04-28] MEDS: OXcarbazepine 300 MG Tablet PO ×2 (10:36→20:11)
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
[2023-04-28 16:14] LABS: Bedside Glucose 103 mg/dL (74-106)
[2023-04-28 16:26] LABS: Bedside Glucose 164 mg/dL (74-106)
--- NOTE | 2023-04-28 16:39 | CASEMGMT ---
Discharge Planning Discharge orders faxed to [facility] with pickup time noted. Message left for patients legal guardian. [facility] will transport patient by cot at 6:30p. Nursing and SW updated. Alison Adame
[2023-04-28] MEDS: cloZAPine 100 MG TABLET PO (17:08)
[2023-04-28] MEDS: oxyCODONE 5 MG Tablet PO (20:11)
[2023-04-28] MEDS: Tamsulosin HCl 0.4 MG Capsule PO (20:11)
[2023-04-28] MEDS: Atorvastatin Calcium 10 MG Tablet PO (20:12)
[2023-04-28] MEDS: MELATONIN 3 MG TABLET 6 MG PO (20:12)
[2023-04-28] MEDS: Insulin Glargine-YFGN 100 UNIT/ML Pen 10 UNIT SC (20:13)
[2023-04-28 21:33] LABS: Bedside Glucose 175 mg/dL (74-106)
== END 2023-04-28 22:40 | disposition skilled nursing facility (03) | DRG 494 ==
LOC: ED 21:20 → MS3 21:50
PROVIDERS: Anesthesiology; Internal Medicine; Student in an Organized Health Care Education/Training Program; Admitting Provider Internal Medicine; Emergency Provider Emergency Medicine; PCP Family Medicine; Visit Provider Student in an Organized Health Care Education/Training Program
PROC: 0QSH06Z Reposition Left Tibia with Intramedullary Internal Fixation Device, Open Approach (ICD-10-PCS; principal; 2023-04-25 10:15)
DX: S82.242A Displaced spiral fracture of shaft of left tibia, initial encounter for closed fracture (principal); F25.9 Schizoaffective disorder, unspecified; F03.90 Unspecified dementia, unspecified severity, without behavioral disturbance, psychotic disturbance, mood disturbance, and anxiety; J44.9 Chronic obstructive pulmonary disease, unspecified; E11.9 Type 2 diabetes mellitus without complications; Z79.4 Long term (current) use of insulin; I10 Essential (primary) hypertension; S82.845A Nondisplaced bimalleolar fracture of left lower leg, initial encounter for closed fracture; K21.9 Gastro-esophageal reflux disease without esophagitis; E78.5 Hyperlipidemia, unspecified; K58.1 Irritable bowel syndrome with constipation; F17.210 Nicotine dependence, cigarettes, uncomplicated; F17.290 Nicotine dependence, other tobacco product, uncomplicated; S82.55XA Nondisplaced fracture of medial malleolus of left tibia, initial encounter for closed fracture; Z86.16 Personal history of COVID-19; Z79.891 Long term (current) use of opiate analgesic; N40.0 Benign prostatic hyperplasia without lower urinary tract symptoms; Z79.899 Other long term (current) drug therapy; Z79.84 Long term (current) use of oral hypoglycemic drugs; Y04.8XXA Assault by other bodily force, initial encounter; Y92.199 Unspecified place in other specified residential institution as the place of occurrence of the external cause
CPT/HCPCS: 36415; 71045; 73590; 73630; 73700; 76000; 80048; 80053; 82962; 83036; 83735; 84100; 85025; 92526; 92610; 93005; 94640; 94667; 94668; 94762; 97162; 97166; 97530; 99252; 99285; 99406; C1713; J7120; A4216; G0463; J2405

== ENCOUNTER 2023-06-10 18:48 | Emergency (ER) | payer MEDICARE, MEDICAID, SELFPAY ==
[2023-06-10 18:49] VITALS: PULSE 81; RESP 28; TEMP 36.4; O2SAT 93; BMI 22.1
[2023-06-10 18:57] VITALS: BP 101/75
--- NOTE | 2023-06-10 19:47 | EKG12_ITS ---
Test Reason : DYSRHYTHMIA Blood Pressure : / mmHG Vent. Rate : 079 BPM Atrial Rate : 079 BPM P-R Int : 128 ms QRS Dur : 090 ms QT Int : 372 ms P-R-T Axes : 076 090 060 degrees QTc Int : 426 ms Normal sinus rhythm Rightward axis Borderline ECG Confirmed by CRIS CHILD, HERBIE ([id number]), greeting card editor MARTI FLORES ([id number]) on 06/15/2023 2:02:42 PM Referred By: Confirmed By:HERBIE LYNCH MD
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
[2023-06-10 19:59] VITALS: O2SAT 96
--- NOTE | 2023-06-10 20:15 | RAD_ITS ---
INDICATION: sob EXAMINATION/TECHNIQUE: X-RAY - XR Chest 1 View COMPARISON: April 24, 2023 FINDINGS: LINES/DEVICES: None. LUNGS: Probable infiltrate in the left lung. No pneumothorax. MEDIASTINUM AND CARDIOVASCULAR STRUCTURES: Cardiac silhouette not enlarged. Central airways and mediastinal contour are unremarkable. BONES AND SOFT TISSUES: Degenerative vertebral changes. RAD/Chest 1 View (Portable) IMPRESSION: Probable left pulmonary infiltrate. Electronically Signed: Mohinder Churchill DO at 20:54 EDT ,
[2023-06-10 20:16] LABS: Absolute Lymphocyte Count 1.41 X10^3/uL (0.83-4.51); Absolute Neutrophil Count 8.8 X10^3/uL (2.0-7.7); Basophil# 0.04 X10^3/uL; Basophil% 0.4 % (0-1); Eosinophil# 0.04 X10^3/uL; Eosinophils% 0.4 % (0-5); Hematocrit 39.4 % (40-54); Lymphocyte # 1.41 X10^3/ul (0.83-4.51); Lymphocyte % 12.6 % (19-41); Mean Corp Hgb Conc 30.5 g/dL (32-36); Mean Corpuscular Hgb 29.9 pg (27.0-32.0); Mean Corpuscular Volume 98.3 fL (80-94); Monocyte# 0.86 X10^3/uL; Monocyte% 7.7 % (0-10); NRBC Flagged by Analyzer 0 % (0-5); Neutrophil # 8.76 X10^3/uL (2.7-7.7); Neutrophil % 78.5 % (47-70); Platelet Count 190 K/mm3 (150-450); RBC Distribution Width CV 15.5 % (11.6-14.6); RBC Distribution Width SD 56.2 fl (35.1-43.9); Red Blood Count 4.01 M/mm3 (4.6-6.2); White Blood Count 11.2 K/mm3 (4.4-11.0)
[2023-06-10 20:22] LABS: D-Dimer Quantitative (DVT/PE) 0.43 FEU/ug/m (0.27-0.49)
[2023-06-10 20:28] LABS: BNP,B-Type NATRIURETIC PEPTIDE 8.2 pg/mL (0-100)
[2023-06-10 20:38] LABS: Anion Gap 4 (5-15); BUN 15 mg/dL (7-18); BUN/Creat Ratio 18.9 RATIO (10-20); Calcium,Total 9.1 mg/dL (8.5-10.1); Chloride 104 mmol/L (98-107); Creatinine, Serum 0.79 mg/dL (0.70-1.30); EST Glomerular Filtration Rate 106 mL/min (>60); Est Glom Filt Rate - Afr Amer 128 mL/min (>60); Estimated Creatinine Clearance 89.03 ml/min; Glucose 92 mg/dL (74-106); Potassium 4.6 mmol/L (3.5-5.1); Sodium Level 139 mmol/L (136-145); Troponin-I HS 6 pg/mL (3.0-78.0)
[2023-06-10 21:45] VITALS: BP 93/72; PULSE 81; RESP 18; O2SAT 98
[2023-06-10] MEDS: levoFLOXacin 750 MG Tablet PO (22:04)
== END 2023-06-11 00:14 | disposition home or self-care (01) ==
PROVIDERS: Emergency Provider Emergency Medicine; PCP Family Medicine; Visit Provider Emergency Medicine
DX: J18.9 Pneumonia, unspecified organism (principal); E11.9 Type 2 diabetes mellitus without complications; Z79.4 Long term (current) use of insulin; S82.302D Unspecified fracture of lower end of left tibia, subsequent encounter for closed fracture with routine healing; S82.402D Unspecified fracture of shaft of left fibula, subsequent encounter for closed fracture with routine healing; I10 Essential (primary) hypertension; E78.5 Hyperlipidemia, unspecified; F17.210 Nicotine dependence, cigarettes, uncomplicated; Z79.84 Long term (current) use of oral hypoglycemic drugs; Z79.899 Other long term (current) drug therapy
CPT/HCPCS: 71045; 80048; 83880; 84484; 85025; 85379; 87428; 93005; 99285; A4216

== ENCOUNTER 2023-09-12 03:18 | Inpatient (IN) | payer MEDICARE, MEDICAID, SELFPAY ==
[2023-09-12] VITALS (17 sets, daily range): BP systolic 133–159; BP diastolic 87–110; PULSE 73–94; RESP 12–27; TEMP 36.4–36.9; O2SAT 86–100; BMI 22.8; BMI 22.3
--- NOTE | 2023-09-12 03:39 | EKG12_ITS ---
Test Reason : DYSRHYTHMIA Blood Pressure : / mmHG Vent. Rate : 090 BPM Atrial Rate : 090 BPM P-R Int : 154 ms QRS Dur : 090 ms QT Int : 396 ms P-R-T Axes : 081 083 051 degrees QTc Int : 484 ms Normal sinus rhythm Prolonged QT Abnormal ECG Confirmed by CRIS CHILD, HERBIE ([id number]), assistant editor TINA SPRINGER ([id number]) on 09/14/2023 9:20:51 AM Referred By: Confirmed By:HERBIE LYNCH MD
--- NOTE | 2023-09-12 03:39 | RAD_ITS ---
INDICATION: dyspnea EXAMINATION/TECHNIQUE: X-RAY - XR Chest 1 View COMPARISON: Chest x-ray from 06/20/2023 FINDINGS: LINES/DEVICES: None. LUNGS: Stable scarlike opacities within left upper and left lower lung with chronic blunting of left costophrenic angle and mildly elevated left hemidiaphragm. No pulmonary edema or focal airspace consolidation. No sizable pleural effusion. No pneumothorax detected. MEDIASTINUM AND CARDIOVASCULAR STRUCTURES: Heart size within normal limits. Atherosclerotic calcifications along aorta. BONES AND SOFT TISSUES: No acute findings. RAD/Chest 1 View (Portable) IMPRESSION: Stable scarring left lung with no acute pulmonary airspace disease. Electronically Signed: Lazarus Flor MD at 5:22 EST ,
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
[2023-09-12] MEDS: Ipratropium/Albuterol Sulfate 3 ML AMPUL.NEB INHALATION ×3 (03:48→21:05)
[2023-09-12 04:09] LABS: Absolute Lymphocyte Count 1.31 X10^3/uL (0.83-4.51); Absolute Neutrophil Count 4.9 X10^3/uL (2.0-7.7); Basophil# 0.04 X10^3/uL; Basophil% 0.6 % (0-1); Eosinophil# 0.12 X10^3/uL; Eosinophils% 1.7 % (0-5); Hematocrit 37.3 % (40-54); Hemoglobin 11.1 g/dL (13.0-16.5); Lymphocyte # 1.31 X10^3/ul (0.83-4.51); Lymphocyte % 18.6 % (19-41); Mean Corp Hgb Conc 29.8 g/dL (32-36); Mean Corpuscular Hgb 28.3 pg (27.0-32.0); Mean Corpuscular Volume 95.2 fL (80-94); Monocyte# 0.63 X10^3/uL; Monocyte% 8.9 % (0-10); NRBC Flagged by Analyzer 0 % (0-5); Neutrophil # 4.91 X10^3/uL (2.7-7.7); Neutrophil % 69.8 % (47-70); Platelet Count 247 K/mm3 (150-450); RBC Distribution Width SD 48.2 fl (35.1-43.9); Red Blood Count 3.92 M/mm3 (4.6-6.2)
[2023-09-12 04:26] LABS: D-Dimer Quantitative (DVT/PE) < 0.27 FEU/ug/m (0.27-0.49)
[2023-09-12 04:29] LABS: Anion Gap 3 (5-15); BUN 12 mg/dL (7-18); BUN/Creat Ratio 19.9 RATIO (10-20); Calcium,Total 8.6 mg/dL (8.5-10.1); Chloride 103 mmol/L (98-107); EST Glomerular Filtration Rate 144 mL/min (>60); Est Glom Filt Rate - Afr Amer 175 mL/min (>60); Estimated Creatinine Clearance 120.88 ml/min; Glucose 133 mg/dL (74-106); Potassium 4.1 mmol/L (3.5-5.1); Sodium Level 141 mmol/L (136-145)
[2023-09-12 04:33] LABS: Lactic Acid 0.6 mmol/L (0.4-1.9)
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
[2023-09-12] MEDS: MethylPREDNISolone 125 MG/2 ML Vial IV (05:00)
[2023-09-12] MEDS: 0.9% Normal Saline (1000mL) 1,000 ML 150 ML IV (05:03)
[2023-09-12 07:20] LABS: Bedside Glucose 161 mg/dL (74-106)
--- NOTE | 2023-09-12 11:15 | CASEMGMT ---
Addendum entered by Marialuisa Diaz 09/12/23 12:19: SW received a return call from guardian Roxane Bellamy of [facility]. Guardian notified of admission and discussed discharge planning. Guardian reports patient is to return to [facility] when medically ready. Physician notified. Marialuisa GALE, NERY Original Note: Social Work SW confirmed with [facility] that patient is able to return when medically ready. Pt is a long-term resident and does not need a precert to return. Pt does have a legal guardian, voicemail left for guardian to confirm the plan is to return to [facility]. SW has not received a response from guardian yet. Marialuisa GALE, NERY
[2023-09-12] MEDS: OXcarbazepine 300 MG Tablet PO ×2 (11:19→22:03)
[2023-09-12] MEDS: metFORMIN HCl 1,000 MG Tablet 1000 MG PO ×2 (11:19→17:33)
[2023-09-12] MEDS: Polyethylene Glycol 3350 17 GM PACKET PO ×2 (11:19→22:03)
[2023-09-12] MEDS: Docusate Sodium 100 MG Capsule PO (11:19)
[2023-09-12] MEDS: Propranolol LA 80 MG Capsule PO (11:20)
[2023-09-12] MEDS: Enoxaparin 40 MG/0.4 ML Syringe SC (11:20)
[2023-09-12] MEDS: Lactulose 20 GM/30 ML UDC 10 GM PO ×2 (11:20→22:03)
[2023-09-12] MEDS: Cholecalciferol (VIT D3) 25 MCG TABLET (1,000 UNITS) 50 MCG PO (11:20)
[2023-09-12] MEDS: Insulin Lispro 100 UNIT/ML INSULN.PEN SC (11:27)
[2023-09-12 12:02] LABS: Bedside Glucose 274 mg/dL (74-106)
[2023-09-12] MEDS: dexAMETHasone 4 MG Tablet 6 MG PO (14:51)
[2023-09-12] MEDS: PALIPERIDONE 3 MG TAB.ER.24 PO ×2 (14:51→22:03)
[2023-09-12] MEDS: cloZAPine 100 MG TABLET PO (17:33)
[2023-09-12 17:56] LABS: Bedside Glucose 118 mg/dL (74-106)
--- NOTE | 2023-09-12 18:40 | PN.HOSP_ITS ---
Reason for Visit Reason for Visit: Diagnoses Hypoxemia (09/12/23) COVID-19 (09/12/23) Subjective Subjective Patient was seen and examined today, he remains confused at times, I am not sure the patient understands why he is in the hospital. Patient remains on 2 L of oxygen via nasal cannula, I have decided to start the patient on remdesivir due to his hypoxia and COVID. Objective Data Objective Data Vital Signs: Vital Signs Temp Pulse Resp BP Pulse Ox O2 Del Method O2 Flow Rate 98.1 F 73 16 149/102 H 94 Nasal Cannula 2 09/12/23 17:30 09/12/23 17:30 09/12/23 17:30 09/12/23 17:30 09/12/23 17:30 09/12/23 17:30 09/12/23 17:30 Oxygen Flow Rate (L/min) 2 Oxygen Delivery Method Nasal Cannula Weight: 62.8 kg Body Mass Index (BMI) 22.3 Intake & Output: Intake and Output for Last 24 Hours 09/10/23 09/11/23 09/12/23 23:59 23:59 23:59 Intake Total 2192.5 / 2192.5 Balance 2192.5 / 2192.5 Lab / Micro Data 09/12/23 04:00 09/12/23 04:00 Labs: Laboratory Results - last 24 hr 09/12/23 04:00: WBC 7.0, RBC 3.92 L, Hgb 11.1 L, Hct 37.3 L, MCV 95.2 H, MCH 28.3, MCHC 29.8 L, RDW Std Deviation 48.2 H, RDW Coeff of Zane 14.0, Plt Count 247, MPV 10.0, Immature Gran % (Auto) 0.400, Neut % (Auto) 69.8, Lymph % (Auto) 18.6 L, [place] % (Auto) 8.9, Eos % (Auto) 1.7, Baso % (Auto) 0.6, Absolute Neuts (auto) 4.9, Absolute Lymphs (auto) 1.31, Nucleated RBC % 0, D-Dimer Quant (P E/DVT) < 0.27 L, Sodium 141, Potassium 4.1, Chloride 103, Carbon Dioxide 35.0 H, Anion Gap 3 L, BUN 12, Creatinine 0.60 L, Estim Creat Clear Calc 120.88, Est GFR (MDRD) Af Amer 175, Est GFR (MDRD) Non-Af 144, BUN/Creatinine Ratio 19.9, Glucose 133 H, Lactic Acid 0.6, Calcium 8.6 09/12/23 06:59: POC Glucose 161 H 09/12/23 11:13: POC Glucose 274 H 09/12/23 17:23: POC Glucose 118 H Radiography Diagnostic Testing: Radiology Impression Chest X-Ray 09/12/23 03:39 IMPRESSION: Stable scarring left lung with no acute pulmonary airspace disease. Electronically Signed: Lazarus Flor MD at 5:22 EST , Physical Exam Const alert and no apparent distress General Appearance: cooperative and well developed Orientation / Consciousness: awake and confused HEENT normocephalic, head/scalp atraumatic and moist oral mucous membranes Eyes PERRL, EOMs intact bilaterally and conjunctivae normal Neck supple, no JVD, thyroid normal and no carotid bruits General: trachea midline Resp normal respiratory effort, no retractions, no use of accessory muscles and clear to auscultation bilaterally Auscultation: Negative for rales, rhonchi or wheezes Cardio regular rate, regular rhythm, S1 normal heart sound, S2 normal heart sound, no murmurs, no rub and no gallops GI normal to inspection, nondistended, normoactive bowel sounds, soft to palpation, non-tender and non-distended Extremity no clubbing, cyanosis or edema Skin no rashes or lesions noted General Skin Exam: no breakdown Neuro CN's II-XII intact bilaterally, moves all extremities, no focal motor deficits and no sensory deficits noted Sensorium / Orientation: awake and alert Psych Psych Narrative: Patient exhibits cognitive impairment Assessment & Plan Assessment/Plan (1) Hypoxemia: PLAN: Plan 1. COVID-19 infection with hypoxia-patient will remain on Decadron and he was placed on remdesivir today. Pulse ox will be monitored. #2 hypoxia secondary to 1-pulse ox will be monitored, oxygen will be adjusted accordingly #3 dementia-complicates care, medical course, recovery, and prognosis #4 type 2 diabetes-blood sugars will be monitored, sliding scale insulin will be administered as needed, patient is also on basal insulin Total clinical time spent by myself addressing patient's medical issues, reviewing all of his data, and collaborating with patient's care team: 35 minutes Charges/Coding Visit Charges Inpatient E&M: 37721 Subs Hosp L2
[2023-09-12] MEDS: Remdesivir 200 MG in 0.9% Normal Saline (250mL Bag) 210 ML 250 MG IV (20:21)
[2023-09-12] MEDS: cloZAPine 100 MG TABLET 300 MG PO (20:42)
[2023-09-12] MEDS: Insulin Glargine-YFGN 100 UNIT/ML Pen 10 UNIT SC (21:53)
[2023-09-12] MEDS: Tamsulosin HCl 0.4 MG Capsule 0.400000000000000022 MG PO (22:02)
[2023-09-12] MEDS: Atorvastatin Calcium 10 MG Tablet PO (22:03)
[2023-09-12] MEDS: MELATONIN 3 MG TABLET 6 MG PO (22:03)
[2023-09-12 22:14] LABS: Bedside Glucose 130 mg/dL (74-106)
[2023-09-13] VITALS (12 sets, daily range): BP systolic 106–145; BP diastolic 78–95; PULSE 74–83; RESP 18–22; TEMP 36.4–37.1; O2SAT 92–100
[2023-09-13 06:50] LABS: Absolute Lymphocyte Count 1.54 X10^3/uL (0.83-4.51); Absolute Neutrophil Count 5.7 X10^3/uL (2.0-7.7); Basophil# 0.02 X10^3/uL; Basophil% 0.2 % (0-1); Eosinophil# 0.01 X10^3/uL; Eosinophils% 0.1 % (0-5); Hemoglobin 11.1 g/dL (13.0-16.5); Lymphocyte # 1.54 X10^3/ul (0.83-4.51); Lymphocyte % 19.1 % (19-41); Mean Corp Hgb Conc 30.8 g/dL (32-36); Mean Corpuscular Hgb 28.7 pg (27.0-32.0); Mean Platelet Vol. 10.4 fl (6.2-12.0); Monocyte# 0.73 X10^3/uL; Monocyte% 9.1 % (0-10); NRBC Flagged by Analyzer 0 % (0-5); Neutrophil # 5.69 X10^3/uL (2.7-7.7); Neutrophil % 70.6 % (47-70); Platelet Count 258 K/mm3 (150-450); RBC Distribution Width CV 13.8 % (11.6-14.6); RBC Distribution Width SD 46.1 fl (35.1-43.9); Red Blood Count 3.87 M/mm3 (4.6-6.2); White Blood Count 8.1 K/mm3 (4.4-11.0)
[2023-09-13 06:51] LABS: Bedside Glucose 88 mg/dL (74-106)
[2023-09-13] MEDS: Ipratropium/Albuterol Sulfate 3 ML AMPUL.NEB INHALATION ×2 (07:23→12:55)
[2023-09-13 10:35] LABS: Anion Gap 5 (5-15); BUN 7 mg/dL (7-18); BUN/Creat Ratio 12.4 RATIO (10-20); Calcium,Total 8.6 mg/dL (8.5-10.1); Chloride 97 mmol/L (98-107); Creatinine, Serum 0.56 mg/dL (0.70-1.30); EST Glomerular Filtration Rate 156 mL/min (>60); Est Glom Filt Rate - Afr Amer 189 mL/min (>60); Estimated Creatinine Clearance 123.05 ml/min; Glucose 84 mg/dL (74-106); Sodium Level 135 mmol/L (136-145)
[2023-09-13] MEDS: Cholecalciferol (VIT D3) 25 MCG TABLET (1,000 UNITS) 50 MCG PO (11:07)
[2023-09-13] MEDS: Lactulose 20 GM/30 ML UDC 10 GM PO ×2 (11:07→21:20)
[2023-09-13] MEDS: Polyethylene Glycol 3350 17 GM PACKET PO ×2 (11:07→21:20)
[2023-09-13] MEDS: metFORMIN HCl 1,000 MG Tablet 1000 MG PO ×2 (11:07→17:09)
[2023-09-13] MEDS: Docusate Sodium 100 MG Capsule PO (11:07)
[2023-09-13] MEDS: Enoxaparin 40 MG/0.4 ML Syringe SC (11:07)
[2023-09-13] MEDS: Propranolol LA 80 MG Capsule PO (11:07)
[2023-09-13] MEDS: cloZAPine 100 MG TABLET 300 MG PO ×2 (11:08→21:18)
[2023-09-13] MEDS: dexAMETHasone 4 MG Tablet 6 MG PO (11:08)
[2023-09-13] MEDS: PALIPERIDONE 3 MG TAB.ER.24 PO ×2 (11:09→21:18)
[2023-09-13] MEDS: OXcarbazepine 300 MG Tablet PO ×2 (11:09→21:18)
[2023-09-13] MEDS: Insulin Lispro 100 UNIT/ML INSULN.PEN SC (11:29)
[2023-09-13 12:05] LABS: Bedside Glucose 198 mg/dL (74-106)
[2023-09-13] MEDS: CARIPRAZINE HCL 1.5 MG CAPSULE 3 MG PO (17:09)
[2023-09-13] MEDS: cloZAPine 100 MG TABLET PO (17:09)
[2023-09-13 17:33] LABS: Bedside Glucose 123 mg/dL (74-106)
--- NOTE | 2023-09-13 19:06 | PN.HOSP_ITS ---
Reason for Visit Reason for Visit: Diagnoses Hypoxemia (09/12/23) COVID-19 (09/12/23) Subjective Subjective Patient was seen and examined today, he does not appear to be in any distress, patient is now on room air, tomorrow I will have him perform a walking pulse oximetry. For now, I have elected to keep him on his present medication. Objective Data Objective Data Vital Signs: Vital Signs Temp Pulse Resp BP Pulse Ox O2 Del Method O2 Flow Rate 98.4 F 77 18 121/85 H 95 Room Air 2 09/13/23 17:04 09/13/23 17:04 09/13/23 17:04 09/13/23 17:04 09/13/23 17:04 09/13/23 17:04 09/13/23 17:00 Oxygen Flow Rate (L/min) 2 Oxygen Delivery Method Room Air Weight: 62.8 kg Body Mass Index (BMI) 22.3 Intake & Output: Intake and Output for Last 24 Hours 09/11/23 09/12/23 09/13/23 23:59 23:59 23:59 Intake Total 3322.5 / 3322.5 2240 / 2240 Balance 3322.5 / 3322.5 2240 / 2240 Lab / Micro Data 09/13/23 06:05 09/13/23 06:05 Labs: Laboratory Results - last 24 hr 09/12/23 21:45: POC Glucose 130 H 09/13/23 06:03: POC Glucose 88 09/13/23 06:05: WBC 8.1, RBC 3.87 L, Hgb 11.1 L, Hct 36.0 L, MCV 93.0, MCH 28.7, MCHC 30.8 L, RDW Std Deviation 46.1 H, RDW Coeff of Zane 13.8, Plt Count 258, MPV 10.4, Immature Gran % (Auto) 0.900, Neut % (Auto) 70.6 H, Lymph % (Auto) 19.1, [place] % (Auto) 9.1, Eos % (Auto) 0.1, Baso % (Auto) 0.2, Absolute Neuts (auto) 5.7, Absolute Lymphs (auto) 1.54, Nucleated RBC % 0, Sodium 135 L, Potassium 4.0, Chloride 97 L, Carbon Dioxide 33.0 H, Anion Gap 5, BUN 7, Creatinine 0.56 L , Estim Creat Clear Calc 123.05, Est GFR (MDRD) Af Amer 189, Est GFR (MDRD) Non- Af 156, BUN/Creatinine Ratio 12.4, Glucose 84, Calcium 8.6 09/13/23 10:59: POC Glucose 198 H 09/13/23 17:01: POC Glucose 123 H Physical Exam Narrative alert and no apparent distress General Appearance: cooperative and well developed Orientation / Consciousness: awake and confused HEENT normocephalic, head/scalp atraumatic and moist oral mucous membranes Eyes PERRL, EOMs intact bilaterally and conjunctivae normal Neck supple, no JVD, thyroid normal and no carotid bruits General: trachea midline Resp normal respiratory effort, no retractions, no use of accessory muscles and clear to auscultation bilaterally Auscultation: Negative for rales, rhonchi or wheezes Cardio regular rate, regular rhythm, S1 normal heart sound, S2 normal heart sound, no murmurs, no rub and no gallops GI normal to inspection, nondistended, normoactive bowel sounds, soft to palpation, non-tender and non-distended Extremity no clubbing, cyanosis or edema Skin no rashes or lesions noted General Skin Exam: no breakdown Neuro CN's II-XII intact bilaterally, moves all extremities, no focal motor deficits and no sensory deficits noted Sensorium / Orientation: awake and alert Psych Psych Narrative: Patient exhibits cognitive impairment Assessment & Plan Assessment/Plan (1) COVID-19: (2) Hypoxemia: PLAN: Plan 1. COVID-19 infection with hypoxia-patient will remain on Decadron and he remains on remdesivir . Pulse ox will be monitored. #2 hypoxia secondary to #1-pulse ox will be monitored, oxygen will be adjusted accordingly #3 dementia-complicates care, medical course, recovery, and prognosis #4 type 2 diabetes-blood sugars will be monitored, sliding scale insulin will be administered as needed, patient is also on basal insulin Total clinical time spent by myself addressing patient's medical issues, reviewing all of his data, and collaborating with patient's care team: 25 minutes Charges/Coding Visit Charges Inpatient E&M: 90509 Subs Hosp L1
[2023-09-13] MEDS: Remdesivir 100 MG in 0.9% Normal Saline (250mL Bag) 230 ML 250 MG IV (21:18)
[2023-09-13] MEDS: Tamsulosin HCl 0.4 MG Capsule 0.400000000000000022 MG PO (21:19)
[2023-09-13] MEDS: MELATONIN 3 MG TABLET 6 MG PO (21:19)
[2023-09-13] MEDS: Atorvastatin Calcium 10 MG Tablet PO (21:19)
[2023-09-14] VITALS (9 sets, daily range): BP systolic 118–156; BP diastolic 83–102; PULSE 82–88; RESP 18; TEMP 36.5–36.6; O2SAT 86–98
[2023-09-14 01:12] LABS: Bedside Glucose 110 mg/dL (74-106)
[2023-09-14 06:21] LABS: Bedside Glucose 106 mg/dL (74-106)
[2023-09-14] MEDS: Ipratropium/Albuterol Sulfate 3 ML AMPUL.NEB INHALATION ×2 (07:53→21:32)
--- NOTE | 2023-09-14 09:05 | CASEMGMT ---
Discharge Planning Updates sent to [facility] via [employer]. Alison Adame, Discharge Planning Asst.
[2023-09-14] MEDS: Propranolol LA 80 MG Capsule PO (09:26)
[2023-09-14] MEDS: Cholecalciferol (VIT D3) 25 MCG TABLET (1,000 UNITS) 50 MCG PO (09:26)
[2023-09-14] MEDS: Docusate Sodium 100 MG Capsule PO (09:26)
[2023-09-14] MEDS: metFORMIN HCl 1,000 MG Tablet 1000 MG PO ×2 (09:26→16:55)
[2023-09-14] MEDS: dexAMETHasone 4 MG Tablet 6 MG PO (09:27)
[2023-09-14] MEDS: cloZAPine 100 MG TABLET 300 MG PO ×2 (09:27→21:49)
[2023-09-14] MEDS: OXcarbazepine 300 MG Tablet PO ×2 (09:28→21:49)
[2023-09-14] MEDS: Lactulose 20 GM/30 ML UDC 10 GM PO ×2 (09:28→21:48)
[2023-09-14] MEDS: PALIPERIDONE 3 MG TAB.ER.24 PO ×2 (09:28→21:49)
[2023-09-14] MEDS: Polyethylene Glycol 3350 17 GM PACKET PO ×2 (09:29→21:47)
[2023-09-14] MEDS: Insulin Lispro 100 UNIT/ML INSULN.PEN SC ×2 (12:10→17:02)
[2023-09-14 12:34] LABS: Bedside Glucose 162 mg/dL (74-106)
[2023-09-14] MEDS: cloZAPine 100 MG TABLET PO (16:55)
[2023-09-14 17:21] LABS: Bedside Glucose 196 mg/dL (74-106)
--- NOTE | 2023-09-14 21:05 | PN.HOSP_ITS ---
Reason for Visit Reason for Visit: Diagnoses Hypoxemia (09/12/23) COVID-19 (09/12/23) Subjective Subjective Patient was seen and examined today, currently he is on 3 L of oxygen via nasal cannula. Patient remains confused, he does not have any shortness of breath at rest. Objective Data Objective Data Vital Signs: Vital Signs Temp Pulse Resp BP Pulse Ox O2 Del Method O2 Flow Rate 97.9 F 82 18 143/83 H 98 Nasal Cannula 3 09/14/23 16:46 09/14/23 16:46 09/14/23 16:46 09/14/23 16:46 09/14/23 16:46 09/14/23 16:46 09/14/23 16:46 Oxygen Flow Rate (L/min) 3 Oxygen Delivery Method Nasal Cannula Weight: 62.8 kg Body Mass Index (BMI) 22.3 Intake & Output: Intake and Output for Last 24 Hours 09/12/23 09/13/23 09/14/23 23:59 23:59 23:59 Intake Total 3322.5 / 3322.5 2490 / 2490 450 / 450 Balance 3322.5 / 3322.5 2490 / 2490 450 / 450 Lab / Micro Data 09/13/23 06:05 09/13/23 06:05 Labs: Laboratory Results - last 24 hr 09/13/23 21:16: POC Glucose 110 H 09/14/23 06:03: POC Glucose 106 09/14/23 12:09: POC Glucose 162 H 09/14/23 17:01: POC Glucose 196 H Micro: Microbiology 09/12/23 04:00 Blood Culture (Wb) - Right Forearm Blood Culture - Preliminary No growth in 48 hours. Physical Exam Narrative alert and no apparent distress General Appearance: cooperative and well developed Orientation / Consciousness: awake and confused HEENT normocephalic, head/scalp atraumatic and moist oral mucous membranes Eyes PERRL, EOMs intact bilaterally and conjunctivae normal Neck supple, no JVD, thyroid normal and no carotid bruits General: trachea midline Resp normal respiratory effort, no retractions, no use of accessory muscles and clear to auscultation bilaterally Auscultation: Negative for rales, rhonchi or wheezes Cardio regular rate, regular rhythm, S1 normal heart sound, S2 normal heart sound, no murmurs, no rub and no gallops GI normal to inspection, nondistended, normoactive bowel sounds, soft to palpation, non-tender and non-distended Extremity no clubbing, cyanosis or edema Skin no rashes or lesions noted General Skin Exam: no breakdown Neuro CN's II-XII intact bilaterally, moves all extremities, no focal motor deficits and no sensory deficits noted Sensorium / Orientation: awake and alert Psych Psych Narrative: Patient exhibits cognitive impairment Assessment & Plan Assessment/Plan (1) COVID-19: (2) Hypoxemia: PLAN: Plan 1. COVID-19 infection with hypoxia-patient will remain on Decadron and he remains on remdesivir . Pulse ox will be monitored. #2 hypoxia secondary to #1-pulse ox will be monitored, oxygen will be adjusted accordingly, he remains on 3 L of oxygen via nasal cannula #3 dementia-complicates care, medical course, recovery, and prognosis #4 type 2 diabetes-blood sugars will be monitored, sliding scale insulin will be administered as needed, patient is also on basal insulin Total clinical time spent by myself addressing patient's medical issues, reviewing all of his data, and collaborating with patient's care team: 25 minutes Capacity Legal Sale Professional [employer] Marketing Reflex Medical hold order details:: IF a medical hold is selected below, a suggested order for a MEDICAL HOLD will reflex upon signing the document. Next of kin: [place] law dictates a PRIORITY LIST for identifying legal decision-maker/legal next of kin in the following order (LNOK): 1st: The patient?s legal guardian, if any 2nd: The patient's spouse (if status is questionable, consult Risk Management) 3rd: The patient?s adult child(celena) (majority, if multiple children) 4th: The patient?s parents 5th: The patient?s adult siblings (majority, if multiple children siblings) Charges/Coding Visit Charges Inpatient E&M: 95102 Subs Hosp L1
[2023-09-14] MEDS: 0.9% Saline Lock 10 ML Syringe IV (21:47)
[2023-09-14] MEDS: Remdesivir 100 MG in 0.9% Normal Saline (250mL Bag) 230 ML 250 MG IV (21:47)
[2023-09-14] MEDS: MELATONIN 3 MG TABLET 6 MG PO (21:49)
[2023-09-14] MEDS: Tamsulosin HCl 0.4 MG Capsule 0.400000000000000022 MG PO (21:49)
[2023-09-14] MEDS: Atorvastatin Calcium 10 MG Tablet PO (21:49)
--- NOTE | 2023-09-14 22:14 | NURSING ---
nsg called for update and pt agreeable to giving update-even saying tell them that i still feel a little sick pt denies pain-does have harsh sounding non-productive cough-nsg home faisal poole
[2023-09-14 22:23] LABS: Bedside Glucose 122 mg/dL (74-106)
[2023-09-15] VITALS (12 sets, daily range): BP systolic 116–159; BP diastolic 52–103; PULSE 77–99; RESP 16–20; TEMP 35.9–36.8; O2SAT 87–99
[2023-09-15] MEDS: Insulin Lispro 100 UNIT/ML INSULN.PEN SC ×3 (06:29→17:06)
[2023-09-15 07:00] LABS: Bedside Glucose 175 mg/dL (74-106)
[2023-09-15] MEDS: Ipratropium/Albuterol Sulfate 3 ML AMPUL.NEB INHALATION ×3 (07:14→19:12)
--- NOTE | 2023-09-15 11:06 | CASEMGMT ---
REGINA received a call from patient's legal guardian Madai. Madai was asking when patient would be discharged as she thought he was supposed to be discharged on Thursday. REGINA let Madai know patient was on O2 yesterday and physician did not want to send him back on O2. REGINA explained the physician has not rounded yet today, but SW can let her know when patient is being discharged. Plan: Back to [facility] when medically ready. Laura Waller MSW DAVID
[2023-09-15] MEDS: Cholecalciferol (VIT D3) 25 MCG TABLET (1,000 UNITS) 50 MCG PO (11:21)
[2023-09-15] MEDS: Enoxaparin 40 MG/0.4 ML Syringe SC (11:21)
[2023-09-15] MEDS: Propranolol LA 80 MG Capsule PO (11:21)
[2023-09-15] MEDS: Lactulose 20 GM/30 ML UDC 10 GM PO ×2 (11:21→21:59)
[2023-09-15] MEDS: metFORMIN HCl 1,000 MG Tablet 1000 MG PO ×2 (11:21→17:10)
[2023-09-15] MEDS: Docusate Sodium 100 MG Capsule PO (11:21)
[2023-09-15] MEDS: dexAMETHasone 4 MG Tablet 6 MG PO (11:21)
[2023-09-15] MEDS: Polyethylene Glycol 3350 17 GM PACKET PO ×2 (11:21→22:01)
[2023-09-15] MEDS: cloZAPine 100 MG TABLET 300 MG PO ×2 (11:22→22:00)
[2023-09-15] MEDS: CARIPRAZINE HCL 1.5 MG CAPSULE 3 MG PO (11:22)
[2023-09-15] MEDS: OXcarbazepine 300 MG Tablet PO ×2 (11:22→22:03)
--- NOTE | 2023-09-15 11:43 | CASEMGMT ---
Patient is not going to be discharged today as he is still on O2 and needs Remdesivir. SW called patient's guardian Madai and let her know this information. Plan[place] [facility] [place]. Laura Waller CHILD ATTENDANTVictor Hugo HERNANDEZ
[2023-09-15 11:52] LABS: Bedside Glucose 178 mg/dL (74-106)
[2023-09-15] MEDS: PALIPERIDONE 3 MG TAB.ER.24 PO ×2 (12:56→22:02)
--- NOTE | 2023-09-15 17:07 | PN.HOSP_ITS ---
Reason for Visit Reason for Visit: Diagnoses Hypoxemia (09/12/23) COVID-19 (09/12/23) Subjective Subjective Patient was seen and examined today, he remains confused, he is at this time on room air, I will recheck him tomorrow for possible discharge and if he is not requiring oxygen, he can be discharged back to his group home and taken off the remdesivir. Objective Data Objective Data Vital Signs: Vital Signs Temp Pulse Resp BP Pulse Ox O2 Del Method O2 Flow Rate 96.7 F L 87 18 143/101 H 95 Room Air 2 09/15/23 17:04 09/15/23 17:04 09/15/23 17:04 09/15/23 17:04 09/15/23 17:04 09/15/23 17:04 09/15/23 12:54 Oxygen Flow Rate (L/min) 2 Oxygen Delivery Method Room Air Weight: 62.8 kg Body Mass Index (BMI) 22.3 Intake & Output: Intake and Output for Last 24 Hours 09/13/23 09/14/23 09/15/23 23:59 23:59 23:59 Intake Total 2490 / 2490 1225 / 1225 670 / 670 Output Total 400 / 400 Balance 2490 / 2490 1225 / 1225 270 / 270 Lab / Micro Data 09/13/23 06:05 09/13/23 06:05 Labs: Laboratory Results - last 24 hr 09/14/23 17:01: POC Glucose 196 H 09/14/23 21:44: POC Glucose 122 H 09/15/23 06:28: POC Glucose 175 H 09/15/23 11:13: POC Glucose 178 H Micro: Microbiology 09/12/23 04:00 Blood Culture (Wb) - Right Forearm Blood Culture - Preliminary No growth in 48 hours. Physical Exam Narrative alert and no apparent distress General Appearance: cooperative and well developed Orientation / Consciousness: awake and confused HEENT normocephalic, head/scalp atraumatic and moist oral mucous membranes Eyes PERRL, EOMs intact bilaterally and conjunctivae normal Neck supple, no JVD, thyroid normal and no carotid bruits General: trachea midline Resp normal respiratory effort, no retractions, no use of accessory muscles and clear to auscultation bilaterally Auscultation: Negative for rales, rhonchi or wheezes Cardio regular rate, regular rhythm, S1 normal heart sound, S2 normal heart sound, no murmurs, no rub and no gallops GI normal to inspection, nondistended, normoactive bowel sounds, soft to palpation, non-tender and non-distended Extremity no clubbing, cyanosis or edema Skin no rashes or lesions noted General Skin Exam: no breakdown Neuro CN's II-XII intact bilaterally, moves all extremities, no focal motor deficits and no sensory deficits noted Sensorium / Orientation: awake and alert Psych Psych Narrative: Patient exhibits cognitive impairment Assessment & Plan Assessment/Plan (1) History of dementia: (2) COVID-19: (3) Hypoxemia: PLAN: Plan 1. COVID-19 infection with hypoxia-patient will remain on Decadron and he remains on remdesivir. Pulse ox will be monitored. #2 hypoxia secondary to #1-this has resolved #3 dementia-complicates care, medical course, recovery, and prognosis #4 type 2 diabetes-blood sugars will be monitored, sliding scale insulin will be administered as needed, patient is also on basal insulin Total clinical time spent by myself addressing patient's medical issues, reviewing all of his data, and collaborating with patient's care team: 25 minutes Capacity Legal Air Intercept Controller Reflex Medical hold order details:: IF a medical hold is selected below, a suggested order for a MEDICAL HOLD will reflex upon signing the document. Next of kin: [place] law dictates a PRIORITY LIST for identifying legal decision-maker/legal next of kin in the following order (LNOK): 1st: The patient?s legal guardian, if any 2nd: The patient's spouse (if status is questionable, consult Risk Management) 3rd: The patient?s adult child(celena) (majority, if multiple children) 4th: The patient?s parents 5th: The patient?s adult siblings (majority, if multiple children siblings) Charges/Coding Visit Charges Inpatient E&M: 29810 Subs Hosp L1
[2023-09-15] MEDS: cloZAPine 100 MG TABLET PO (17:10)
[2023-09-15 17:24] LABS: Bedside Glucose 289 mg/dL (74-106)
[2023-09-15] MEDS: Tamsulosin HCl 0.4 MG Capsule 0.400000000000000022 MG PO (21:59)
[2023-09-15] MEDS: MELATONIN 3 MG TABLET 6 MG PO (22:00)
[2023-09-15] MEDS: Atorvastatin Calcium 10 MG Tablet PO (22:01)
[2023-09-15] MEDS: 0.9% Saline Lock 10 ML Syringe IV (22:37)
[2023-09-15] MEDS: Remdesivir 100 MG in 0.9% Normal Saline (250mL Bag) 230 ML 250 MG IV (22:38)
[2023-09-15 22:57] LABS: Bedside Glucose 106 mg/dL (74-106)
[2023-09-16] VITALS (7 sets, daily range): BP systolic 107–136; BP diastolic 72–93; PULSE 81–92; RESP 14–20; TEMP 36.3–36.6; O2SAT 92–95
[2023-09-16] MEDS: Ipratropium/Albuterol Sulfate 3 ML AMPUL.NEB INHALATION ×2 (06:57→13:20)
[2023-09-16 07:10] LABS: Bedside Glucose 125 mg/dL (74-106)
[2023-09-16] MEDS: Propranolol LA 80 MG Capsule PO (10:00)
[2023-09-16] MEDS: OXcarbazepine 300 MG Tablet PO ×2 (10:00→21:00)
[2023-09-16] MEDS: Polyethylene Glycol 3350 17 GM PACKET PO ×2 (10:00→20:52)
[2023-09-16] MEDS: Docusate Sodium 100 MG Capsule PO (10:00)
[2023-09-16] MEDS: dexAMETHasone 4 MG Tablet 6 MG PO (10:01)
[2023-09-16] MEDS: cloZAPine 100 MG TABLET 300 MG PO ×2 (10:01→20:55)
[2023-09-16] MEDS: Lactulose 20 GM/30 ML UDC 10 GM PO ×2 (10:01→20:52)
[2023-09-16] MEDS: CARIPRAZINE HCL 1.5 MG CAPSULE 3 MG PO ×2 (10:02→20:54)
[2023-09-16] MEDS: PALIPERIDONE 3 MG TAB.ER.24 PO ×2 (10:02→20:54)
[2023-09-16] MEDS: Cholecalciferol (VIT D3) 25 MCG TABLET (1,000 UNITS) 50 MCG PO (10:02)
[2023-09-16] MEDS: metFORMIN HCl 1,000 MG Tablet 1000 MG PO ×2 (10:02→17:43)
[2023-09-16] MEDS: Insulin Lispro 100 UNIT/ML INSULN.PEN SC ×3 (11:20→20:58)
[2023-09-16 11:39] LABS: Bedside Glucose 171 mg/dL (74-106)
--- NOTE | 2023-09-16 16:33 | CASEMGMT ---
Patient will be discharged back to [facility]. SW called patient's guardian Madai and left her a voice mail letting her know patient will be discharged back to [facility] today. Plan: d/c back to [facility] under intermediate level of care. Physicians will transport patient. Laura HERNANDEZ
[2023-09-16 17:12] LABS: Bedside Glucose 216 mg/dL (74-106)
--- NOTE | 2023-09-16 17:14 | PCM.TXEXTCAR ---
Diet Diet Order/Speech Therapy: 09/12/23 06:17 Diet: Consistent Carb - Calorie Controlled Food consistency:: Mechanical (Minced/Moist) Liquid Consistency:: Regular/Thin Dietary Modifications:: Cardiac / Heart Healthy How many daily calories?: 1800 calorie Routine Orders/Code Status Code Status: DNRCC-A (no intubation) Therapies Weight Bearing: Full weight bearing Problem/Diagnosis (1) COVID-19: Status: Acute Code(s): U07.1 - COVID-19 (2) Hypoxemia: Status: Acute Code(s): R09.02 - Hypoxemia Plan 1. COVID-19 infection with hypoxia-patient will remain on Decadron and he remains on Decadron . Pulse ox will be monitored. #2 hypoxia secondary to #1-this has resolved #3 dementia-complicates care, medical course, recovery, and prognosis #4 type 2 diabetes-blood sugars will be monitored, sliding scale insulin will be administered as needed, patient is also on basal insulin Total clinical time spent by myself addressing patient's medical issues, reviewing all of his data, and collaborating with patient's care team: 25 minutes Allergies/Procedures Done in Hospital Allergies benztropine Allergy (Verified 09/12/23 03:27) Other agitation haloperidol [From Haldol] Allergy (Verified 09/12/23 03:27) PT UNSURE OF REACTION agitation Procedures: None Type of Care/Length of Stay Estimated LOS: More Than 30 Days Type of Care Needed: Intermediate Rehab Potential: None Prognosis: None Additional Orders/Day of Discharge H&P will serve as current which was dated: 09/12/23 Day of Discharge: 09/16/23 Dietary and Speech Recommendations Dietitian Recommendations/Changes: Will continue 1800 calorie/consistent carbohydrate diet with addition of cardiac diet restriction with consistency/texture as per SUPERVISOR WET [employer]. Glucerna shake as needed once Po established with meals. Discharge Plan Admission Admit Date/Time: 09/12/23 05:20 Primary Reason for Your Visit: COVID 19, hypoxia Attending Provider: Lazarus Nunez Primary Care Provider: Joseluis Mcghee Consulting Providers: Francia Guerra Instructions Additional Instructions / Restrictions: Fingerstick blood sugars ACQHS, coverage Discharge Orders/Prescriptions Prescriptions: New dexamethasone 4 mg Tablet 6 mg PO DAILY Qty: 5 0RF Rx Instructions: one daily for 5 days starting 09/17/23 insulin lispro [Humalog KwikPen Insulin] 100 unit/mL Insulin Pen See Protocol subcut ACHS Qty: 1 0RF Protocol: 4. Sliding Scale Insulin High-Med Dosing Condition: 150-199 mg/dl = 2 units Condition: 200-259 mg/dl = 4 units Condition: 260-324 mg/dl = 6 units Condition: 325-374 mg/dl = 8 units Condition: 375-409 mg/dl = 10 units Condition: 410-449 mg/dl = 11 units Condition: Greater than 449 call physician Protocol Text: - Use for Total Daily Dose of Insulin 56-80 units - Patient who are insulin resistant or septic HIGH MEDIUM DOSING ALGORITHM lorazepam [Ativan] 0.5 mg tablet 0.5 mg PO TID PRN (Reason: agitation) Qty: 9 0RF Continued atorvastatin 10 mg tablet 10 mg PO QHS tiotropium bromide [Spiriva with HandiHaler] 18 mcg Capsule, W/Inhalation Device 1 cap INHALATION DAILY docusate sodium 100 mg Tablet 100 mg PO DAILY acetaminophen 325 mg Tablet 650 mg PO Q4H PRN (Reason: Pain) hydroxyzine HCl 50 mg tablet 50 mg PO Q8H PRN PRN (Reason: Anxiety) magnesium hydroxide [Milk of Magnesia] 400 mg/5 mL Suspension 400 mg PO DAILY PRN (Reason: Indigestion) tamsulosin [Flomax] 0.4 mg Capsule 0.4 mg PO QHS bisacodyl [Dulcolax (bisacodyl)] 10 mg Suppository 10 mg DE DAILY PRN (Reason: Constipation) metformin 1,000 mg tablet 1,000 mg PO BID alum-mag hydroxide-simeth 200-200-20 mg/5 mL Suspension 30 ml PO Q3H PRN (Reason: Indigestion) melatonin 1 mg Tablet 6 mg PO DAILY cholecalciferol (vitamin D3) [Vitamin D3] 50 mcg (2,000 unit) Tablet 50 mcg PO DAILY nicotine (polacrilex) 2 mg Mini Lozenge 2 mg PO Q2H PRN (Reason: smoking alternative) clozapine [Clozaril] 100 mg tablet 100 mg PO TID Rx Instructions: 200 mg plus 100 mg to equal 300 mg at 0800 & 2000 100 mg only at 1600 diphenhydramine HCl [Benadryl] 25 mg Capsule 25 mg PO TID PRN (Reason: Agitation) clozapine 200 mg tablet 200 mg PO BID Rx Instructions: 200 mg plus 100 mg to equal 300 mg at 0800 & 2000 100 mg only at 1600 polyethylene glycol 3350 [Miralax] 17 gram Powder In Packet 17 g PO BID oxcarbazepine [Trileptal] 300 mg Tablet 300 mg PO BID propranolol 80 mg capsule,extended release 24 hr 80 mg PO DAILY cariprazine 3 mg Capsule 3 mg PO DAILY fluphenazine HCl 5 mg tablet 5 mg PO Q6H PRN (Reason: agitation) fluphenazine HCl 2.5 mg/mL solution 5 mg IM Q6H PRN (Reason: agitation) paliperidone 3 mg tablet extended release 24hr 3 mg PO BID ipratropium-albuterol 0.5 mg-3 mg(2.5 mg base)/3 mL solution for nebulization 3 ml continuous nebulization .QID PRN (Reason: SOB OR WHEEZIN) lactulose [Enulose] 10 gram/15 mL solution 10 g PO BID insulin glargine [Lantus Solostar U-100 Insulin] 100 unit/mL (3 mL) insulin pen 10 unit subcut QHS lorazepam 0.5 mg tablet 0.5 mg PO TID PRN (Reason: anxiety) Qty: 9 0RF Discontinued miconazole nitrate [Antifungal (miconazole)] 2 % cream 1 applic topical BID Referrals / Follow Up: Joseluis Mcghee MD [Primary Care Provider] - Disposition Disposition (needs filled in before D/C Order can be placed): NonSkilled NH/Intermed Care
--- NOTE | 2023-09-16 17:33 | DS.PCM_ITS ---
Providers Date of Admission: 09/12/23 Date of Discharge: 09/16/23 Primary Care Physician: Dr. Joseluis Mcghee MD Reason For Visit: COVID, HYPOXIA Diagnosis Discharge Diagnosis (1) COVID-19: Status: Acute Code(s): U07.1 - COVID-19 (2) Hypoxemia: Status: Acute Code(s): R09.02 - Hypoxemia Plan 1. COVID-19 infection with hypoxia-patient will remain on Decadron and he remains on Decadron . Pulse ox will be monitored. #2 hypoxia secondary to #1-this has resolved #3 dementia-complicates care, medical course, recovery, and prognosis #4 type 2 diabetes-blood sugars will be monitored, sliding scale insulin will be administered as needed, patient is also on basal insulin Total clinical time spent by myself addressing patient's medical issues, reviewing all of his data, and collaborating with patient's care team: 25 minutes Medications at Discharge Home Medications atorvastatin 10 mg tablet 10 mg PO QHS cholesterol 11/11/21 tiotropium bromide 18 mcg capsule with inhalation device (Spiriva with HandiHaler) 1 cap inhalation DAILY inhaler 11/11/21 acetaminophen 325 mg tablet 650 mg PO Q4H PRN Pain 02/01/22 aluminum-mag hydroxide-simethicone 200 mg-200 mg-20 mg/5 mL oral susp 30 ml PO Q3H PRN Indigestion 02/01/22 bisacodyl 10 mg rectal suppository (Dulcolax (bisacodyl)) 10 mg MO DAILY PRN Constipation 02/01/22 cholecalciferol (vitamin D3) 50 mcg (2,000 unit) tablet (Vitamin D3) 50 mcg PO DAILY Vitamin 02/01/22 docusate sodium 100 mg tablet 100 mg PO DAILY constipation 02/01/22 hydroxyzine HCl 50 mg tablet 50 mg PO Q8H PRN PRN Anxiety 02/01/22 magnesium hydroxide 400 mg/5 mL oral suspension (Milk of Magnesia) 400 mg PO DAILY PRN Indigestion 02/01/22 melatonin 1 mg tablet 6 mg PO DAILY Insomnia 02/01/22 metformin 1,000 mg tablet 1,000 mg PO BID DM 02/01/22 nicotine (polacrilex) 2 mg buccal mini lozenge 2 mg PO Q2H PRN smoking alternative 02/01/22 tamsulosin 0.4 mg capsule (Flomax) 0.4 mg PO QHS retention 02/01/22 clozapine 100 mg tablet (Clozaril) 100 mg PO TID Schizophrenia 07/20/22 cariprazine 3 mg capsule 3 mg PO DAILY antipsycotic 11/28/22 clozapine 200 mg tablet 200 mg PO BID Schizophrenia 11/28/22 diphenhydramine HCl 25 mg capsule (Benadryl) 25 mg PO TID PRN Agitation 11/28/22 oxcarbazepine 300 mg tablet (Trileptal) 300 mg PO BID bipolar 11/28/22 polyethylene glycol 3350 17 gram oral powder packet (Miralax) 17 g PO BID constipation 11/28/22 propranolol 80 mg capsule,24 hr,extended release 80 mg PO DAILY HTN 11/28/22 fluphenazine HCl 2.5 mg/mL injection solution 5 mg IM Q6H PRN agitation 04/24/23 fluphenazine HCl 5 mg tablet 5 mg PO Q6H PRN agitation 04/24/23 insulin glargine 100 unit/mL (3 mL) subcutaneous pen (Lantus Solostar U-100 Insulin) 10 unit subcut QHS DM 04/24/23 ipratropium 0.5 mg-albuterol 3 mg (2.5 mg base)/3 mL nebulization soln 3 ml continuous nebulization .QID PRN SOB OR WHEEZIN 04/24/23 lactulose 10 gram/15 mL oral solution (Enulose) 10 g PO BID confusion 04/24/23 paliperidone 3 mg tablet,extended release 24 hr 3 mg PO BID antipsycotic 04/24/23 dexamethasone 4 mg tablet 6 mg (1.5 x 4 mg) PO DAILY #5 tabs 09/16/23 insulin lispro 100 unit/mL subcutaneous pen (Humalog KwikPen (U-100) Insulin) See Protocol subcut ACHS #1 mL 09/16/23 lorazepam 0.5 mg tablet 0.5 mg PO TID PRN anxiety #9 tabs 09/16/23 lorazepam 0.5 mg tablet (Ativan) 0.5 mg PO TID PRN agitation #9 tabs 09/16/23 Hospital Course Operations None Procedures None Summary of Care Provided Minutes Spent on Discharge: 39 Hospital Course: This 63-year-old white male was seen in the emergency room at [facility] with complaints of shortness of breath, he is a resident at a nursing facility/psychiatric facility and he has a history of dementia. Patient had been diagnosed as an outpatient with COVID-19 and was on day 7 of the illness. O2 saturations at the [facility] was noted to be low at 79. Patient was admitted to PCU, he required supplemental oxygen at a low flow via nasal cannula. Patient was placed on IV remdesivir and Decadron, PT and OT saw the patient. Over the next several days, patient was able to be weaned off oxygen, he had no major medical complications during his admission to the hospital. On 09/16/2023, patient was seen and examined:alert and no apparent distress General Appearance: cooperative and well developed Orientation / Consciousness: awake and confused HEENT normocephalic, head/scalp atraumatic and moist oral mucous membranes Eyes PERRL, EOMs intact bilaterally and conjunctivae normal Neck supple, no JVD, thyroid normal and no carotid bruits General: trachea midline Resp normal respiratory effort, no retractions, no use of accessory muscles and clear to auscultation bilaterally Auscultation: Negative for rales, rhonchi or wheezes Cardio regular rate, regular rhythm, S1 normal heart sound, S2 normal heart sound, no murmurs, no rub and no gallops GI normal to inspection, nondistended, normoactive bowel sounds, soft to palpation, non-tender and non-distended Extremity no clubbing, cyanosis or edema Skin no rashes or lesions noted General Skin Exam: no breakdown Neuro CN's II-XII intact bilaterally, moves all extremities, no focal motor deficits and no sensory deficits noted Sensorium / Orientation: awake and alert Psych Psych Narrative: Patient exhibits cognitive impairment Patient was discharged to back to his nursing facility/psychiatric facility in stable condition on 09/16/2023 Weight / BMI Weight Weight: 62.8 kg Body Mass Index (BMI) 22.3 ABG / Lab / Microbiology Data 09/13/23 06:05 09/13/23 06:05 Laboratory: Laboratory Results - last 24 hr 09/15/23 22:08: POC Glucose 106 09/16/23 06:25: POC Glucose 125 H 09/16/23 11:19: POC Glucose 171 H 09/16/23 16:53: POC Glucose 216 H Microbiology: Microbiology 09/12/23 04:00 Blood Culture (Wb) - Right Forearm Blood Culture - Preliminary No growth in 48 hours. Meaningful Use Info Meaningful Use Diagnoses (Choose all that apply): None applicable Discharge Plan Admission Admit Date/Time: 09/12/23 05:20 Primary Reason for Your Visit: COVID 19, hypoxia Attending Provider: Lazarus Nunez Primary Care Provider: Joseluis Mcghee Consulting Providers: Francia Guerra Instructions Additional Instructions / Restrictions: Fingerstick blood sugars ACQHS, coverage Discharge Orders/Prescriptions Prescriptions: New dexamethasone 4 mg Tablet 6 mg PO DAILY Qty: 5 0RF Rx Instructions: one daily for 5 days starting 09/17/23 insulin lispro [Humalog KwikPen Insulin] 100 unit/mL Insulin Pen See Protocol subcut ACHS Qty: 1 0RF Protocol: 4. Sliding Scale Insulin High-Med Dosing Condition: 150-199 mg/dl = 2 units Condition: 200-259 mg/dl = 4 units Condition: 260-324 mg/dl = 6 units Condition: 325-374 mg/dl = 8 units Condition: 375-409 mg/dl = 10 units Condition: 410-449 mg/dl = 11 units Condition: Greater than 449 call physician Protocol Text: - Use for Total Daily Dose of Insulin 56-80 units - Patient who are insulin resistant or septic HIGH MEDIUM DOSING ALGORITHM lorazepam [Ativan] 0.5 mg tablet 0.5 mg PO TID PRN (Reason: agitation) Qty: 9 0RF Continued atorvastatin 10 mg tablet 10 mg PO QHS tiotropium bromide [Spiriva with HandiHaler] 18 mcg Capsule, W/Inhalation Device 1 cap INHALATION DAILY docusate sodium 100 mg Tablet 100 mg PO DAILY acetaminophen 325 mg Tablet 650 mg PO Q4H PRN (Reason: Pain) hydroxyzine HCl 50 mg tablet 50 mg PO Q8H PRN PRN (Reason: Anxiety) magnesium hydroxide [Milk of Magnesia] 400 mg/5 mL Suspension 400 mg PO DAILY PRN (Reason: Indigestion) tamsulosin [Flomax] 0.4 mg Capsule 0.4 mg PO QHS bisacodyl [Dulcolax (bisacodyl)] 10 mg Suppository 10 mg MO DAILY PRN (Reason: Constipation) metformin 1,000 mg tablet 1,000 mg PO BID alum-mag hydroxide-simeth 200-200-20 mg/5 mL Suspension 30 ml PO Q3H PRN (Reason: Indigestion) melatonin 1 mg Tablet 6 mg PO DAILY cholecalciferol (vitamin D3) [Vitamin D3] 50 mcg (2,000 unit) Tablet 50 mcg PO DAILY nicotine (polacrilex) 2 mg Mini Lozenge 2 mg PO Q2H PRN (Reason: smoking alternative) clozapine [Clozaril] 100 mg tablet 100 mg PO TID Rx Instructions: 200 mg plus 100 mg to equal 300 mg at 0800 & 2000 100 mg only at 1600 diphenhydramine HCl [Benadryl] 25 mg Capsule 25 mg PO TID PRN (Reason: Agitation) clozapine 200 mg tablet 200 mg PO BID Rx Instructions: 200 mg plus 100 mg to equal 300 mg at 0800 & 2000 100 mg only at 1600 polyethylene glycol 3350 [Miralax] 17 gram Powder In Packet 17 g PO BID oxcarbazepine [Trileptal] 300 mg Tablet 300 mg PO BID propranolol 80 mg capsule,extended release 24 hr 80 mg PO DAILY cariprazine 3 mg Capsule 3 mg PO DAILY fluphenazine HCl 5 mg tablet 5 mg PO Q6H PRN (Reason: agitation) fluphenazine HCl 2.5 mg/mL solution 5 mg IM Q6H PRN (Reason: agitation) paliperidone 3 mg tablet extended release 24hr 3 mg PO BID ipratropium-albuterol 0.5 mg-3 mg(2.5 mg base)/3 mL solution for nebulization 3 ml continuous nebulization .QID PRN (Reason: SOB OR WHEEZIN) lactulose [Enulose] 10 gram/15 mL solution 10 g PO BID insulin glargine [Lantus Solostar U-100 Insulin] 100 unit/mL (3 mL) insulin pen 10 unit subcut QHS lorazepam 0.5 mg tablet 0.5 mg PO TID PRN (Reason: anxiety) Qty: 9 0RF Discontinued miconazole nitrate [Antifungal (miconazole)] 2 % cream 1 applic topical BID Referrals / Follow Up: Joseluis Mcghee MD [Primary Care Provider] - Disposition Disposition (needs filled in before D/C Order can be placed): NonSkilled NH/Intermed Care Charges/Coding Visit Charges Inpatient E&M: 30567 Disch Hosp >30min
[2023-09-16] MEDS: cloZAPine 100 MG TABLET PO (17:43)
--- NOTE | 2023-09-16 19:06 | NURSING ---
Called report to RN at [facility]
[2023-09-16] MEDS: MELATONIN 3 MG TABLET 6 MG PO (20:56)
[2023-09-16] MEDS: Tamsulosin HCl 0.4 MG Capsule 0.400000000000000022 MG PO (20:56)
[2023-09-16] MEDS: Insulin Glargine-YFGN 100 UNIT/ML Pen 10 UNIT SC (20:57)
[2023-09-16] MEDS: Remdesivir 100 MG in 0.9% Normal Saline (250mL Bag) 230 ML 250 MG IV (20:57)
[2023-09-16] MEDS: Atorvastatin Calcium 10 MG Tablet PO (20:57)
[2023-09-17 00:54] LABS: Bedside Glucose 172 mg/dL (74-106)
== END 2023-09-16 23:15 | disposition intermediate care facility (04) | DRG 179 ==
LOC: ED 04:53 → PCU 05:26
PROVIDERS: Admitting Provider Student in an Organized Health Care Education/Training Program; Emergency Provider Emergency Medicine; PCP Family Medicine; Visit Provider Internal Medicine
DX: U07.1 COVID-19 (principal); F25.9 Schizoaffective disorder, unspecified; F03.90 Unspecified dementia, unspecified severity, without behavioral disturbance, psychotic disturbance, mood disturbance, and anxiety; E11.9 Type 2 diabetes mellitus without complications; Z79.4 Long term (current) use of insulin; I10 Essential (primary) hypertension; J45.909 Unspecified asthma, uncomplicated; E78.5 Hyperlipidemia, unspecified; F17.210 Nicotine dependence, cigarettes, uncomplicated; F17.290 Nicotine dependence, other tobacco product, uncomplicated; R09.02 Hypoxemia; Z66 Do not resuscitate; Z79.84 Long term (current) use of oral hypoglycemic drugs; Z79.899 Other long term (current) drug therapy; Z86.16 Personal history of COVID-19
CPT/HCPCS: 36415; 71045; 80048; 82962; 83605; 85025; 85379; 87040; 93005; 94640; 99285; 99406; J7030; J7040; J7050; A4216; J0248